=== PATIENT | female | born 1960 | race Two or more races ===

== ENCOUNTER 2020-03-12 08:45 | Outpatient (REF) | payer OTHER, SELFPAY | END 2020-03-12 08:46 | disposition home or self-care (01) | LOC: HO.LAB 08:45 | PROVIDERS: PCP Family Medicine; Visit Provider Internal Medicine | DX: Z20.828 Contact with and (suspected) exposure to other viral communicable diseases (principal) | CPT/HCPCS: C9803; U0003 ==

== ENCOUNTER → 2021-02-02 09:02 | Outpatient (BNVA) | payer OTHER, SELFPAY | PROVIDERS: PCP Family Medicine; Referring Provider Family Medicine; Visit Provider Internal Medicine | DX: I42.1 Obstructive hypertrophic cardiomyopathy (principal); Z86.73 Personal history of transient ischemic attack (TIA), and cerebral infarction without residual deficits; I10 Essential (primary) hypertension; E11.8 Type 2 diabetes mellitus with unspecified complications; F17.200 Nicotine dependence, unspecified, uncomplicated; R94.31 Abnormal electrocardiogram [ECG] [EKG] | CPT/HCPCS: 93005; 99212 ==

== ENCOUNTER 2021-02-21 10:22 | Emergency (ER) | payer OTHER, SELFPAY ==
--- NOTE | ~2021-02-21 | US_ITS ---
EXAMINATION: US DIAGNOSTIC ULTRASOUND BREAST, RIGHT CLINICAL INFORMATION: Right breast pain and tenderness, suspect abscess. Patient in emergency department. COMPARISON: Mammography 06/17/2018. TECHNIQUE: Ultrasound right breast is performed out of the hospital, targeted to the area of clinical concern retroareolar and periareolar region. Grayscale imaging and color Doppler are performed without and with harmonics. Case is discussed with the standards analyst immediately following imaging. FINDINGS: There is abscess involving the areolar dermis and extending deep to the skin with overall dimensions approximately 3.1 x 2.1 x 3.0 cm. On cine images, there is subtle swirling material inside the abscess. The dermis is thickening at site of retroareolar abscess measuring approximately 1 cm in thickness. At the base of the abscess 8:00 periareolar region 1 cm from nipple is an indeterminate strongly hypoechoic spiculated lesion measuring 1.4 x 1.1 x 1.2 cm. This shows no posterior shadowing. It is uncertain if this is part of the abscess or a separate breast lesion. Results called and discussed with Dr. Kim in the emergency department and also discussed with Dr. Dolan at approximately 1217 hours. US/US breast RT limited IMPRESSION: 1. Abscess involving the areolar dermis and extending deep to the skin with overall dimensions 3.1 x 2.1 x 3.0 cm. 2. Irregular hypoechoic mass at base of abscess 8:00 areolar 1 cm from nipple 1.4 x 1.1 x 1.2 cm, possibly part of the abscess although separate breast mass cannot be excluded. ASSESSMENT: BI-RADS 3: Probably Benign RECOMMENDATION: Surgical consult.
[2021-02-21 10:31] VITALS: BP 128/82; PULSE 90; RESP 18; TEMP 36.7; O2SAT 98; BMI 22.8
--- NOTE | 2021-02-21 10:39 | ED_ITS ---
HPI - Skin/Abscess/Foreign Bdy General Chief complaint: General Medical Stated complaint: Lump in breast Time Seen by Provider: 02/21/21 10:38 Source: patient Mode of arrival: ambulatory Limitations: no limitations History of Present Illness MD complaint: abscess/boil and lesion Onset (ago): week(s) (1) Tetanus up to date: yes Location: chest (R breast) Severity: moderate Quality: aching Pain Consistency: constant Relieving factors: none Exacerbating factors: palpation Context: none Associated symptoms: denies other symptoms Treatments prior to arrival: none Related Data Home Medications Medication Instructions Recorded Confirmed albuterol sulfate 90 mcg/actuation 0 mcg INHALATION 02/02/21 02/02/21 aerosol inhaler (Ventolin HFA) allopurinol 100 mg tablet 100 mg PO QAM 02/02/21 02/02/21 amlodipine 10 mg tablet 10 mg PO DAILY 02/02/21 02/02/21 ascorbic acid (vitamin C) 500 mg 500 mg PO BID 02/02/21 02/02/21 tablet (Vitamin C) aspirin 81 mg tablet,delayed 81 mg PO BEDTIME 02/02/21 02/02/21 release atorvastatin 80 mg tablet 80 mg PO BEDTIME 02/02/21 02/02/21 citalopram 10 mg tablet 10 mg PO DAILY 02/02/21 02/02/21 clonazepam 1 mg tablet 1 mg PO TID PRN 02/02/21 02/02/21 dapagliflozin 10 mg tablet 10 mg PO DAILY 02/02/21 02/02/21 (Farxiga) divalproex 500 mg tablet,delayed 1,000 mg PO 02/02/21 02/02/21 release docusate sodium 100 mg capsule 100 mg PO BID 02/02/21 02/02/21 ferrous sulfate 325 mg (65 mg 0 mg PO 02/02/21 02/02/21 iron) tablet (FeroSul) fluticasone 100 mcg-salmeterol 50 1 ea PO 02/02/21 02/02/21 mcg/dose blistr powdr for inhalation glipizide 10 mg tablet 10 mg PO 02/02/21 02/02/21 lancets 33 gauge (TRUEplus Lancets) #100 ea 02/02/21 02/02/21 levothyroxine 200 mcg tablet 200 mcg PO QAM 02/02/21 02/02/21 omeprazole 20 mg capsule,delayed 20 mg PO QAM 02/02/21 02/02/21 release quetiapine 200 mg tablet 200 mg PO BEDTIME 02/02/21 02/02/21 quetiapine 50 mg tablet 50 mg PO BEDTIME 02/02/21 02/02/21 tramadol 50 mg tablet 50 mg PO DAILY PRN 02/02/21 02/02/21 Previous Rx's Medication Instructions Recorded cephalexin 500 mg capsule 500 mg PO QID 7 Days #28 cap 02/21/21 hydrocodone 5 mg-acetaminophen 325 1 tab PO Q6H PRN #12 tab 02/21/21 mg tablet Allergies Allergy/AdvReac Type Severity Reaction Status Date / Time No Known Allergies Allergy Verified 02/21/21 10:31 Review of Systems Review of Systems: Constitutional : No Fever, No Chills ENT/Mouth : No sore throat, No Rhinorrhea Eyes: No Eye Pain, No Swelling, No Redness Cardiovascular : No Chest Pain, No SOB Respiratory : No Cough, No Sputum Gastrointestinal : No Nausea, No Vomiting, No Diarrhea, No abdominal Pain Genitourinary : No Dysuria, No Hematuria Musculoskeletal : No joint pain, No Myalgias, No Joint Swelling Skin : pos Skin Lesions, positive skin rash Neuro : No Weakness, No Numbness, No Headache Psych : No Anxiety, No Depression Heme/Lymph: No Bruising, No Bleeding,No Lymphadenopathy Endocrine : No Polyuria, No Polydipsia All other systems reviewed and are negative PMFSH Past Medical History Attestation statement: The following information was validated with the patient. Medical History Cerebrovascular accident Essential hypertension HOCM (hypertrophic obstructive cardiomyopathy) Smoking Type 2 diabetes mellitus with unspecified complications Surgical History History of thyroidectomy (~2017) Family History Family History (Updated 02/02/21 @ 09:40 by ZEKE Hanson) Father No problems noted. Mother Heart attack Social History Social History Alcohol intake: current Alcohol intake frequency: holidays/special occasions only Patient Tobacco Use Status: Current everyday Tobacco user Tobacco use type: Cigarette Cigarettes Per Day: 7 Use of substances other than those prescribed or required for medical reasons: Yes Substance Use Type: Marijuana Advance Directives: No Advance Directives Information Provided: Yes Patient : No Physical Exam Vital Signs: Vital Signs: Last Vital Signs Temp 98.1 F 02/21/21 10:31 Pulse 90 02/21/21 10:31 Resp 18 02/21/21 10:31 BP 128/82 02/21/21 10:31 Pulse Ox 98 02/21/21 10:31 BMI result Body Mass Index 22.8 Appearance: Alert. Oriented X3. No acute distress. Eyes: Pupils equal, round and reactive to light. ENT: Pharynx normal. Neck: Normal inspection. Neck supple. CVS: Normal heart rate and rhythm. Pulses normal. Chest: R breast cellulitis noted overlying areola and R lateral aspect of breast abscess noted R areola 6 oclock to 10 oclock 5cm fluctuant warm and ttp nipped is retracted Respiratory: No respiratory distress. Breath sounds normal. Abdomen: Soft and nontender. Skin: Skin warm and dry. Normal skin color. Normal skin turgor. Extremities: No lower extremity edema. No calf ttp Neuro: Oriented X 3. No motor deficit. No sensory deficit. Course Course Course Narrative: area I/D by Dr. Dolan at bedside plan to DC on cephalexin MDM - Skin/Abscess/Foreign Bdy MDM Narrative Medical decision making narrative: 60 yo female with CVA, HTN, HOCM, DM here with R breast abscess x 1 week no prior hx of breast cancer - at this time labs, cultures, empiric zosyn - the patient tells me since it involves her nipple she does not want me to I/D the area she prefers a surgeon evaluate her prior to any I/D. Will notify surgery. Lab Data Result diagrams: 02/21/21 11:05 02/21/21 11:05 Labs: Lab Results 02/21/21 02/21/21 02/21/21 Range/Units 11:05 11:05 11:05 WBC 5.9 (4.8-10.8) X10*3/uL RBC 4.41 (4.20-5.50) X10*6/uL Hgb 12.8 (12.0-16.0) g/dl Hct 39.4 (37.0-47.0) % MCV 89.3 (80.0-98.0) fL MCH 29.0 (27.0-33.0) pg MCHC 32.5 (31.0-35.0) g/dl RDW 12.7 (11.0-16.0) % Plt Count 242 (160-400) X10*3/uL MPV 9.5 (9.4-12.3) fL Immature Gran % (Auto) 0.3 (0.0-0.4) % Neut % (Auto) 72.1 (45-73) % Lymph % (Auto) 16.5 L (20-40) % [place] % (Auto) 9.9 (2-11) % Eos % (Auto) 1.0 (0-4) % Baso % (Auto) 0.2 (0-2) % Lymph # (Auto) 1.0 L (1.2-4.9) X10*3/uL [place] # (Auto) 0.6 (0.1-1.2) X10*3/uL Eos # (Auto) 0.1 (0.0-0.4) X10*3/uL Baso # (Auto) 0.0 (0.0-0.2) X10*3/uL Abs Immat Gran (auto) 0.02 (0.00-0.03) X10*3/uL Absolute Neuts (auto) 4.2 (2.0-8.3) x10*3/uL Absolute Nucleated RBC 0.000 (0.0-0.012) X10*3/uL Nucleated RBC % (auto) 0.0 (0.0-0.2) /100WBC Sodium 140 (135-145) mmol/L Potassium 4.1 (3.3-5.1) mmol/L Chloride 103 (96-108) mmol/L Carbon Dioxide 27 (22-29) mmol/L Anion Gap 14 (12-20) BUN 19 H (9-16) mg/dL Creatinine 1.63 H (0.5-1.4) mg/dL Estim Creat Clear Calc 31.6 Estimated GFR 32 Random Glucose 230 H (60-115) mg/dL Lactic Acid 1.2 (0.5-2.0) mmol/L Calcium 9.4 (8.4-10.2) mg/dL Total Bilirubin 0.6 (0.0-1.0) mg/dL Direct Bilirubin 0.2 (0.0-0.5) mg/dL AST 17 (5-31) U/L ALT 17 (0-31) U/L Alkaline Phosphatase 63 (39-117) U/L Total Protein 6.6 (6.5-8.0) g/dL Albumin 4.0 (3.5-5.0) g/dL COVID-19 ([facility]) (Negative) COVID-19 Clin Com 02/21/21 Range/Units 11:05 WBC (4.8-10.8) X10*3/uL RBC (4.20-5.50) X10*6/uL Hgb (12.0-16.0) g/dl Hct (37.0-47.0) % MCV (80.0-98.0) fL MCH (27.0-33.0) pg MCHC (31.0-35.0) g/dl RDW (11.0-16.0) % Plt Count (160-400) X10*3/uL MPV (9.4-12.3) fL Immature Gran % (Auto) (0.0-0.4) % Neut % (Auto) (45-73) % Lymph % (Auto) (20-40) % [place] % (Auto) (2-11) % Eos % (Auto) (0-4) % Baso % (Auto) (0-2) % Lymph # (Auto) (1.2-4.9) X10*3/uL [place] # (Auto) (0.1-1.2) X10*3/uL Eos # (Auto) (0.0-0.4) X10*3/uL Baso # (Auto) (0.0-0.2) X10*3/uL Abs Immat Gran (auto) (0.00-0.03) X10*3/uL Absolute Neuts (auto) (2.0-8.3) x10*3/uL Absolute Nucleated RBC (0.0-0.012) X10*3/uL Nucleated RBC % (auto) (0.0-0.2) /100WBC Sodium (135-145) mmol/L Potassium (3.3-5.1) mmol/L Chloride (96-108) mmol/L Carbon Dioxide (22-29) mmol/L Anion Gap (12-20) BUN (9-16) mg/dL Creatinine (0.5-1.4) mg/dL Estim Creat Clear Calc Estimated GFR Random Glucose (60-115) mg/dL Lactic Acid (0.5-2.0) mmol/L Calcium (8.4-10.2) mg/dL Total Bilirubin (0.0-1.0) mg/dL Direct Bilirubin (0.0-0.5) mg/dL AST (5-31) U/L ALT (0-31) U/L Alkaline Phosphatase (39-117) U/L Total Protein (6.5-8.0) g/dL Albumin (3.5-5.0) g/dL COVID-19 ([facility]) Negative (Negative) COVID-19 Clin Com See Note Discharge Plan Discharge Clinical Impression: Abscess of breast Patient Disposition: Home, Self-Care Instructions: Cellulitis (ED), Abscess Incision and Drainage (DC) Additional Instructions: return to ED for any worsening symptoms or concerns monitor for increased redness, drainage, fevers or any other concerns you will need more testing to rule out any other underlying lesion to cause this abscess 1. Abscess involving the areolar dermis and extending deep to the skin with overall dimensions 3.1 x 2.1 x 3.0 cm. ? 2. Irregular hypoechoic mass at base of abscess 8:00 areolar 1 cm from nipple 1.4 x 1.1 x 1.2 cm, possibly part of the abscess although separate breast mass cannot be excluded Prescriptions: New hydrocodone-acetaminophen 5-325 mg tablet 1 tab PO Q6H PRN (Reason: pain) Qty: 12 RF: 0 cephalexin 500 mg capsule 500 mg PO QID 7 Days Qty: 28 RF: 0 No Action quetiapine 50 mg tablet 50 mg PO BEDTIME RF: 0 divalproex 500 mg tablet,delayed release (DR/EC) 1,000 mg PO RF: 0 clonazepam 1 mg tablet 1 mg PO TID PRNRF: 0 quetiapine 200 mg tablet 200 mg PO BEDTIME RF: 0 citalopram 10 mg tablet 10 mg PO DAILY RF: 0 (DME) lancets [TRUEplus Lancets] 33 gauge misc See Rx Instructions ea Not Applicable TID Qty: 100 RF: 0 fluticasone propion-salmeterol 100-50 mcg/dose blister with device 1 ea PO RF: 0 omeprazole 20 mg capsule,delayed release(DR/EC) 20 mg PO QAM RF: 0 allopurinol 100 mg tablet 100 mg PO QAM RF: 0 Farxiga 10 mg tablet 10 mg PO DAILY RF: 0 tramadol 50 mg tablet 50 mg PO DAILY PRNRF: 0 albuterol sulfate [Ventolin HFA] 90 mcg/actuation HFA aerosol inhaler 0 mcg inhalation RF: 0 levothyroxine 200 mcg tablet 200 mcg PO QAM RF: 0 docusate sodium 100 mg capsule 100 mg PO BID RF: 0 ferrous sulfate [FeroSul] 325 mg (65 mg iron) tablet 0 mg PO RF: 0 amlodipine 10 mg tablet 10 mg PO DAILY RF: 0 ascorbic acid (vitamin C) [Vitamin C] 500 mg tablet 500 mg PO BID RF: 0 aspirin 81 mg tablet,delayed release (DR/EC) 81 mg PO BEDTIME RF: 0 glipizide 10 mg tablet 10 mg PO RF: 0 atorvastatin 80 mg tablet 80 mg PO BEDTIME RF: 0 Referrals: Sascha Dolan MD [Physician] - 2 days (call for appointment this Saturday) Stand Alone Forms: Work/School Release
[2021-02-21 11:15] LABS: MANUAL DIFF FLAG NO
[2021-02-21 11:17] LABS: Basophils Percent Auto 0.2 % (0-2); Eosinophils Absolute Auto 0.1 X10*3/uL (0.0-0.4); Hematocrit 39.4 % (37.0-47.0); Hemoglobin 12.8 g/dl (12.0-16.0); Imm Gran Abs Auto 0.02 X10*3/uL (0.00-0.03); Imm Gran Pct Auto 0.3 % (0.0-0.4); Lymphocytes Percent Auto 16.5 % (20-40); Mean Corpuscular HGB Conc 32.5 g/dl (31.0-35.0); Mean Corpuscular Volume 89.3 fL (80.0-98.0); Mean Platelet Volume 9.5 fL (9.4-12.3); Monocytes Absolute Auto 0.6 X10*3/uL (0.1-1.2); Monocytes Percent Auto 9.9 % (2-11); Neutrophils Absolute Auto 4.2 x10*3/uL (2.0-8.3); Neutrophils Percent Auto 72.1 % (45-73); Platelet Count 242 X10*3/uL (160-400); Red Blood Count 4.41 X10*6/uL (4.20-5.50); Red Cell Distribution Width 12.7 % (11.0-16.0); White Blood Count 5.9 X10*3/uL (4.8-10.8)
[2021-02-21 11:27] LABS: Lactic Acid 1.2 mmol/L (0.5-2.0)
[2021-02-21] MEDS: Piperacillin Sodium/Tazobactam 3.375 GM in 0.9 % Sodium Chloride 50 ML IV (11:31)
[2021-02-21] MEDS: oxyCODONE HCl Immed Release 5 MG TABLET PO (11:31)
[2021-02-21] MEDS: ondansetron HCL 4 MG/2 ML VIAL IVPUSH (11:31)
[2021-02-21 11:33] LABS: Alanine Aminotransferase 17 U/L (0-31); Alkaline Phosphatase 63 U/L (39-117); Anion Gap 14 (12-20); Aspartate Amino Transferase 17 U/L (5-31); Bilirubin Direct 0.2 mg/dL (0.0-0.5); Bilirubin Total 0.6 mg/dL (0.0-1.0); Blood Urea Nitrogen 19 mg/dL (9-16); Calcium 9.4 mg/dL (8.4-10.2); Carbon Dioxide 27 mmol/L (22-29); Chloride 103 mmol/L (96-108); Creatinine Clr Calc Pharmacy 31.6; Estimated Glomerular Filt Rate 32; Glucose Random 230 mg/dL (60-115); Potassium 4.1 mmol/L (3.3-5.1); Sodium 140 mmol/L (135-145); Total Protein 6.6 g/dL (6.5-8.0)
[2021-02-21 12:01] LABS: COVID-19 Test Negative (Negative); IDNOW Serial# 9DD0AD1C
--- NOTE | 2021-02-21 12:39 | P.CONGS_ITS ---
History of Present Illness Consult details Consult date: 02/21/21 Narrative: 60-year-old female patient presenting with complaints of pain in the right nipple. This began several days ago is increasing in severity. She denies a previous history of a similar episode. She denies a previous history of breast problems or breast surgery. Her family history is negative for breast cancer. She denies fever, chills, nausea, vomiting, or nipple discharge. Review of Systems Constitutional: Constitutional: Denies chills, Denies fever(s), Denies headache(s) and Denies poor appetite ENT: Denies dizziness and Denies headache(s) Cardiovascular: Cardiovascular: Denies chest pain, Denies rapid heart rate, Denies palpitations and Denies slow heart rate Respiratory: Respiratory: Denies chest congestion, Denies cough, Denies pain on inspiration and Denies wheezing Gastrointestinal: Gastrointestinal: Denies abdominal pain, Denies bloating, Denies change in stool character, Denies constipation, Denies diarrhea, Denies nausea, Denies vomiting and Denies hematemesis Musculoskeletal: Musculoskeletal: Denies back pain, Denies arthralgias, Denies joint swelling and Denies numbness Integumentary/Breasts: Skin/Breast: Reports breast swelling, Reports breast skin changes, Reports breast pain, Denies change in pigmentation, Denies erythema and Denies rash Neurologic: Denies dizziness, Denies headache(s) and Denies numbness Psychiatric: Psychiatric: Denies anxiety and Denies depression Endocrine: Endocrine: Denies palpitations Hematologic/Lymphatic: Hematologic/Lymphatic: Denies easy bleeding, Denies easy bruising and Denies lymphadenopathy Allergic/Immunologic: Allergic/Immunologic: Denies wheezing PMFSH Past Medical History Medical History Cerebrovascular accident Essential hypertension HOCM (hypertrophic obstructive cardiomyopathy) Smoking Type 2 diabetes mellitus with unspecified complications Family History Family History (Updated 02/02/21 @ 09:40 by ZEKE Hanson) Father No problems noted. Mother Heart attack Surgical History Surgical History History of thyroidectomy (~2017) Social History Social History Alcohol intake: current Alcohol intake frequency: holidays/special occasions only Patient Tobacco Use Status: Current everyday Tobacco user Tobacco use type: Cigarette Cigarettes Per Day: 7 Use of substances other than those prescribed or required for medical reasons: Yes Substance Use Type: Marijuana Advance Directives: No Advance Directives Information Provided: Yes Patient : No Meds Allergies Allergy/AdvReac Type Severity Reaction Status Date / Time No Known Allergies Allergy Verified 02/21/21 10:31 Home Medications Medication Instructions Recorded Confirmed Last Taken Type albuterol sulfate 90 mcg/actuation 0 mcg INHALATION 02/02/21 02/02/21 Unknown History aerosol inhaler (Ventolin HFA) allopurinol 100 mg tablet 100 mg PO QAM 02/02/21 02/02/21 Unknown History amlodipine 10 mg tablet 10 mg PO DAILY 02/02/21 02/02/21 Unknown History ascorbic acid (vitamin C) 500 mg 500 mg PO BID 02/02/21 02/02/21 Unknown History tablet (Vitamin C) aspirin 81 mg tablet,delayed 81 mg PO BEDTIME 02/02/21 02/02/21 Unknown History release atorvastatin 80 mg tablet 80 mg PO BEDTIME 02/02/21 02/02/21 Unknown History citalopram 10 mg tablet 10 mg PO DAILY 02/02/21 02/02/21 Unknown History clonazepam 1 mg tablet 1 mg PO TID PRN 02/02/21 02/02/21 Unknown History dapagliflozin 10 mg tablet 10 mg PO DAILY 02/02/21 02/02/21 Unknown History (Farxiga) divalproex 500 mg tablet,delayed 1,000 mg PO 02/02/21 02/02/21 Unknown History release docusate sodium 100 mg capsule 100 mg PO BID 02/02/21 02/02/21 Unknown History ferrous sulfate 325 mg (65 mg 0 mg PO 02/02/21 02/02/21 Unknown History iron) tablet (FeroSul) fluticasone 100 mcg-salmeterol 50 1 ea PO 02/02/21 02/02/21 Unknown History mcg/dose blistr powdr for inhalation glipizide 10 mg tablet 10 mg PO 02/02/21 02/02/21 Unknown History lancets 33 gauge (TRUEplus Lancets) #100 ea 02/02/21 02/02/21 Unknown History levothyroxine 200 mcg tablet 200 mcg PO QAM 02/02/21 02/02/21 Unknown History omeprazole 20 mg capsule,delayed 20 mg PO QAM 02/02/21 02/02/21 Unknown History release quetiapine 200 mg tablet 200 mg PO BEDTIME 02/02/21 02/02/21 Unknown History quetiapine 50 mg tablet 50 mg PO BEDTIME 02/02/21 02/02/21 Unknown History tramadol 50 mg tablet 50 mg PO DAILY PRN 02/02/21 02/02/21 Unknown History Physical Exam Vital Signs: Vital Signs: Last Vital Signs Temp 98.1 F 02/21/21 10:31 Pulse 90 02/21/21 10:31 Resp 18 02/21/21 10:31 BP 128/82 02/21/21 10:31 Pulse Ox 98 02/21/21 10:31 BMI result Body Mass Index 22.8 Const: General: no acute distress and well developed Nutritional Appearance: well nourished Orientation/consciousness: patient oriented x3 Limitations: no limitations HENMT: Head: Yes normocephalic and Yes atraumatic Ears: hearing grossly normal bilaterally Chest: Other: Right breast with swelling in the nipple-areolar complex at the 8 o'clock position with an obvious area of fluctuance measuring approximately 2- 3 cm in diameter. Site is exquisitely tender to palpation. Findings are suggestive of an abscess within the subcutaneous tissue. Chest/axillae images: 1. Site of abscess right breast Resp: Effort & Inspection: normal respiratory effort, no audible wheezes, no cough and no respiratory distress GI: Inspection: Yes normal to inspection Skin: Other: Right breast cellulitis as noted above Neuro: General: patient oriented x3 Extrem: General: Yes no clubbing, cyanosis or edema Results Labs Result diagrams: 02/21/21 11:05 02/21/21 11:05 Labs: Abnormal lab results 02/21/21 02/21/21 Range/Units 11:05 11:05 Lymph % (Auto) 16.5 L (20-40) % Lymph # (Auto) 1.0 L (1.2-4.9) X10*3/uL BUN 19 H (9-16) mg/dL Creatinine 1.63 H (0.5-1.4) mg/dL Random Glucose 230 H (60-115) mg/dL Short CBC 02/21/21 Range/Units 11:05 WBC 5.9 (4.8-10.8) X10*3/uL Hgb 12.8 (12.0-16.0) g/dl Hct 39.4 (37.0-47.0) % Plt Count 242 (160-400) X10*3/uL BMP 02/21/21 11:05 Sodium 140 Potassium 4.1 Chloride 103 Carbon Dioxide 27 BUN 19 H Creatinine 1.63 H Calcium 9.4 Liver Function 02/21/21 Range/Units 11:05 Total Bilirubin 0.6 (0.0-1.0) mg/dL Direct Bilirubin 0.2 (0.0-0.5) mg/dL AST 17 (5-31) U/L ALT 17 (0-31) U/L Alkaline Phosphatase 63 (39-117) U/L Albumin 4.0 (3.5-5.0) g/dL All other labs normal. Assessment and Plan (1) Acute mastitis of right breast: Status: Acute 60-year-old female patient presenting with mastitis of the right breast involving the right nipple-areolar complex. On examination the patient is found to have an abscess within the skin and subcutaneous tissue. This confirmed on ultrasound as well. I recommended a needle aspiration of the abscess. This was performed at the bedside with production of 3 cc of white purulent material. She tolerated the procedure well and will return to the office later this week for a follow-up examination. She will need follow-up imaging of the breasts once the acute inflammation is resolved. Patient expressed understanding and agrees with the plan. She should be placed on oral antibiotics upon discharge. Procedures Date of Service Date of Service: 02/21/21 Abscess I/D Additional comments: Preoperative diagnosis: Abscess right breast Postoperative diagnosis: Same Procedure: needle aspiration abscess right breast Anesthesia: Local lidocaine 1% plain Indications: Palpable area of fluctuance in the right breast at the nipple- areolar complex. Findings: Abscess right breast Complications: None Procedure details: Patient was placed in a supine position. The site of surgery was confirmed by the patient and informed consent assured. Skin was prepped with Betadine and draped in a sterile fashion. Local anesthesia consisting of 1% lidocaine was infiltrated over the abscess. An 18 gauge needle was then advanced into the abscess and 3 mL of white fluid aspirated. Sterile bandages were applied. The patient tolerated the procedure well was discharged to home in stable condition.
[2021-02-21] MEDS: Lidocaine HCl 1 % MPF 5 ML VIAL SUBCUT (12:56)
== END 2021-02-21 13:07 | disposition home or self-care (01) ==
PROVIDERS: Emergency Provider Emergency Medicine
DX: N61.0 Mastitis without abscess (principal); N61.1 Abscess of the breast and nipple; F17.210 Nicotine dependence, cigarettes, uncomplicated; Z20.822 Contact with and (suspected) exposure to COVID-19; Z71.6 Tobacco abuse counseling; Z79.899 Other long term (current) drug therapy
CPT/HCPCS: 36415; 76642; 80048; 80076; 83605; 85025; 87040; 87635; 96365; 96375; 99284; J2405; J2543

== ENCOUNTER → 2021-02-28 08:30 | Outpatient (BNVA) | payer OTHER, SELFPAY | PROVIDERS: PCP Family Medicine; Referring Provider Family Medicine; Visit Provider Surgery | DX: Z48.817 Encounter for surgical aftercare following surgery on the skin and subcutaneous tissue (principal); N61.0 Mastitis without abscess | CPT/HCPCS: 97597; 99212 ==

== ENCOUNTER → 2021-04-06 09:20 | Outpatient (REF) | payer OTHER, SELFPAY ==
--- NOTE | 2021-04-06 09:24 | CA_ITS ---
Transthoracic Echocardiogram Amended Patient (Last, First, Middle): Sary Valdivia, Gender: Female Date of : 1960 Age: 60 Procedure Date: 04/06/2021 Procedure Type: Transthoracic Echocardiogram Location: OP Height: 162.56 cm Weight: 61.24 kg BSA: 1.66 m2 Heart Rate: bpm BP: 132 / 98 mmHg Blackjack Supervisor: COLETTE Referring MD: Miguel Angel Vann MD Mortgage Processing Clerk: Adalberto Granger MD Symptoms: I42.1 - Obstructive hypertrophic cardiomyopathy Study Quality: Fair ECG Rhythm: Sinus Conclusions: - 1. Normal LV systolic function with grade 1 diastolic dysfunction with moderate asymmetric septal hypertrophy dynamic obstruction 2. Normal cardiac valvular Doppler 3. Normal RV systolic pressure 4. No gross pericardial effusion Findings Left Ventricle Normal left ventricular size, thickness, and systolic function. The visually estimated ejection fraction is between 65-70%. Spectral Doppler is indicative of an impaired relaxation filling pattern. E/E prime ratio is <8, consistent with normal filling pressures. Evidence suggests grade I (mild) diastolic dysfunction. There is moderate septal asymmetric hypertrophy. Resting gradient across LVOT a 12 mm Hg which increased to 26 mmHg with Valsalva maneuver Right Ventricle Normal right ventricular cavity size and systolic function. Atria The left atrium is normal in size. Interatrial shunt cannot be excluded. The right atrium is normal in size. Aortic Valve The aortic valve structure and function is likely normal. There is no aortic valve stenosis. There is no aortic valve regurgitation. Mitral Valve There is mild anterior and posterior mitral leaflet thickening. There is trace mitral valve regurgitation. There is no mitral valve stenosis. Pulmonic Valve The pulmonic valve was not well visualized. Tricuspid Valve Likely normal tricuspid valve structure and function. The right ventricular systolic pressure is normal. Great Vessels All visible segments of the aorta are normal in size. The pulmonary artery was not well visualized. Venous The inferior vena cava is normal in size and collapses greater than 50% with inspiration. Pericardium/Pleural There is no evidence of pericardial effusion. Prior Study Comparison No significant change compared to prior study dated: 02/01/2019. Measurements 2D Linear Measurements IVSd: 1.63 0.6-0.9/0.6-1.0 cm LVIDd: 2.91 3.9-5.3/4.2-5.9 cm LVIDd Index: 1.75 2.4-3.2/2.2-3.1 cm/m2 LVIDs: 2.19 2.0-3.6 cm LVPWd: 1.36 0.7-1.1 cm Ao Root: 3.50 2.1-3.5 cm LA Diam: 3.10 2.7-3.8/3.0-4.0 cm LAIDs Index: 1.87 1.5-2.3 cm/m2 LV Mass: 187.97 67-162/88-224 g LV Mass Index: 113.23 43-95/49-115 g/m2 LVOT Diam: 2.00 3.0+(-)1.3 cm 2D Volumes LA Vol: 21.20 Mitral Valve MV Pk E: 0.39 MV PK A: 0.75 MV Decel Time: 211.00 E/A: 0.50 E'Lateral: 5.33 E'Medial: 3.15 E/E' Med: 12.50 E/E' Lat: 7.40 PHT: 62.00 MVA PHT: 3.55 Decel [place]: 1.87 Aortic Valve AoV Pk Tahir: 1.53 AoV Mn Tahir: 1.17 AoV VTI: 0.28 AoV Pk Grad: 9.00 Aov Mn Grad: 6.00 MIKA Cont.VTI: 3.41 LVOT LVOT Pk Tahir: 1.49 LVOT Mn Tahir: 1.17 LVOT VTI: 0.30 LVOT Pk Grad: 9.00 LVOT Mn Grad: 6.00 LVOT Diam: 2.00 LVOT Area: 3.14 Diastolic Function MV Pk E: 0.39 MV Pk A: 0.75 E/A: 0.50 E'Medial: 3.15 E/E' Med: 12.50 E' Laterial: 5.33 E/E' Lat: 7.40 Right Ventricle TAPSE (mm): 17.50 TVS' Tahir: 9.36 Tricuspid Valve TR Pk Tahir: 1.36 TR Pk Grad: 7.00 RA Press: 3.00 RVSP: 10.00 Great Vessels Aorta Ao Root-2D: 3.50 2.0-3.7 cm Ao Asc: 3.50 2.1-3.4 cm Ao Arch: 2.40 Updated in Other Vendor System with Status of Final Adalberto Granger MD electronically signed on 04/06/2021 2:34:05 PM with status of Final
== END ==
LOC: HO.CARD 09:20
PROVIDERS: Visit Provider Internal Medicine
DX: I42.1 Obstructive hypertrophic cardiomyopathy (principal)
CPT/HCPCS: 93306

== ENCOUNTER → 2021-04-10 09:27 | Outpatient (REF) | payer OTHER, SELFPAY ==
--- NOTE | ~2021-04-10 | NM_ITS ---
Lexiscan Myocardial perfusion study Indication: Chest pain, assess for coronary disease and ischemia Technique: The patient was brought in for a Lexiscan perfusion study on 04/10/2021 and was injected 0.4 mg of Lexiscan intravenously. Within a minute of this injection 20 mCi of sestamibi was given intravenously. Images were obtained using the SPECT gamma camera interlaced with the gating device. Images were obtained in supine position. Resting perfusion study was performed on 04/12/2021. Patient was administered 25 mCi of sestamibi intravenously at rest. Images were then obtained in supine position. Total DLP 81mGy-cm. Images were processed with the software and compared side to side in short axis, horizontal long axis and vertical long axis views. Findings: Raw acquisition was reviewed. The stress perfusion study showed no significant perfusion abnormality. Both uncorrected as well as CT attenuation corrected images were reviewed. The gated study shows normal LV systolic function with calculated LVEF of 36% but visually normal range. LV cavity is normal in size. The gated study shows normal wall thickening and contraction of segments. Resting study shows no significant perfusion abnormality. Gating at rest reveals normal wall motion with ejection fraction at 30%-but visually normal. The findings are consistent with no definite reversible or fixed perfusion defects. NM/NM cardiolite stress test Impression: 1. Myocardial perfusion imaging study shows normal myocardial perfusion. 2. Gated LVEF appears normal visually, but calculated EFs are in 30s. Could be technical. 3. Transient ischemic dilatation not present. EKG component of the test reported separately.
--- NOTE | 2021-04-10 09:30 | CA_ITS ---
Acquisition Time: 2021-04-10 10:46:15 Total Exercise Time: 00:02:52 Test Indications: Abnormal ECG Medications: ALBUTEROL ALLOPURINOL ASA AMLODIPINE CITALOPRAM FAXIGA LEVOTHYROXINE GLIPIZIDE OMEPRAZOLE ATORVASTATIN Protocol: LING Max HR: 146 BPM 91% of Pred: 160 BPM Max BP: 120/080 mmHG Max Work Load: 4.6 METS Exercise stress test with exercise 2 min 52 sec of Ling protocol, with mod sob and fatigue. Treadmill slowed to 1 MPH and testing changed to a pharmacological stress test with Lexiscan injection, without anginal symtoms, without arrythmia, with normotensive response to injection, with nondiagnostic EKG for ischemia. Nuclear images pending. Test reviewed with Dr Granger. Referred By: Miguel Angel Vann Overread By: JUDAH LE
== END ==
LOC: HO.CARD 09:27
PROVIDERS: Visit Provider Internal Medicine
DX: R07.2 Precordial pain (principal); I42.1 Obstructive hypertrophic cardiomyopathy
CPT/HCPCS: 78452; 93017; A9500; J0280; J2785

== ENCOUNTER → 2021-04-25 09:12 | Outpatient (BNVA) | payer OTHER, SELFPAY | PROVIDERS: PCP Internal Medicine Transplant Hepatology; Visit Provider Surgery | DX: T81.30XA Disruption of wound, unspecified, initial encounter (principal) | CPT/HCPCS: 99212 ==

== ENCOUNTER → 2021-05-23 09:31 | Outpatient (BNVA) | payer OTHER, SELFPAY | PROVIDERS: PCP Internal Medicine Transplant Hepatology; Visit Provider Surgery | DX: N61.0 Mastitis without abscess (principal) | CPT/HCPCS: 99212 ==

== ENCOUNTER 2021-06-08 14:15 | Outpatient (REF) | payer OTHER, SELFPAY ==
--- NOTE | ~2021-06-08 | US_ITS ---
EXAMINATION: US DIAGNOSTIC ULTRASOUND BREAST, RIGHT CLINICAL INFORMATION: Ascites without abscess. COMPARISON: Mammography of same day and ultrasound of February 21, 2021. TECHNIQUE: Ultrasound of the breast is performed with real-time gordon scale imaging and color Doppler. FINDINGS: Targeted right breast ultrasound performed and compared to prior study of February 21, 2021. In the retroareolar region approximately 7 to 11:00 position there is still noted to be some skin thickening with an approximately 9 mm lesion with hypoechoic outer portion and hyperechoic inner portion with some increased through sound transmission and question of some moving debris within this structure. This is less prominent than previous ultrasound examination of February 21, 2021. There is some edematous change within the adjacent parenchyma but improved compared to previous study. The spiculated mass seen on prior study is not as well demonstrated but some of this may be related to edge artifact obstructing its evaluation. If it is present it has improved in size compared to previous study. No internal vascularity is appreciated. No significant hyperemia is noted. Results are discussed with the patient at time of visit. US/US breast RT limited IMPRESSION: Improved appearance of retroareolar disease of the right breast as described. There is some residual abnormality present. Continued clinical follow-up suggested. ASSESSMENT: BI-RADS 3: Probably Benign RECOMMENDATION: 1. Patient should be managed based on the clinical impression.
--- NOTE | ~2021-06-08 | MM_ITS ---
EXAMINATION: MM DIAGNOSTIC DIGITAL MAMMOGRAPHY, BILATERAL Targeted right breast ultrasound. CLINICAL INFORMATION: Redness and open wound right breast. Mastitis without abscess. The lifetime risk of breast cancer based on the Tyrer-Cuzick Model is 5%. COMPARISON: Mammography: Ultrasound of February 21, 2021 and studies dating back to January 12, 2013 TECHNIQUE: Digital mammography is performed in craniocaudal and mediolateral oblique views along with computer-aided detection (CAD). Targeted right breast ultrasound FINDINGS: The breasts are heterogeneously dense, which may obscure small masses (ACR BI-RADS breast composition Category c). Stable densities noted about the upper outer aspect of the right breast. A bandage is in place on the right breast. There is a region of distortion seen in the retroareolar region of the right breast. No suspicious calcifications are identified. There is stable appearance of the left breast without new abnormal dominant mass or suspicious grouping of microcalcifications identified. Targeted right breast ultrasound performed and compared to prior study of February 21, 2021. In the retroareolar region approximately 7 to 11 o'clock position there is still noted to be some skin thickening with an approximately 9 mm lesion with hypoechoic outer portion and hyperechoic inner portion with some increased through sound transmission and question of some moving debris within this structure. This is less prominent than previous ultrasound examination of February 21, 2021. There is some edematous change within the adjacent parenchyma but improved compared to previous study. The spiculated mass seen on prior study is not as well demonstrated but some of this may be related to edge artifact obstructing its evaluation. If it is present it has improved in size compared to previous study. No internal vascularity is appreciated. No significant hyperemia is noted. Results are discussed with the patient at time of visit. MM/MM diagnostic mammo BI IMPRESSION: Improved appearance of retroareolar disease of the right breast as described. There is some residual abnormality present. Continued clinical follow-up suggested. ASSESSMENT: BI-RADS 3: Probably Benign RECOMMENDATION: 1. Patient should be managed based on the clinical impression. This patient's information was entered into a reminder system with a target due date for their next mammogram.
== END 2021-06-08 14:16 | disposition home or self-care (01) ==
LOC: HO.MAMMO 14:15
PROVIDERS: PCP Family Medicine; Visit Provider Surgery
DX: N61.0 Mastitis without abscess (principal)
CPT/HCPCS: 76642; 77066

== ENCOUNTER → 2021-06-13 08:33 | Outpatient (BNVA) | payer OTHER, SELFPAY | PROVIDERS: PCP Family Medicine; Referring Provider Family Medicine; Visit Provider Surgery | DX: N61.0 Mastitis without abscess (principal) | CPT/HCPCS: 99212 ==

== ENCOUNTER → 2021-07-11 08:05 | Outpatient (BNVA) | payer OTHER, SELFPAY | PROVIDERS: PCP Family Medicine; Referring Provider Family Medicine; Visit Provider Nurse Practitioner Family | DX: Z01.818 Encounter for other preprocedural examination (principal) | CPT/HCPCS: 99202 ==

== ENCOUNTER → 2021-07-13 14:05 | Outpatient (BNVA) | payer OTHER, SELFPAY | PROVIDERS: PCP Family Medicine; Referring Provider Family Medicine; Visit Provider Surgery | DX: N61.1 Abscess of the breast and nipple (principal) | CPT/HCPCS: 99212 ==

== ENCOUNTER 2021-07-26 06:13 | Day surgery (SDC) | payer OTHER, SELFPAY ==
--- NOTE | 2021-07-25 10:54 | HO.ANESPROP2 ---
Documented by User: Chely Quintero NP 07/25/21 11:00 HPI - Anesthesia Eval Consult details Narrative: 61yo F for Right I&D Breast Abscess 07/16/21 Cardiac Addendum: Echocardiogram with LVEF 65-70%; moderate asymmetric LVH, gradient across the LVOT. Myocardial perfusion imaging with normal perfusion. May proceed with colonoscopy. Low to intermediate cardiac risk. Avoid dehydration which can increase outflow tract gradients. PMFSH Active Problems Active Problems: All Active Problems (Updated 02/22/21 @ 00:02 by Background Arya) Acute mastitis of right breast (Acute) Abnormal EKG (Acute) Smoking (Acute) Type 2 diabetes mellitus with unspecified complications (Acute) HOCM (hypertrophic obstructive cardiomyopathy) (Acute) Essential hypertension (Acute) Cerebrovascular accident (Acute) Past Medical History Medical History Asthma Cerebrovascular accident Essential hypertension HOCM (hypertrophic obstructive cardiomyopathy) Smoking Thyroid disease Type 2 diabetes mellitus with unspecified complications Family History Family History Father No problems noted. Mother Heart attack Surgical History Surgical History History of thyroidectomy (~2017) Hx of tubal ligation Social History Social History Alcohol intake: current Alcohol intake frequency: holidays/special occasions only Patient Tobacco Use Status: Current everyday Tobacco user Tobacco use type: Cigarette Cigarettes Per Day: 5 Use of substances other than those prescribed or required for medical reasons: Yes Substance Use Type: Marijuana Substance Use Frequency: Daily Are you DNR?: No Advance Directives: No Advance Directives Information Provided: Yes Meds Allergies Allergy/AdvReac Type Severity Reaction Status Date / Time No Known Allergies Allergy Verified 07/13/21 14:20 Home Medications Medication Instructions Recorded Confirmed Last Taken Type albuterol sulfate 90 mcg/actuation 0 mcg INHALATION 02/02/21 07/13/21 Unknown History aerosol inhaler (Ventolin HFA) allopurinol 100 mg tablet 100 mg PO QAM 02/02/21 07/13/21 Unknown History amlodipine 10 mg tablet 10 mg PO DAILY 02/02/21 07/13/21 Unknown History ascorbic acid (vitamin C) 500 mg 500 mg PO BID 02/02/21 07/13/21 Unknown History tablet (Vitamin C) aspirin 81 mg tablet,delayed 81 mg PO BEDTIME 02/02/21 07/13/21 Unknown History release atorvastatin 80 mg tablet 80 mg PO BEDTIME 02/02/21 07/13/21 Unknown History citalopram 10 mg tablet 10 mg PO DAILY 02/02/21 07/13/21 Unknown History clonazepam 1 mg tablet 1 mg PO TID PRN 02/02/21 07/13/21 Unknown History dapagliflozin 10 mg tablet 10 mg PO DAILY 02/02/21 07/13/21 Unknown History (Farxiga) divalproex 500 mg tablet,delayed 1,000 mg PO 02/02/21 07/13/21 Unknown History release docusate sodium 100 mg capsule 100 mg PO BID 02/02/21 07/13/21 Unknown History ferrous sulfate 325 mg (65 mg 0 mg PO 02/02/21 07/13/21 Unknown History iron) tablet (FeroSul) fluticasone 100 mcg-salmeterol 50 1 ea PO 02/02/21 07/13/21 Unknown History mcg/dose blistr powdr for inhalation glipizide 10 mg tablet 10 mg PO 02/02/21 07/13/21 Unknown History lancets 33 gauge (TRUEplus Lancets) #100 ea 02/02/21 07/13/21 Unknown History levothyroxine 200 mcg tablet 200 mcg PO QAM 02/02/21 07/13/21 Unknown History omeprazole 20 mg capsule,delayed 20 mg PO QAM 02/02/21 07/13/21 Unknown History release quetiapine 200 mg tablet 200 mg PO BEDTIME 02/02/21 07/13/21 Unknown History quetiapine 50 mg tablet 50 mg PO BEDTIME 02/02/21 07/13/21 Unknown History blood sugar diagnostic (FreeStyle #10 ea 07/13/21 07/13/21 Unknown History Lite Strips) Exam Exam Date and Time: July 25, 2021 1054 Pertinent Lab Results Pertinent Lab Results: Laboratory Tests 02/21/21 02/21/21 11:05 11:05 WBC 5.9 Hgb 12.8 Hct 39.4 Plt Count 242 Sodium 140 Potassium 4.1 Chloride 103 Carbon Dioxide 27 BUN 19 H Creatinine 1.63 H Narrative Narrative: EKG 01/2021 sinus rhythm at 83/Min; left ventricular hypertrophy with repolarization changes; right atrial enlargement. ECHO 03/2021 Conclusions: -? 1.? Normal LV systolic function with grade 1 diastolic? dysfunction with moderate asymmetric septal hypertrophy dynamic? obstruction? 2. Normal cardiac valvular Doppler ? 3.? Normal RV systolic pressure? 4. No gross pericardial effusion ? ? ? /NM cardiolite stress test 03/2021 Impression: ? 1.? Myocardial perfusion imaging study shows normal myocardial perfusion. 2.? Gated LVEF appears normal visually, but calculated EFs are in 30s. Could be technical. 3. Transient ischemic dilatation not present. ? EKG component of the test reported separately. Assessment and Plan Assessment Anesthesia Assessment: Chart Reviewed Documented by User: Tari Byrnes MD 07/26/21 07:56 REPLACED BY [facility] Active Problems Active Problems: All Active Problems (Updated 02/22/21 @ 00:02 by Background Daemon) Acute mastitis of right breast (Acute) Abnormal EKG (Acute) Smoking (Acute) Type 2 diabetes mellitus with unspecified complications (Acute) HOCM (hypertrophic obstructive cardiomyopathy) (Acute) Essential hypertension (Acute) Cerebrovascular accident (Acute) with visual loss Past Medical History Medical History Asthma Cerebrovascular accident Essential hypertension HOCM (hypertrophic obstructive cardiomyopathy) Smoking Thyroid disease Type 2 diabetes mellitus with unspecified complications Family History Family History Father No problems noted. Mother Heart attack Family history of problems with anesthesia: No Surgical History Surgical History History of thyroidectomy (~2017) Hx of tubal ligation History of Problems with Anesthesia: No Social History Social History Alcohol intake: current Alcohol intake frequency: holidays/special occasions only Patient Tobacco Use Status: Current everyday Tobacco user Tobacco use type: Cigarette Cigarettes Per Day: 5 Use of substances other than those prescribed or required for medical reasons: Yes Substance Use Type: Marijuana Substance Use Frequency: Daily Are you DNR?: No Advance Directives: No Advance Directives Information Provided: Yes Meds Allergies Allergy/AdvReac Type Severity Reaction Status Date / Time No Known Allergies Allergy Verified 07/13/21 14:20 Home Medications Medication Instructions Recorded Confirmed Last Taken Type albuterol sulfate 90 mcg/actuation 0 mcg INHALATION 02/02/21 07/13/21 Unknown History aerosol inhaler (Ventolin HFA) allopurinol 100 mg tablet 100 mg PO QAM 02/02/21 07/13/21 Unknown History amlodipine 10 mg tablet 10 mg PO DAILY 02/02/21 07/13/21 Unknown History ascorbic acid (vitamin C) 500 mg 500 mg PO BID 02/02/21 07/13/21 Unknown History tablet (Vitamin C) aspirin 81 mg tablet,delayed 81 mg PO BEDTIME 02/02/21 07/13/21 Unknown History release atorvastatin 80 mg tablet 80 mg PO BEDTIME 02/02/21 07/13/21 Unknown History citalopram 10 mg tablet 10 mg PO DAILY 02/02/21 07/13/21 Unknown History clonazepam 1 mg tablet 1 mg PO TID PRN 02/02/21 07/13/21 Unknown History dapagliflozin 10 mg tablet 10 mg PO DAILY 02/02/21 07/13/21 Unknown History (Farxiga) divalproex 500 mg tablet,delayed 1,000 mg PO 02/02/21 07/13/21 Unknown History release docusate sodium 100 mg capsule 100 mg PO BID 02/02/21 07/13/21 Unknown History ferrous sulfate 325 mg (65 mg 0 mg PO 02/02/21 07/13/21 Unknown History iron) tablet (FeroSul) fluticasone 100 mcg-salmeterol 50 1 ea PO 02/02/21 07/13/21 Unknown History mcg/dose blistr powdr for inhalation glipizide 10 mg tablet 10 mg PO 02/02/21 07/13/21 Unknown History lancets 33 gauge (TRUEplus Lancets) #100 ea 02/02/21 07/13/21 Unknown History levothyroxine 200 mcg tablet 200 mcg PO QAM 02/02/21 07/13/21 Unknown History omeprazole 20 mg capsule,delayed 20 mg PO QAM 02/02/21 07/13/21 Unknown History release quetiapine 200 mg tablet 200 mg PO BEDTIME 02/02/21 07/13/21 Unknown History quetiapine 50 mg tablet 50 mg PO BEDTIME 02/02/21 07/13/21 Unknown History blood sugar diagnostic (FreeStyle #10 ea 07/13/21 07/13/21 Unknown History Lite Strips) Exam Height,Weight and Vital Signs: Height 5 ft 4 in Weight 58.967 kg Vital Signs Temp Pulse Resp BP Pulse Ox 07/26/21 06:33 97.4 F 71 16 128/78 99 Pertinent Lab Results Pertinent Lab Results: Laboratory Tests 02/21/21 02/21/21 11:05 11:05 WBC 5.9 Hgb 12.8 Hct 39.4 Plt Count 242 Sodium 140 Potassium 4.1 Chloride 103 Carbon Dioxide 27 BUN 19 H Creatinine 1.63 H Lab Results 07/26/21 Range/Units 06:32 POC Glucose 141 H (60-115) mg/dL Airway Mallampati Class: II TM Dist: >3cm Neck ROM: Full Denture: Lower Partial: Upper Heart: RRR + ?murmur Lungs: CTAB. No wheezes Assessment and Plan Assessment Anesthesia Assessment: Anesthesia Plan Discussed Final Anesthetic Review Family History of Problems with Anesthesia: No History of Problems with Anesthesia: No NPO: Yes ASA Class: III Final Preanesthetic Review: No Changes in Pt Med Stat, Meds/Allgs Chart Reviewed, Consent Obtained/Reviewed and Anes Risks/Benef Reviewed Patient Risk: Intermediate Procedure Risk: Low Assessment/Block/Sedation in SS: Assess/Block/Sedation-SS Anesthetic Plan Anesthetic Plan: GA Disposition: Standard PACU
[2021-07-26] VITALS (13 sets, daily range): BP systolic 126–187; BP diastolic 75–112; PULSE 66–86; RESP 14–20; TEMP 36.1–36.6; O2SAT 96–100; BMI 22.3
[2021-07-26 06:37] LABS: Glucose, Whole Blood 141 mg/dL (60-115)
[2021-07-26] MEDS: Lactated Ringers 1,000 ML 100 ML IVCONT (07:01)
--- NOTE | 2021-07-26 07:22 | MHC.SHP ---
Pre-Procedural Eval Section A Date of Service: 07/26/21 The patient is an INPATIENT: No Changes since office visit: Yes Patient answered all questions; No Cold of Flu in the past 2 weeks, No New Medical Problems and No Changes in Medication The History & Physical has been completed within 30 days and I have reviewed it.: Yes Section B Chief Complaint: Mastitis without abscess Allergies: Allergies Allergy/AdvReac Type Severity Reaction Status Date / Time No Known Allergies Allergy Verified 07/13/21 14:20 Plan Diagnosis/Plan: Unchanged I have reviewed the history and physical and performed a pertinent physical examination on my patient. No changes have occurred unless specified.
--- NOTE | 2021-07-26 07:30 | P.OP_ITS ---
Operative Note Operative Note Date of Service: 07/26/21 Narrative: Preoperative diagnosis: Chronic abscess right breast Postoperative diagnosis: Same Procedure: I and D, excision of chronic abscess right breast Surgeon: Sascha Dolan MD Supervisor Sound Technician: Blanca Hagen PA-C Anesthesia: General LMA Indications for procedure: Right breast with persistent draining lactiferous duct from the lateral portion of the right nipple-areolar complex. Operative findings: No definite purulence collection but a large area of inflammatory tissue extending below the nipple suggestive of infected lactiferous duct. Specimen: Right breast abscess Estimated blood loss: 5 mL Complications: None Procedure details: Patient was brought to the OR placed in a supine position. After administering general anesthesia the patient's right breast was prepped with Betadine and draped in a sterile fashion. A surgical time-out was called and the consent confirmed. Patient received preoperative antibiotics and Venodyne boots were in place. Local anesthesia consisting of 0.25% Sensorcaine was infiltrated circumferentially around the area inflammation in the right breast at approximately the 9 o'clock position. An elliptical incision at the margin of the nipple-areolar complex to include the draining abscess was then performed using a 15 blade. This carried out through subcutaneous tissue. Dissection was continued around the inflammatory collection extending up below the nipple areola to include the central nipple lactiferous ducts. Dissection was continued posteriorly around the inflammatory mass in the entire lesion excised. Cultures of the purulent fluid were sent to microbiology. Wounds were then irrigated with saline solution mixed with Betadine. Deep breast tissue was reapproximated using interrupted 3-0 Polysorb sutures. Superficial breast tissue and dermis were reapproximated using interrupted 3-0 Polysorb sutures. Skin was closed using a running subcuticular 4-0 Polysorb suture. Steri-Strips 2 x 2 gauze and Tegaderm were then applied. The patient tolerated the procedure well. Sponge, instrument, needle counts reported as correct. The patient was transferred to PACU in stable condition.
[2021-07-26] MEDS: fentaNYL citrate/PF 100 MCG/2 ML VIAL 25 MCG IVPUSH ×4 (09:06→09:34)
[2021-07-26] MEDS: Acetaminophen 325 MG TABLET 650 MG PO (09:19)
[2021-07-26] MEDS: oxyCODONE HCl Immed Release 5 MG TABLET PO (09:20)
== END 2021-07-26 10:35 | disposition home or self-care (01) ==
PROVIDERS: PCP Family Medicine; Visit Provider Surgery
PROC: (CPT 19120; principal; 2021-07-26 07:30)
DX: N61.1 Abscess of the breast and nipple (principal); I10 Essential (primary) hypertension; I42.1 Obstructive hypertrophic cardiomyopathy; E11.9 Type 2 diabetes mellitus without complications; Z79.84 Long term (current) use of oral hypoglycemic drugs; Z79.82 Long term (current) use of aspirin; Z79.899 Other long term (current) drug therapy; Z86.73 Personal history of transient ischemic attack (TIA), and cerebral infarction without residual deficits; F17.210 Nicotine dependence, cigarettes, uncomplicated; F12.90 Cannabis use, unspecified, uncomplicated
CPT/HCPCS: 19120; 82947; 87071; 87077; 87186; 87205; 88305; 88307; J0690; J1100; J2250; J2370; J2405; J3010

== ENCOUNTER → 2021-08-04 10:02 | Outpatient (BNVA) | payer OTHER, SELFPAY | PROVIDERS: PCP Family Medicine; Referring Provider Family Medicine; Visit Provider Surgery | DX: Z48.817 Encounter for surgical aftercare following surgery on the skin and subcutaneous tissue (principal); Z87.2 Personal history of diseases of the skin and subcutaneous tissue | CPT/HCPCS: 99212 ==

== ENCOUNTER → 2021-08-10 08:53 | Outpatient (BNVA) | payer OTHER, SELFPAY | PROVIDERS: PCP Family Medicine; Visit Provider Surgery | DX: N61.1 Abscess of the breast and nipple (principal); N61.0 Mastitis without abscess | CPT/HCPCS: 99212 ==

== ENCOUNTER → 2021-08-17 08:43 | Outpatient (BNVA) | payer OTHER, SELFPAY | PROVIDERS: PCP Family Medicine; Referring Provider Family Medicine; Visit Provider Surgery | DX: Z48.89 Encounter for other specified surgical aftercare (principal); N61.0 Mastitis without abscess | CPT/HCPCS: 99212 ==

== ENCOUNTER → 2021-11-03 09:27 | Day surgery (SDC) | payer OTHER, SELFPAY ==
[2021-10-30 11:16] VITALS: BMI 21.1
--- NOTE | 2021-11-02 10:17 | HO.ANESPROP2 ---
HPI - Anesthesia Eval Consult details Narrative: CX'd DOS d/t no prep 61yo F for Colonoscopy s/p breast I&D 07/2021 with GA-LMA 4 07/16/21 Cardiac Addendum: Echocardiogram with LVEF 65-70%; moderate asymmetric LVH, gradient across the LVOT. Myocardial perfusion imaging with normal perfusion. May proceed with colonoscopy. Low to intermediate cardiac risk. Avoid dehydration which can increase outflow tract gradients. PMFSH Active Problems Active Problems: All Active Problems (Updated 07/26/21 @ 06:28 by Liliana Martin RN) Abnormal EKG (Acute) Acute mastitis of right breast (Acute) Smoking (Acute) Type 2 diabetes mellitus with unspecified complications (Acute) HOCM (hypertrophic obstructive cardiomyopathy) (Acute) Essential hypertension (Acute) Cerebrovascular accident (Acute) Past Medical History Medical History Asthma Cerebrovascular accident Essential hypertension HOCM (hypertrophic obstructive cardiomyopathy) Smoking Thyroid disease Type 2 diabetes mellitus with unspecified complications Family History Family History Father No problems noted. Mother Heart attack Family history of problems with anesthesia: No Surgical History Surgical History (Updated 10/30/21 @ 11:05 by Nithya Kirby RN) History of incision and drainage History of thyroidectomy (~2016) Hx of tubal ligation History of Problems with Anesthesia: No Social History Social History Alcohol intake: current Alcohol intake frequency: holidays/special occasions only Patient Tobacco Use Status: Current everyday Tobacco user Tobacco use type: Cigarette Cigarettes Per Day: 3 Second Hand Smoke Exposure: No Substance Use Type: Marijuana Meds Allergies Allergy/AdvReac Type Severity Reaction Status Date / Time No Known Allergies Allergy Verified 08/31/21 10:21 Home Medications Medication Instructions Recorded Confirmed Last Taken Type albuterol sulfate 90 mcg/actuation 0 mcg inhalation 02/02/21 08/17/21 Unknown History aerosol inhaler (Ventolin HFA) allopurinol 100 mg tablet 100 mg PO QAM 02/02/21 08/17/21 Unknown History amlodipine 10 mg tablet 10 mg PO DAILY 02/02/21 08/17/21 11/03/21 History ascorbic acid (vitamin C) 500 mg 500 mg PO BID 02/02/21 08/17/21 Unknown History tablet (Vitamin C) aspirin 81 mg tablet,delayed 81 mg PO BEDTIME 02/02/21 08/17/21 Unknown History release atorvastatin 80 mg tablet 80 mg PO BEDTIME 02/02/21 08/17/21 Unknown History citalopram 10 mg tablet 10 mg PO DAILY 02/02/21 08/17/21 11/03/21 History clonazepam 1 mg tablet 1 mg PO TID PRN 02/02/21 08/17/21 Unknown History dapagliflozin 10 mg tablet 10 mg PO DAILY 02/02/21 08/17/21 Unknown History (Farxiga) divalproex 500 mg tablet,delayed 1,000 mg PO 02/02/21 08/17/21 11/03/21 History release docusate sodium 100 mg capsule 100 mg PO BID 02/02/21 08/17/21 Unknown History ferrous sulfate 325 mg (65 mg 0 mg PO 02/02/21 08/17/21 Unknown History iron) tablet (FeroSul) fluticasone 100 mcg-salmeterol 50 1 ea PO 02/02/21 08/17/21 Unknown History mcg/dose blistr powdr for inhalation glipizide 10 mg tablet 10 mg PO 02/02/21 08/17/21 Unknown History lancets 33 gauge (TRUEplus Lancets) #100 ea 02/02/21 08/17/21 Unknown History levothyroxine 200 mcg tablet 200 mcg PO QAM 02/02/21 08/17/21 11/03/21 History omeprazole 20 mg capsule,delayed 20 mg PO QAM 02/02/21 08/17/21 Unknown History release quetiapine 200 mg tablet 200 mg PO BEDTIME 02/02/21 08/04/21 Unknown History quetiapine 50 mg tablet 50 mg PO BEDTIME 02/02/21 08/17/21 Unknown History blood sugar diagnostic (FreeStyle #10 ea 07/13/21 08/17/21 Unknown History Lite Strips) quetiapine 100 mg tablet 100 mg PO BEDTIME 08/17/21 08/17/21 Unknown History Exam Exam Date and Time: November 02, 2021 1017 Height,Weight and Vital Signs: Height 5 ft 4 in Weight 55.792 kg Pertinent Lab Results Pertinent Lab Results: Laboratory Tests 02/21/21 02/21/21 11:05 11:05 WBC 5.9 Hgb 12.8 Hct 39.4 Plt Count 242 Sodium 140 Potassium 4.1 Chloride 103 Carbon Dioxide 27 BUN 19 H Creatinine 1.63 H Narrative Narrative: EKG 01/2021 sinus rhythm at 83/Min; left ventricular hypertrophy with repolarization changes; right atrial enlargement. ECHO 03/2021 Conclusions: -? 1.? Normal LV systolic function with grade 1 diastolic? dysfunction with moderate asymmetric septal hypertrophy dynamic? obstruction? 2. Normal cardiac valvular Doppler ? 3.? Normal RV systolic pressure? 4. No gross pericardial effusion ? ? ? /NM cardiolite stress test 03/2021 Impression: ? 1.? Myocardial perfusion imaging study shows normal myocardial perfusion. 2.? Gated LVEF appears normal visually, but calculated EFs are in 30s. Could be technical. 3. Transient ischemic dilatation not present. ? EKG component of the test reported separately. Assessment and Plan Assessment Anesthesia Assessment: Chart Reviewed Final Anesthetic Review Family History of Problems with Anesthesia: No History of Problems with Anesthesia: No
== END ==
PROVIDERS: PCP Family Medicine; Visit Provider Internal Medicine Gastroenterology
DX: Z12.11 Encounter for screening for malignant neoplasm of colon (principal); Z53.8 Procedure and treatment not carried out for other reasons; Z91.19 Patient's noncompliance with other medical treatment and regimen

== ENCOUNTER → 2021-11-28 15:13 | Outpatient (BNVA) | payer OTHER, SELFPAY | PROVIDERS: PCP Family Medicine; Visit Provider Surgery | DX: N61.0 Mastitis without abscess (principal) | CPT/HCPCS: 99212 ==

== ENCOUNTER 2022-05-11 13:30 | Outpatient (REF) | payer OTHER, SELFPAY ==
--- NOTE | ~2022-05-11 | CT_ITS ---
EXAMINATION: CT CHEST SCREENING CLINICAL INFORMATION: Nicotine dependence. Current smoker with one pack per day for 49 years. COMPARISON: CT chest 06/22/2016. TECHNIQUE: Multidetector volumetric CT imaging of the chest is performed without contrast using low dose technique. Additional 2D coronal and sagittal reformatted images and axial 3D maximum intensity projection (MIP) images are generated on the CT workstation. This CT examination was performed using dose optimization techniques as appropriate, variously including the following: *Automated exposure control *Adjustment of mA and/or kV according to patient size (this includes techniques or standardized protocols for targeted exams where dose is matched to indication/reason for exam; i.e. extremities or head) *Use of iterative reconstruction technique DLP: 39 mGy-cm FINDINGS: LUNGS: The lungs are mildly hyperinflated but no acute pneumonic process seen. There is 8 mm nodule with central cavity measuring 8mm right lower lobe adjacent to the major fissure and on top of right hemidiaphragm axial image 42/4. There are additional pulmonary nodules. A 3 mm nodule left upper lobe adjacent to major fissure axial image 12/4, 3 mm nodule left lower lobe axial image 26/4, 2 mm nodule peripherally based right middle lobe axial image 281/6. These nodules are better visualized on 8 mm thick axial images. There are small subcentimeter nodules in both lower lobes as well, stable. Small right upper lobe cyst is stable. MEDIASTINUM: Heart size and the great vessels are normal caliber. No pericardial effusion. Thyroid lobes are not seen likely surgically removed. Central trachea and the bronchi are widely patent. No abnormal size mediastinal or hilar lymph nodes. CORONARY ARTERY CALCIFICATION: None. PLEURA: There is no pleural effusion. No pleural mass or thickening. AXILLA: Small shotty bilateral axillary lymph nodes. The chest wall is unremarkable. UPPER ABDOMEN: Visualized liver, spleen, pancreas and bilateral adrenal glands unremarkable. OSSEOUS STRUCTURES: No aggressive lytic or sclerotic process seen. CT/CT lung screening IMPRESSION: Hyperinflated lungs with stable pulmonary nodules. No major change since 06/25/2016. ASSESSMENT: Lung-RADS category 2. RECOMMENDATION: Low-dose annual CT chest.
== END 2022-05-11 13:31 | disposition home or self-care (01) ==
LOC: HO.CT 13:30
PROVIDERS: PCP Family Medicine; Visit Provider Physician Assistant Medical
DX: Z12.2 Encounter for screening for malignant neoplasm of respiratory organs (principal); F17.210 Nicotine dependence, cigarettes, uncomplicated
CPT/HCPCS: 71271; G0296

== ENCOUNTER 2022-06-21 11:22 | Inpatient (IN) | payer OTHER, SELFPAY ==
--- NOTE | 2022-06-21 | EEG_ITS ---
This is a 16-channel EEG with an EKG lead. The patient is reported awake during the tracing. Background EEG rhythm is low to medium amplitude, mixed theta beta with no obvious asymmetry or paroxysmal tendency. Photic stimulation does not produce any significant driving. Hyperventilation also is unremarkable. No definite sharp wave spikes or paroxysmal tendencies noted. Cardiac lead does not reveal any significant abnormality. IMPRESSION: Mild slowing with no evidence of seizure disorder. MD BERNABE Wood/YOLA / [id number]
--- NOTE | ~2022-06-21 | CT_ITS ---
EXAMINATION: CT HEAD WITHOUT CONTRAST CLINICAL INFORMATION: Seizure. COMPARISON: Brain MRI 10/28/2019. TECHNIQUE: Contiguous axial imaging was performed from the skull base to vertex without intravenous administration of contrast. This CT examination was performed using dose optimization techniques as appropriate, variously including the following: *Automated exposure control *Adjustment of mA and/or kV according to patient size (this includes techniques or standardized protocols for targeted exams where dose is matched to indication/reason for exam; i.e. extremities or head) *Use of iterative reconstruction technique DLP: 730 mGy-cm FINDINGS: There is gliosis and encephalomalacia representing an old infarct within the vascular territory the right posterior cerebral artery. Numerous chronic small vessel ischemic changes are also visualized within the periventricular white matter and basal ganglia. Grossly no evidence of acute territorial infarct. No acute hemorrhage or abnormal extra-axial collection. No hydrocephalus. The calvarium and skull base are intact. Mastoid air cells and middle ear cavities are well aerated. Mild to moderate paranasal sinus disease primarily affecting the ethmoid air cells and maxillary sinuses. CT/CT head/brain wo IV con IMPRESSION: There is an old infarct within the vascular territory the right posterior cerebral artery and numerous chronic small vessel ischemic changes within the periventricular white matter and basal ganglia. No evidence of acute territorial infarct or hemorrhage. No intracranial mass effect or hydrocephalus.
--- NOTE | ~2022-06-21 | US_ITS ---
EXAMINATION: US RETROPERITONEAL LIMITED (RENAL ONLY) CLINICAL INFORMATION: Acute kidney injury on CT kidney. COMPARISON: Renal ultrasound 03/29/2015 TECHNIQUE: Real-time imaging of the kidneys. Exam is technically limited by overlying bowel gas. FINDINGS: RIGHT KIDNEY: 9.3 x 4.2 x 3.8 cm (SAG x AP x TRV). The kidney is normal in size, contour, and echogenicity. Renal cortical thickness is normal. No calculi or focal parenchymal lesions. No hydronephrosis. LEFT KIDNEY: 8.8 x 3.6 x 4.6 cm (SAG x AP x TRV), though may be slightly undermeasured due to overlying bowel gas. The kidney is normal contour, and echogenicity. Renal cortical thickness is normal. No calculi or focal parenchymal lesions. No hydronephrosis. US/US renal BI IMPRESSION: Exam is limited by overlying bowel gas. No hydronephrosis or nephrolithiasis..
[2022-06-21 11:28] VITALS: BP 172/90; PULSE 98; O2SAT 98
[2022-06-21 11:42] VITALS: BP 146/84; PULSE 83; RESP 14; TEMP 36.4; O2SAT 96; BMI 21.6
[2022-06-21 11:50] LABS: Glucose, Whole Blood 252 mg/dL (60-115)
--- NOTE | 2022-06-21 11:58 | PC.NURSE ---
witnessed seizure at 1155 given 1mg iv ativan per md verbal order
--- NOTE | 2022-06-21 12:15 | PC.NURSE ---
RESTLESS ON CT TABLE. 1MG ATIVAN IV GIVEN PER MD ZOYA IBARRA
--- NOTE | 2022-06-21 12:20 | ED.SEIZURE ---
HPI - Seizure General Chief Complaint: Seizure Stated Complaint: collapsed,anxious,diaphoretic,denies drug use Time Seen by Provider: 06/21/22 11:58 Source: EMS Mode of arrival: EMS History of Present Illness HPI Narrative: This is a 62 years old the female with history of CVA, essential hypertension, hypertrophic obstructive cardiomyopathy, type 2 diabetes presented to the emergency department by ambulance after she collapsed at home. She was really restless in the ambulance she arrived here and she had a tonic-clonic seizure which was broke with 2 mg of lorazepam IV MD complaint: seizure Onset (ago): hour(s) (1) Witnessed: in ED Trauma: No Seizure History: No (PER DAUGHTER) Possible Precipitating Event: none Related Data Home Medications Medication Instructions Recorded Confirmed allopurinol 100 mg tablet 100 mg PO QAM 06/21/22 amlodipine 10 mg tablet 10 mg PO DAILY 06/21/22 apraclonidine 0.5 % eye drops drp ophthalmic (eye) 06/21/22 ascorbic acid (vitamin C) 500 mg 500 mg PO BID 06/21/22 tablet (Vitamin C) aspirin 81 mg tablet,delayed 81 mg PO DAILY 06/21/22 release atorvastatin 80 mg tablet 80 mg PO DAILY 06/21/22 citalopram 10 mg tablet 10 mg PO DAILY 06/21/22 clonazepam 1 mg tablet (Klonopin) 1 mg PO TID PRN anxiety 06/21/22 dapagliflozin 10 mg tablet 10 mg PO QAM 06/21/22 (Farxiga) divalproex 500 mg tablet,delayed mg PO 06/21/22 release (Depakote) docusate sodium 100 mg capsule 100 mg PO BID 06/21/22 ferrous sulfate 325 mg (65 mg mg PO 06/21/22 iron) tablet (FeroSul) fluticasone 100 mcg-salmeterol 50 1 ea inhalation BID 06/21/22 mcg/dose blistr powdr for inhalation glipizide 10 mg tablet 10 mg PO BID 06/21/22 levothyroxine 200 mcg tablet 200 mcg PO DAILY 06/21/22 levothyroxine 25 mcg tablet 12.5 mcg PO QAM 06/21/22 lisinopril 10 mg tablet 10 mg PO QAM 06/21/22 omeprazole 20 mg capsule,delayed 20 mg PO QAM 06/21/22 release quetiapine 200 mg tablet (Seroquel) 200 mg PO BEDTIME 06/21/22 quetiapine 50 mg tablet (Seroquel) 50 mg PO DAILY PRN Agitation 06/21/22 sennosides 8.6 mg tablet (senna) mg PO DAILY 06/21/22 tramadol 50 mg tablet 50 mg PO DAILY PRN Pain 06/21/22 Allergies Allergy/AdvReac Type Severity Reaction Status Date / Time No Known Allergies Allergy Verified 11/28/21 15:44 Review of Systems Review of Systems: Yes Unobtainable due to mental condition [facility] Past Medical History Medical History Asthma Essential hypertension History of CVA (cerebrovascular accident) History of thyroid cancer HOCM (hypertrophic obstructive cardiomyopathy) Hypothyroidism (acquired) Nicotine dependence, cigarettes, uncomplicated Type 2 diabetes mellitus with unspecified complications Surgical History History of incision and drainage (~2021) History of thyroidectomy (~2016) History of tubal ligation Family History Family History Father No problems noted. Mother Heart attack Social History Social History Alcohol intake: current Alcohol intake frequency: holidays/special occasions only Patient Tobacco Use Status: Current everyday Tobacco user Tobacco use type: Cigarette Cigarettes Per Day: 3 Second Hand Smoke Exposure: No Substance Use Type: Marijuana Advance Directives: No Advance Directives Information Provided: No Physical Exam Vital Signs: Vital Signs: Last Vital Signs Temp 99.3 F 06/21/22 14:51 Pulse 76 06/21/22 14:51 Resp 18 06/21/22 14:51 BP 146/78 H 06/21/22 14:51 Pulse Ox 96 06/21/22 14:51 O2 Del Method Room Air 06/21/22 14:51 BMI result Body Mass Index 21.6 Const: General: other (Postictal) Nutritional Appearance: average body habitus HEENT: Other: No sign of trauma on examination the head eyes ears nose and throat Face and sinus: Yes normal facial exam Neck: Neck: Yes normal visual inspection Chest: Chest palpation & inspection: normal inspection of the chest Resp: Effort & Inspection: normal respiratory effort Auscultation: clear to auscultation bilaterally Cardio: Jugular venous distension: no JVD Rate: regular rate Rhythm: regular rhythm GI: Inspection: Yes normal to inspection Palpation (GI): Soft to palpation, not firm, nontender and no guarding Auscultation: normal bowel sounds Skin: General skin exam: no rashes or lesions noted and elasticity normal Lesions: no lesions Rashes: no rashes Neuro: Other: She is postictal at this time responding to painful stimuli Course Reevaluation(s) Reevaluation #1: I re-examined the patient at 15:29 a she is now awake and alert she is much better she is not postictal any longer, patient had at least a couple of seizure one at home witnessed by the family one in the emergency department I think is very reasonable to admit her for observation this is a new onset of seizure Time: 15:31 Medications Administered Discontinued Medications Generic Name Dose Route Start Last Admin Trade Name Freq PRN Reason Stop Dose Admin Levetiracetam 1,500 mg in 100 mls @ 400 mls/hr 06/21/22 12:15 06/21/22 12:43 Keppra IV 06/21/22 12:29 Infused ONCE ONE Infusion Ketorolac Tromethamine 15 mg 06/21/22 13:13 06/21/22 13:44 Ketorolac Tromethamine 15 Mg/Ml Vial IVPUSH 06/21/22 13:14 15 mg ONCE ONE Administration Lorazepam 2 mg 06/21/22 12:20 06/21/22 12:28 Lorazepam 2 Mg/Ml Vial IVPUSH 06/21/22 12:21 2 mg ONCE ONE Administration Medical Decision Making Medical Decision Making [facility] Narrative: Were are going to get head CT, labs, reassess Differential Diagnosis Differential Diagnoses: The differential diagnosis associated with the presentation includes New onset seizure/head bleed/subdural hematoma Admission/Observation Consideration of admission/observation: Escalation of care including admission/observation considered Consult Healthcare Provider Management of the patient was discussed with: Hospitalist Lab Data [facility] Lab Attestation statement: I reviewed the patient's lab results. 06/21/22 12:26 06/21/22 12:26 Labs: Lab Results 06/21/22 06/21/22 06/21/22 Range/Units 11:47 12:26 12:26 WBC 11.7 H (4.8-10.8) X10*3/uL RBC 5.11 (4.20-5.50) X10*6/uL Hgb 14.4 (12.0-16.0) g/dl Hct 44.8 (37.0-47.0) % MCV 87.7 (80.0-98.0) fL MCH 28.2 (27.0-33.0) pg MCHC 32.1 (31.0-35.0) g/dl RDW 14.2 (11.0-16.0) % Plt Count 282 (160-400) X10*3/uL MPV 9.8 (9.4-12.3) fL Immature Gran % (Auto) 0.4 (0.0-0.4) % Neut % (Auto) 85.2 H (45-73) % Lymph % (Auto) 8.0 L (20-40) % [place] % (Auto) 5.2 (2-11) % Eos % (Auto) 0.9 (0-4) % Baso % (Auto) 0.3 (0-2) % Lymph # (Auto) 0.9 L (1.2-4.9) X10*3/uL [place] # (Auto) 0.6 (0.1-1.2) X10*3/uL Eos # (Auto) 0.1 (0.0-0.4) X10*3/uL Baso # (Auto) 0.0 (0.0-0.2) X10*3/uL Abs Immat Gran (auto) 0.05 H (0.00-0.03) X10*3/uL Absolute Neuts (auto) 9.9 H (2.0-8.3) x10*3/uL Absolute Nucleated RBC 0.000 (0.0-0.012) X10*3/uL Nucleated RBC % (auto) 0.0 (0.0-0.2) /100WBC PT 10.8 (10.0-13.1) SEC INR 0.9 (0.9-1.1) Sodium (135-145) mmol/L Potassium (3.3-5.1) mmol/L Chloride (96-108) mmol/L Carbon Dioxide (22-29) mmol/L Anion Gap (12-20) BUN (9-16) mg/dL Creatinine (0.5-1.4) mg/dL Estim Creat Clear Calc Estimated GFR POC Glucose 252 H (60-115) mg/dL Random Glucose (60-115) mg/dL Calcium (8.4-10.2) mg/dL Total Bilirubin (0.0-1.0) mg/dL AST (5-31) U/L ALT (0-31) U/L Alkaline Phosphatase (39-117) U/L Troponin I High Sens (<3.5-17.0) ng/L Total Protein (6.5-8.0) g/dL Albumin (3.5-5.0) g/dL COVID-19 (ROSALBA) (Negative) COVID-19 Clin Com 06/21/22 06/21/22 06/21/22 Range/Units 12:26 12:26 12:26 WBC (4.8-10.8) X10*3/uL RBC (4.20-5.50) X10*6/uL Hgb (12.0-16.0) g/dl Hct (37.0-47.0) % MCV (80.0-98.0) fL MCH (27.0-33.0) pg MCHC (31.0-35.0) g/dl RDW (11.0-16.0) % Plt Count (160-400) X10*3/uL MPV (9.4-12.3) fL Immature Gran % (Auto) (0.0-0.4) % Neut % (Auto) (45-73) % Lymph % (Auto) (20-40) % [place] % (Auto) (2-11) % Eos % (Auto) (0-4) % Baso % (Auto) (0-2) % Lymph # (Auto) (1.2-4.9) X10*3/uL [place] # (Auto) (0.1-1.2) X10*3/uL Eos # (Auto) (0.0-0.4) X10*3/uL Baso # (Auto) (0.0-0.2) X10*3/uL Abs Immat Gran (auto) (0.00-0.03) X10*3/uL Absolute Neuts (auto) (2.0-8.3) x10*3/uL Absolute Nucleated RBC (0.0-0.012) X10*3/uL Nucleated RBC % (auto) (0.0-0.2) /100WBC PT (10.0-13.1) SEC INR (0.9-1.1) Sodium 143 (135-145) mmol/L Potassium 3.9 (3.3-5.1) mmol/L Chloride 101 (96-108) mmol/L Carbon Dioxide 27 (22-29) mmol/L Anion Gap 19 (12-20) BUN 7 L (9-16) mg/dL Creatinine 1.29 (0.5-1.4) mg/dL Estim Creat Clear Calc 39.0 Estimated GFR 42 POC Glucose (60-115) mg/dL Random Glucose 234 H (60-115) mg/dL Calcium 9.5 (8.4-10.2) mg/dL Total Bilirubin 0.5 (0.0-1.0) mg/dL AST 13 (5-31) U/L ALT 8 (0-31) U/L Alkaline Phosphatase 78 (39-117) U/L Troponin I High Sens < 2.7 (<3.5-17.0) ng/L Total Protein 7.2 (6.5-8.0) g/dL Albumin 4.5 (3.5-5.0) g/dL COVID-19 (ROSALBA) Negative (Negative) COVID-19 Clin Com See Note Independent Interpretation I performed an independent interpretation of an: EKG Interpretation: EKG was reviewed normal sinus rhythm rate 76 inverted T-wave in V2 V3 V4 V5 new since 02/02/2021 Radiology Impression Discussion of test interpretation with radiology: I have reviewed the radiologist's reading. Radiologist Impression: negative ct Independent Historian Clinical information obtained from an independent historian. History obtained from or confirmed by: Other (daughter) External Record Review External record reviewed: Inpatient record Critical Care Time Critical Care Time Critical Care Time: Yes Total Critical Care Time: 60 Attestation: IV lorazepam on 1 mg a x2, IV Keppra, taking care of the patient speaking with the daughter talking to EMS Discharge Plan Discharge Clinical Impression: Seizure, Abnormal ECG Patient Disposition: Admitted As Inpatient
[2022-06-21] MEDS: levETIRAcetam in NaCl (iso-os) 1,500 MG/100 ML PIGGYBACK 400 MG IV (12:28)
[2022-06-21] MEDS: LORazepam 2 MG/ML VIAL IVPUSH (12:28)
--- NOTE | 2022-06-21 12:32 | PC.NURSE ---
per daughter sabine now at bedside pt has history of seizures.
[2022-06-21 12:41] LABS: MANUAL DIFF FLAG NO
[2022-06-21 12:46] LABS: Basophils Percent Auto 0.3 % (0-2); Eosinophils Absolute Auto 0.1 X10*3/uL (0.0-0.4); Eosinophils Percent Auto 0.9 % (0-4); Hematocrit 44.8 % (37.0-47.0); Hemoglobin 14.4 g/dl (12.0-16.0); Imm Gran Abs Auto 0.05 X10*3/uL (0.00-0.03); Imm Gran Pct Auto 0.4 % (0.0-0.4); Lymphocytes Absolute Auto 0.9 X10*3/uL (1.2-4.9); Mean Corpuscular HGB Conc 32.1 g/dl (31.0-35.0); Mean Corpuscular Hemoglobin 28.2 pg (27.0-33.0); Mean Corpuscular Volume 87.7 fL (80.0-98.0); Mean Platelet Volume 9.8 fL (9.4-12.3); Monocytes Absolute Auto 0.6 X10*3/uL (0.1-1.2); Monocytes Percent Auto 5.2 % (2-11); Neutrophils Absolute Auto 9.9 x10*3/uL (2.0-8.3); Neutrophils Percent Auto 85.2 % (45-73); Platelet Count 282 X10*3/uL (160-400); Red Blood Count 5.11 X10*6/uL (4.20-5.50); Red Cell Distribution Width 14.2 % (11.0-16.0); White Blood Count 11.7 X10*3/uL (4.8-10.8)
[2022-06-21 12:52] LABS: INTERNATIONAL NORM RATIO 0.9 (0.9-1.1); Prothrombin Time 10.8 SEC (10.0-13.1)
[2022-06-21 12:59] LABS: Alanine Aminotransferase 8 U/L (0-31); Albumin Level 4.5 g/dL (3.5-5.0); Alkaline Phosphatase 78 U/L (39-117); Anion Gap 19 (12-20); Aspartate Amino Transferase 13 U/L (5-31); Bilirubin Total 0.5 mg/dL (0.0-1.0); Blood Urea Nitrogen 7 mg/dL (9-16); Calcium 9.5 mg/dL (8.4-10.2); Carbon Dioxide 27 mmol/L (22-29); Chloride 101 mmol/L (96-108); Estimated Glomerular Filt Rate 42; Glucose Random 234 mg/dL (60-115); Potassium 3.9 mmol/L (3.3-5.1); Sodium 143 mmol/L (135-145); Total Protein 7.2 g/dL (6.5-8.0)
[2022-06-21 13:08] LABS: Troponin-I High Sensitivity < 2.7 ng/L (<3.5-17.0)
[2022-06-21 13:11] LABS: COVID-19 Test Negative (Negative); IDNOW Serial# BCCEAD1C
[2022-06-21] MEDS: Ketorolac Tromethamine 15 MG/ML VIAL IVPUSH ×2 (13:44→19:20)
[2022-06-21 14:51] VITALS: BP 146/78; PULSE 76; RESP 18; TEMP 37.4; O2SAT 96
--- NOTE | 2022-06-21 15:29 | ECG_ITS ---
Test Reason : CHEST PAIN Blood Pressure : / mmHG Vent. Rate : 076 BPM Atrial Rate : 076 BPM P-R Int : 172 ms QRS Dur : 080 ms QT Int : 394 ms P-R-T Axes : 067 008 204 degrees QTc Int : 443 ms Normal sinus rhythm ST & T wave abnormality, consider anterolateral ischemia Abnormal ECG When compared with ECG of 15-FEB-2019 12:30, Nonspecific T wave abnormality now evident in Inferior leads T wave inversion more evident in Anterior leads T wave inversion less evident in Lateral leads Referred By: Jerry Leroy Electronically Signed By:Get Martell
--- NOTE | 2022-06-21 15:34 | PM.IMHP ---
History of Present Illness Date of Service: 06/21/22 Attending physician on admission: Griselda Elliott Chief Complaint: New onset seizure Pt is a 62-year-old female with a PMH significant for CVA 3-4 years ago, HTN, hypertrophic obstructive cardiomyopathy, non insulin-dependent diabetes, and hypothyroidism?who presents to the ED with?new onset seizure. Pt states she woke yesterday with a migraine headache and experienced nausea, vomiting, and dizzyness throughout the day. Pt went to sleep and does not remember anything until she woke in the hospital. Attempted to contact pt's sister but she was not available. Rest of HPI obtained from chart review. Apparently pt had at least two seizures at home that were witnessed by pt's sister, who called EMS. Per EMS, pt was postictal and restless in the ambulance. Pt had another seizure in the ED lasting approximately 5 minutes, broken by 2 mg lorazepam IV and witnessed by ED provider. Pt was again postictal right after event. Pt alert and oriented by time of interview. Denies any previous history of seizure. No seizure history of immediate family. Denies biting tongue, loss of bladder or bowel function. Denies chest pain/pressure, palpitations. No SOB. Denies abdominal pain. Of note, patient currently takes Depakote and clonazepam for mood disorder. Pt currently smoking marijuana 2-3 times daily when she has access to it. In the ED pt was afebrile, slightly hypertensive at 146/84. Labs were significant for leukocytosis 11.7, and elevated POC at 252. CT?of head showed evidence of old infarct, but no evidence acute territorial infarct or hemorrhage and no intracranial mass effect or hydrocephalus. EKG demonstrated normal sinus rhythm with nonspecific T-wave abnormalities. Pt was treated with Keppra 1500 mg, Ativan 2 mg, and ketorolac 15 mg. Pt will be admitted to the hospital under observation on telemetry for further workup and evaluation of new onset seizure. Review of Systems Review of Systems: Witnessed seizures x3 Nausea, vomiting Headache Dizziness No chest pain/pressure, palpitations Denies shortness of breath Abdominal pain Yes all other systems are reviewed and are negative [facility] Medical History Asthma Essential hypertension History of CVA (cerebrovascular accident) History of thyroid cancer HOCM (hypertrophic obstructive cardiomyopathy) Hypothyroidism (acquired) Nicotine dependence, cigarettes, uncomplicated Type 2 diabetes mellitus with unspecified complications Family History Father No problems noted. Mother Heart attack Surgical History History of incision and drainage (~2021) History of thyroidectomy (~2016) History of tubal ligation Social History Household Members: Family Alcohol intake: current Alcohol intake frequency: holidays/special occasions only Patient Tobacco Use Status: Current everyday Tobacco user Tobacco use type: Cigarette Cigarettes Per Day: 3 Second Hand Smoke Exposure: No Use of substances other than those prescribed or required for medical reasons: Yes Substance Use Type: Marijuana Currently Displaying Signs/Symptoms of Drug Intoxication Withdrawal: No Have you been hit, kicked, punched, or otherwise hurt by someone within the past year? If so, by whom?: No Do you feel safe in your current relationship?: No Current Relationship Is there a partner from a previous relationship who is making you feel unsafe now?: No Are you made to feel afraid or neglected: No Advance Directives: No Advance Directives Information Provided: No Do you have thoughts of harming others: None Do you have a plan to hurt others: No Plan Recently lost weight without trying: No Patient : No Meds Allergies Allergy/AdvReac Type Severity Reaction Status Date / Time No Known Allergies Allergy Verified 11/28/21 15:44 Home Medications Medication Instructions Recorded Confirmed Last Taken Type allopurinol 100 mg tablet 100 mg PO QAM 06/21/22 06/21/22 06/21/22 History amlodipine 10 mg tablet 10 mg PO DAILY 06/21/22 06/21/22 06/21/22 History apraclonidine 0.5 % eye drops 1 drp ophthalmic-Right BID 06/21/22 06/21/22 06/21/22 History ascorbic acid (vitamin C) 500 mg 500 mg PO BID 06/21/22 06/21/22 06/21/22 History tablet (Vitamin C) aspirin 81 mg tablet,delayed 81 mg PO DAILY 06/21/22 06/21/22 06/21/22 History release atorvastatin 80 mg tablet 80 mg PO BEDTIME 06/21/22 06/21/22 06/21/22 History citalopram 10 mg tablet 10 mg PO DAILY 06/21/22 06/21/22 06/21/22 History clonazepam 1 mg tablet (Klonopin) 1 mg PO TID PRN anxiety 06/21/22 06/21/22 06/21/22 History dapagliflozin 10 mg tablet 10 mg PO DAILY 06/21/22 06/21/22 06/21/22 History (Farxiga) divalproex 500 mg tablet,delayed 1,000 mg PO BEDTIME 06/21/22 06/21/22 06/21/22 History release (Depakote) divalproex 500 mg tablet,delayed 500 mg PO DAILY 06/21/22 06/21/22 06/21/22 History release (Depakote) docusate sodium 100 mg capsule 100 mg PO BID 06/21/22 06/21/22 06/21/22 History ferrous sulfate 325 mg (65 mg 325 mg PO DAILY 06/21/22 06/21/22 06/21/22 History iron) tablet (FeroSul) fluticasone 100 mcg-salmeterol 50 1 ea inhalation BID 06/21/22 06/21/22 06/21/22 History mcg/dose blistr powdr for inhalation glipizide 10 mg tablet 10 mg PO BID 06/21/22 06/21/22 06/21/22 History levothyroxine 200 mcg tablet 200 mcg PO DAILY 06/21/22 06/21/22 06/21/22 History levothyroxine 25 mcg tablet 12.5 mcg PO DAILY 06/21/22 06/21/22 06/21/22 History lisinopril 10 mg tablet 10 mg PO DAILY 06/21/22 06/21/22 06/21/22 History omeprazole 20 mg capsule,delayed 20 mg PO DAILY@0630 06/21/22 06/21/22 06/21/22 History release quetiapine 50 mg tablet (Seroquel) 50 mg PO BEDTIME 06/21/22 06/21/22 06/21/22 History sennosides 8.6 mg tablet (senna) 8.6 mg PO DAILY 06/21/22 06/21/22 06/21/22 History tramadol 50 mg tablet 50 mg PO DAILY PRN Pain 06/21/22 06/21/22 06/21/22 History Physical Exam Vital Signs and Narrative: Vital Signs: Last Vital Signs Temp 99.3 F 06/21/22 14:51 Pulse 76 06/21/22 14:51 Resp 18 06/21/22 14:51 BP 146/78 H 06/21/22 14:51 Pulse Ox 96 06/21/22 14:51 O2 Del Method Room Air 06/21/22 14:51 BMI result Body Mass Index 21.6 Constitutional: Alert, in no acute distress. Mental Status: Oriented to person, place and time. Eyes: Pupils are equal, round, and reactive to light. Ear, Nose, and Throat: Oropharynx clear, mucous membranes moist. Ears and nose without deformities. Trachea midline. Respiratory: Clear to auscultation bilaterally. No wheezing, rales, or rhonchi. Cardiovascular: S1, S2 regular. No murmurs, rubs, or gallops. Gastrointestinal: Abdomen soft, non-tender, non-distended. Normal bowel sounds. Neurologic: Cranial nerves II-XII are grossly intact bilaterally. No focal neurological deficits. Moves all extremities spontaneously. Skin: Warm, dry. Extremities: No edema. Psychiatric: Normal mood and affect. Results Labs 06/21/22 12:26 06/21/22 12:26 Labs: Laboratory Results - last 24 hr 06/21/22 06/21/22 06/21/22 11:47 12:26 12:26 MCV 87.7 MCH 28.2 MCHC 32.1 RDW 14.2 Plt Count 282 MPV 9.8 Immature Gran % (Auto) 0.4 Neut % (Auto) 85.2 H Lymph % (Auto) 8.0 L [place] % (Auto) 5.2 Eos % (Auto) 0.9 Baso % (Auto) 0.3 Lymph # (Auto) 0.9 L [place] # (Auto) 0.6 Eos # (Auto) 0.1 Baso # (Auto) 0.0 Abs Immat Gran (auto) 0.05 H Absolute Neuts (auto) 9.9 H Absolute Nucleated RBC 0.000 Nucleated RBC % (auto) 0.0 PT 10.8 INR 0.9 Anion Gap Estim Creat Clear Calc Estimated GFR POC Glucose 252 H Random Glucose Calcium Total Bilirubin AST ALT Alkaline Phosphatase Troponin I High Sens Total Protein Albumin COVID-19 ([facility]) COVID-19 Clin Com 06/21/22 06/21/22 06/21/22 12:26 12:26 12:26 MCV MCH MCHC RDW Plt Count MPV Immature Gran % (Auto) Neut % (Auto) Lymph % (Auto) [place] % (Auto) Eos % (Auto) Baso % (Auto) Lymph # (Auto) [place] # (Auto) Eos # (Auto) Baso # (Auto) Abs Immat Gran (auto) Absolute Neuts (auto) Absolute Nucleated RBC Nucleated RBC % (auto) PT INR Anion Gap 19 Estim Creat Clear Calc 39.0 Estimated GFR 42 POC Glucose Random Glucose 234 H Calcium 9.5 Total Bilirubin 0.5 AST 13 ALT 8 Alkaline Phosphatase 78 Troponin I High Sens < 2.7 Total Protein 7.2 Albumin 4.5 COVID-19 (ROSALBA) Negative COVID-19 Clin Com See Note Imaging Radiologist's Impressions: Impressions Head CT 06/21/22 12:32 IMPRESSION: There is an old infarct within the vascular territory the right posterior cerebral artery and numerous chronic small vessel ischemic changes within the periventricular white matter and basal ganglia. No evidence of acute territorial infarct or hemorrhage. No intracranial mass effect or hydrocephalus. Assessment and Plan (1) Seizure: Status: Acute Plan Pt is a 62-year-old female with a PMH significant for CVA 3-4 years ago, HTN, hypertrophic obstructive cardiomyopathy, non insulin-dependent diabetes, and hypothyroidism?who presents to the ED with?new onset seizure. Pt will be admitted to the hospital under observation on telemetry for further workup evaluation of new onset seizure. New onset seizure Two episodes at home witnessed by sister, one here witnessed by provider Etiology unclear, no hx of seizure, lytes normal, POC 252, CT clear of acute intracranial pathology. Possibly related to post-CVA changes to brain Will get EEG Check tox screen, alcohol levels Ativan 2mg IV prn for seizure Keppra 1,000mg bid Seizure precautions Admit to telemetry CVA Continue aspirin, statin HTN Continue home meds Hypothyroidism Continue levothyroxine Ral-glkmowy-ncrtdvmes diabetes SSI Mood disorder Continue Depphilip Seroquel Full Code Attending:?Dr. Elliott DVT Prophylaxis: Lovenox Pt will be admitted to the hospital under observation on telemetry for further workup and evaluation of new onset seizure. Time Spent With Patient Time: Total time managing care of this patient today ____ minutes. Quality Stroke Does the patient have a stroke diagnosis?: No VTE Prior VTE?: No VTE Risk Level:: Medical - moderate - high VTE Device Contraindication: Treatment Not Indicated VTE Drug Contraindication: N/A - Med Ordered
--- NOTE | 2022-06-21 15:45 | PC.NURSE ---
up to commode with no assistance needed.
--- NOTE | 2022-06-21 16:08 | PM.EVENT ---
Event Note Date of Service: 06/22/22 Event Note: This patient is seen and examined with APC. Patient admitted for to seizure episodex2 at home was postictal , afterwards also had episode of clonic tonic seizure in the ED received Ativan: In addition patient also received Keppra loading Patient said that she never had seizure episode in the life before, she has nephew had seizure disorder? She says that she occasionally drinks alcohol once a month, smokes marijuana 2-3 times a day, denies any recreational drug use. Currently patient seems to be improved she is alert oriented, able to answer most of the questions, moves all extremities. Lab imaging, EKG reviewed. Mild leukocytosis, CT head shows chronic CVA . EKG changes seems similar to before. Troponin negative. Physical exam :please see h&p and assessment and plan coordinated in APCs note, Agree with the plan except: New onset seizure: Probably related to chronic CVA Neuro checks ETOH level, urine drug screen, med reconcillation pending Patient was already loaded with Keppra, start Keppra p.o., patient is already on ?Dilantin also because of the mood issues. Eeg Neurology evaluation Time Spent With Patient Time: Total time managing care of this patient today ____ minutes.
--- NOTE | 2022-06-21 16:42 | PC.NURSE ---
awaiting rn to call for report.
--- NOTE | 2022-06-21 16:51 | PHA.MEDREC ---
Pharmacy Consult ? Medication Reconciliation Pharmacy has completed the medication reconciliation. Pt unarousable, had list at bedside. Called pt's sister Reta ([phone]) who confirmed medications.
[2022-06-21 16:59] LABS: Estimated Average Glucose 154 mg/dL
[2022-06-21 17:38] VITALS: BP 132/68; PULSE 74; RESP 18; TEMP 37.1; O2SAT 98
[2022-06-21 17:41] LABS: Glucose, Whole Blood 83 mg/dL (60-115)
[2022-06-21 17:44] VITALS: BMI 21.2
[2022-06-21] MEDS: Enoxaparin Sodium 40 MG/0.4 ML SYRINGE SUBCUT (17:45)
[2022-06-21] MEDS: allopurinoL 100 MG TABLET PO (17:56)
[2022-06-21 19:57] VITALS: BP 111/67; PULSE 76; RESP 18; TEMP 36.3; O2SAT 96
[2022-06-21 20:55] LABS: Glucose, Whole Blood 102 mg/dL (60-115)
[2022-06-21] MEDS: Docusate Sodium 100 MG CAPSULE PO (21:02)
[2022-06-21] MEDS: 0.9 % Sodium Chloride Flush 3 ML SYRINGE IVFLUSH (21:02)
[2022-06-21] MEDS: Atorvastatin Calcium 80 MG TABLET PO (21:02)
[2022-06-21] MEDS: QUEtiapine Fumarate 50 MG TABLET PO (21:02)
[2022-06-21] MEDS: glipiZIDE 10 MG TABLET PO (21:02)
[2022-06-21] MEDS: levETIRAcetam 1,000 MG TABLET 1000 MG PO (21:02)
[2022-06-21] MEDS: Divalproex Sodium 500 MG TABLET.DR 1000 MG PO (21:02)
[2022-06-21] MEDS: Ascorbic Acid 500 MG TABLET PO (21:02)
[2022-06-21 23:42] VITALS: BP 97/59; PULSE 76; RESP 18; TEMP 36.1; O2SAT 98
[2022-06-22 03:22] VITALS: BP 94/56; PULSE 74; RESP 18; TEMP 36.1; O2SAT 100
[2022-06-22] MEDS: Levothyroxine Sodium 25 MCG TABLET 12.5 MCG PO (05:34)
[2022-06-22] MEDS: Omeprazole 20 MG CAPSULE.DR PO (05:34)
[2022-06-22] MEDS: Levothyroxine Sodium 200 MCG TABLET PO (05:34)
[2022-06-22 07:17] LABS: Glucose, Whole Blood 114 mg/dL (60-115)
[2022-06-22 07:22] VITALS: BP 101/58; PULSE 73; RESP 18; TEMP 36.3; O2SAT 100
[2022-06-22 07:34] LABS: Hematocrit 43.8 % (37.0-47.0); Hemoglobin 14.3 g/dl (12.0-16.0); Mean Corpuscular HGB Conc 32.6 g/dl (31.0-35.0); Mean Corpuscular Hemoglobin 27.7 pg (27.0-33.0); Mean Corpuscular Volume 84.7 fL (80.0-98.0); Mean Platelet Volume 9.6 fL (9.4-12.3); Platelet Count 272 X10*3/uL (160-400); Red Blood Count 5.17 X10*6/uL (4.20-5.50); Red Cell Distribution Width 14.4 % (11.0-16.0); White Blood Count 6.5 X10*3/uL (4.8-10.8)
[2022-06-22 07:50] LABS: Anion Gap 16 (12-20); Blood Urea Nitrogen 14 mg/dL (9-16); Calcium 9.2 mg/dL (8.4-10.2); Carbon Dioxide 25 mmol/L (22-29); Chloride 107 mmol/L (96-108); Creatinine Clr Calc Pharmacy 26.1; Estimated Glomerular Filt Rate 26; Glucose Random 103 mg/dL (60-115); Potassium 3.8 mmol/L (3.3-5.1); Sodium 144 mmol/L (135-145)
[2022-06-22] MEDS: Sennosides 8.6 MG TABLET PO (09:29)
[2022-06-22] MEDS: allopurinoL 100 MG TABLET PO (09:29)
[2022-06-22] MEDS: Divalproex Sodium 500 MG TABLET.DR PO (09:29)
[2022-06-22] MEDS: Ascorbic Acid 500 MG TABLET PO ×2 (09:29→20:50)
[2022-06-22] MEDS: lisinopriL 10 MG TABLET PO (09:29)
[2022-06-22] MEDS: Docusate Sodium 100 MG CAPSULE PO ×2 (09:29→20:51)
[2022-06-22] MEDS: Aspirin Enteric Coated 81 MG TABLET.DR PO (09:29)
[2022-06-22] MEDS: Ferrous Sulfate 324 MG TABLET.DR PO (09:29)
[2022-06-22] MEDS: 0.9 % Sodium Chloride Flush 3 ML SYRINGE IVFLUSH ×2 (09:29→20:51)
[2022-06-22] MEDS: Escitalopram Oxalate 5 MG TABLET PO (09:29)
[2022-06-22] MEDS: glipiZIDE 10 MG TABLET PO (09:30)
[2022-06-22] MEDS: levETIRAcetam 1,000 MG TABLET 1000 MG PO ×2 (09:30→20:50)
--- NOTE | 2022-06-22 11:09 | PM.NEUROCN ---
History of Present Illness Data of Consult Service Date: 06/22/22 Primary Care Provider: [facility] HPI Reason for consult: Seizure 62 years old woman with history of right occipital infarct causing left hemianopsia came to hospital after she was noted to have multiple seizures. She had another seizure in emergency room and was treated with lorazepam. She denied any significant alcohol or drug use. When I saw her she was back to baseline fully alert and awake. Review of Systems Review of Systems: No recent cold or fever like illness [facility] Past Medical History Medical History Asthma Essential hypertension History of CVA (cerebrovascular accident) History of thyroid cancer HOCM (hypertrophic obstructive cardiomyopathy) Hypothyroidism (acquired) Nicotine dependence, cigarettes, uncomplicated Type 2 diabetes mellitus with unspecified complications Family History Family History Father No problems noted. Mother Heart attack Surgical History Surgical History History of incision and drainage (~2021) History of thyroidectomy (~2016) History of tubal ligation Social History Social History Household Members: Family Alcohol intake: current Alcohol intake frequency: holidays/special occasions only Patient Tobacco Use Status: Current everyday Tobacco user Tobacco use type: Cigarette Cigarettes Per Day: 3 Second Hand Smoke Exposure: No Use of substances other than those prescribed or required for medical reasons: Yes Substance Use Type: Marijuana Currently Displaying Signs/Symptoms of Drug Intoxication Withdrawal: No Have you been hit, kicked, punched, or otherwise hurt by someone within the past year? If so, by whom?: No Do you feel safe in your current relationship?: No Current Relationship Is there a partner from a previous relationship who is making you feel unsafe now?: No Are you made to feel afraid or neglected: No Advance Directives: No Advance Directives Information Provided: No Do you have thoughts of harming others: None Do you have a plan to hurt others: No Plan Recently lost weight without trying: No Patient : No Meds Allergies Allergy/AdvReac Type Severity Reaction Status Date / Time No Known Allergies Allergy Verified 11/28/21 15:44 Active Medications: Current Medications Acetaminophen (Acetaminophen 325 Mg Tablet) 650 mg PO Q6H PRN PRN Reason: Pain, Mild (Pain Scale 1-3) Allopurinol (Allopurinol 100 Mg Tablet) 100 mg PO DAILY [facility] Last Admin: 06/22/22 09:29 Dose: 100 mg Amlodipine Besylate (Amlodipine Besylate 10 Mg Tablet) 10 mg PO DAILY [facility]; Protocol Ascorbic Acid (Ascorbic Acid 500 Mg Tablet) 500 mg PO BID [facility] Last Admin: 06/22/22 09:29 Dose: 500 mg Aspirin (Aspirin Enteric Coated 81 Mg Tablet.) 81 mg PO DAILY [facility] Last Admin: 06/22/22 09:29 Dose: 81 mg Atorvastatin Calcium (Atorvastatin Calcium 80 Mg Tablet) 80 mg PO BEDTIME [facility] Last Admin: 06/21/22 21:02 Dose: 80 mg Clonazepam (Clonazepam 1 Mg Tablet) 1 mg PO TID PRN PRN Reason: anxiety Divalproex Sodium (Divalproex Sodium 500 Mg Tablet.) 500 mg PO DAILY [facility] Last Admin: 06/22/22 09:29 Dose: 500 mg Divalproex Sodium (Divalproex Sodium 500 Mg Tablet.) 1,000 mg PO BEDTIME [facility] Last Admin: 06/21/22 21:02 Dose: 1,000 mg Docusate Sodium (Docusate Sodium 100 Mg Capsule) 100 mg PO BID [facility] Last Admin: 06/22/22 09:29 Dose: 100 mg Enoxaparin Sodium (Enoxaparin Sodium 30 Mg/0.3 Ml Syringe) 30 mg SUBCUT DAILY@1700 [facility] Escitalopram Oxalate (Escitalopram Oxalate 5 Mg Tablet) 5 mg PO DAILY [facility] Last Admin: 06/22/22 09:29 Dose: 5 mg Ferrous Sulfate (Ferrous Sulfate 324 Mg Tablet.) 324 mg PO DAILY [facility] Last Admin: 06/22/22 09:29 Dose: 324 mg Fluticasone/Vilanterol (Fluticasone/Vilanterol 100/25 Blst.W.Dev) 1 puff INHALE RDAILY [facility] Glucose (Glucose Gel 15 Gm Gel..Gram.) 15 gm PO Q15M PRN; Protocol PRN Reason: per Hypoglycemia Standing Ord. Dextrose (D10) 250 mls @ 750 mls/hr IV Q15M PRN; Protocol PRN Reason: per Hypoglycemia Standing Ord. Lactated Ringer's (Lr) 1,000 mls @ 100 mls/hr IVCONT .Q10H [facility] Insulin Human Lispro (Insulin Lispro 100 Unit/Ml 3 Ml Vial) 0 unit SUBCUT QIDACHS [facility]; Protocol Last Admin: 06/22/22 07:41 Dose: Not Given Levetiracetam (Levetiracetam 1,000 Mg Tablet) 1,000 mg PO BID [facility] Last Admin: 06/22/22 09:30 Dose: 1,000 mg Levothyroxine Sodium (Levothyroxine Sodium 25 Mcg Tablet) 12.5 mcg PO DAILY@0600 [facility] Last Admin: 06/22/22 05:34 Dose: 12.5 mcg Levothyroxine Sodium (Levothyroxine Sodium 200 Mcg Tablet) 200 mcg PO DAILY@0600 [facility] Last Admin: 06/22/22 05:34 Dose: 200 mcg Non-Formulary Medication (Apraclonidine) 1 drop EYE-RIGHT BID [facility] Omeprazole (Omeprazole 20 Mg Capsule.Dr) 20 mg PO DAILY@0630 [facility] Last Admin: 06/22/22 05:34 Dose: 20 mg Ondansetron HCl (Ondansetron Hcl 4 Mg/2 Ml Vial) 4 mg IVPUSH Q8H PRN PRN Reason: Nausea and Vomiting Pharmacy Consult (Consult Rx Perform Med Rec) 1 each MISCELLANE ONCE PRN PRN Reason: Consult order Pharmacy Consult (Consult Rx Perform Med Rec) 1 each MISCELLANE ONCE PRN PRN Reason: Consult order Quetiapine Fumarate (Quetiapine Fumarate 50 Mg Tablet) 50 mg PO BEDTIME [facility] Last Admin: 06/21/22 21:02 Dose: 50 mg Senna (Sennosides 8.6 Mg Tablet) 8.6 mg PO DAILY [facility] Last Admin: 06/22/22 09:29 Dose: 8.6 mg Sodium Chloride (0.9 % Sodium Chloride Flush 3 Ml Syringe) 3 ml IVFLUSH QSHIFT [facility] Last Admin: 06/22/22 09:29 Dose: 3 ml Home Medications Medication Instructions Recorded Confirmed Last Taken Type allopurinol 100 mg tablet 100 mg PO QAM 06/21/22 06/21/22 06/21/22 History amlodipine 10 mg tablet 10 mg PO DAILY 06/21/22 06/21/22 06/21/22 History apraclonidine 0.5 % eye drops 1 drp ophthalmic-Right BID 06/21/22 06/21/22 06/21/22 History ascorbic acid (vitamin C) 500 mg 500 mg PO BID 06/21/22 06/21/22 06/21/22 History tablet (Vitamin C) aspirin 81 mg tablet,delayed 81 mg PO DAILY 06/21/22 06/21/22 06/21/22 History release atorvastatin 80 mg tablet 80 mg PO BEDTIME 06/21/22 06/21/22 06/21/22 History citalopram 10 mg tablet 10 mg PO DAILY 06/21/22 06/21/22 06/21/22 History clonazepam 1 mg tablet (Klonopin) 1 mg PO TID PRN anxiety 06/21/22 06/21/22 06/21/22 History dapagliflozin 10 mg tablet 10 mg PO DAILY 06/21/22 06/21/22 06/21/22 History (Farxiga) divalproex 500 mg tablet,delayed 1,000 mg PO BEDTIME 06/21/22 06/21/22 06/21/22 History release (Depakote) divalproex 500 mg tablet,delayed 500 mg PO DAILY 06/21/22 06/21/22 06/21/22 History release (Depakote) docusate sodium 100 mg capsule 100 mg PO BID 06/21/22 06/21/22 06/21/22 History ferrous sulfate 325 mg (65 mg 325 mg PO DAILY 06/21/22 06/21/22 06/21/22 History iron) tablet (FeroSul) fluticasone 100 mcg-salmeterol 50 1 ea inhalation BID 06/21/22 06/21/22 06/21/22 History mcg/dose blistr powdr for inhalation glipizide 10 mg tablet 10 mg PO BID 06/21/22 06/21/22 06/21/22 History levothyroxine 200 mcg tablet 200 mcg PO DAILY 06/21/22 06/21/22 06/21/22 History levothyroxine 25 mcg tablet 12.5 mcg PO DAILY 06/21/22 06/21/22 06/21/22 History lisinopril 10 mg tablet 10 mg PO DAILY 06/21/22 06/21/22 06/21/22 History omeprazole 20 mg capsule,delayed 20 mg PO DAILY@0630 06/21/22 06/21/2206/21/23 History release quetiapine 50 mg tablet (Seroquel) 50 mg PO BEDTIME 06/21/22 06/21/22 06/21/22 History sennosides 8.6 mg tablet (senna) 8.6 mg PO DAILY 06/21/22 06/21/22 06/21/22 History tramadol 50 mg tablet 50 mg PO DAILY PRN Pain 06/21/22 06/21/22 06/21/22 History Physical Exam Vital Signs: Vital Signs: Last Vital Signs Temp 97.4 F 06/22/22 07:22 Pulse 73 06/22/22 07:22 Resp 18 06/22/22 07:22 BP 101/58 L 06/22/22 07:22 Pulse Ox 100 06/22/22 07:22 O2 Del Method Room Air 06/22/22 07:22 BMI result Body Mass Index 21.2 Neuro: Other: she is alert and awake with normal spontaneity of speech fluency comprehension and affect. Face is symmetrical. There is no focal weakness. Deep tendon reflexes were trace to absent with flexor plantars. Results Labs 06/22/22 06:57 06/22/22 06:57 Labs: Short CBC 06/21/22 06/22/22 Range/Units 12:26 06:57 WBC 11.7 H 6.5 (4.8-10.8) X10*3/uL Hgb 14.4 14.3 (12.0-16.0) g/dl Hct 44.8 43.8 (37.0-47.0) % Plt Count 282 272 (160-400) X10*3/uL BMP 06/21/22 06/22/22 12:26 06:57 Sodium 143 144 Potassium 3.9 3.8 Chloride 101 107 Carbon Dioxide 27 25 BUN 7 L 14 Creatinine 1.29 1.93 H Calcium 9.5 9.2 Liver Function 06/21/22 Range/Units 12:26 Total Bilirubin 0.5 (0.0-1.0) mg/dL AST 13 (5-31) U/L ALT 8 (0-31) U/L Alkaline Phosphatase 78 (39-117) U/L Albumin 4.5 (3.5-5.0) g/dL Head CT revealed chronic right occipital infarct Assessment and Plan (1) Seizure: Status: Acute 62 years old woman with chronic right occipital infarct and new onset of generalized seizure disorder. She has been on Depakote but level was low and she probably was not taking it or at least not taking it appropriately. At this time mainstay of management is reassurance and education advised that she should take Depakote on regular basis, which might have been prescribed in the past for behavioral reasons. Otherwise she did not seem to be infected and new denied any toxic exposure. He should be advised to not drive and not be involved in an activity that could put her life in danger. Time Spent With Patient Time: Total time managing care of this patient today ____ minutes. Procedures Date of Service Date of Service: 06/22/22
[2022-06-22 11:10] LABS: Appearance Urine Cloudy; Color Urine Yellow; Glucose Urine UA 500 mg/dL (Negative); Leukocyte Esterase Urine Small (1+) (Negative); Nitrite Urine Negative (Negative); PH 5.5 (5.0-9.0); UMIC TRIGGER UA YES; Urine Blood Negative (Negative); Urine Ketones Trace mg/dL (Negative); Urine Protein Trace mg/dL (Neg-Trace)
[2022-06-22 11:39] LABS: Bacteria Urine 2+ (None Seen); Squamous Epithelial Cell Urine >20 /HPF (0-2)
[2022-06-22 11:41] LABS: Amphetamine Screen Urine Not Detected (Not Detect); Barbiturates, Urine Not Detected (Not Detect); Benzodiazepines Screen Urine Not Detected (Not Detect); Cannabinoid Screen Urine POSITIVE (Not Detect); Cocaine Screen Urine POSITIVE (Not Detect); Fentanyl, urine Not Detected (Not Detect); Opiate Screen Urine Not Detected (Not Detect); Phencyclidine Screen Urine Not Detected (Not Detect)
[2022-06-22] MEDS: Lactated Ringers 1,000 ML 100 ML IVCONT (11:54)
--- NOTE | 2022-06-22 11:55 | PC.NURSE ---
pt bladder scanned at 1150. Vol of 75 mL found. Alerted
--- NOTE | 2022-06-22 14:04 | MHC.CM.PN ---
pt lives with sister [facility] she is covid vax x 3 and transport home dc plan home no servceis
--- NOTE | 2022-06-22 15:07 | CONS_ITS ---
DATE OF SERVICE: REASON FOR CONSULTATION: Consult requested by the medical team to evaluate and help in management of patient with renal insufficiency. HISTORY OF PRESENT ILLNESS: The patient is a 62-year-old female with past medical history of CVA for 3 to 4 years, history of hypertension, hypertrophic obstructive cardiomyopathy, insulin-dependent diabetes mellitus, chronic kidney disease for which she apparently sees Dr. Barreto in the outpatient setting who presents to the hospital with new-onset seizures. She apparently woke up day before yesterday with migraine, headache and had nausea, vomiting, and dizziness. She went to sleep and does not remember until when she woke up in the hospital. There was not adequate history available. Apparently, the sister called EMS. The patient was postictal and restless in the ambulance. Presently awake, alert, and oriented. She did have another seizure in the ED for about 5 minutes. She was treated with lorazepam. She did not have any previous seizure history. Currently smokes marijuana 2-3 times a day. Denies any abdominal pain. Denies any tongue biting or loss of bladder or bowel function. In the ER, the patient was hemodynamically stable. She did have mild leukocytosis and CT of the head did not show any acute events. She was treated with Keppra, Ketorolac, and admitted to the hospital for further evaluation and management. Renal consult has been requested. The patient's creatinine has increased to 1.93. Her admission creatinine was 1.29. Creatinine in the past has been ranging significantly around 1.16 to 1.63 in the past. She denies having any diarrhea or GI fluid losses. REVIEW OF SYSTEMS: As noted above. Other system review negative. PAST MEDICAL HISTORY: History of asthma, hypertension, history of CVA, thyroid cancer, hypertrophic cardiomyopathy, hypothyroidism, nicotine dependence, type 2 diabetes mellitus. She also has history of CKD stage 3, followed by Dr. Barreto in the outpatient setting. FAMILY HISTORY: The patient's father . Mother is and has had a heart attack. PAST SURGICAL HISTORY: Incision and drainage of abscess, thyroidectomy and tubal ligation. PERSONAL AND SOCIAL HISTORY: The patient drinks alcohol occasionally. Smokes cigarette. Uses marijuana. Denies other drug use. ALLERGIES: PATIENT HAS NO KNOWN DRUG ALLERGIES. MEDICATIONS: As an outpatient were reviewed and include allopurinol, amlodipine, ascorbic acid, aspirin, atorvastatin, citalopram, Farxiga, Depakote, Colace, ferrous sulfate, fluticasone, glipizide, levothyroxine, lisinopril, omeprazole, quetiapine, senna, and tramadol. PHYSICAL EXAMINATION: GENERAL: The patient is resting in the bed. Awake, alert, and oriented x3. No significant distress. VITAL SIGNS: Blood pressure was 101/58, pulse 73, and afebrile. HEENT: Shows pupils equal bilaterally to light. No jugular venous distention is noted. NECK: Supple. No thyromegaly is noted. Mucosae were dry. There is no scleral icterus or conjunctival congestion. CARDIOVASCULAR SYSTEM: S1 and S2 without rub or murmur. RESPIRATORY SYSTEM: Decreased in the bases. No crepitation or rhonchi is noted. ABDOMEN: Soft, nontender. No guarding noted. Bowel sounds normal. EXTREMITIES: Showed no edema. There is no peripheral cyanosis or clubbing. NEUROLOGIC: Essentially nonfocal. LABS: Labs done today. WBC 6.5, hemoglobin 14.3, hematocrit 43.8, and platelets were 272. Sodium 144, potassium 3.8, chloride 107, CO2 of 25, BUN 14, and creatinine 1.93. Estimated GFR was 226. Urinalysis; yellow urine, specific gravity 1.020, protein trace, glucose of 500, ketone trace, rbc's 6 to 10, and wbc's 6 to 10. Urine opiates were negative. Urine cocaine was positive and urine marijuana was positive. IMPRESSION: 1. A 62-year-old female with acute kidney injury. Acute kidney injury in this patient likely secondary to prerenal azotemia. She clinically looks prerenal. I do not think patient has acute tubular injury/necrosis at this juncture. I also do not think at this juncture, we need to worry about obstructive uropathy, but if creatinine continues to worsen, we need to do a renal ultrasound. She was on DEBBI inhibitor, lisinopril which could have contributed to her renal insufficiency. The patient was also given Toradol which is again an NSAID which can worsen renal insufficiency. 2. Chronic kidney disease stage 3A at baseline in setting of longstanding hypertension and diabetes, likely hypertensive/diabetic renal disease. 3. Seizures which is being treated by the medical team. 4. Hypertension. Blood pressure is acceptable. 5. Type 2 diabetes mellitus. RECOMMENDATION: At this juncture, I have taken the liberty to order spot urine for electrolytes, protein, creatinine. I agree with continuation of IV fluids with LR. I would avoid using NSAIDs/COHEN-2 inhibitors, even IV NSAIDs in this patient. I agree with holding off on lisinopril on this patient until renal function improves. Long-term patient would benefit from an DEBBI inhibitor/ARB. The patient is on SGLT2 inhibitor based on outpatient list, i.e., [facility] and I will hold it off for now as patient has WILLY and can be used as an outpatient once discharged. The patient's renal function does not improve, I recommend doing a renal ultrasound. In the meantime, the patient did have seizures with acute kidney injury and I recommend checking a CPK level which has been ordered for this patient for a.m. Thank you for allowing me to participate in medical management of the patient. MD TREVON Shah/YOLA / [id number]
[2022-06-22 15:44] LABS: Glucose, Whole Blood 145 mg/dL (60-115)
[2022-06-22 15:48] VITALS: BP 115/64; PULSE 74; RESP 18; TEMP 36.8; O2SAT 100
--- NOTE | 2022-06-22 16:57 | HO.PM.IMPN ---
Subjective Subjective Date of Service: 06/22/22 Interval History: dasha,seizure dis Review of Systems denies any chest pain ,no fevers no new seizures. Physical Exam Vital Signs: Vital Signs: Last Vital Signs Temp 98.3 F 06/22/22 15:48 Pulse 74 06/22/22 15:48 Resp 18 06/22/22 15:48 BP 115/64 06/22/22 15:48 Pulse Ox 100 06/22/22 15:48 O2 Del Method Room Air 06/22/22 15:48 BMI result Body Mass Index 21.2 Appearance: Alert.? Oriented X3.? cvs: rrr, [id number] . res: clear to auscultation ,no rhonchii or wheezing abd: no rebound or guarding ,nt, bs present. ext pulses present , no cyanosis . neuro: axo3 , nonfocal. Objective Data Active Medications Acetaminophen (Acetaminophen 325 Mg Tablet) 650 mg PO Q6H PRN PRN Reason: Pain, Mild (Pain Scale 1-3) Allopurinol (Allopurinol 100 Mg Tablet) 100 mg PO DAILY [facility] Last Admin: 06/22/22 09:29 Dose: 100 mg Documented By: GORGE Amlodipine Besylate (Amlodipine Besylate 10 Mg Tablet) 10 mg PO DAILY [facility]; Protocol Last Admin: 06/22/22 10:00 Dose: Not Given Documented By: GORGE Non-Admin Reason: Not In Room Ascorbic Acid (Ascorbic Acid 500 Mg Tablet) 500 mg PO BID [facility] Last Admin: 06/22/22 09:29 Dose: 500 mg Documented By: GORGE Aspirin (Aspirin Enteric Coated 81 Mg Tablet.) 81 mg PO DAILY [facility] Last Admin: 06/22/22 09:29 Dose: 81 mg Documented By: GORGE Atorvastatin Calcium (Atorvastatin Calcium 80 Mg Tablet) 80 mg PO BEDTIME [facility] Last Admin: 06/21/22 21:02 Dose: 80 mg Documented By: KHANG Clonazepam (Clonazepam 1 Mg Tablet) 1 mg PO TID PRN PRN Reason: anxiety Divalproex Sodium (Divalproex Sodium 500 Mg Tablet.) 500 mg PO DAILY [facility] Last Admin: 06/22/22 09:29 Dose: 500 mg Documented By: GORGE Divalproex Sodium (Divalproex Sodium 500 Mg Tablet.) 1,000 mg PO BEDTIME [facility] Last Admin: 06/21/22 21:02 Dose: 1,000 mg Documented By: KHANG Docusate Sodium (Docusate Sodium 100 Mg Capsule) 100 mg PO BID [facility] Last Admin: 06/22/22 09:29 Dose: 100 mg Documented By: GORGE Enoxaparin Sodium (Enoxaparin Sodium 30 Mg/0.3 Ml Syringe) 30 mg SUBCUT DAILY@1700 [facility] Escitalopram Oxalate (Escitalopram Oxalate 5 Mg Tablet) 5 mg PO DAILY [facility] Last Admin: 06/22/22 09:29 Dose: 5 mg Documented By: GORGE Ferrous Sulfate (Ferrous Sulfate 324 Mg Tablet.) 324 mg PO DAILY [facility] Last Admin: 06/22/22 09:29 Dose: 324 mg Documented By: GORGE Fluticasone/Vilanterol (Fluticasone/Vilanterol 100/25 Blst.W.Dev) 1 puff INHALE RDAILY [facility] Last Admin: 06/22/22 13:41 Dose: Not Given Documented By: GORGE Non-Admin Reason: contacted pharmacy Glucose (Glucose Gel 15 Gm Gel..Gram.) 15 gm PO Q15M PRN; Protocol PRN Reason: per Hypoglycemia Standing Ord. Dextrose (D10) 250 mls @ 750 mls/hr IV Q15M PRN; Protocol PRN Reason: per Hypoglycemia Standing Ord. Lactated Ringer's (Lr) 1,000 mls @ 100 mls/hr IVCONT .Q10H [facility] Last Admin: 06/22/22 11:54 Dose: 100 mls/hr Documented By: GORGE Insulin Human Lispro (Insulin Lispro 100 Unit/Ml 3 Ml Vial) 0 unit SUBCUT QIDACHS [facility]; Protocol Last Admin: 06/22/22 15:52 Dose: Not Given Documented By: GORGE Non-Admin Reason: No Insulin Coverage Levetiracetam (Levetiracetam 1,000 Mg Tablet) 1,000 mg PO BID [facility] Last Admin: 06/22/22 09:30 Dose: 1,000 mg Documented By: GORGE Levothyroxine Sodium (Levothyroxine Sodium 25 Mcg Tablet) 12.5 mcg PO DAILY@0600 [facility] Last Admin: 06/22/22 05:34 Dose: 12.5 mcg Documented By: KHANG Levothyroxine Sodium (Levothyroxine Sodium 200 Mcg Tablet) 200 mcg PO DAILY@0600 [facility] Last Admin: 06/22/22 05:34 Dose: 200 mcg Documented By: KHANG Non-Formulary Medication (Apraclonidine) 1 drop EYE-RIGHT BID [facility] Omeprazole (Omeprazole 20 Mg Capsule.Dr) 20 mg PO DAILY@0630 [facility] Last Admin: 06/22/22 05:34 Dose: 20 mg Documented By: KHANG Ondansetron HCl (Ondansetron Hcl 4 Mg/2 Ml Vial) 4 mg IVPUSH Q8H PRN PRN Reason: Nausea and Vomiting Pharmacy Consult (Consult Rx Perform Med Rec) 1 each MISCELLANE ONCE PRN PRN Reason: Consult order Pharmacy Consult (Consult Rx Perform Med Rec) 1 each MISCELLANE ONCE PRN PRN Reason: Consult order Quetiapine Fumarate (Quetiapine Fumarate 50 Mg Tablet) 50 mg PO BEDTIME [facility] Last Admin: 06/21/22 21:02 Dose: 50 mg Documented By: KHANG Senna (Sennosides 8.6 Mg Tablet) 8.6 mg PO DAILY [facility] Last Admin: 06/22/22 09:29 Dose: 8.6 mg Documented By: GORGE Sodium Chloride (0.9 % Sodium Chloride Flush 3 Ml Syringe) 3 ml IVFLUSH QSHIFT [facility] Last Admin: 06/22/22 15:52 Dose: Not Given Documented By: GORGE Non-Admin Reason: IV Running Labs 06/22/22 06:57 06/22/22 06:57 Labs: Laboratory Results - last 24 hr 06/21/22 06/21/22 06/21/22 12:26 12:26 17:36 MCV MCH MCHC RDW Plt Count MPV Absolute Nucleated RBC Nucleated RBC % (auto) Anion Gap Estim Creat Clear Calc Estimated GFR POC Glucose 83 Random Glucose Estimat Average Glucose 154 Hemoglobin A1c % 7.0 Calcium Magnesium 2.0 Total Creatine Kinase Urine Color Urine Appearance Urine pH Ur Specific [place] Urine Protein Urine Glucose (UA) Urine Ketones Urine Blood Urine Nitrite Ur Leukocyte Esterase Urine RBC Urine WBC Ur Squamous Epith Cells Urine Bacteria Hyaline Casts Urine Opiates Screen Urine Fentanyl Screen Ur Barbiturates Screen Ur Phencyclidine Scrn Ur Amphetamines Screen U Benzodiazepines Scrn Urine Cocaine Screen U Marijuana (THC) Screen 06/21/22 06/22/22 06/22/22 20:51 06:57 06:57 MCV 84.7 MCH 27.7 MCHC 32.6 RDW 14.4 Plt Count 272 MPV 9.6 Absolute Nucleated RBC 0.000 Nucleated RBC % (auto) 0.0 Anion Gap 16 Estim Creat Clear Calc 26.1 Estimated GFR 26 POC Glucose 102 Random Glucose 103 Estimat Average Glucose Hemoglobin A1c % Calcium 9.2 Magnesium Total Creatine Kinase Urine Color Urine Appearance Urine pH Ur Specific [place] Urine Protein Urine Glucose (UA) Urine Ketones Urine Blood Urine Nitrite Ur Leukocyte Esterase Urine RBC Urine WBC Ur Squamous Epith Cells Urine Bacteria Hyaline Casts Urine Opiates Screen Urine Fentanyl Screen Ur Barbiturates Screen Ur Phencyclidine Scrn Ur Amphetamines Screen U Benzodiazepines Scrn Urine Cocaine Screen U Marijuana (THC) Screen 06/22/22 06/22/22 06/22/22 07:13 10:30 11:10 MCV MCH MCHC RDW Plt Count MPV Absolute Nucleated RBC Nucleated RBC % (auto) Anion Gap Estim Creat Clear Calc Estimated GFR POC Glucose 114 Random Glucose Estimat Average Glucose Hemoglobin A1c % Calcium Magnesium Total Creatine Kinase Urine Color Yellow Urine Appearance Cloudy Urine pH 5.5 Ur Specific [place] 1.020 Urine Protein Trace Urine Glucose (UA) 500 H Urine Ketones Trace Urine Blood Negative Urine Nitrite Negative Ur Leukocyte Esterase Small (1+) H Urine RBC 6-10 H Urine WBC 6-10 H Ur Squamous Epith Cells >20 Urine Bacteria 2+ Hyaline Casts 11-20 Urine Opiates Screen Not Detected Urine Fentanyl Screen Not Detected Ur Barbiturates Screen Not Detected Ur Phencyclidine Scrn Not Detected Ur Amphetamines Screen Not Detected U Benzodiazepines Scrn Not Detected Urine Cocaine Screen POSITIVE H U Marijuana (THC) Screen POSITIVE H 06/22/22 06/22/22 14:32 15:39 MCV MCH MCHC RDW Plt Count MPV Absolute Nucleated RBC Nucleated RBC % (auto) Anion Gap Estim Creat Clear Calc Estimated GFR POC Glucose 145 H Random Glucose Estimat Average Glucose Hemoglobin A1c % Calcium Magnesium Total Creatine Kinase 176 H Urine Color Urine Appearance Urine pH Ur Specific [place] Urine Protein Urine Glucose (UA) Urine Ketones Urine Blood Urine Nitrite Ur Leukocyte Esterase Urine RBC Urine WBC Ur Squamous Epith Cells Urine Bacteria Hyaline Casts Urine Opiates Screen Urine Fentanyl Screen Ur Barbiturates Screen Ur Phencyclidine Scrn Ur Amphetamines Screen U Benzodiazepines Scrn Urine Cocaine Screen U Marijuana (THC) Screen Assessment and Plan (1) Seizure: Status: Acute (2) Abnormal ECG: Status: Acute (3) DASHA (acute kidney injury): Status: Acute (4) Cocaine abuse: Status: Acute Plan 62-year-old female with a PMH significant for CVA 3-4 years ago, HTN, hypertrophic obstructive cardiomyopathy, non insulin-dependent diabetes, and hypothyroidism?who presents to the ED with?new onset seizure. Pt will be admitted to the hospital under observation on telemetry for further workup evaluation of new onset seizure. New onset seizure Two episodes at home witnessed by sister, one here witnessed by provider Etiology unclear, no hx of seizure, lytes normal, POC 252, CT clear of acute intracranial pathology. Possibly related to post-CVA changes to brain EEG-pending Check tox screen-positive for cocaine/marijuana, alcohol levels pending Ativan 2mg IV prn for seizure Keppra 1,000mg bid Seizure precautions Admit to telemetry dasha on ckd 3:possible sec to dehydration pvr ivf renal sono moniter renal function/electrolytes. CVA Continue aspirin, statin HTN Continue home meds Hypothyroidism Continue levothyroxine Mhw-wienctc-czzgzayvi diabetes SSI Mood disorder Continue Depakote, Seroquel Full Code DVT Prophylaxis: Lovenox inpatient need : workup and evaluation of new onset seizure-eeg/neuro eval, dasha-needs workup, hydration and renal function and electrolytes monitoring. Time Spent With Patient Time: Total time managing care of this patient today ____ minutes. Quality Stroke Does the patient have a stroke diagnosis?: No VTE Prior VTE?: No VTE Risk Level:: Medical - moderate - high VTE Device Contraindication: Treatment Not Indicated VTE Drug Contraindication: N/A - Med Ordered
[2022-06-22] MEDS: Enoxaparin Sodium 30 MG/0.3 ML SYRINGE SUBCUT (18:20)
[2022-06-22 19:42] VITALS: BP 116/80; PULSE 73; RESP 16; TEMP 36.8; O2SAT 98
[2022-06-22 20:36] LABS: Glucose, Whole Blood 217 mg/dL (60-115)
[2022-06-22] MEDS: Atorvastatin Calcium 80 MG TABLET PO (20:50)
[2022-06-22] MEDS: Divalproex Sodium 500 MG TABLET.DR 1000 MG PO (20:51)
[2022-06-22] MEDS: Insulin Lispro 100 UNIT/ML 3 ML VIAL SUBCUT (20:51)
[2022-06-22] MEDS: clonazePAM 1 MG TABLET PO (22:08)
[2022-06-22 23:32] VITALS: BP 121/88; PULSE 87; RESP 18; TEMP 36.5; O2SAT 98
[2022-06-23 03:05] VITALS: BP 105/69; PULSE 73; RESP 18; TEMP 36.4; O2SAT 97
--- NOTE | 2022-06-23 03:54 | PC.NURSE ---
Patient bladdered scanned at 02:30. Volume of 230mls. Patient has been using bedside commode.
[2022-06-23] MEDS: Levothyroxine Sodium 200 MCG TABLET PO (05:21)
[2022-06-23] MEDS: Levothyroxine Sodium 25 MCG TABLET 12.5 MCG PO (05:21)
[2022-06-23] MEDS: Lactated Ringers 1,000 ML 100 ML IVCONT (05:23)
[2022-06-23] MEDS: Omeprazole 20 MG CAPSULE.DR PO (06:20)
[2022-06-23 07:25] VITALS: BP 126/72; PULSE 56; RESP 16; TEMP 36.5; O2SAT 98
[2022-06-23 07:30] LABS: Glucose, Whole Blood 178 mg/dL (60-115)
[2022-06-23 07:59] LABS: Anion Gap 14 (12-20); Blood Urea Nitrogen 22 mg/dL (9-16); Calcium 8.9 mg/dL (8.4-10.2); Carbon Dioxide 27 mmol/L (22-29); Chloride 106 mmol/L (96-108); Creatinine Clr Calc Pharmacy 32.2; Estimated Glomerular Filt Rate 34; Glucose Random 149 mg/dL (60-115); Potassium 4.2 mmol/L (3.3-5.1); Sodium 143 mmol/L (135-145)
[2022-06-23] MEDS: Ferrous Sulfate 324 MG TABLET.DR PO (08:48)
[2022-06-23] MEDS: Insulin Lispro 100 UNIT/ML 3 ML VIAL SUBCUT ×2 (08:48→12:32)
[2022-06-23] MEDS: Docusate Sodium 100 MG CAPSULE PO (08:48)
[2022-06-23] MEDS: Divalproex Sodium 500 MG TABLET.DR PO (08:48)
[2022-06-23] MEDS: Escitalopram Oxalate 5 MG TABLET PO (08:48)
[2022-06-23] MEDS: Ascorbic Acid 500 MG TABLET PO (08:48)
[2022-06-23] MEDS: Aspirin Enteric Coated 81 MG TABLET.DR PO (08:48)
[2022-06-23] MEDS: Sennosides 8.6 MG TABLET PO (08:48)
[2022-06-23] MEDS: 0.9 % Sodium Chloride Flush 3 ML SYRINGE IVFLUSH (08:49)
[2022-06-23] MEDS: allopurinoL 100 MG TABLET PO (08:58)
[2022-06-23] MEDS: Fluticasone/Vilanterol 100/25 BLST.W.DEV 1 PUFF INHALE (09:34)
[2022-06-23 11:24] VITALS: BP 122/84; PULSE 87; RESP 16; TEMP 36.6; O2SAT 100
--- NOTE | 2022-06-23 11:27 | PM.DS ---
DS: Providers Provider Date of Service: 06/23/22 Date of admission: 06/22/22 08:57 Date of discharge: 06/23/22 Primary care physician: [facility] Consults: 06/21/22 16:23 Consult to Neurology Routine Consulting Provider: [facility] Reason for consultation: New onset seizure 06/22/22 10:13 Consult to Nephrology Routine Consulting Provider: Mick Anne Reason for consultation: willy 06/22/22 16:50 Addiction Medicine Routine Consulting Provider: Addiction [facility]ing Reason for consultation: drug abuse Has provider been notified: No Consult to Care Team Routine Comment: Reason for consultation: drug use DS: Diagnosis Discharge Diagnosis (1) Seizure: Status: Acute (2) Abnormal ECG: Status: Acute (3) WILLY (acute kidney injury): Status: Acute (4) Cocaine abuse: Status: Acute DS: Summary Hospital Course Hospital Course: 62-year-old female with a PMH significant for CVA 3-4 years ago, HTN, hypertrophic obstructive cardiomyopathy, non insulin-dependent diabetes, and hypothyroidism?who presents to the ED with?new onset seizure. Pt states she woke yesterday with a migraine headache and experienced nausea, vomiting, and dizzyness throughout the day. Pt went to sleep and does not remember anything until she woke in the hospital. Attempted to contact pt's sister but she was not available. Rest of HPI obtained from chart review. Apparently pt had at least two seizures at home that were witnessed by pt's sister, who called EMS. Per EMS, pt was postictal and restless in the ambulance. Pt had another seizure in the ED lasting approximately 5 minutes, broken by 2 mg lorazepam IV and witnessed by ED provider. Pt was again postictal right after event. Pt alert and oriented by time of interview. Denies any previous history of seizure. No seizure history of immediate family. Denies biting tongue, loss of bladder or bowel function. Denies chest pain/pressure, palpitations. No SOB. Denies abdominal pain. Of note, patient currently takes Depakote and clonazepam for mood disorder. Pt currently smoking marijuana 2-3 times daily when she has access to it. In the ED pt was afebrile, slightly hypertensive at 146/84. Labs were significant for leukocytosis 11.7, and elevated POC at 252. CT?of head showed evidence of old infarct, but no evidence acute territorial infarct or hemorrhage and no intracranial mass effect or hydrocephalus. EKG demonstrated normal sinus rhythm with nonspecific T-wave abnormalities. Pt was treated with Keppra 1500 mg, Ativan 2 mg, and ketorolac 15 mg. Pt will be admitted to the hospital under observation on telemetry for further workup and evaluation of new onset seizure. hospital course: Patient admitted to the hospital due to seizure episodes which seems to be new onset: Started on IV Keppra, workup CT head seems unchanged, EEG also fine. Seen by Neurology: Depakote level are low-patient was strongly advised to compliant with her Depakote . Further adjustment of seizure medications outpatient, consider outpatient follow-up with Neurology. follow depakote levels outpatient . Patient was strongly advised to be compliant with Depakote as well as also strongly advised to quit cocaine . Patient has chronic EKG changes: Troponin negative, no chest pain, echo seems to be grossly fine (in 2021): Patient is currently also using cocaine, strongly advised to quit cocaine and further workup outpatient, consider cardiology evaluation outpatient. WILLY on CKD3: Patient was on lisinopril and also was having seizure and dehydrated: Currently will hold lisinopril, with hydration her renal function is near baseline, renal ultrasound seems limited but grossly fine, Repeat renal function and electrolytes outpatient with PCP, further use of lisinopril as per PCP. Consider outpatient nephrology evaluation. Repeat renal function and electrolytes outpatient with PCP, further use of lisinopril as per PCP. Consider outpatient nephrology evaluation. CVa hx -Continue aspirin, statin. htn -continue amlodipine, hold lisinopril due to willy on ckd.continue seroquel/depakote for mood disorder. plan: Continue Depakote and Keppra as prescribed-strongly advised compliance. Repeat Depakote level outpatient. follow up with neurology outpatient for further medication adjustment. Strongly advised to quit cocaine. For chronic EKG abnormalities-consider outpatient cardiac workup and cardiology evaluation. WILLY : Creatinine seems to be near her baseline, hold lisinopril,Repeat renal function and electrolytes outpatient with PCP, further use of lisinopril as per PCP. Consider outpatient nephrology evaluation before starting lisinopril. follow up bmp,depakote levels outpatient. Above management discussed with the patient and her sister in detail length-they both understand and in agreement with the above plan, time spent 50 minutes and 50% time spent on counseling. Time Spent with Patient Time attestation: Total time managing care of this patient today ____ minutes. Discharge coordination time: Greater than 30 minutes Quality: Safe Use of Opioids Does Pt have an Active Cancer Diagnosis on the Problem List?: No Quality: Stroke Does the patient have a stroke diagnosis?: No Physical Exam Vital Signs: Vital Signs: Last Vital Signs Temp 97.8 F 06/23/22 11:24 Pulse 87 06/23/22 11:24 Resp 16 06/23/22 11:24 BP 122/84 06/23/22 11:24 Pulse Ox 100 06/23/22 11:24 O2 Del Method Room Air 06/23/22 11:24 BMI result Body Mass Index 21.2 Appearance: Alert.? Oriented X3.? cvs: rrr, [id number] . res: clear to auscultation ,no rhonchii or wheezing abd: no rebound or guarding ,nt, bs present. ext pulses present , no cyanosis . neuro: axo3 , nonfocal. DS: Data Data Completed and Pending Labs on day of discharge: Laboratory Results - last 24 hr 06/22/22 06/22/22 06/22/22 10:30 11:10 14:32 Sodium Potassium Chloride Carbon Dioxide Anion Gap BUN Creatinine Estim Creat Clear Calc Estimated GFR POC Glucose Random Glucose Calcium Total Creatine Kinase 176 H Urine Color Yellow Urine Appearance Cloudy Urine pH 5.5 Ur Specific [place] 1.020 Urine Protein Trace Urine Glucose (UA) 500 H Urine Ketones Trace Urine Blood Negative Urine Nitrite Negative Ur Leukocyte Esterase Small (1+) H Urine RBC 6-10 H Urine WBC 6-10 H Ur Squamous Epith Cells >20 Urine Bacteria 2+ Hyaline Casts 11-20 Urine Opiates Screen Not Detected Urine Fentanyl Screen Not Detected Ur Barbiturates Screen Not Detected Ur Phencyclidine Scrn Not Detected Ur Amphetamines Screen Not Detected U Benzodiazepines Scrn Not Detected Urine Cocaine Screen POSITIVE H U Marijuana (THC) Screen POSITIVE H 06/22/22 06/22/22 06/23/22 15:39 20:30 07:23 Sodium Potassium Chloride Carbon Dioxide Anion Gap BUN Creatinine Estim Creat Clear Calc Estimated GFR POC Glucose 145 H 217 H 178 H Random Glucose Calcium Total Creatine Kinase Urine Color Urine Appearance Urine pH Ur Specific [place] Urine Protein Urine Glucose (UA) Urine Ketones Urine Blood Urine Nitrite Ur Leukocyte Esterase Urine RBC Urine WBC Ur Squamous Epith Cells Urine Bacteria Hyaline Casts Urine Opiates Screen Urine Fentanyl Screen Ur Barbiturates Screen Ur Phencyclidine Scrn Ur Amphetamines Screen U Benzodiazepines Scrn Urine Cocaine Screen U Marijuana (THC) Screen 06/23/22 07:32 Sodium 143 Potassium 4.2 Chloride 106 Carbon Dioxide 27 Anion Gap 14 BUN 22 H Creatinine 1.56 H Estim Creat Clear Calc 32.2 Estimated GFR 34 POC Glucose Random Glucose 149 H Calcium 8.9 Total Creatine Kinase Urine Color Urine Appearance Urine pH Ur Specific [place] Urine Protein Urine Glucose (UA) Urine Ketones Urine Blood Urine Nitrite Ur Leukocyte Esterase Urine RBC Urine WBC Ur Squamous Epith Cells Urine Bacteria Hyaline Casts Urine Opiates Screen Urine Fentanyl Screen Ur Barbiturates Screen Ur Phencyclidine Scrn Ur Amphetamines Screen U Benzodiazepines Scrn Urine Cocaine Screen U Marijuana (THC) Screen Imaging Chest x-ray: Radiologist's impression: ITS Impressions Head CT 06/21/22 12:32 IMPRESSION: There is an old infarct within the vascular territory the right posterior cerebral artery and numerous chronic small vessel ischemic changes within the periventricular white matter and basal ganglia. No evidence of acute territorial infarct or hemorrhage. No intracranial mass effect or hydrocephalus. Renal Ultrasound 06/22/22 18:37 IMPRESSION: Exam is limited by overlying bowel gas. No hydronephrosis or nephrolithiasis.. Discharge Plan Discharge Anticipated Discharge Date/Time: 06/23/22 09:53 Patient Disposition: Home, Self-Care Discharge Diagnosis: seizure episode ,cocaine use Referrals: [facility] [Primary Care Provider] - 1 Week Enrike Horta MD [Physician] - 1 Week (follow up outpatient) Mick Anne MD [Physician] - 1 Week (follow up outpatient) Discharge Medications: Continued atorvastatin 80 mg tablet 80 mg PO BEDTIME sennosides [senna] 8.6 mg tablet 8.6 mg PO DAILY apraclonidine 0.5 % drops 1 drp ophthalmic-Right BID citalopram 10 mg tablet 10 mg PO DAILY glipizide 10 mg tablet 10 mg PO BID clonazepam [Klonopin] 1 mg tablet 1 mg PO TID PRN (Reason: anxiety) allopurinol 100 mg tablet 100 mg PO QAM divalproex [Depakote] 500 mg tablet,delayed release (DR/EC) 500 mg PO DAILY aspirin 81 mg tablet,delayed release (DR/EC) 81 mg PO DAILY tramadol 50 mg tablet 50 mg PO DAILY PRN (Reason: Pain) levothyroxine 25 mcg tablet 12.5 mcg PO DAILY ascorbic acid (vitamin C) [Vitamin C] 500 mg tablet 500 mg PO BID amlodipine 10 mg tablet 10 mg PO DAILY ferrous sulfate [FeroSul] 325 mg (65 mg iron) tablet 325 mg PO DAILY docusate sodium 100 mg capsule 100 mg PO BID omeprazole 20 mg capsule,delayed release(DR/EC) 20 mg PO DAILY@0630 levothyroxine 200 mcg tablet 200 mcg PO DAILY fluticasone propion-salmeterol 100-50 mcg/dose blister with device 1 ea inhalation BID quetiapine [Seroquel] 50 mg tablet 50 mg PO BEDTIME Farxiga 10 mg tablet 10 mg PO DAILY divalproex [Depakote] 500 mg tablet,delayed release (DR/EC) 1,000 mg PO BEDTIME Held lisinopril 10 mg tablet 10 mg PO DAILY Hold Instructions: Resume on 07/02/22. Discharge Orders: Discharge Order (Routine); Ordered 06/23/22 Ordered By: Griselda Elliott Diet: Advance to usual diet Activity on Discharge: As tolerated Stand Alone Forms: Patient Portal Discharge page Care Plan Goals: Patient admitted to the hospital due to seizure episodes which seems to be new onset: Started on IV Keppra, workup CT head seems unchanged, EEG also fine. Seen by Neurology: Depakote level are low-patient was strongly advised to compliant with her Depakote . Further adjustment of seizure medications outpatient, consider outpatient follow-up with Neurology. follow depakote levels outpatient . Patient was strongly advised to be compliant with Depakote as well as also strongly advised to quit cocaine . Patient has chronic EKG changes: Troponin negative, no chest pain, echo seems to be grossly fine (in 2021): Patient is currently also using cocaine, strongly advised to quit cocaine and further workup outpatient, consider cardiology evaluation outpatient. WILLY on CKD3: Patient was on lisinopril and also was having seizure and dehydrated: Currently will hold lisinopril, with hydration her renal function is near baseline, renal ultrasound seems limited but grossly fine, Repeat renal function and electrolytes outpatient with PCP, further use of lisinopril as per PCP. Consider outpatient nephrology evaluation. follow up [facility],depakote levels outpatient. Health Concerns: As above. Plan of Treatment: As above. Assessment: As above.
[2022-06-23 11:35] LABS: Glucose, Whole Blood 151 mg/dL (60-115)
--- NOTE | 2022-06-23 11:46 | MHC.CM.PN ---
PT MEDICALLY CLEARED FOR D/C HOME NO SERVICES W/FAMILY FOR TRANSPORT.
[2022-06-23] MEDS: clonazePAM 1 MG TABLET PO (12:31)
[2022-06-23] MEDS: levETIRAcetam 500 MG TABLET PO (12:31)
--- NOTE | 2022-06-23 14:27 | MHC.RECOVRN ---
This health technical writer met w/ patient after addiction consult was placed. Patient was sitting up in bed, reporting wanting to discharge. Patient states uses SISI occasionally a few times per year, I do not use SISI alot . Patient states plans to stop use. Harm reduction reviewed. Patient verbalized understanding, patient agreeable to review recovery resources at home. Reviewed medications and recovery supports for SISI use. Patient states all set, agreeable to review resources and call Addiction/Recovery team with questions/concerns.
[2022-06-27 07:57] LABS: Alcohol, Ethyl Urine Screen NEGATIVE
== END 2022-06-23 14:03 | disposition home or self-care (01) | DRG 101 ==
LOC: HO.ED 15:12 → HO.EDOVER 16:34 → HO.IMC 16:47
PROVIDERS: Internal Medicine Nephrology; Admitting Provider Student in an Organized Health Care Education/Training Program; Emergency Provider Emergency Medicine; PCP Family Medicine; Visit Provider Internal Medicine
DX: R56.9 Unspecified convulsions (principal); I42.1 Obstructive hypertrophic cardiomyopathy; N17.9 Acute kidney failure, unspecified; E89.0 Postprocedural hypothyroidism; F17.210 Nicotine dependence, cigarettes, uncomplicated; I69.398 Other sequelae of cerebral infarction; Z71.6 Tobacco abuse counseling; E11.22 Type 2 diabetes mellitus with diabetic chronic kidney disease; I12.9 Hypertensive chronic kidney disease with stage 1 through stage 4 chronic kidney disease, or unspecified chronic kidney disease; N18.31 Chronic kidney disease, stage 3a; F14.10 Cocaine abuse, uncomplicated; E86.0 Dehydration; R94.31 Abnormal electrocardiogram [ECG] [EKG]; Z20.822 Contact with and (suspected) exposure to COVID-19; Z85.850 Personal history of malignant neoplasm of thyroid; Z79.51 Long term (current) use of inhaled steroids; Z79.82 Long term (current) use of aspirin; Z79.890 Hormone replacement therapy; Z79.899 Other long term (current) drug therapy
CPT/HCPCS: 36415; 70450; 76775; 80048; 80053; 80307; 81001; 82550; 82947; 83036; 83735; 84484; 85025; 85027; 85610; 87635; 93005; 95816; 99285; J1650; J1885; J1953; J2060

== ENCOUNTER → 2022-07-09 13:38 | Outpatient (BNVA) | payer OTHER, SELFPAY | PROVIDERS: PCP Family Medicine; Referring Provider Family Medicine; Visit Provider Internal Medicine | DX: R94.31 Abnormal electrocardiogram [ECG] [EKG] (principal); I42.1 Obstructive hypertrophic cardiomyopathy; I63.9 Cerebral infarction, unspecified; I10 Essential (primary) hypertension; E11.8 Type 2 diabetes mellitus with unspecified complications; F14.10 Cocaine abuse, uncomplicated; F17.210 Nicotine dependence, cigarettes, uncomplicated | CPT/HCPCS: 99212 ==

== ENCOUNTER 2022-09-27 09:23 | Outpatient (REF) | payer OTHER, SELFPAY ==
[2022-09-27 11:45] LABS: MANUAL DIFF FLAG NO
[2022-09-27 11:52] LABS: Basophils Percent Auto 0.4 % (0-2); Eosinophils Absolute Auto 0.3 X10*3/uL (0.0-0.4); Eosinophils Percent Auto 3.4 % (0-4); Hematocrit 46.2 % (37.0-47.0); Hemoglobin 14.8 g/dl (12.0-16.0); Imm Gran Abs Auto 0.04 X10*3/uL (0.00-0.03); Imm Gran Pct Auto 0.4 % (0.0-0.4); Lymphocytes Absolute Auto 1.7 X10*3/uL (1.2-4.9); Lymphocytes Percent Auto 17.8 % (20-40); Mean Corpuscular Hemoglobin 27.6 pg (27.0-33.0); Mean Corpuscular Volume 86.2 fL (80.0-98.0); Mean Platelet Volume 10.6 fL (9.4-12.3); Monocytes Absolute Auto 0.5 X10*3/uL (0.1-1.2); Monocytes Percent Auto 5.4 % (2-11); Neutrophils Percent Auto 72.6 % (45-73); Platelet Count 285 X10*3/uL (160-400); Red Blood Count 5.36 X10*6/uL (4.20-5.50); Red Cell Distribution Width 12.9 % (11.0-16.0); White Blood Count 9.7 X10*3/uL (4.8-10.8)
[2022-09-27 12:11] LABS: Alanine Aminotransferase 36 U/L (0-31); Albumin Level 4.4 g/dL (3.5-5.0); Alkaline Phosphatase 69 U/L (39-117); Anion Gap 13 (12-20); Aspartate Amino Transferase 23 U/L (5-31); Bilirubin Total 0.3 mg/dL (0.0-1.0); Blood Urea Nitrogen 18 mg/dL (9-16); Calcium 9.8 mg/dL (8.4-10.2); Carbon Dioxide 28 mmol/L (22-29); Chloride 104 mmol/L (96-108); Estimated Glomerular Filt Rate 45; Glucose Random 286 mg/dL (60-115); Potassium 4.3 mmol/L (3.3-5.1); Sodium 141 mmol/L (135-145); Total Protein 7.4 g/dL (6.5-8.0)
[2022-09-27 13:15] LABS: Amphetamine Screen Urine Not Detected (Not Detect); Barbiturates, Urine Not Detected (Not Detect); Benzodiazepines Screen Urine Not Detected (Not Detect); Cannabinoid Screen Urine POSITIVE (Not Detect); Cocaine Screen Urine POSITIVE (Not Detect); Fentanyl, urine Not Detected (Not Detect); Opiate Screen Urine Not Detected (Not Detect); Phencyclidine Screen Urine Not Detected (Not Detect)
== END 2022-09-27 09:24 | disposition home or self-care (01) ==
LOC: HO.HHCL 09:23
PROVIDERS: Visit Provider Psychiatry & Neurology Psychiatry
DX: Z79.899 Other long term (current) drug therapy (principal)
CPT/HCPCS: 36415; 80053; 80164; 80307; 85025

== ENCOUNTER 2023-03-18 18:46 | Emergency (ER) | payer OTHER, SELFPAY ==
--- NOTE | ~2023-03-18 | CT_ITS ---
EXAMINATION: CT head/brain wo IV con CLINICAL INFORMATION: Reason for Exam left eye vision change COMPARISON: CT head without contrast 06/21/2022 TECHNIQUE: Contiguous axial imaging was performed from the skull base to vertex without intravenous contrast. Sagittal and coronal reformatted images were obtained. This CT examination was performed using dose optimization techniques as appropriate, variously including the following: * Automated exposure control * Adjustment of mA and/or kV according to patient size (this includes techniques or standardized protocols for targeted exams where dose is matched to indication/reason for exam; i.e. extremities or head) Use of iterative reconstruction technique DLP: 592.54 mGy-cm FINDINGS: No acute osseous or soft tissue abnormality. The mastoid air cells and visualized portions of the paranasal sinuses are well aerated. There is no evidence of acute intracranial hemorrhage or territorial infarction. No abnormal mass effect or midline shift is seen. Vance to white matter differentiation is well preserved. No extra-axial fluid collections are identified. No hydrocephalus. Proportional prominence of the ventricles and sulcal spaces is consistent with mild volume loss. Patchy periventricular and deep white matter hypoattenuation is consistent with mild small vessel ischemic changes. Chronic right HEAD TELLER territory infarct with ex vacuo dilatation of the right occipital horn. CT/CT head/brain wo IV con IMPRESSION: No acute intracranial abnormality including hemorrhage, mass effect, hydrocephalus, or acute territorial edematous infarction.
--- NOTE | 2023-03-18 18:54 | ED.EYEPROB ---
HPI - Eye Problem General Chief complaint: Eye Problems Stated complaint: Vision problems Time Seen by Provider: 03/19/23 01:13 Source: patient and family ( Sister and daughter) Mode of arrival: ambulatory Limitations: no limitations History of Present Illness HPI Narrative: 62-year-old female with history of diabetes mellitus, hypertension, seizures, hypertrophic obstructive cardiomyopathy, hypothyroidism ,cocaine use disorder, stroke 01/2018 ( 4 years prior causing bilateral vision change and left arm weakness) who presents emergency department for evaluation of vision change both her left eye and right eye over the past week. thepatient states she had a stroke 4 years ago and had bilateral peripheral vision loss and left arm weakness secondary to her stroke. According to her family her peripheral vision loss never recovered and glasses did not help improve her vision. She states that over the past week she has had increases vision loss and both eyes. she describes the vision loss in her left eye as occurred that started from the outside and moved medially so that she has only a small area of clear vision. She states that she can see through the curtain. She also states that her right eye vision loss is a blurriness that is got progressively worse to the point where she is having difficulty seeing objects through the blurriness. Visual acuities done in the emergency department were as follows: Right eye: 20/200 Left eye: 20/50 She states she did have a slight headache today which resolved but otherwise had no other symptoms. She denied fever, chills, chest pain, shortness breath, nausea, vomiting , myalgias arthralgias. Related Data Home Medications Medication Instructions Recorded Confirmed allopurinol 100 mg tablet 100 mg PO QAM 06/21/22 07/09/22 amlodipine 10 mg tablet 10 mg PO DAILY 06/21/22 07/09/22 apraclonidine 0.5 % eye drops 1 drp ophthalmic-Right BID 06/21/22 07/09/22 ascorbic acid (vitamin C) 500 mg 500 mg PO BID 06/21/22 07/09/22 tablet (Vitamin C) aspirin 81 mg tablet,delayed 81 mg PO DAILY 06/21/22 07/09/22 release atorvastatin 80 mg tablet 80 mg PO BEDTIME 06/21/22 07/09/22 citalopram 10 mg tablet 10 mg PO DAILY 06/21/22 07/09/22 clonazepam 1 mg tablet (Klonopin) 1 mg PO TID PRN anxiety 06/21/22 07/09/22 dapagliflozin propanediol 10 mg 10 mg PO DAILY 06/21/22 07/09/22 tablet (Farxiga) divalproex 500 mg tablet,delayed 1,000 mg PO BEDTIME 06/21/22 07/09/22 release (Depakote) divalproex 500 mg tablet,delayed 500 mg PO DAILY 06/21/22 07/09/22 release (Depakote) docusate sodium 100 mg capsule 100 mg PO BID 06/21/22 07/09/22 ferrous sulfate 325 mg (65 mg 325 mg PO DAILY 06/21/22 07/09/22 iron) tablet (FeroSul) fluticasone 100 mcg-salmeterol 50 1 ea inhalation BID 06/21/22 07/09/22 mcg/dose blistr powdr for inhalation glipizide 10 mg tablet 10 mg PO BID 06/21/22 07/09/22 levothyroxine 200 mcg tablet 200 mcg PO DAILY 06/21/22 07/09/22 levothyroxine 25 mcg tablet 12.5 mcg PO DAILY 06/21/22 07/09/22 lisinopril 10 mg tablet 10 mg PO DAILY 06/21/22 07/09/22 omeprazole 20 mg capsule,delayed 20 mg PO DAILY@0630 06/21/22 07/09/22 release quetiapine 50 mg tablet (Seroquel) 50 mg PO BEDTIME 06/21/22 07/09/22 sennosides 8.6 mg tablet (senna) 8.6 mg PO DAILY 06/21/22 07/09/22 Allergies Allergy/AdvReac Type Severity Reaction Status Date / Time No Known Allergies Allergy Verified 03/18/23 19:01 Review of Systems Review of Systems: Yes all other systems are reviewed and are negative [facility], [facility] Past Medical History [facility], [facility] Narrative: social history: She lives at home with her daughter and her sister. She does smoke 3 cigarettes per day. She states she occasionally drinks alcohol. She admits to using marijuana she does have a history of cocaine use and had a positive urine drug screen on 09/27/2022: Cocaine and THC. Onset Date is defined in the Problem List Problems that require an onset date and time if occurred within 24 hrs of arrival to the ED Aortic Dissection and Rupture; Neurologic impairment; Cardiopulmonary Arrest; Endotracheal Intubation; Insertion or Replacement of Mechanical Circulatory Assist Device Medical History Abnormal ECG History of CVA (cerebrovascular accident) History of thyroid cancer Hypothyroidism (acquired) Nicotine dependence, cigarettes, uncomplicated Asthma Type 2 diabetes mellitus with unspecified complications Essential hypertension HOCM (hypertrophic obstructive cardiomyopathy) Surgical History History of tubal ligation History of incision and drainage (~2021) History of thyroidectomy (~2016) Family History Family History Father No problems noted. Mother Heart attack Social History Social History Household Members: Family Alcohol intake: current Alcohol intake frequency: holidays/special occasions only Patient Tobacco Use Status: Current everyday Tobacco user Tobacco use type: Cigarette Cigarettes Per Day: 3 Smoked in Last 30 Days: No Second Hand Smoke Exposure: No Use of substances other than those prescribed or required for medical reasons: No Substance Use Type: Marijuana Advance Directives: No Advance Directives Information Provided: No Patient : No service: No Physical Exam Vital Signs: Vital Signs: Last Vital Signs Temp 99.4 F 03/19/23 02:17 Pulse 84 03/19/23 02:20 Resp 18 03/19/23 02:20 BP 184/100 H 03/19/23 02:20 Pulse Ox 99 03/19/23 02:17 O2 Del Method Room Air 03/19/23 02:17 BMI result Body Mass Index 20.1 Vital signs revealed an elevated blood pressure of 177/96 an elevated heart rate of 101 exam: General: Awake, alert in no distress Head: Normocephalic, atraumatic , no tenderness palpation over the temporal regions of her head EENT: Pupils were equal round, minimally reactive to light, Lids normal, sclera normal, conjunctiva normal Neck: Supple, no adenopathy, no tenderness palpation of her neck Lung: breath sounds symmetric, no wheezing, rales or rhonchi Chest: symmetric movement, nontender Heart: regular rate and rhythm, normal S1, S2 no murmurs or rubs Abdomen: soft, non-tender, nondistended, normal bowel sounds Back: no vertebral tenderness, no CVAT Extremities: no deformities Neuro: general: Awake and alert, oriented to person place, answers questions appropriately cranial nerves: 2 through 12 are intact. Patient in minimally at then a 5 large objects with both eyes open. strength: Weakness the left upper extremity compared to the right, lowers extremities are symmetric Psych: Pleasant, cooperative Course Course Course Narrative: This is a rapid medical exam. Deferred additional HPI, ROS, PE to primary provider. 62 yo female with history of CVA, HCOM, HTN, DM, seizure disorder hypothyroidism here with complaints of left eye vision change with waking, however has had some intermittent blurry vision over the last week. No eye pain. Also feels disoriented. Supposed to use corrective lenses but does not. On ASA only. Will obtain labs, EKG, visual acuity Medical Decision Making Medical Decision Making [facility] Narrative: 62-year-old female with history of diabetes mellitus, hypertension, seizures, hypertrophic obstructive cardiomyopathy, hypothyroidism ,cocaine use disorder, stroke 01/2018 ( 4 years prior causing bilateral vision change and left arm weakness) who presents emergency department for evaluation bilateral vision change which she described as left eye curtain moving from lateral to midline and right eye as progressively worsening blurred vision. Visual acuity revealed right eye 2020 vision and left eye 20 50 vision. Following evaluation was ordered: CBC, BMP, liver panel, PT /INR, ESR, CRPCT scan of the head without IV contrast 01:49 my independent interpretation patient's laboratory evaluation is as follows: CBC was normal. BMP revealed low bicarb 21, elevated BUN 17 with a normal creatinine of 1.1, elevated glucose of 202. LFTs were normal. ESR was normal at 12. CRP was elevated 2.5 ( normal is less than 0.5 ) CT scan revealed no acute intracranial abnormality to explain the patient's findings. She did have a chronic right [employer] territory infarct with ex vacuo dilatation of the right occipital horn. She also had patchy periventricular and deep white matter hypoattenuation consistent with mild small-vessel ischemic changes. I did order a CRP and ESR to evaluate for possible giant cell arteritis. Given the patient's change in vision of both eyes, I am concerned that she has had a stroke versus ophthalmological cause for herf change in vision. since we do not have Ophthalmology coverage here at this institution I will contact [facility] , both facilities declined transfer secondary to capacity issues. I did discuss the patient's presentation the cigarette roller covering for the [facility], Dr. Greenwood. After this discussion, he felt that the patient's visual changes were more likely related to her diabetes and less likely related to stroke. He kindly arrange for the patient to be seen today at 08:30 a.m. in his office, most likely by 1 of his partners. I did discuss the importance of keeping this appointment with the ophthalmology group with the family states that they will get the patient there at 08:00. Differential Diagnosis Differential Diagnoses: The differential diagnosis associated with the presentation includes Differential diagnosis includes was not limited to stroke, retinal artery stroke, retinal disease, giant cell arteritis Consult Healthcare Provider Management of the patient was discussed with: Bead Cutter Lab Data MDM Lab Attestation statement: I reviewed the patient's lab results. 03/18/23 20:15 03/18/23 20:15 Labs: Lab Results 03/18/23 03/19/23 Range/Units 20:15 02:45 WBC 12.7 H (4.8-10.8) X10*3/uL RBC 5.47 (4.20-5.50) X10*6/uL Hgb 14.8 (12.0-16.0) g/dl Hct 44.1 (37.0-47.0) % MCV 80.6 (80.0-98.0) fL MCH 27.1 (27.0-33.0) pg MCHC 33.6 (31.0-35.0) g/dl RDW 13.0 (11.0-16.0) % Plt Count 324 (160-400) X10*3/uL MPV 9.3 L (9.4-12.3) fL Immature Gran % (Auto) 0.2 (0.0-0.4) % Neut % (Auto) 83.7 H (45-73) % Lymph % (Auto) 9.0 L (20-40) % Barton % (Auto) 6.9 (2-11) % Eos % (Auto) 0.0 (0-4) % Baso % (Auto) 0.2 (0-2) % Lymph # (Auto) 1.1 L (1.2-4.9) X10*3/uL Barton # (Auto) 0.9 (0.1-1.2) X10*3/uL Eos # (Auto) 0.0 (0.0-0.4) X10*3/uL Baso # (Auto) 0.0 (0.0-0.2) X10*3/uL Abs Immat Gran (auto) 0.03 (0.00-0.03) X10*3/uL Absolute Neuts (auto) 10.6 H (2.0-8.3) x10*3/uL Absolute Nucleated RBC 0.000 (0.0-0.012) X10*3/uL Nucleated RBC % (auto) 0.0 (0.0-0.2) /100WBC ESR 12 (0-20) MM/HR PT 10.7 L (11.1-13.3) SEC INR 0.9 (0.9-1.1) Sodium 134 L (135-145) mmol/L Potassium 4.4 (3.3-5.1) mmol/L Chloride 96 (96-108) mmol/L Carbon Dioxide 21 L (22-29) mmol/L Anion Gap 21 H (12-20) BUN 17 H (9-16) mg/dL Creatinine 1.10 (0.5-1.4) mg/dL Estim Creat Clear Calc 44.4 Estimated GFR 50 Random Glucose 202 H (60-115) mg/dL Calcium 9.8 (8.4-10.2) mg/dL Total Bilirubin 0.7 (0.0-1.0) mg/dL Direct Bilirubin 0.2 (0.0-0.5) mg/dL AST 20 (5-31) U/L ALT 16 (0-31) U/L Alkaline Phosphatase 78 (39-117) U/L C-Reactive Protein 2.51 H (< or = 0.50) mg/dL Total Protein 8.6 H (6.5-8.0) g/dL Albumin 4.8 (3.5-5.0) g/dL Radiology Impression Discussion of test interpretation with radiology: I have reviewed the radiologist's reading. Radiologist Impression: EXAMINATION: CT head/brain wo IV con CLINICAL INFORMATION: Reason for Exam left eye vision change COMPARISON: CT head without contrast 06/21/2022 FINDINGS: No acute osseous or soft tissue abnormality. The mastoid air cells and visualized portions of the paranasal sinuses are well aerated. There is no evidence of acute intracranial hemorrhage or territorial infarction. No abnormal mass effect or midline shift is seen. Vance to white matter differentiation is well preserved. No extra-axial fluid collections are identified. No hydrocephalus. Proportional prominence of the ventricles and sulcal spaces is consistent with mild volume loss. Patchy periventricular and deep white matter hypoattenuation is consistent with mild small vessel ischemic changes. Chronic right [employer] territory infarct with ex vacuo dilatation of the right occipital horn. IMPRESSION: No acute intracranial abnormality including hemorrhage, mass effect, hydrocephalus, or acute territorial edematous infarction. Dictated By: Brooks Boyd Signed By: <Electronically signed by Brooks Boyd in OV> Critical Care Time Critical Care Time Critical Care Time: Yes Total Critical Care Time: 35 Attestation: Critical Care: The patient was critically ill with a high probability of imminent or life threatening deterioration. I spent greater than 30 minutes of discontinuous time evaluating the patient,delivering critical care at the bedside, discussing and evaluating pertinent data with consultants. Critical care time does not include time spent performing separately billable procedures or teaching. Total time spent performing critical care was 35 minutes. Discharge Plan Discharge Clinical Impression: Change in vision Patient Disposition: Home, Self-Care Additional Instructions: Your CT scan did not reveal any acute findings to explain your change in vision. The reading is below, please show this to the cigarette roller that you CT today. Your CRP was elevated at 2.51 ( normal was less than 0.5). Your ESR was normal at 12. I spoke to Dr. Greenwood who Is an cigarette roller in [place] and covering for the [place] system. He states that one of his partners will see you in their office today at 08:30am. You should get to the office 30 minutes early. [facility] Parking on [address] EXAMINATION: CT head/brain wo IV con CLINICAL INFORMATION: Reason for Exam left eye vision change COMPARISON: CT head without contrast 06/21/2022 FINDINGS: No acute osseous or soft tissue abnormality. The mastoid air cells and visualized portions of the paranasal sinuses are well aerated. There is no evidence of acute intracranial hemorrhage or territorial infarction. No abnormal mass effect or midline shift is seen. Vance to white matter differentiation is well preserved. No extra-axial fluid collections are identified. No hydrocephalus. Proportional prominence of the ventricles and sulcal spaces is consistent with mild volume loss. Patchy periventricular and deep white matter hypoattenuation is consistent with mild small vessel ischemic changes. Chronic right [employer] territory infarct with ex vacuo dilatation of the right occipital horn. CT head/brain wo IV con IMPRESSION: No acute intracranial abnormality including hemorrhage, mass effect, hydrocephalus, or acute territorial edematous infarction. Dictated By: Brooks Boyd Prescriptions: No Action atorvastatin 80 mg tablet 80 mg PO BEDTIME sennosides [senna] 8.6 mg tablet 8.6 mg PO DAILY apraclonidine 0.5 % drops 1 drp ophthalmic-Right BID citalopram 10 mg tablet 10 mg PO DAILY glipizide 10 mg tablet 10 mg PO BID clonazepam [Klonopin] 1 mg tablet 1 mg PO TID PRN (Reason: anxiety) allopurinol 100 mg tablet 100 mg PO QAM divalproex [Depakote] 500 mg tablet,delayed release (DR/EC) 500 mg PO DAILY aspirin 81 mg tablet,delayed release (DR/EC) 81 mg PO DAILY levothyroxine 25 mcg tablet 12.5 mcg PO DAILY ascorbic acid (vitamin C) [Vitamin C] 500 mg tablet 500 mg PO BID amlodipine 10 mg tablet 10 mg PO DAILY ferrous sulfate [FeroSul] 325 mg (65 mg iron) tablet 325 mg PO DAILY lisinopril 10 mg tablet 10 mg PO DAILY Hold Instructions: Resume on 07/02/22. docusate sodium 100 mg capsule 100 mg PO BID omeprazole 20 mg capsule,delayed release(DR/EC) 20 mg PO DAILY@0630 levothyroxine 200 mcg tablet 200 mcg PO DAILY fluticasone propion-salmeterol 100-50 mcg/dose blister with device 1 ea inhalation BID quetiapine [Seroquel] 50 mg tablet 50 mg PO BEDTIME Farxiga 10 mg tablet 10 mg PO DAILY divalproex [Depakote] 500 mg tablet,delayed release (DR/EC) 1,000 mg PO BEDTIME
[2023-03-18 18:56] VITALS: BP 177/96; PULSE 101; RESP 20; TEMP 36.4; O2SAT 97; BMI 20.1
--- OUTSIDE RECORDS SUMMARY | 2023-03-18 20:11 | XMS_ITS | Continuity of Care Document ---
Author Name Unknown Organization [facility] Address [address] [place] [id number]- Care Team Providers Care Senior Support Analyst Name Role Phone Lisette RG, Nelda Primary Care Physician [place] [facility] [place](s): 03/31/21 - 04/30/21 [facility] [address] [place] [id number] Attending Physician: Jesi Bone Admitting Physician: Admtr, Jesi Referring Physician: Admtr, Ar8 Allergies, Adverse Reactions, Alerts No Known Allergies Medications albuterol 90 mcg/inh inhalation powder 2 puffs, Inhalation, Every 4 hours, 0 Refills, Maintenance, 10/21/15 10:38:14 Start Date: 10/21/15 Status: Ordered Amlodipine 10 mg, By Mouth, Daily, Maintenance, 10/02/13 8:44:45 Start Date: 10/02/13 Status: Ordered Atenolol = 25 mg, By Mouth, 2 times a day, 0 Refills, Maintenance, 09/03/13 13:02:31 Start Date: 09/03/13 Status: Ordered atorvastatin 20 mg oral tablet 1 tablet = 20 mg, By Mouth, Daily at bedtime, 0 Refills, Maintenance Start Date: 10/21/15 Status: Ordered cetirizine 5 mg oral tablet 1 tablet = 5 mg, By Mouth, Daily, 0 Refills, Maintenance, 10/21/15 10:40:35 Start Date: 10/21/15 Status: Ordered citalopram 20 mg oral tablet 1 tablet = 20 mg, By Mouth, Daily, # 30 tablet, 0 Refills, Maintenance, 07/08/14 14:22:29, Tablet Start Date: 07/08/14 Status: Ordered clonazePAM 1 mg oral tablet 1 tablet = 1 mg, By Mouth, 3 times a day, 0 Refills, Maintenance, 10/21/15 10:34:49 Start Date: 10/21/15 Status: Ordered Cyclobenzaprine By Mouth, 0 Refills, Maintenance, 10/21/15 10:39:08 Start Date: 10/21/15 Status: Ordered Depakote 500 mg oral enteric coated tablet 1 tablet = 500 mg, By Mouth, 2 times a day, 0 Refills, Maintenance, 08/31/13 15:26:23 Start Date: 08/31/13 Status: Ordered ferrous sulfate 325 mg oral tablet 1 tablet = 325 mg, By Mouth, 3 times a day, # 270 tablet, 0 Refills, Maintenance, Tablet Start Date: 08/30/11 Status: Ordered Flonase 50 mcg/inh nasal spray 1 sprays, Daily, 0 Refills, Maintenance, 10/21/15 10:38:27 Start Date: 10/21/15 Status: Ordered glipiZIDE 5 mg oral tablet 5 mg, 1, tablet, By Mouth, Daily, Refills 0, Maintenance, 10/21/15 10:39:29 Start Date: 10/21/15 Status: Ordered ibuprofen 600 mg oral tablet 1 tablet = 600 mg, By Mouth, 3 times a day, PRN as needed for pain, # 90 tablet, 0 Refills, Maintenance, 11/05/13 13:48:08, Tablet, 1 tablet By Mouth 3 times a day,PRN:as needed for pain Start Date: 11/05/13 Status: Ordered Indomethacin 0 Refills, Maintenance, 10/21/15 10:38:39 Start Date: 10/21/15 Status: Ordered ketoconazole 2% topical cream 1 applicator, Topically, Daily, 0 Refills, Maintenance, 10/21/15 10:37:45 Start Date: 10/21/15 Status: Ordered levothyroxine 0.175 mg oral tablet See Instructions, take one tablet daily., # 90 Doses, 3 Refills, Maintenance, 07/16/16 11:37:31 Start Date: 07/16/16 Status: Ordered loratadine 10 mg oral capsule 1 capsule = 10 mg, By Mouth, Daily, # 10 capsule, 0 Refills, Maintenance, 07/08/14 14:23:11, Capsule Start Date: 07/08/14 Status: Ordered metformin 500 mg oral tablet 500 mg, By Mouth, 2 times a day, 0 Refills, Maintenance, 08/30/11 14:09:06 Start Date: 08/30/11 Status: Ordered Omeprazole By Mouth, Daily, 0 Refills, Maintenance, 10/21/15 10:38:52 Start Date: 10/21/15 Status: Ordered povidone iodine topical 0.3% solution 0 Refills, Maintenance, 10/21/15 10:36:57 Start Date: 10/21/15 Status: Ordered Seroquel 100 mg oral tablet 100 mg, By Mouth, Daily at bedtime, 0 Refills, Maintenance, 08/30/11 14:09:50 Start Date: 08/30/11 Status: Ordered Spiriva = 18 mcg, Inhalation, Daily, 0 Refills, Maintenance, 10/21/15 10:39:16 Start Date: 10/21/15 Status: Ordered Symbicort 160mcg/4.5mcg Inhaler 2, puffs, Inhalation, 2 times a day, Refills 0, Maintenance, 10/21/15 10:37:22 Start Date: 10/21/15 Status: Ordered Trazodone By Mouth, 0 Refills, Maintenance, 10/08/14 9:19:08 Start Date: 10/08/14 Status: Ordered Vitamin C 500 mg oral tablet 1 tablet = 500 mg, By Mouth, 2 times a day, # 30 tablet, 0 Refills, Maintenance, 08/31/13 15:33:13,Tablet Start Date: 08/31/13 Status: Ordered Problem List Condition Effective Dates Status Health Status Inform ant Anemia(Confirmed) Active Asthma(Confirmed) Active Bipolar disorder(Confirmed) Active Diabetes(Confirmed) Active GERD (gastroesophageal reflu x disease)(Confirmed) Active Hypertension(Confirmed) Active Hypothyroidism(Confirmed) Active Insomnia(Confirmed) Active Thyroid cancer, medullary carcinoma(Confirmed) Active Migraines(Confirmed) Active Pulmonary nodule/lesion, solitary(Confirmed) Active Mild renal insufficiency(Confirmed) Active Smoker(Confirmed) Active Hx of total thyroidectomy wi th radical neck dissection(Confirmed) Active Social History Social History Type Response Smoking Status Never smoker; Tobacc o user in household: No entered on: 10/08/14 Sex
--- OUTSIDE RECORDS SUMMARY | 2023-03-18 20:11 | XMS_ITS | Continuity of Care Document ---
Author Name Unknown Organization [facility] Address [address] [place] [address]- Care Team Providers Care Sales Team Recruiter Name Role Phone Lisette RG, Nelda Primary Care Physician [place] [facility] [place]/19 [facility] [address] [place] [id number] [facility] Attending Physician: Amparo San DO Admitting Physician: Amparo San DO Referring Physician: Nelda Knox MD Allergies, Adverse Reactions, Alerts Substance Reaction Severity Status NKA Active Medications albuterol 90 mcg/inh inhalation powder 2 [...]
--- OUTSIDE RECORDS SUMMARY | 2023-03-18 20:11 | XMS_ITS | Continuity of Care Document ---
Author Name Unknown Organization [facility] Address [address] [place] [address]- Care Team Providers Care Supervisor Area Name Role Phone Lisette RG, Nelda Primary Care Physician [place] [facility] [place] 02/08/21 - 03/24/21 [facility] [address] [facility] [facility] [place] [address]- Attending Physician: Chelo Jordan MD Admitting Physician: Chelo Jordan MD Referring Physician: Kalee Stevens NP Allergies, Adverse Reactions, Alerts Substance Reaction Severity [...]
--- OUTSIDE RECORDS SUMMARY | 2023-03-18 20:11 | XMS_ITS | Continuity of Care Document ---
Author Name Unknown Organization [facility] Address [address] [place] [address]- Care Team Providers Care Transmission Worker Name Role Phone Liestte RG, Nelda Primary Care Physician [phone] Encounter [facility] [place] Date(s): 08/12/19 - 09/11/19 [facility] [address] [place] [id number] [facility] Attending Physician: Amparo San DO Referring Physician: Nelda [...]
--- OUTSIDE RECORDS SUMMARY | 2023-03-18 20:11 | XMS_ITS | Continuity of Care Document ---
Author Name Unknown Organization [facility] Address [address] [place] [id number]- Care Team Providers Care Securities Vault Supervisor Name Role Phone Lisette RG, Nelda Primary Care Physician Encounter [facility] [place] Date(s): 10/19/21 - 11/18/21 [facility] [address] [place] [id number] Attending Physician: Jesi Bone Admitting Physician: AdmtrJesi Referring Physician: Admtr, Ar8 Allergies, Adverse Reactions, [...] in household: No entered on: 10/08/14 Sex Care Team Personnel Name: Nelda Knox MD Address: [address] [place] [address]
--- OUTSIDE RECORDS SUMMARY | 2023-03-18 20:11 | XMS_ITS | Continuity of Care Document ---
Author Name Unknown Organization [facility] Address [address] [place] [address]- Care Team Providers Care Window Machine Operator Name Role Phone Lisette RG, Nelda Primary Care Physician Encounter [facility] Date(s): 10/03/21 - 11/02/21 [facility] [address] [place] [id number] Allergies, Adverse Reactions, Alerts No Known Allergies [...]
--- OUTSIDE RECORDS SUMMARY | 2023-03-18 20:11 | XMS_ITS | Continuity of Care Document ---
Author Name Unknown Organization [facility] Address [address] [place] [address]- Care Team Providers Care Spring Former Hand Name Role Phone Lisette RG, Nelda Primary Care Physician Encounter [facility] Date(s): 04/22/19 - 05/02/19 [facility] [address] [place] [address] [facility] Attending Physician: Admtr, Fletcher8 Admitting Physician: Admtr, Jesi Referring Physician: Admtr, Ar8 Allergies, Adverse Reactions, Alerts Substance Reaction Severity [...]
--- OUTSIDE RECORDS SUMMARY | 2023-03-18 20:11 | XMS_ITS | Continuity of Care Document ---
Author Name Unknown Organization [facility] Address [address] [place] [address]- Care Team Providers Care Brass Burnisher Name Role Phone Lisette RG, Nelda Primary Care Physician Encounter [facility] Date(s): 12/09/19 - 01/08/20 [facility] [address] [place] [address]- [facility] Attending Physician: Jesi Bone Admitting Physician: AdmtrJesi Referring Physician: Admtr ArKuldeep Allergies, Adverse Reactions, Alerts Substance Reaction Severity [...]
--- OUTSIDE RECORDS SUMMARY | 2023-03-18 20:11 | XMS_ITS | Continuity of Care Document ---
Author Name Unknown Organization [facility] Address [address] [place] [address]- Care Team Providers Care Die Finisher Forging Name Role Phone Lisette RG, Nelda Primary Care Physician Encounter [facility] Date(s): 01/22/19 - 05/22/19 [facility] [address] [place] [address]- [facility] Attending Physician: Amparo San [...] Refills, Maintenance, 07/08/14 14:22:29, Tablet Start Date: 4/23/15 Status: Ordered clonazePAM 1 mg oral tablet [...]
--- OUTSIDE RECORDS SUMMARY | 2023-03-18 20:11 | XMS_ITS | Continuity of Care Document ---
Author Name Unknown Organization [facility] Address [address] [place] [address]- Care Team Providers Care General Manager In Training Name Role Phone Lisette RG, Nelda Primary Care Physician [phone] Encounter [facility] Date(s): 07/21/21 - 11/18/21 [facility] [address] [place] [address] Attending Physician: Tisha Medley MD Admitting Physician: Tisha Medley MD Referring Physician: Nelda Knox MD Allergies, Adverse Reactions, Alerts No Known Allergies [...] on: 10/08/14 Sex Care Team Personnel Name: Lisette RG , Nelda Address: [address] [place] [address]
--- OUTSIDE RECORDS SUMMARY | 2023-03-18 20:11 | XMS_ITS | Continuity of Care Document ---
Author Name Unknown Organization [facility] Address [address] [place] [address]- Care Team Providers Care Marketing Research Analyst Name Role Phone Lisette RG, Nelda Primary Care Physician Encounter [facility] Date(s): 02/07/21 - 03/26/[address] [address] Attending Physician: Pita Davidson DO Admitting Physician: Pita Davidson DO Referring Physician: Rodney NUT GRADERKalee Allergies, Adverse Reactions, Alerts Substance Reaction Severity [...]
--- OUTSIDE RECORDS SUMMARY | 2023-03-18 20:11 | XMS_ITS | Continuity of Care Document ---
Author Name Unknown Organization [facility] Address [address] [place] [address]- Care Team Providers Care Estimator Lumber Name Role Phone Lisette RG, Nelda Primary Care Physician Encounter [facility] Date(s): 07/29/20 - 11/20/20 [facility] [address] [place] [address]- Attending Physician: Amparo San DO Admitting Physician: [...]
--- OUTSIDE RECORDS SUMMARY | 2023-03-18 20:11 | XMS_ITS | Continuity of Care Document ---
Author Name Unknown Organization [facility] Address [address] [place] [address]- Care Team Providers Care Company Miner Blasting Name Role Phone Lisette RG, Nelda Primary Care Physician En[facility] Date(s): 02/22/21 - 03/24/21 [facility] [address] [place] [address]- Attending Physician: Admtr, Fletcher8 Admitting Physician: Admtr, Ar8 Referring Physician: Admtr, Ar8 Allergies, Adverse Reactions, [...]
--- OUTSIDE RECORDS SUMMARY | 2023-03-18 20:11 | XMS_ITS | Continuity of Care Document ---
Author Name Unknown Organization [facility] Address [address] [place] [address]- Care Team Providers Care Car Dropper Name Role Phone Lisette RG, Nelda Primary Care Physician [place] [facility] Date(s): 09/10/19 - 01/08/20 [facility] [address] [place] [address]- [facility] Attending Physician: Amparo San DO Admitting [...]
--- OUTSIDE RECORDS SUMMARY | 2023-03-18 20:11 | XMS_ITS | Continuity of Care Document ---
Author Name Unknown Organization [facility] Address [address] [place] [address]- Care Team Providers Care Filler Shredding Machine Loader Name Role Phone Lisette RG, Nelda Primary Care Physician [phone] Encounter [facility] Date(s): 09/07/21 - 10/07/21 [facility] [address] [place] [id number] Allergies, Adverse Reactions, Alerts No Known Allergies [...] 0 Refills, Maintenance, 10/21/15 10:34:49 Start Date: 8/5/16 Status: Ordered Cyclobenzaprine By Mouth, 0 Refills, [...]
--- NOTE | 2023-03-18 20:17 | MHC.EDTECH ---
Patient visual acuity check done ,and blood drawn and sent to lab .
[2023-03-18 20:19] LABS: MANUAL DIFF FLAG NO
[2023-03-18 20:26] LABS: Basophils Percent Auto 0.2 % (0-2); Hematocrit 44.1 % (37.0-47.0); Hemoglobin 14.8 g/dl (12.0-16.0); Imm Gran Abs Auto 0.03 X10*3/uL (0.00-0.03); Imm Gran Pct Auto 0.2 % (0.0-0.4); Lymphocytes Absolute Auto 1.1 X10*3/uL (1.2-4.9); Mean Corpuscular HGB Conc 33.6 g/dl (31.0-35.0); Mean Corpuscular Hemoglobin 27.1 pg (27.0-33.0); Mean Corpuscular Volume 80.6 fL (80.0-98.0); Mean Platelet Volume 9.3 fL (9.4-12.3); Monocytes Absolute Auto 0.9 X10*3/uL (0.1-1.2); Monocytes Percent Auto 6.9 % (2-11); Neutrophils Absolute Auto 10.6 x10*3/uL (2.0-8.3); Neutrophils Percent Auto 83.7 % (45-73); Platelet Count 324 X10*3/uL (160-400); Red Blood Count 5.47 X10*6/uL (4.20-5.50); White Blood Count 12.7 X10*3/uL (4.8-10.8)
[2023-03-18 20:30] LABS: INTERNATIONAL NORM RATIO 0.9 (0.9-1.1); Prothrombin Time 10.7 SEC (11.1-13.3)
[2023-03-18 20:40] LABS: Alanine Aminotransferase 16 U/L (0-31); Albumin Level 4.8 g/dL (3.5-5.0); Alkaline Phosphatase 78 U/L (39-117); Anion Gap 21 (12-20); Aspartate Amino Transferase 20 U/L (5-31); Bilirubin Direct 0.2 mg/dL (0.0-0.5); Bilirubin Total 0.7 mg/dL (0.0-1.0); Blood Urea Nitrogen 17 mg/dL (9-16); Calcium 9.8 mg/dL (8.4-10.2); Carbon Dioxide 21 mmol/L (22-29); Chloride 96 mmol/L (96-108); Creatinine Clr Calc Pharmacy 44.4; Estimated Glomerular Filt Rate 50; Glucose Random 202 mg/dL (60-115); Potassium 4.4 mmol/L (3.3-5.1); Sodium 134 mmol/L (135-145); Total Protein 8.6 g/dL (6.5-8.0)
[2023-03-19 02:17] VITALS: BP 189/113; PULSE 85; RESP 18; TEMP 37.4; O2SAT 99
[2023-03-19 02:20] VITALS: BP 184/100; PULSE 84; RESP 18
--- NOTE | 2023-03-19 02:21 | MHC.EDTECH ---
Patient's BP is elevated 189/113 RT arm, 184/100 LT arm , Cielo TODD is aware and at bedside.
[2023-03-19 02:25] LABS: C Reactive Protein 2.51 mg/dL (< or = 0.50)
--- NOTE | 2023-03-19 02:37 | MHC.EDTECH ---
CALL OUT TO [facility] AT [address]SF[address] PER DR. CAMPUZANO. [facility] DENIED TRANSFER, THEY WERE NOT ACCEPTING
--- NOTE | 2023-03-19 02:40 | MHC.EDTECH ---
CALL OUT TO [facility] [place] LINE AT [address] CAMPUZANO, MORE INFORMATION WAS PROVIDED [facility] CALLED BACK AT 0240 TO DECLINE TRANSFER DUE TO CAPACITY
--- NOTE | 2023-03-19 02:48 | PC.NURSE ---
BEDSIDE VISITORS RETURNED FROM RETRIEVING OVERNIGHT BAGS FROM HOME. PT AND FAMILY ARE AWARE THAT THE CURRENT PLAN FOR THE PT IS TRANSFER TO OUTSIDE FACILITY PENDING ACCEPTANCE. PT IS ALERT, INTERMITTENTLY TEARFUL, OFTEN APOLOGIZING FOR HER TEARFULLNESS. SHE ENDORSES BEING SCARED D/T VISUAL CHANGES/DISTURBANCES SHE REPORTS LAST EXPERIENCING THIS IN THE PAST AND IT BEING A RESULT OF A STROKE. SHE IS CONVERSING IN FULL/COMPLETE SENTENCESS, NO OBVIOUS NEURO DEFICITS NOTED AT THIS TIME. SHE IS FORGETFUL AT TIMES BUT FAMILY AND RN PROVIDING REDIRECTION NEEDED
[2023-03-19 03:28] LABS: Erythrocyte Sedimentation Rate 12 MM/HR (0-20)
== END 2023-03-19 04:18 | disposition home or self-care (01) ==
PROVIDERS: Nurse Practitioner Family; Emergency Provider Emergency Medicine Emergency Medical Services; PCP Family Medicine
DX: H53.8 Other visual disturbances (principal); E11.9 Type 2 diabetes mellitus without complications; I10 Essential (primary) hypertension; F17.210 Nicotine dependence, cigarettes, uncomplicated; F12.90 Cannabis use, unspecified, uncomplicated; F14.10 Cocaine abuse, uncomplicated; Z86.73 Personal history of transient ischemic attack (TIA), and cerebral infarction without residual deficits; Z79.02 Long term (current) use of antithrombotics/antiplatelets; Z79.899 Other long term (current) drug therapy; Z79.82 Long term (current) use of aspirin
CPT/HCPCS: 36415; 70450; 80048; 80076; 85025; 85610; 85652; 86140; 99284

== ENCOUNTER 2023-03-22 18:56 | Outpatient (REF) | payer OTHER, SELFPAY | END 2023-03-22 18:57 | disposition home or self-care (01) | LOC: HO.HHCLNP 18:56 | PROVIDERS: Visit Provider Registered Nurse | DX: R41.0 Disorientation, unspecified (principal) | CPT/HCPCS: 81001; 87086; 87088; 87186 ==

== ENCOUNTER 2023-07-09 12:39 | Outpatient (AMB) | payer OTHER, SELFPAY ==
[2023-07-09 12:53] VITALS: BP 158/80; PULSE 74; BMI 22.1
--- NOTE | 2023-07-09 12:53 | A.OFFVIS_ITS ---
Vital Signs 07/09/23 12:53 Height 5 ft 4 in Weight 128 lb 11.999 oz BMI 22.1 BP 158/80 H Blood Pressure Location Lt brachial Position Sitting Pulse 74 Pulse Source Monitor Intake Visit Reasons: 1 yr follow up Merchandise Deliverer Required: No Allergies No Known Allergies Allergy (Verified 07/09/23 12:56) Medication List - Last Reconciled 07/09/23 by SHANICE Alcala allopurinol 100 mg PO QAM amlodipine 10 mg PO DAILY apraclonidine 0.5% 1 drp ophthalmic-Right BID ascorbic acid (vitamin C) (Vitamin C) 500 mg PO BID aspirin 81 mg PO DAILY atorvastatin 80 mg PO BEDTIME citalopram 10 mg PO DAILY clonazepam (Klonopin) 1 mg PO TID PRN dapagliflozin propanediol (Farxiga) 10 mg PO DAILY divalproex (Depakote) 500 mg PO DAILY divalproex (Depakote) 1,000 mg PO BEDTIME docusate sodium 100 mg PO BID ferrous sulfate (FeroSul) 325 mg PO DAILY fluticasone propion-salmeterol 100-50 mcg/dose 1 ea inhalation BID glipizide 10 mg PO BID levothyroxine 200 mcg PO DAILY levothyroxine 12.5 mcg PO DAILY lisinopril 10 mg PO DAILY omeprazole 20 mg PO DAILY@0630 quetiapine (Seroquel) 50 mg PO BEDTIME sennosides (senna) 8.6 mg PO DAILY HPI HPI 1 yr follow up: Details: Sary is a 63-year-old female past medical history of diabetes, hypertension, smoking, cocaine use, CVA, HOCM presents for follow-up. Her last prior visit to our office was 07/09/2022. Today she reports that she has been under high stress, adding that her son just got out of alf. She is tearful at this visit. She tells me she forgot to take her medications this morning. She is smoking about 6 cigarettes a day. She says she is not using any cocaine but admits to smoking marijuana daily to help calm her nerves. She does have a psychiatrist and a counselor. Her daughter is her HIGH PRESSURE OPERATOR. She uses a pill pack from the pharmacy and is unaware of exactly what med she takes. No chest discomfort at rest or with activity. She has some shortness of breath with exertion which is not new. No shortness that rest, PN D, orthopnea or edema. No lightheadedness, presyncope, syncope, falls. [facility] Medical History Abnormal ECG History of CVA (cerebrovascular accident) History of thyroid cancer Hypothyroidism (acquired) Nicotine dependence, cigarettes, uncomplicated Asthma Type 2 diabetes mellitus with unspecified complications Essential hypertension HOCM (hypertrophic obstructive cardiomyopathy) Surgical History History of tubal ligation History of incision and drainage (~2021) History of thyroidectomy (~2016) Family History Father No problems noted. Mother Heart attack Social History Household Members: Family Alcohol intake: current Alcohol intake frequency: holidays/special occasions only Patient Tobacco Use Status: Current everyday Tobacco user Tobacco use type: Cigarette Cigarettes Per Day: 3 Second Hand Smoke Exposure: No Substance Use Type: Marijuana service: No Review of Systems Const All systems reviewed & are unremarkable except as noted in HPI and below ENT Denies dizziness Card Denies chest pain, Denies chest pain at rest, Denies chest pain with activity, Denies rapid heart rate, Denies pedal edema, Denies edema, Denies leg edema, Denies lightheadedness, Denies palpitations, Reports dyspnea, Denies dyspnea on exertion and Denies orthopnea Resp Denies cough, Reports dyspnea and Denies dyspnea on exertion GI Denies hematochezia and Denies change in stool character Musc Denies abnormal gait, Denies limited range of motion, Denies muscle cramps, Denies muscle weakness, Denies numbness, Denies radiating pain into limb, Denies stiffness and Denies tingling Neuro Denies abnormal gait, Denies dizziness, Denies numbness and Denies tingling Endo Denies palpitations Physical Exam Vital Signs: BMI result Body Mass Index 22.1 Const General: cooperative, healthy appearing, comfortable and no acute distress Orientation/consciousness: patient oriented x3 Neck Neck: Yes normal visual inspection Resp Effort & Inspection: normal respiratory effort Auscultation: clear to auscultation bilaterally, no rales, no rhonchi and no wheezes Cardio Jugular venous distension: no JVD Rate: regular rate Rhythm: regular rhythm Heart sounds: S1 normal heart sound present, S2 normal heart sound present, no murmurs and no rubs Neuro General: patient oriented x3 Extrem General: Yes normal to inspection and No no pedal edema Psych Appearance: grossly normal Mental Status: mental status grossly normal Speech and movement: Normal speech and movement present Assessment & Plan Assessment & Plan (1) HOCM (hypertrophic obstructive cardiomyopathy): Code(s): I42.1 - Obstructive hypertrophic cardiomyopathy Category: Medical Plan: History of HOCM. Last echocardiogram done 04/06/2021 showing normal EF, grade 1 diastolic dysfunction, moderate asymmetrical septal hypertrophy with dynamic obstruction, 12 mmHg gradient at rest and 26 mmHg with Valsalva. History of hypertension which likely contributes to this problem. EKG done today shows normal sinus rhythm with LVH, repolarization abnormality which is similar to prior EKG, rate 74. Her blood pressure is elevated at this visit. She tells me she forgot to take her medications this morning. She insists that she is compliant on other days. It seems that her lisinopril has been on hold due to prior creatinine elevation. Labs done on 03/18/2023 showed creatinine 1.1, potassium 4.4. The importance of good blood pressure control reviewed with her. Will restart lisinopril 10 mg daily. She is upcoming labs as ordered by her PCP. Continue amlodipine 10 mg daily. Instructed on light physical activity, avoiding heavy lifting and straining. Will update echocardiogram. Cardiology follow-up in 3 months, sooner if needed. (2) Abnormal EKG: Code(s): R94.31 - Abnormal electrocardiogram [ECG] [EKG] Category: Medical Plan: LVH with repolarization abnormality (3) Essential hypertension: Code(s): I10 - Essential (primary) hypertension Category: Medical Plan: As above (4) Nicotine dependence, cigarettes, uncomplicated: Comment: (current smoker, onset 13yo, 1ppd x 49yrs, now 1/4ppd, 40pyh) Code(s): F17.210 - Nicotine dependence, cigarettes, uncomplicated Category: Medical Plan: Tells me she is smoking 6 cigarettes per day (5) Cocaine abuse: Code(s): F14.10 - Cocaine abuse, uncomplicated Category: Medical Plan: Tells me she has stopped using cocaine but admits to daily marijuana smoking. The avoidance of substance abuse reviewed with her. Plan Time spent on chart review, documentation, interview and assessment Orders: Orders CA echo transthoracic complete Today I42.1 - Obstructive hypertrophic cardiomyopathy Medications: New lisinopril add to her med box ( she states it is due for delivery tomorrow) 10 mg PO DAILY 90 tabs 1RF Coding Level of Care Code Est Pt Level 4 (26029) Diagnoses HOCM (hypertrophic obstructive cardiomyopathy) I42.1 Abnormal EKG R94.31 Essential hypertension I10 Nicotine dependence, cigarettes, uncomplicated F17.210 Cocaine abuse F14.10 Time Spent (min) 28
== END 2023-07-09 13:36 | disposition home or self-care (01) ==
PROVIDERS: Visit Provider Nurse Practitioner Family
DX: I42.1 Obstructive hypertrophic cardiomyopathy (principal); R94.31 Abnormal electrocardiogram [ECG] [EKG]; I10 Essential (primary) hypertension; F17.210 Nicotine dependence, cigarettes, uncomplicated; F14.10 Cocaine abuse, uncomplicated
CPT/HCPCS: 99214

== ENCOUNTER → 2023-07-09 12:39 | Outpatient (BNVA) | payer OTHER, SELFPAY | PROVIDERS: Visit Provider Nurse Practitioner Family | DX: I42.1 Obstructive hypertrophic cardiomyopathy (principal); I10 Essential (primary) hypertension; R94.31 Abnormal electrocardiogram [ECG] [EKG]; F17.210 Nicotine dependence, cigarettes, uncomplicated; F14.10 Cocaine abuse, uncomplicated | CPT/HCPCS: 99212 ==

== ENCOUNTER 2023-07-28 09:41 | Emergency (ER) | payer OTHER, SELFPAY ==
--- NOTE | ~2023-07-28 | XR_ITS ---
X-RAY BILATERAL ELBOWS CLINICAL HISTORY: Atraumatic pain. COMPARISON: No relevant prior studies are available for comparison. TECHNIQUE: 3 views of each elbow were obtained. FINDINGS: No fracture or subluxation. Joint spaces are maintained. No osseous erosions. No abnormal soft tissue calcifications. No joint effusion. XR/XR elbow LT min 3V IMPRESSION: No significant radiographic abnormality in the bilateral elbows..
--- NOTE | ~2023-07-28 | XR_ITS ---
X-RAY BILATERAL ELBOWS CLINICAL HISTORY: Atraumatic pain. COMPARISON: No relevant prior studies are available for comparison. TECHNIQUE: 3 views of each elbow were obtained. FINDINGS: No fracture or subluxation. Joint spaces are maintained. No osseous erosions. No abnormal soft tissue calcifications. No joint effusion. XR/XR elbow RT min 3V IMPRESSION: No significant radiographic abnormality in the bilateral elbows..
[2023-07-28 09:45] VITALS: BP 130/92; PULSE 89; RESP 16; TEMP 36.3; O2SAT 98; BMI 22.3
--- OUTSIDE RECORDS SUMMARY | 2023-07-28 10:31 | XMS_ITS | Continuity of Care Document ---
Author Organization [facility] Address [address] [place] [address]- Care Team Providers Care Hogshead Filler Name Role Phone Lisette RG, Nelda Primary Care Physician [phone] [place] [facility] Date(s): 02/21/23 - 03/23/23 [facility] [address] [place] [address] Attending Physician: Jesi Bone Admitting Physician: AdmJesi fonseca Referring Physician: AdmtrJesi Allergies, Adverse Reactions, Alerts No Known Allergies [...] Date: 08/31/13 Status: Ordered Problem List Condition Confirmation Course Effective Dates Status H ealth Status Informant Anemia Confirmed Active Asthma Confirmed Active Bipolar disorder Confirmed Active Diabetes Confirmed Active GERD (gastroesophageal reflux disease) Confirmed Active Hypertension Confirmed Active Hypothyroidism Confirmed Active Insomnia Confirmed Active Thyroid cancer, medullary carcinoma Confirmed Active Migraines Confirmed Active Pulmonary nodule/lesion, solitary Confirmed Active Mild renal insufficiency Confirmed Active Smoker Confirmed Active Hx of total thyroidectomy with radical neck dissection Confirmed Active Social History Social History Type Response Smoking Status Never smoker; Tobacc o user in household: No entered on: 10/08/14 Sex Laboratory * Event Display: Non BH Lab Results Authored Date: * Event Display: Non BH Lab Results Authored Date: * Event Display: Non BH Lab Results Authored Date: * Event Display: Non BH Lab Results Authored Date: * Event Display: Non BH Lab Results Authored Date: Patient Care team information Care Team Personnel Name: Vibha Arrieta RN Position: [facility] RN Member Role: Primary Care Nurse Name: Mallory Ayoub Position: [facility] Outreach Member Role: Lifetime Consulting Physician Name: Nelda Knox MD Position: [facility] Outreach Member Role: PCP Address: Address: [address] [place] [address]- Care Team Related Persons Name: PRABHAKAR BILL Address: home [address] [place] [address]
--- NOTE | 2023-07-28 10:52 | ED.EXTPRO ---
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 Admits to pain along the medial aspect of bilateral elbows, worse with flexion. No radiation of pain. She has been taking She is currently on disability and denies any repetitive UE motions/ activities. Denies injury/trauma. Denies OTC medications at home for pain/ discomfort. She has not had symptoms like this in the past. Denies recent tick or insect bites. Denies numbness/tingling/weakness of the extremity, fever, chills. Related Data Home Medications ?Medication ?Instructions ?Recorded ?Confirmed allopurinol 100 mg tablet 100 mg PO QAM 06/21/22 07/09/23 amlodipine 10 mg tablet 10 mg PO DAILY 06/21/22 07/09/23 apraclonidine 0.5 % eye drops 1 drp ophthalmic-Right BID 06/21/22 07/09/23 ascorbic acid (vitamin C) 500 mg 500 mg PO BID 06/21/22 07/09/23 tablet (Vitamin C) aspirin 81 mg tablet,delayed 81 mg PO DAILY 06/21/22 07/09/23 release atorvastatin 80 mg tablet 80 mg PO BEDTIME 06/21/22 07/09/23 citalopram 10 mg tablet 10 mg PO DAILY 06/21/22 07/09/23 clonazepam 1 mg tablet (Klonopin) 1 mg PO TID PRN anxiety 06/21/22 07/09/23 dapagliflozin propanediol 10 mg 10 mg PO DAILY 06/21/22 07/09/23 tablet (Farxiga) divalproex 500 mg tablet,delayed 1,000 mg PO BEDTIME 06/21/22 07/09/23 release (Depakote) divalproex 500 mg tablet,delayed 500 mg PO DAILY 06/21/22 07/09/23 release (Depakote) docusate sodium 100 mg capsule 100 mg PO BID 06/21/22 07/09/23 ferrous sulfate 325 mg (65 mg 325 mg PO DAILY 06/21/22 07/09/23 iron) tablet (FeroSul) fluticasone 100 mcg-salmeterol 50 1 ea inhalation BID 06/21/22 07/09/23 mcg/dose blistr powdr for inhalation glipizide 10 mg tablet 10 mg PO BID 06/21/22 07/09/23 levothyroxine 200 mcg tablet 200 mcg PO DAILY 06/21/22 07/09/23 levothyroxine 25 mcg tablet 12.5 mcg PO DAILY 06/21/22 07/09/23 omeprazole 20 mg capsule,delayed 20 mg PO DAILY@0630 06/21/22 07/09/23 release quetiapine 50 mg tablet (Seroquel) 50 mg PO BEDTIME 06/21/22 07/09/23 sennosides 8.6 mg tablet (senna) 8.6 mg PO DAILY 06/21/22 07/09/23 Previous Rx's ?Medication ?Instructions ?Recorded lisinopril 10 mg tablet 10 mg PO DAILY #90 tabs 07/09/23 naproxen 500 mg tablet 500 mg PO Q8-12H PRN pain (scale 07/28/23 score 4-6) #20 tabs prednisone 20 mg tablet 20 mg PO DAILY #5 tabs 07/28/23 Allergies Allergy/AdvReac Type Severity Reaction Status Date / Time No Known Allergies Allergy Verified 07/28/23 09:47 Review of Systems Review of Systems: Constitutional: No fever, chills, fatigue, night sweats, weight changes ENT/Mouth: No ear pain, hearing loss, nasal congestion, sinus pain, rhinorrhea, sore throat Eyes: No eye pain, swelling, redness, vision changes, discharge Cardio: No chest pain, palpitations, ISBELL, orthopnea, peripheral edema Pulm: No SOB, cough, sputum, wheezing, dyspnea, hemoptysis GI: No nausea, vomiting, hematemesis, abdominal pain, diarrhea, constipation, hematochezia, melena : No irregular bleeding, dysuria, frequency, urgency, hesitancy, hematuria, flank pain, urinary flow changes, urinary incontinence or retention MSK: No back pain, neck pain, joint pain, myalgias, +bilateral elbow pain Skin: No lesions, rashes Neuro: No weakness, numbness, paresthesias, LOC, dizziness, headache Psych: No anxiety/panic, depression, SI/HI, AH/VH All other systems reviewed and are negative. [facility] Past Medical History Attestation statement: The following information was validated with the patient. Source: old records reviewed and nursing notes reviewed Medical History Abnormal ECG History of CVA (cerebrovascular accident) History of thyroid cancer Hypothyroidism (acquired) Nicotine dependence, cigarettes, uncomplicated Asthma Type 2 diabetes mellitus with unspecified complications Essential hypertension HOCM (hypertrophic obstructive cardiomyopathy) Surgical History History of tubal ligation History of incision and drainage (~2021) History of thyroidectomy (~2016) Family History Family History Father No problems noted. Mother Heart attack Social History Social History Household Members: Family Alcohol intake: current Alcohol intake frequency: holidays/special occasions only Patient Tobacco Use Status: Current everyday Tobacco user Tobacco use type: Cigarette Cigarettes Per Day: 3 Second Hand Smoke Exposure: No Substance Use Type: Marijuana Advance Directives: Yes Advance Directives on File: Yes Advance Directives Date on File: 06/25/22 Do you have a plan to hurt others: No Plan service: No Physical Exam Vital Signs: Vital Signs: Last Vital Signs Temp 98 F 07/28/23 12:32 Pulse 66 07/28/23 12:32 Resp 18 07/28/23 12:32 BP 155/88 H 07/28/23 12:32 Pulse Ox 99 07/28/23 12:32 O2 Del Method Room Air 07/28/23 12:32 BMI result Body Mass Index 22.3 Vital signs stable Const: General: cooperative, healthy appearing, comfortable, no acute distress, alert, awake and Physically active Orientation/consciousness: patient oriented x3 Limitations: no limitations HEENT: Head: Yes normal to inspection, Yes No palpable skull fracture present, Yes normocephalic and Yes atraumatic Eyes: General: appearance normal, both eyes and all related structures Conjunctivae: conjunctivae normal Sclerae: sclerae normal Pupils: Equal, round and reactive pupils present Neck: Neck: Yes normal visual inspection Resp: Effort & Inspection: normal respiratory effort Auscultation: clear to auscultation bilaterally Cardio: Rate: regular rate Rhythm: regular rhythm Back/Spine/Pelvis: Other: No midline spinous tenderness or step off deformity. No paraspinal muscle tenderness. Skin: General skin exam: no rashes or lesions noted Neuro: Other: Strength 5/5 intact throughout. Sensation intact to light touch.? Neurovascular intact distally.? General: patient oriented x3 Cranial nerves: Yes Equal, round and reactive pupils present Extrem: Other: + no overlying skin changes or deformity. slight effusion noted to medial aspect of right elbow. FROM intact to b/l with medial elbow pain elicited on flexion. ttp over medial aspect of left elbow. no palpable deformity, fluctuance, warmth or crepitus. strength intact. sensation intact to light touch. 2+ radial and ulnar pulses bilaterally. Course Course Course Narrative: 1217-- xrays of bilateral elbows without fracture. no effusion. discussed results with patient. melvin wrap provided for compression. prednisone sent to pharmacy. she was advised to monitor sugars at home while taking this. Patient has remained stable throughout ED visit today. Discussed worrisome signs and symptoms and when to return to the ED. All questions answered at this time. Patient is agreeable with disposition and stable for discharge. 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 Patient is hypertensive to 130/92. Vitals otherwise wnl. No fever. She is nontoxic appearing and in NAD. On exam,no overlying skin changes or deformity. slight effusion noted to medial aspect of right elbow. FROM intact to b/l with medial elbow pain elicited on flexion. ttp over medial aspect of left elbow. no palpable deformity, fluctuance, warmth or crepitus. strength intact. sensation intact to light touch. 2+ radial and ulnar pulses bilaterally. Differential diagnosis includes contusion, MSK sprain, MSK strain, bursitis, tendonitis, arthritis. Low suspicion for fracture or dislocation, autoimmune pathology, septic joint, septic arthritis, Lyme disease, tick-borne pathology, neurovascular compromise, threat to limb, compartment syndrome, venous or arterial occlusion, gout, pseudogout. Plan for imaging, pain control, and re-evaluation. Differential Diagnosis Differential Diagnoses: The differential diagnosis associated with the presentation includes As above Admission/Observation Not indicated Independent Interpretation I performed an independent interpretation of an: Plain X-Ray Interpretation: X-rays of bilateral elbows do not exhibit fracture, agree with radiologist's interpretation. Radiology Impression Discussion of test interpretation with radiology: I have reviewed the radiologist's reading. Radiologist Impression: X-RAY BILATERAL ELBOWS CLINICAL HISTORY: Atraumatic pain. COMPARISON: No relevant prior studies are available for comparison. TECHNIQUE: 3 views of each elbow were obtained. FINDINGS: No fracture or subluxation. Joint spaces are maintained. No osseous erosions. No abnormal soft tissue calcifications. No joint effusion. XR/XR elbow RT min 3V IMPRESSION: No significant radiographic abnormality in the bilateral elbows.. External Record Review External record reviewed: Inpatient record, Office record, Outpatient record, Prior outpatient labs, Prior outpatient radiology, Primary care record and Outside ED record Prescription Management I considered prescription management with: Pain Medication (Naproxen) and Other (Prednisone) Chronic Conditions Patient?s care impacted by: Diabetes Social Determinants Patient?s care significantly limited by Social Determinants of Health including: Other Social Determinant of Health Procedures Orthopedic Splinting/Casting Injury #1: Side: left Upper Extremity Injury Location: elbow Upper Extremity Immobilizer: Melvin wrap Injury #2: Side: right Upper Extremity Injury Location: elbow Upper Extremity Immobilizer: Melvin wrap Critical Care Time Critical Care Time Critical Care Time: No Discharge Plan Discharge Clinical Impression: Bilateral elbow joint pain Patient Disposition: Home, Self-Care Instructions: Arm Pain (ED) Additional Instructions: You were seen in the ED today for evaluation of elbow pain. Your xrays do not show fracture or other acute pathology. You were provided with melvin wrap for compression/ comfort. Naproxen sent to pharmacy for pain. Prednisone is a steroid that has been sent to pharmacy. As discussed, please monitor sugars at home as this has a tendency to increase her blood sugar. If you began to have symptoms of nausea vomiting, vision changes, headache, dizziness please return to the ED and discontinue prednisone use. Follow up with your PCP. Return with new or worsening symptoms. In the case of an emergency call 911. Prescriptions: New naproxen 500 mg tablet 500 mg PO Q8-12H PRN (Reason: pain (scale score 4-6)) Qty: 20 0RF prednisone 20 mg tablet 20 mg PO DAILY Qty: 5 0RF No Action atorvastatin 80 mg tablet 80 mg PO BEDTIME sennosides [senna] 8.6 mg tablet 8.6 mg PO DAILY apraclonidine 0.5 % drops 1 drp ophthalmic-Right BID citalopram 10 mg tablet 10 mg PO DAILY glipizide 10 mg tablet 10 mg PO BID clonazepam [Klonopin] 1 mg tablet 1 mg PO TID PRN (Reason: anxiety) allopurinol 100 mg tablet 100 mg PO QAM divalproex [Depakote] 500 mg tablet,delayed release (DR/EC) 500 mg PO DAILY aspirin 81 mg tablet,delayed release (DR/EC) 81 mg PO DAILY levothyroxine 25 mcg tablet 12.5 mcg PO DAILY ascorbic acid (vitamin C) [Vitamin C] 500 mg tablet 500 mg PO BID amlodipine 10 mg tablet 10 mg PO DAILY ferrous sulfate [FeroSul] 325 mg (65 mg iron) tablet 325 mg PO DAILY docusate sodium 100 mg capsule 100 mg PO BID omeprazole 20 mg capsule,delayed release(DR/EC) 20 mg PO DAILY@0630 levothyroxine 200 mcg tablet 200 mcg PO DAILY fluticasone propion-salmeterol 100-50 mcg/dose blister with device 1 ea inhalation BID quetiapine [Seroquel] 50 mg tablet 50 mg PO BEDTIME Farxiga 10 mg tablet 10 mg PO DAILY divalproex [Depakote] 500 mg tablet,delayed release (DR/EC) 1,000 mg PO BEDTIME lisinopril 10 mg tablet 10 mg PO DAILY Qty: 90 1RF Rx Instructions: add to her med box ( she states it is due for delivery tomorrow) Referrals: Nelda Knox MD [Primary Care Provider] - Interventions: ED Discharge Assessment Last Done: 07/28/23 12:32 Discharge Date/Time: 07/28/23 12:34 Print Language: Tongan
[2023-07-28] MEDS: NaPROXEN 500 MG TABLET PO (11:33)
[2023-07-28 12:32] VITALS: BP 155/88; PULSE 66; RESP 18; TEMP 36.6; O2SAT 99
== END 2023-07-28 12:34 | disposition home or self-care (01) ==
PROVIDERS: Emergency Provider Student in an Organized Health Care Education/Training Program; PCP Family Medicine
DX: S59.901A Unspecified injury of right elbow, initial encounter (principal); S59.902A Unspecified injury of left elbow, initial encounter; S49.91XA Unspecified injury of right shoulder and upper arm, initial encounter; X58.XXXA Exposure to other specified factors, initial encounter; Y93.9 Activity, unspecified; Y92.9 Unspecified place or not applicable; Y99.8 Other external cause status; Z79.899 Other long term (current) drug therapy
CPT/HCPCS: 29105; 73080; 99283; 99284

== ENCOUNTER → 2023-10-08 09:15 | Outpatient (BNV) | payer OTHER, SELFPAY | PROVIDERS: PCP Family Medicine; Visit Provider Radiology Diagnostic Radiology | DX: Z12.31 Encounter for screening mammogram for malignant neoplasm of breast (principal) | CPT/HCPCS: 77063; 77067 ==

== ENCOUNTER 2023-10-08 09:32 | Outpatient (REF) | payer OTHER, SELFPAY | END 2023-10-08 09:33 | disposition home or self-care (01) | LOC: HO.MAMMO 09:32 | PROVIDERS: PCP Family Medicine; Visit Provider Family Medicine | DX: Z12.31 Encounter for screening mammogram for malignant neoplasm of breast (principal) | CPT/HCPCS: 77063; 77067 ==

== ENCOUNTER 2023-10-12 14:59 | Emergency (ER) | payer OTHER, SELFPAY ==
--- NOTE | ~2023-10-12 | CT_ITS ---
EXAMINATION: CT HEAD WITHOUT CONTRAST CLINICAL INFORMATION: Reason for Exam headache, seizures hx of cocaine abuse COMPARISON: CT brain 03/18/2023 TECHNIQUE: Contiguous axial imaging was performed from the skull base to vertex without intravenous contrast. Sagittal and coronal reformatted images were obtained. This CT examination was performed using dose optimization techniques as appropriate, variously including the following: * Automated exposure control * Adjustment of mA and/or kV according to patient size (this includes techniques or standardized protocols for targeted exams where dose is matched to indication/reason for exam; i.e. extremities or head) Use of iterative reconstruction technique DLP: 642.08 mGy-cm mGy-cm FINDINGS: No acute osseous or soft tissue abnormality. The mastoid air cells and visualized portions of the paranasal sinuses are well aerated. There is no evidence of acute intracranial hemorrhage or territorial infarction. No abnormal mass effect or midline shift is seen. No extra-axial fluid collections are identified. Proportional prominence of the ventricles and sulcal spaces is consistent with mild volume loss. Patchy periventricular and deep white matter hypoattenuation is consistent with moderate small vessel ischemic changes. Chronic right [employer] A[employer] territory infarct with ex vacuo dilatation of the right occipital horn. CT/CT head/brain wo IV con IMPRESSION: 1. No acute intracranial pathology. 2. Chronic right [facility]MENT[employer] HEALTH AIDE territory infarct and background of chronic microvascular ischemic change.
[2023-10-12 15:04] VITALS: BP 155/84; BP 173/84; PULSE 89; RESP 22; TEMP 37.1; O2SAT 95; O2SAT 98; BMI 21.5
[2023-10-12 15:24] LABS: MANUAL DIFF FLAG NO
[2023-10-12 15:26] LABS: Basophils Percent Auto 0.4 % (0-2); Eosinophils Absolute Auto 0.1 X10*3/uL (0.0-0.4); Eosinophils Percent Auto 0.6 % (0-4); Hematocrit 44.4 % (37.0-47.0); Hemoglobin 14.6 g/dl (12.0-16.0); Imm Gran Abs Auto 0.04 X10*3/uL (0.00-0.03); Imm Gran Pct Auto 0.5 % (0.0-0.4); Lymphocytes Absolute Auto 0.9 X10*3/uL (1.2-4.9); Lymphocytes Percent Auto 11.1 % (20-40); Mean Corpuscular HGB Conc 32.9 g/dl (31.0-35.0); Mean Corpuscular Hemoglobin 27.5 pg (27.0-33.0); Mean Corpuscular Volume 83.6 fL (80.0-98.0); Mean Platelet Volume 9.9 fL (9.4-12.3); Monocytes Absolute Auto 0.6 X10*3/uL (0.1-1.2); Monocytes Percent Auto 7.9 % (2-11); Neutrophils Absolute Auto 6.2 x10*3/uL (2.0-8.3); Neutrophils Percent Auto 79.5 % (45-73); Platelet Count 273 X10*3/uL (160-400); Red Blood Count 5.31 X10*6/uL (4.20-5.50); Red Cell Distribution Width 14.3 % (11.0-16.0); White Blood Count 7.8 X10*3/uL (4.8-10.8)
[2023-10-12] MEDS: levETIRAcetam in NaCl (iso-os) 1,000 MG/100 ML PIGGYBACK 400 MG IV (15:31)
[2023-10-12] MEDS: 0.9 % Sodium Chloride 1,000 ML 999 ML IV ×2 (15:38→15:53)
[2023-10-12 15:44] LABS: Alanine Aminotransferase 18 U/L (0-31); Albumin Level 4.4 g/dL (3.5-5.0); Alkaline Phosphatase 92 U/L (39-117); Anion Gap 25 (12-20); Aspartate Amino Transferase 26 U/L (5-31); Bilirubin Total 0.5 mg/dL (0.0-1.0); Blood Urea Nitrogen 13 mg/dL (9-16); Calcium 9.8 mg/dL (8.4-10.2); Carbon Dioxide 16 mmol/L (22-29); Chloride 105 mmol/L (96-108); Creatinine Clr Calc Pharmacy 43.9; Estimated Glomerular Filt Rate 49; Glucose Random 218 mg/dL (60-115); Potassium 4.3 mmol/L (3.3-5.1); Sodium 142 mmol/L (135-145); Total Protein 8.1 g/dL (6.5-8.0)
[2023-10-12 15:50] LABS: Lactic Acid 7.6 mmol/L (0.5-2.0)
[2023-10-12 15:56] LABS: Ethanol < 10 mg/dL
--- NOTE | 2023-10-12 16:05 | ECG_ITS ---
Test Reason : SEIZURE Blood Pressure : / mmHG Vent. Rate : 086 BPM Atrial Rate : 086 BPM P-R Int : 186 ms QRS Dur : 074 ms QT Int : 384 ms P-R-T Axes : 068 011 223 degrees QTc Int : 459 ms Normal sinus rhythm Possible Left atrial enlargement ST & T wave abnormality, consider inferior ischemia ST & T wave abnormality, consider anterolateral ischemia Abnormal ECG When compared with ECG of 21-JUN-2022 15:32, No significant changes seen Referred By: Marilyn Kim Electronically Signed By:KAIDEN HARRINGTON
--- NOTE | 2023-10-12 16:10 | ED_ITS ---
HPI - Seizure General Chief Complaint: Seizure Stated Complaint: 3 SZ'S TODAY PER EMS Time Seen by Provider: 10/12/23 15:13 Source: patient and old records reviewed Mode of arrival: EMS Limitations: altered mental status (postical and given IN 2mg versed) History of Present Illness ED Provider: JENNY HPI Narrative: 63 yo female with PMH of HTN, hypothyroidism, DM2, seizures on keppra 500mg BID, depakote 500mg in AM and 1,000mg PM, HOCM, cocaine abuse, CVA with L sided facial droop here with c/o 3 seizures today. Two witnessed at home - one grand mal in car with sister then next she seemed to be staring off. EMS then witnessed shaking in upper arm and staring off so 2mg IN versed given - on arrival here she is sleepy c/o nausea and headache she is confused. States yes when asked if she takes her medications. No new deficits noted. She denies cocaine abuse today which is a trigger for her seizures. MD complaint: seizure Onset (ago): hour(s) (1) Description of Episode: loss of consciousness, tonic-clonic movement and post- event confusion -: minutes(s) Witnessed: Yes - by EMS Trauma: No Seizure History: No (PER DAUGHTER) Place: Home Possible Precipitating Event: none Associated symptoms: other (c/o headache and nausea post event) Treatments prior to arrival: benzodiazepines (2mg IN narcan) Related Data Home Medications ?Medication ?Instructions ?Recorded ?Confirmed allopurinol 100 mg tablet 100 mg PO QAM 06/21/22 07/09/23 amlodipine 10 mg tablet 10 mg PO DAILY 06/21/22 07/09/23 apraclonidine 0.5 % eye drops 1 drp ophthalmic-Right BID 06/21/22 07/09/23 ascorbic acid (vitamin C) 500 mg 500 mg PO BID 06/21/22 07/09/23 tablet (Vitamin C) aspirin 81 mg tablet,delayed 81 mg PO DAILY 06/21/22 07/09/23 release atorvastatin 80 mg tablet 80 mg PO BEDTIME 06/21/22 07/09/23 citalopram 10 mg tablet 10 mg PO DAILY 06/21/22 07/09/23 clonazepam 1 mg tablet (Klonopin) 1 mg PO TID PRN anxiety 06/21/22 07/09/23 dapagliflozin propanediol 10 mg 10 mg PO DAILY 06/21/22 07/09/23 tablet (Farxiga) divalproex 500 mg tablet,delayed 1,000 mg PO BEDTIME 06/21/22 07/09/23 release (Depakote) divalproex 500 mg tablet,delayed 500 mg PO DAILY 06/21/22 07/09/23 release (Depakote) docusate sodium 100 mg capsule 100 mg PO BID 06/21/22 07/09/23 ferrous sulfate 325 mg (65 mg 325 mg PO DAILY 06/21/22 07/09/23 iron) tablet (FeroSul) fluticasone 100 mcg-salmeterol 50 1 ea inhalation BID 06/21/22 07/09/23 mcg/dose blistr powdr for inhalation glipizide 10 mg tablet 10 mg PO BID 06/21/22 07/09/23 levothyroxine 200 mcg tablet 200 mcg PO DAILY 06/21/22 07/09/23 levothyroxine 25 mcg tablet 12.5 mcg PO DAILY 06/21/22 07/09/23 omeprazole 20 mg capsule,delayed 20 mg PO DAILY@0630 06/21/22 07/09/23 release quetiapine 50 mg tablet (Seroquel) 50 mg PO BEDTIME 06/21/22 07/09/23 sennosides 8.6 mg tablet (senna) 8.6 mg PO DAILY 06/21/22 07/09/23 Previous Rx's ?Medication ?Instructions ?Recorded lisinopril 10 mg tablet 10 mg PO DAILY #90 tabs 07/09/23 naproxen 500 mg tablet 500 mg PO Q8-12H PRN pain (scale 07/28/23 score 4-6) #20 tabs prednisone 20 mg tablet 20 mg PO DAILY #5 tabs 07/28/23 Allergies Allergy/AdvReac Type Severity Reaction Status Date / Time No Known Allergies Allergy Verified 10/12/23 15:08 Review of Systems 2 Review of Systems: Constitutional : No Fever, No Chills, No Fatigue ENT/Mouth : No sore throat, No Rhinorrhea Eyes: No Eye Pain, No Swelling, No Redness Cardiovascular : No Chest Pain, No SOB, No Dyspnea on Exertion Respiratory : No Cough, No Sputum Gastrointestinal : pos Nausea, No Vomiting, No Diarrhea, No abdominal Pain Genitourinary : No Dysuria, No Urinary Frequency, No Hematuria, Musculoskeletal : No joint pain, No Myalgias, No Joint Swelling Skin : No Skin Lesions, No rash Neuro : No Weakness, No Numbness, No Dizziness, positive Headache, pos seizures Psych : No Anxiety/Panic, No Depression All other systems reviewed and are negative [facility] Past Medical History Attestation statement: The following information was validated with the patient. Source: old records reviewed Medical History Abnormal ECG History of CVA (cerebrovascular accident) History of thyroid cancer Hypothyroidism (acquired) Nicotine dependence, cigarettes, uncomplicated Asthma Type 2 diabetes mellitus with unspecified complications Essential hypertension HOCM (hypertrophic obstructive cardiomyopathy) Surgical History History of tubal ligation History of incision and drainage (~2021) History of thyroidectomy (~2016) Family History Family History Father No problems noted. Mother Heart attack Social History Social History Household Members: Family Alcohol intake: current Alcohol intake frequency: holidays/special occasions only Patient Tobacco Use Status: Current everyday Tobacco user Tobacco use type: Cigarette Cigarettes Per Day: 3 Second Hand Smoke Exposure: No Substance Use Type: Marijuana Advance Directives: Yes Advance Directives on File: Yes Advance Directives Date on File: 06/25/22 Do you have a plan to hurt others: No Plan service: No Physical Exam 2 Vital Signs: Vital Signs: Last Vital Signs Temp 98.8 F 10/12/23 15:04 Pulse 89 10/12/23 15:04 Resp 22 H 10/12/23 15:04 BP 155/84 H 10/12/23 15:04 Pulse Ox 98 10/12/23 15:04 O2 Del Method Room Air 10/12/23 15:04 BMI result Body Mass Index 21.5 Appearance: Alert. Oriented X3. No acute distress. Eyes: Pupils equal, round and reactive to light. ENT: Pharynx normal. atraumatic Neck: Normal inspection. Neck supple. tongue is normal. CVS: Normal heart rate and rhythm. Pulses normal. Respiratory: No respiratory distress. Breath sounds normal. Abdomen: Soft and nontender. Skin: Skin warm and dry. Normal skin color. Extremities: No lower extremity edema. No calf ttp Neuro: Oriented X 3. No motor deficit. No sensory deficit. Mild L sided facial droop Course Course Course Narrative: lactic acidosis due to seizure and not infection or severe sepsis Medications Administered Generic Name Dose Route Start Last Admin Trade Name Freq PRN Reason Stop Dose Admin Sodium Chloride 1,000 mls @ 999 mls/hr 10/12/23 15:50 10/12/23 15:53 Ns IV 10/12/23 16:50 999 mls/hr .Q1H1M ONE Administration Discontinued Medications Generic Name Dose Route Start Last Admin Trade Name Freq PRN Reason Stop Dose Admin Sodium Chloride 1,000 mls @ 999 mls/hr 10/12/23 15:23 10/12/23 15:38 Ns IV 10/12/23 16:23 999 mls/hr .Q1H1M ONE Administration Levetiracetam 1,000 mg in 100 mls @ 400 mls/hr 10/12/23 15:23 10/12/23 15:53 Keppra IV 10/12/23 15:37 Infused ONCE ONE Infusion Medical Decision Making Medical Decision Making [facility] Narrative: 63 yo female with PMH of HTN, hypothyroidism, DM2, seizures on keppra 500mg BID, depakote 500mg in AM and 1,000mg PM, HOCM, cocaine abuse, CVA with L sided facial droop here with c/o 3 seizures [employer] she denies cocaine abuse which is a trigger reports compliance with medications. At this time IV ativan, tylenol for headache, given headache CT head ordered with history of cocaine abuse, IV keppra - could increase her keppra. Denies recent infections. No new neuro deficits. Signed out to Dr. Hayward pending further workup. Differential Diagnosis Differential Diagnoses: The differential diagnosis associated with the presentation includes seizure, non compliance, drug abuse Admission/Observation Consideration of admission/observation: Escalation of care including admission/observation considered Lab Data [facility] Lab Attestation statement: I reviewed the patient's lab results. 10/12/23 15:19 10/12/23 15:19 Labs: Lab Results 10/12/23 10/12/23 Range/Units 15:19 15:29 WBC 7.8 (4.8-10.8) X10*3/uL RBC 5.31 (4.20-5.50) X10*6/uL Hgb 14.6 (12.0-16.0) g/dl Hct 44.4 (37.0-47.0) % MCV 83.6 (80.0-98.0) fL MCH 27.5 (27.0-33.0) pg MCHC 32.9 (31.0-35.0) g/dl RDW 14.3 (11.0-16.0) % Plt Count 273 (160-400) X10*3/uL MPV 9.9 (9.4-12.3) fL Immature Gran % (Auto) 0.5 H (0.0-0.4) % Neut % (Auto) 79.5 H (45-73) % Lymph % (Auto) 11.1 L (20-40) % [place] % (Auto) 7.9 (2-11) % Eos % (Auto) 0.6 (0-4) % Baso % (Auto) 0.4 (0-2) % Lymph # (Auto) 0.9 L (1.2-4.9) X10*3/uL [place] # (Auto) 0.6 (0.1-1.2) X10*3/uL Eos # (Auto) 0.1 (0.0-0.4) X10*3/uL Baso # (Auto) 0.0 (0.0-0.2) X10*3/uL Abs Immat Gran (auto) 0.04 H (0.00-0.03) X10*3/uL Absolute Neuts (auto) 6.2 (2.0-8.3) x10*3/uL Absolute Nucleated RBC 0.000 (0.0-0.012) X10*3/uL Nucleated RBC % (auto) 0.0 (0.0-0.2) /100WBC Sodium 142 (135-145) mmol/L Potassium 4.3 (3.3-5.1) mmol/L Chloride 105 (96-108) mmol/L Carbon Dioxide 16 L (22-29) mmol/L Anion Gap 25 H (12-20) BUN 13 (9-16) mg/dL Creatinine 1.13 (0.5-1.4) mg/dL Estim Creat Clear Calc 43.9 Estimated GFR 49 Random Glucose 218 H (60-115) mg/dL Lactic Acid 7.6 H* (0.5-2.0) mmol/L Calcium 9.8 (8.4-10.2) mg/dL Magnesium 2.0 (1.6-2.6) mg/dL Total Bilirubin 0.5 (0.0-1.0) mg/dL AST 26 (5-31) U/L ALT 18 (0-31) U/L Alkaline Phosphatase 92 (39-117) U/L Total Protein 8.1 H (6.5-8.0) g/dL Albumin 4.4 (3.5-5.0) g/dL Valproic Acid 39.0 L (50.0-100.0) mcg/mL Ethyl Alcohol < 10 mg/dL Independent Interpretation I performed an independent interpretation of an: EKG Interpretation: Rate: 86 Rhythm: NSR [place]: normal Normal P waves. Normal DULCE. Normal QRS complex. ST T wave : inverted t waves V2-V6 qTC: 459 prior studies: no change from priors t wave inversions are old The study has been interpreted contemporaneously by me. . Discharge Plan Discharge Clinical Impression: Epileptic seizure, Acidosis, lactic Patient Disposition: Still a Patient Prescriptions: No Action atorvastatin 80 mg tablet 80 mg PO BEDTIME sennosides [senna] 8.6 mg tablet 8.6 mg PO DAILY apraclonidine 0.5 % drops 1 drp ophthalmic-Right BID citalopram 10 mg tablet 10 mg PO DAILY glipizide 10 mg tablet 10 mg PO BID clonazepam [Klonopin] 1 mg tablet 1 mg PO TID PRN (Reason: anxiety) allopurinol 100 mg tablet 100 mg PO QAM divalproex [Depakote] 500 mg tablet,delayed release (DR/EC) 500 mg PO DAILY aspirin 81 mg tablet,delayed release (DR/EC) 81 mg PO DAILY levothyroxine 25 mcg tablet 12.5 mcg PO DAILY ascorbic acid (vitamin C) [Vitamin C] 500 mg tablet 500 mg PO BID amlodipine 10 mg tablet 10 mg PO DAILY ferrous sulfate [FeroSul] 325 mg (65 mg iron) tablet 325 mg PO DAILY docusate sodium 100 mg capsule 100 mg PO BID omeprazole 20 mg capsule,delayed release(DR/EC) 20 mg PO DAILY@0630 levothyroxine 200 mcg tablet 200 mcg PO DAILY fluticasone propion-salmeterol 100-50 mcg/dose blister with device 1 ea inhalation BID quetiapine [Seroquel] 50 mg tablet 50 mg PO BEDTIME Farxiga 10 mg tablet 10 mg PO DAILY divalproex [Depakote] 500 mg tablet,delayed release (DR/EC) 1,000 mg PO BEDTIME naproxen 500 mg tablet 500 mg PO Q8-12H PRN (Reason: pain (scale score 4-6)) Qty: 20 0RF prednisone 20 mg tablet 20 mg PO DAILY Qty: 5 0RF lisinopril 10 mg tablet 10 mg PO DAILY Qty: 90 1RF Rx Instructions: add to her med box ( she states it is due for delivery tomorrow) Print Language: Thai
[2023-10-12] MEDS: Acetaminophen 325 MG TABLET 975 MG PO (16:38)
[2023-10-12] MEDS: LORazepam 2 MG/ML VIAL 1 MG IVPUSH (16:39)
[2023-10-12 17:21] VITALS: BP 142/69; PULSE 69; RESP 16; TEMP 36.6; O2SAT 96
[2023-10-12 17:22] LABS: Reflex Lactate? Lactic Acid Added
[2023-10-12 18:08] LABS: Appearance Urine Clear; Color Urine Yellow; Glucose Urine UA >=1000 mg/dL (Negative); Leukocyte Esterase Urine Negative (Negative); Nitrite Urine Negative (Negative); Specific Gravity - Urine 1.015 (1.005-1.025); UMIC TRIGGER UACC YES; Urine Blood Negative (Negative); Urine Ketones Negative (Negative); Urine Protein Negative (Neg-Trace)
[2023-10-12 18:13] LABS: Bacteria Urine None Seen (None Seen); Hyaline Casts Urine 0-2 /LPF (0-2); RBC Urine 0-2 /HPF (0-2); Squamous Epithelial Cell Urine 0-2 /HPF (0-2); WBC Urine 0-5 /HPF (0-5)
[2023-10-12 18:17] LABS: ~Lactic Acid-LAB USE ONLY 1.9 mmol/L (0.5-2.0)
[2023-10-12 18:21] LABS: Amphetamine Screen Urine Not Detected (Not Detect); Barbiturates, Urine Not Detected (Not Detect); Benzodiazepines Screen Urine POSITIVE (Not Detect); Buprenorphine Scr Not Detected (Not Detect); Cannabinoid Screen Urine POSITIVE (Not Detect); Cocaine Screen Urine POSITIVE (Not Detect); Fentanyl, urine Not Detected (Not Detect); Methadone Screen, Urine Not Detected (Not Detect); Opiate Screen Urine Not Detected (Not Detect); Oxycodone Screen Urine Not Detected (Not Detect); Phencyclidine Screen Urine Not Detected (Not Detect)
--- NOTE | 2023-10-12 19:13 | PC.NURSE ---
Assumed care of pt. Pt lying on stretcher, no acute distress at this time. Preparing for discharge, brought daughter back to room.
[2023-10-12 19:21] VITALS: BP 138/68; PULSE 72; RESP 16; TEMP 36.8; O2SAT 98
== END 2023-10-12 19:22 | disposition home or self-care (01) ==
PROVIDERS: Emergency Medicine; Emergency Provider Emergency Medicine
DX: G40.909 Epilepsy, unspecified, not intractable, without status epilepticus (principal); F14.10 Cocaine abuse, uncomplicated; E87.20 Acidosis, unspecified; E11.9 Type 2 diabetes mellitus without complications; I10 Essential (primary) hypertension; Z79.02 Long term (current) use of antithrombotics/antiplatelets; Z79.899 Other long term (current) drug therapy; Z79.82 Long term (current) use of aspirin; F17.210 Nicotine dependence, cigarettes, uncomplicated; Z86.73 Personal history of transient ischemic attack (TIA), and cerebral infarction without residual deficits; Z85.850 Personal history of malignant neoplasm of thyroid
CPT/HCPCS: 36415; 70450; 80053; 80164; 80307; 81001; 83605; 83735; 85025; 93005; 96361; 96365; 96375; 99284; 99285; J1953; J2060

== ENCOUNTER → 2023-10-12 16:05 | Outpatient (BNV) | payer OTHER, SELFPAY | PROVIDERS: Emergency Provider Emergency Medicine; Visit Provider Internal Medicine | DX: R94.31 Abnormal electrocardiogram [ECG] [EKG] (principal) | CPT/HCPCS: 93010 ==

== ENCOUNTER 2023-10-22 14:04 | Outpatient (REF) | payer OTHER, SELFPAY ==
[2023-10-22 16:50] LABS: Alanine Aminotransferase 12 U/L (0-31); Albumin Level 4.1 g/dL (3.5-5.0); Alkaline Phosphatase 70 U/L (39-117); Anion Gap 13 (12-20); Aspartate Amino Transferase 14 U/L (5-31); Bilirubin Total 0.4 mg/dL (0.0-1.0); Blood Urea Nitrogen 13 mg/dL (9-16); Calcium 9.4 mg/dL (8.4-10.2); Carbon Dioxide 27 mmol/L (22-29); Chloride 104 mmol/L (96-108); Cholesterol 171 mg/dL (<200); Estimated Glomerular Filt Rate 48; Glucose Random 189 mg/dL (60-115); HDL Cholesterol 58 mg/dL (>40); LDL Cholesterol Calculated 91 mg/dL (<100); Potassium 4.2 mmol/L (3.3-5.1); Sodium 140 mmol/L (135-145); Triglycerides 110 mg/dL (<150)
[2023-10-22 17:08] LABS: Free T4 (Free Thyroxine) 1.14 ng/dL (0.71-1.85); TSH reflex Free T4 4.09 uIU/mL (0.32-4.0)
[2023-10-22 17:39] LABS: Reflex LDLD? No
== END 2023-10-22 14:05 | disposition home or self-care (01) ==
LOC: HO.HHCL 14:04
PROVIDERS: Visit Provider Family Medicine
DX: E11.22 Type 2 diabetes mellitus with diabetic chronic kidney disease (principal); N18.32 Chronic kidney disease, stage 3b; E89.0 Postprocedural hypothyroidism
CPT/HCPCS: 36415; 80053; 80061; 84439; 84443

== ENCOUNTER 2023-11-14 11:36 | Outpatient (REF) | payer OTHER, SELFPAY ==
[2023-11-14 13:12] LABS: MANUAL DIFF FLAG NO
[2023-11-14 13:23] LABS: Basophils Percent Auto 0.3 % (0-2); Eosinophils Absolute Auto 0.2 X10*3/uL (0.0-0.4); Eosinophils Percent Auto 2.8 % (0-4); Hematocrit 45.5 % (37.0-47.0); Hemoglobin 14.8 g/dl (12.0-16.0); Imm Gran Abs Auto 0.03 X10*3/uL (0.00-0.03); Imm Gran Pct Auto 0.4 % (0.0-0.4); Lymphocytes Absolute Auto 1.9 X10*3/uL (1.2-4.9); Lymphocytes Percent Auto 25.4 % (20-40); Mean Corpuscular HGB Conc 32.5 g/dl (31.0-35.0); Mean Corpuscular Hemoglobin 27.8 pg (27.0-33.0); Mean Corpuscular Volume 85.4 fL (80.0-98.0); Monocytes Absolute Auto 0.7 X10*3/uL (0.1-1.2); Monocytes Percent Auto 8.7 % (2-11); Neutrophils Absolute Auto 4.6 x10*3/uL (2.0-8.3); Neutrophils Percent Auto 62.4 % (45-73); Platelet Count 276 X10*3/uL (160-400); Red Blood Count 5.33 X10*6/uL (4.20-5.50); Red Cell Distribution Width 14.1 % (11.0-16.0); White Blood Count 7.4 X10*3/uL (4.8-10.8)
[2023-11-14 13:53] LABS: Alanine Aminotransferase 12 U/L (0-31); Albumin Level 4.5 g/dL (3.5-5.0); Alkaline Phosphatase 73 U/L (39-117); Anion Gap 13 (12-20); Aspartate Amino Transferase 14 U/L (5-31); Bilirubin Direct 0.2 mg/dL (0.0-0.5); Bilirubin Total 0.5 mg/dL (0.0-1.0); Blood Urea Nitrogen 8 mg/dL (9-16); Calcium 9.5 mg/dL (8.4-10.2); Carbon Dioxide 29 mmol/L (22-29); Chloride 104 mmol/L (96-108); Cholesterol 168 mg/dL (<200); Estimated Glomerular Filt Rate > 60; Glucose Random 174 mg/dL (60-115); HDL Cholesterol 62 mg/dL (>40); LDL Cholesterol Calculated 81 mg/dL (<100); Potassium 3.5 mmol/L (3.3-5.1); Sodium 142 mmol/L (135-145); Thyroid Stimulating Hormone 0.27 uIU/mL (0.32-4.0); Total Protein 7.6 g/dL (6.5-8.0); Triglycerides 129 mg/dL (<150)
[2023-11-14 14:12] LABS: Valproate 84.9 mcg/mL (50.0-100.0)
== END 2023-11-14 11:37 | disposition home or self-care (01) ==
LOC: HO.HHCL 11:36
PROVIDERS: Visit Provider Psychiatry & Neurology Psychiatry
DX: Z79.899 Other long term (current) drug therapy (principal)
CPT/HCPCS: 36415; 80053; 80061; 80164; 82248; 84443; 85025

== ENCOUNTER 2024-04-14 22:46 | Emergency (ER) | payer OTHER, SELFPAY ==
[2024-04-14 23:02] VITALS: BP 139/93; BP 146/88; PULSE 77; PULSE 85; RESP 13; TEMP 36.6; O2SAT 100; O2SAT 96; BMI 22.6
[2024-04-14 23:06] LABS: MANUAL DIFF FLAG NO
[2024-04-14 23:07] LABS: Basophils Percent Auto 0.2 % (0-2); Eosinophils Absolute Auto 0.1 X10*3/uL (0.0-0.4); Eosinophils Percent Auto 1.1 % (0-4); Hematocrit 44.1 % (37.0-47.0); Hemoglobin 14.9 g/dl (12.0-16.0); Imm Gran Abs Auto 0.03 X10*3/uL (0.00-0.03); Imm Gran Pct Auto 0.4 % (0.0-0.4); Lymphocytes Absolute Auto 2.2 X10*3/uL (1.2-4.9); Lymphocytes Percent Auto 26.7 % (20-40); Mean Corpuscular HGB Conc 33.8 g/dl (31.0-35.0); Mean Corpuscular Hemoglobin 27.9 pg (27.0-33.0); Mean Corpuscular Volume 82.6 fL (80.0-98.0); Mean Platelet Volume 9.3 fL (9.4-12.3); Monocytes Absolute Auto 0.6 X10*3/uL (0.1-1.2); Monocytes Percent Auto 7.3 % (2-11); Neutrophils Absolute Auto 5.4 x10*3/uL (2.0-8.3); Neutrophils Percent Auto 64.3 % (45-73); Platelet Count 308 X10*3/uL (160-400); Red Blood Count 5.34 X10*6/uL (4.20-5.50); Red Cell Distribution Width 12.9 % (11.0-16.0); White Blood Count 8.3 X10*3/uL (4.8-10.8)
[2024-04-14 23:20] LABS: Alanine Aminotransferase 14 U/L (0-31); Albumin Level 4.6 g/dL (3.5-5.0); Alkaline Phosphatase 81 U/L (39-117); Anion Gap 13 (12-20); Aspartate Amino Transferase 18 U/L (5-31); Bilirubin Total 0.3 mg/dL (0.0-1.0); Blood Urea Nitrogen 11 mg/dL (9-16); Calcium 9.6 mg/dL (8.4-10.2); Carbon Dioxide 27 mmol/L (22-29); Chloride 102 mmol/L (96-108); Creatinine Clr Calc Pharmacy 41.9; Estimated Glomerular Filt Rate 49; Glucose Random 220 mg/dL (60-115); Potassium 3.3 mmol/L (3.3-5.1); Sodium 139 mmol/L (135-145)
[2024-04-14 23:24] LABS: Valproate 19.1 mcg/mL (50.0-100.0)
[2024-04-14] MEDS: LORazepam 2 MG/ML VIAL 1 MG IVPUSH (23:39)
[2024-04-14] MEDS: Divalproex Sodium 500 MG TABLET.DR 1000 MG PO (23:39)
--- NOTE | 2024-04-15 00:32 | ED_ITS ---
HPI - General Adult General Chief complaint: Seizure Stated complaint: FEELS LIKE SHE IS GONNA HAVE A SEIZURE Time Seen by Provider: 04/14/24 23:33 Source: patient Limitations: no limitations History of Present Illness ED Provider: Nithya Sin PA-C HPI narrative: 64-year-old female with a history of seizure disorder, hypothyroidism, diabetes, hypertension, cocaine abuse, presents with anxiety. Patient states she was upset overnight given a family member forgot her birthday. She states she was concerned that she ?might have a seizure?. While in the kitchen, her sister reports that she became ?shaky and cold?. Patient states she is adherent with taking her antiepileptic medication, but she will sometimes forget a dose. There have been no recent medication changes. Patient's last breakthrough seizure was in September of this year. Patient denies being sick with insensible losses consisting of nausea vomiting or diarrhea. Related Data Home Medications ?Medication ?Instructions ?Recorded ?Confirmed allopurinol 100 mg tablet 100 mg PO QAM 06/21/22 07/09/23 amlodipine 10 mg tablet 10 mg PO DAILY 06/21/22 07/09/23 apraclonidine 0.5 % eye drops 1 drp ophthalmic-Right BID 06/21/22 07/09/23 ascorbic acid (vitamin C) 500 mg 500 mg PO BID 06/21/22 07/09/23 tablet (Vitamin C) aspirin 81 mg tablet,delayed 81 mg PO DAILY 06/21/22 07/09/23 release atorvastatin 80 mg tablet 80 mg PO BEDTIME 06/21/22 07/09/23 citalopram 10 mg tablet 10 mg PO DAILY 06/21/22 07/09/23 clonazepam 1 mg tablet (Klonopin) 1 mg PO TID PRN anxiety 06/21/22 07/09/23 dapagliflozin propanediol 10 mg 10 mg PO DAILY 06/21/22 07/09/23 tablet (Farxiga) divalproex 500 mg tablet,delayed 1,000 mg PO BEDTIME 06/21/22 07/09/23 release (Depakote) divalproex 500 mg tablet,delayed 500 mg PO DAILY 06/21/22 07/09/23 release (Depakote) docusate sodium 100 mg capsule 100 mg PO BID 06/21/22 07/09/23 ferrous sulfate 325 mg (65 mg 325 mg PO DAILY 06/21/22 07/09/23 iron) tablet (FeroSul) fluticasone 100 mcg-salmeterol 50 1 ea inhalation BID 06/21/22 07/09/23 mcg/dose blistr powdr for inhalation glipizide 10 mg tablet 10 mg PO BID 06/21/22 07/09/23 levothyroxine 200 mcg tablet 200 mcg PO DAILY 06/21/22 07/09/23 levothyroxine 25 mcg tablet 12.5 mcg PO DAILY 06/21/22 07/09/23 omeprazole 20 mg capsule,delayed 20 mg PO DAILY@0630 06/21/22 07/09/23 release quetiapine 50 mg tablet (Seroquel) 50 mg PO BEDTIME 06/21/22 07/09/23 sennosides 8.6 mg tablet (senna) 8.6 mg PO DAILY 06/21/22 07/09/23 Previous Rx's ?Medication ?Instructions ?Recorded lisinopril 10 mg tablet 10 mg PO DAILY #90 tabs 07/09/23 naproxen 500 mg tablet 500 mg PO Q8-12H PRN pain (scale 07/28/23 score 4-6) #20 tabs prednisone 20 mg tablet 20 mg PO DAILY #5 tabs 07/28/23 Allergies Allergy/AdvReac Type Severity Reaction Status Date / Time No Known Allergies Allergy Verified 04/14/24 23:06 Review of Systems 2 Review of Systems: Yes all other systems are reviewed and are negative Constitutional: Constitutional: Denies fatigue and Denies fever(s) Cardiovascular: Cardiovascular: Denies chest pain and Denies dyspnea Respiratory: Respiratory: Denies dyspnea Gastrointestinal: Gastrointestinal: Denies abdominal pain, Denies diarrhea, Denies nausea and Denies vomiting Psychiatric: Psychiatric: Reports anxiety Endocrine: Endocrine: Denies fatigue PMF Past Medical History Attestation statement: The following information was validated with the patient. Medical History Abnormal ECG History of CVA (cerebrovascular accident) History of thyroid cancer Hypothyroidism (acquired) Nicotine dependence, cigarettes, uncomplicated Asthma Type 2 diabetes mellitus with unspecified complications Essential hypertension HOCM (hypertrophic obstructive cardiomyopathy) Surgical History History of tubal ligation History of incision and drainage (~2021) History of thyroidectomy (~2016) Family History Family History Father No problems noted. Mother Heart attack Social History Social History Household Members: Family Alcohol intake: current Alcohol intake frequency: holidays/special occasions only Patient Tobacco Use Status: Current everyday Tobacco user Tobacco use type: Cigarette Cigarettes Per Day: 3 Smoked in Last 30 Days: No Second Hand Smoke Exposure: No Use of substances other than those prescribed or required for medical reasons: Yes Substance Use Type: Marijuana Substance Use Frequency: Daily Last Used Substance: Hours (ago) Any prior treatment program specific to substance use: No Advance Directives: Yes Advance Directives on File: Yes Advance Directives Date on File: 06/25/22 Do you have a plan to hurt others: No Plan Patient : No service: No Physical Exam ED Vital Signs: Vital Signs - 24 hr 04/14/24 23:02 Temperature 98 F Pulse Rate 77 Respiratory Rate 13 Blood Pressure 139/93 H Pulse Oximetry 96 Oxygen Delivery Method Room Air BMI result Body Mass Index 22.6 Const Other: Alert Orientation/consciousness: patient oriented x3 Resp Effort & Inspection: normal respiratory effort Cardio Other: Normal peripheral perfusion Skin Other: Warm dry no rash Neuro General: patient oriented x3, gait normal, no focal motor deficits and CN's II- XI intact bilaterally Psych Other: Cooperative Medications Administered Discontinued Medications Generic Name Dose Route Start Last Admin Trade Name Freq PRN Reason Stop Dose Admin Divalproex Sodium 1,000 mg 04/14/24 23:33 04/14/24 23:39 Divalproex Sodium [address] HAYDEN 04/14/24 23:34 1,000 mg ONCE ONE Administration Lorazepam 1 mg 04/14/24 23:33 04/14/24 23:39 Lorazepam 2 Mg/Ml Vial IVPUSH 04/14/24 23:34 1 mg ONCE ONE Administration Medical Decision Making Medical Decision Making MDM Narrative: 64-year-old female with a history of seizure disorder, hypothyroidism, diabetes, hypertension, cocaine abuse, presents with anxiety. Patient states she was upset overnight given a family member forgot her birthday. She states she was concerned that she ?might have a seizure?. While in the kitchen, her sister reports that she became ?shaky and cold?. Patient states she is adherent with taking her antiepileptic medication, but she will sometimes forget a dose. There have been no recent medication changes. Patient's last breakthrough seizure was in September of this year. Patient denies being sick with insensible losses consisting of nausea vomiting or diarrhea. Problem: Seizure disorder, cocaine abuse, diabetes History: Per patient I have considered the following differential diagnoses: Medication nonadherence, breakthrough seizure, illness, dehydration, intoxication Plan: Screening labs including a Depakote level were obtained, the patient takes Klonopin for her anxiety, we will give a dose of Ativan we will give her prescribed dose of Depakote which is a 1000 mg. I considered intoxication as a cause for her symptoms. Given there was no actual breakthrough seizure activity, it is a irrelevant whether she was using illicit substances overnight. I have independently reviewed the following tests: Labs: No leukocytosis, not anemic, no electrolyte abnormality, valproic acid level 19, Lab Data 04/14/24 23:00 04/14/24 23:00 Labs: Lab Results 04/14/24 Range/Units 23:00 WBC 8.3 (4.8-10.8) X10*3/uL RBC 5.34 (4.20-5.50) X10*6/uL Hgb 14.9 (12.0-16.0) g/dl Hct 44.1 (37.0-47.0) % MCV 82.6 (80.0-98.0) fL MCH 27.9 (27.0-33.0) pg MCHC 33.8 (31.0-35.0) g/dl RDW 12.9 (11.0-16.0) % Plt Count 308 (160-400) X10*3/uL MPV 9.3 L (9.4-12.3) fL Immature Gran % (Auto) 0.4 (0.0-0.4) % Neut % (Auto) 64.3 (45-73) % Lymph % (Auto) 26.7 (20-40) % [place] % (Auto) 7.3 (2-11) % Eos % (Auto) 1.1 (0-4) % Baso % (Auto) 0.2 (0-2) % Lymph # (Auto) 2.2 (1.2-4.9) X10*3/uL [place] # (Auto) 0.6 (0.1-1.2) X10*3/uL Eos # (Auto) 0.1 (0.0-0.4) X10*3/uL Baso # (Auto) 0.0 (0.0-0.2) X10*3/uL Abs Immat Gran (auto) 0.03 (0.00-0.03) X10*3/uL Absolute Neuts (auto) 5.4 (2.0-8.3) x10*3/uL Absolute Nucleated RBC 0.000 (0.0-0.012) X10*3/uL Nucleated RBC % (auto) 0.0 (0.0-0.2) /100WBC Sodium 139 (135-145) mmol/L Potassium 3.3 (3.3-5.1) mmol/L Chloride 102 (96-108) mmol/L Carbon Dioxide 27 (22-29) mmol/L Anion Gap 13 (12-20) BUN 11 (9-16) mg/dL Creatinine 1.12 (0.5-1.4) mg/dL Estim Creat Clear Calc 41.9 Estimated GFR 49 Random Glucose 220 H (60-115) mg/dL Calcium 9.6 (8.4-10.2) mg/dL Total Bilirubin 0.3 (0.0-1.0) mg/dL AST 18 (5-31) U/L ALT 14 (0-31) U/L Alkaline Phosphatase 81 (39-117) U/L Total Protein 8.0 (6.5-8.0) g/dL Albumin 4.6 (3.5-5.0) g/dL Valproic Acid 19.1 L (50.0-100.0) mcg/mL Discharge Plan Discharge Clinical Impression: Anxiety Patient Disposition: Home, Self-Care Instructions: Anxiety (ED) Additional Instructions: Your Depakote level was low, the remainder of your screening labs were normal. Be sure to take the Depakote as directed. You need to follow up with your primary care provider within the next week for repeat labs to be sure your Depakote level becomes therapeutic. Prescriptions: No Action atorvastatin 80 mg tablet 80 mg PO BEDTIME sennosides [senna] 8.6 mg tablet 8.6 mg PO DAILY apraclonidine 0.5 % drops 1 drp ophthalmic-Right BID citalopram 10 mg tablet 10 mg PO DAILY glipizide 10 mg tablet 10 mg PO BID clonazepam [Klonopin] 1 mg tablet 1 mg PO TID PRN (Reason: anxiety) allopurinol 100 mg tablet 100 mg PO QAM divalproex [Depakote] 500 mg tablet,delayed release (DR/EC) 500 mg PO DAILY aspirin 81 mg tablet,delayed release (DR/EC) 81 mg PO DAILY levothyroxine 25 mcg tablet 12.5 mcg PO DAILY ascorbic acid (vitamin C) [Vitamin C] 500 mg tablet 500 mg PO BID amlodipine 10 mg tablet 10 mg PO DAILY ferrous sulfate [FeroSul] 325 mg (65 mg iron) tablet 325 mg PO DAILY docusate sodium 100 mg capsule 100 mg PO BID omeprazole 20 mg capsule,delayed release(DR/EC) 20 mg PO DAILY@0630 levothyroxine 200 mcg tablet 200 mcg PO DAILY fluticasone propion-salmeterol 100-50 mcg/dose blister with device 1 ea inhalation BID quetiapine [Seroquel] 50 mg tablet 50 mg PO BEDTIME Farxiga 10 mg tablet 10 mg PO DAILY divalproex [Depakote] 500 mg tablet,delayed release (DR/EC) 1,000 mg PO BEDTIME naproxen 500 mg tablet 500 mg PO Q8-12H PRN (Reason: pain (scale score 4-6)) Qty: 20 0RF prednisone 20 mg tablet 20 mg PO DAILY Qty: 5 0RF lisinopril 10 mg tablet 10 mg PO DAILY Qty: 90 1RF Rx Instructions: add to her med box ( she states it is due for delivery tomorrow) Print Language: Kiswahili
--- NOTE | 2024-04-15 00:56 | PC.NURSE ---
at this time patient states all of her symptoms have resolved s/p ativan and depakote administration. pt states she feels normal now. family remains at bedside. call dillon in reach
[2024-04-15 01:06] VITALS: BP 132/79; PULSE 83; RESP 16; TEMP 36.6; O2SAT 98
== END 2024-04-15 01:14 | disposition home or self-care (01) ==
PROVIDERS: Emergency Provider Emergency Medicine; PCP Family Medicine
DX: F41.9 Anxiety disorder, unspecified (principal); E11.9 Type 2 diabetes mellitus without complications; I10 Essential (primary) hypertension; E03.9 Hypothyroidism, unspecified; J45.909 Unspecified asthma, uncomplicated; Z87.891 Personal history of nicotine dependence; Z79.82 Long term (current) use of aspirin; Z79.899 Other long term (current) drug therapy; Z79.02 Long term (current) use of antithrombotics/antiplatelets
CPT/HCPCS: 36415; 80053; 80164; 85025; 96374; 99284; J2060

== ENCOUNTER 2024-08-13 09:14 | Outpatient (REF) | payer OTHER, SELFPAY ==
--- OUTSIDE RECORDS SUMMARY | 2024-08-13 09:37 | XMS_ITS | Encounter Summary ---
Author Organization [facility], Address [address] [place] [address] Phone Care Team Providers Care Livestock Sales Representative Name Role Phone Nelda Knox MD Primary Care Provider [phone] Encounter Details Date Type Department Care Team (Late st Contact Info) Description 01/11/2022 Documentation Only [facility], [address] [place] [address] Estefany Jackson PA Social History Tobacco Use Types Packs/Day Years Used Date Smoking Tobacco: Every Day Comments Unknown Sex and Gender Information Value Date Recorded Sex Assigned at Not on file Legal Sex Female 4:30 PM EST Gender Identity Not on file Sexual Orientation Not on file documented as of this encounter Plan of Treatment Upcoming Encounters Date Type Department Care Team (Late st Contact Info) Description 09/29/2024 2:30 PM EDT Office [facility] [address] [place] [phone] Marques Barreto MD [address] [place] [address] [place] [phone] documented as of this encounter Visit Diagnoses Not on filedocumented in this encounter Care Teams Livestock Sales Representative Relationship Specialty Start Date End Date Nelda Knox MD [address] [place] [address] [phone] PCP - General 01/20/19 documented as of this encounter
[2024-08-13 11:51] LABS: MANUAL DIFF FLAG NO
[2024-08-13 11:54] LABS: Basophils Percent Auto 0.3 % (0-2); Eosinophils Absolute Auto 0.1 X10*3/uL (0.0-0.4); Eosinophils Percent Auto 1.9 % (0-4); Hematocrit 44.3 % (37.0-47.0); Hemoglobin 14.5 g/dl (12.0-16.0); Imm Gran Abs Auto 0.03 X10*3/uL (0.00-0.03); Imm Gran Pct Auto 0.4 % (0.0-0.4); Lymphocytes Absolute Auto 2.1 X10*3/uL (1.2-4.9); Lymphocytes Percent Auto 28.6 % (20-40); Mean Corpuscular HGB Conc 32.7 g/dl (31.0-35.0); Mean Corpuscular Hemoglobin 27.9 pg (27.0-33.0); Mean Corpuscular Volume 85.2 fL (80.0-98.0); Mean Platelet Volume 10.2 fL (9.4-12.3); Monocytes Absolute Auto 0.6 X10*3/uL (0.1-1.2); Monocytes Percent Auto 8.7 % (2-11); Neutrophils Absolute Auto 4.4 x10*3/uL (2.0-8.3); Neutrophils Percent Auto 60.1 % (45-73); Platelet Count 309 X10*3/uL (160-400); Red Cell Distribution Width 14.5 % (11.0-16.0); White Blood Count 7.3 X10*3/uL (4.8-10.8)
[2024-08-13 12:06] LABS: Valproate 40.4 mcg/mL (50.0-100.0)
[2024-08-13 12:11] LABS: Alanine Aminotransferase 14 U/L (0-31); Albumin Level 4.5 g/dL (3.5-5.0); Alkaline Phosphatase 73 U/L (39-117); Anion Gap 16 (12-20); Aspartate Amino Transferase 20 U/L (5-31); Bilirubin Direct 0.1 mg/dL (0.0-0.5); Bilirubin Total 0.4 mg/dL (0.0-1.0); Blood Urea Nitrogen 26 mg/dL (9-16); Calcium 9.2 mg/dL (8.4-10.2); Carbon Dioxide 26 mmol/L (22-29); Chloride 103 mmol/L (96-108); Estimated Glomerular Filt Rate 42; Glucose Fasting 177 mg/dL (60-99); Potassium 4.2 mmol/L (3.3-5.1); Sodium 141 mmol/L (135-145); Total Protein 7.3 g/dL (6.5-8.0)
[2024-08-13 12:28] LABS: Thyroid Stimulating Hormone 0.67 uIU/mL (0.32-4.0)
== END 2024-08-13 09:15 | disposition home or self-care (01) ==
LOC: HO.HHCL 09:14
PROVIDERS: Visit Provider Psychiatry & Neurology Psychiatry
DX: Z79.899 Other long term (current) drug therapy (principal)
CPT/HCPCS: 36415; 80053; 80076; 80164; 82248; 84443; 85025

== ENCOUNTER 2024-10-09 13:21 | Outpatient (REF) | payer OTHER, SELFPAY ==
--- NOTE | ~2024-10-09 | MM_ITS ---
EXAMINATION: MM SCREENING DIGITAL BREAST TOMOSYNTHESIS, BILATERAL CLINICAL INFORMATION: Screening. Asymptomatic. COMPARISON: Mammography: Comparison is made with available priors TECHNIQUE: Digital breast mammography with tomosynthesis is performed in both the craniocaudal and mediolateral oblique views along with computer-aided detection (CAD). FINDINGS: The breasts are heterogeneously dense, which may obscure small masses (ACR BI-RADS breast composition Category c). There are no significant masses, abnormal calcifications, or other abnormalities. MM/MM tomosynthesis screening BI IMPRESSION: No mammographic evidence of malignancy. ASSESSMENT: BI-RADS BI-RADS 1 - Negative RECOMMENDATION: Routine annual mammography screening. 1 year F/U This examination should not preclude the clinical evaluation of a suspicious palpable abnormality. This patient's information was entered into a reminder system with a target due date for their next mammogram. Electronically signed by: Velma Cote DO 10/20/2024 10:44 AM EDT
--- OUTSIDE RECORDS SUMMARY | 2024-10-09 13:23 | XMS_ITS | Clinical Summary ---
Author Organization [facility] Address [address] [place] [address] Phone Care Team Providers Care Service Captain Name Role Phone Pcp, Unknown Primary Care Provider Unavailabl e Social History Tobacco Use Types Packs/Day Years Used Date Smoking Tobacco: Never Assessed Education Answer Date Recorded Are you interested in more education? Not on kaushik e 09/13/2022 Are you concerned about learning? Not on file 09/13/2022 No 09/13/2022 No 09/13/2022 Digital Access Answer Date Recorded No 09/13/2022 No 09/13/2022 Reliable internet access at home? Not on file 09/13/2022 Device with a working camera? Not on file Comments Unknown Sex and Gender Information Value Date Recorded Sex Assigned at Not on file Legal Sex Female 11:19 AM EDT Gender Identity Not on file Sexual Orientation Not on file Plan of Treatment Health Maintenance Due Date Last Done Comments LIPID PANEL 1960 DEPRESSION SCREENING 1972 SMOKING Hx and SMOKELESS TOB ACCO SCREENING 1973 HEPATITIS C SCREENING 1978 HIV ONE-TIME SCREENING (18-6 5 YEARS) 1978 PAP SMEAR 1981 COLOGUARD 2005 COLONOSCOPY 2005 COLORECTAL CANCER SCREENING 2005 FIT TEST 2005 FOBT 2005 SIGMOIDOSCOPY 2005 VIRTUAL COLONOSCOPY 2005 PNEUMOCOCCAL VACCINES (50+ y ears) (1 of 1 - PCV) 2010 ZOSTER VACCINES (1 of 2) 2010 MAMMOGRAM 06/18/2020 06/18/2018 COVID-19 VACCINE ( - 2023-2 5 season) 2023 Adult Td,Tdap Booster 10/25/2030 10/25/2020 RSV VACCINE (1 - 1-dose 75+ series) 2035 HEPATITIS A VACCINES Aged Out No long er eligible based on patient's age to complete this topic HIB VACCINES Aged Out No longer eligi ble based on patient's age to complete this topic MENINGOCOCCAL VACCINES (ACWY) Aged Out No longer eligible based on patient's age to complete this topic MENINGOCOCCAL VACCINES (B) Aged Out N o longer eligible based on patient's age to complete this topic Medical Devices Not on file Insurance [facility] MEDICARE REPLACEMENT [place] [id number] [facility] MEDICARE REPLACEMENT [place] [id number] [facility] MEDICARE REPLACEMENT [facility] ONE CARE MEDICARE REPLACEMENT [facility] CARE MEDICARE REPLACEMENT [facility] ONE CARE MEDICARE REPLACEMENT Care Teams Service Captain Relationship Specialty Start Date End Date Pcp, Unknown PCP - General 08/22/22 Additional Source Comments The information contained in this document represents components of the legal health record. It is not the complete legal health record.[facility]
--- OUTSIDE RECORDS SUMMARY | 2024-10-09 13:23 | XMS_ITS | Encounter Summary ---
Author Organization [facility], Address [address] [place] [address] Phone Care Team Providers Care Cigar Roller Name Role Phone Nelda Knox MD Primary Care Provider [phone] Encounter Details Date Type Department Care Team (Late st Contact Info) Description 01/11/2022 Documentation Only [facility] [address] [place] [phone] Estefany Jackson PA [address] [place] [address] Social History Tobacco Use Types Packs/Day Years [...] Care Team (Late st Contact Info) Description 04/06/2025 2:45 PM EST Office Visit [facility] [address] [place] [phone] Maqrues Barreto MD [address] [place] [phone] documented as of this encounter Visit Diagnoses Not on filedocumented in this encounter Care Teams Cigar Roller Relationship Specialty Start Date End Date Nelda Knox MD [address] [place] [address] PCP - General 01/20/19 documented as of this encounter
== END 2024-10-09 13:22 | disposition home or self-care (01) ==
LOC: HO.MAMMO 13:21
PROVIDERS: PCP Family Medicine; Visit Provider Family Medicine
DX: Z12.31 Encounter for screening mammogram for malignant neoplasm of breast (principal)
CPT/HCPCS: 77063; 77067

== ENCOUNTER → 2024-10-09 13:30 | Outpatient (BNV) | payer OTHER, SELFPAY | PROVIDERS: PCP Family Medicine; Visit Provider Internal Medicine | DX: Z12.31 Encounter for screening mammogram for malignant neoplasm of breast (principal) | CPT/HCPCS: 77063; 77067 ==

== ENCOUNTER 2024-10-16 11:51 | Outpatient (REF) | payer OTHER, SELFPAY ==
--- OUTSIDE RECORDS SUMMARY | 2024-10-16 11:54 | XMS_ITS | Encounter Summary ---
Author Organization [employer] Address [address] [place] [address] Care Team Providers Care Pony Trimmer Name Role Phone Nelda Knox MD Primary Care Provider [phone] Encounter Details Date Type Department Care Team ([facility] st Contact Info) Description 08/15/2022 Orders Only [facility] [address] [place], [place] [phone] Nelda Knox MD [address] [place], [place] [phone] Postoperative hypothyroidism (Primary Dx) Social History Tobacco Use Types Packs/Day Years Used Date Smoking Tobacco: Every Day Cigarettes Smokeless Tobacco: Never Depression Answer Date Recorded Patient Health Questionnaire-9 Score 8 02/28/2022 Depression Answer Date Recorded Patient Health Questionnaire-2 Score 3 02/28/2022 Comments Unknown Sex and Gender Information Value Date Recorded Sex Assigned at Female 01/15/2022 10:18 AM EDT Legal Sex Female 10:18 AM EDT Gender Identity Female 01/15/2022 10:18 AM EDT Sexual Orientation Straight 01/15/2022 10 :18 AM EDT COVID-19 Exposure Response Date Recorded In the last 10 days, have yo u been in contact with someone who was confirmed or suspected to have Coronavirus/COVID-19? No / Unsure 08/14/2022 8:30 AM EDT documented as of this encounter Plan of Treatment Scheduled Orders Name Type Priority Associated Diagnoses Orde r Schedule TSH Lab Routine Postoperative hypothyroidism Expected: 08/15/2022 (Approximate), Expires: 08/16/2023 T4, Free Lab Routine Postoperative hypothyroidism Expected: 08/15/2022 (Approximate), Expires: 08/16/2023 documented as of this encounter Visit Diagnoses Diagnosis Postoperative hypothyroidism- Primary Postsurgical hypothyroidism documented in this encounter Additional Health Concerns Assessment Noted Time PHQ-9 Depression Total Score: 8 02/29/20 22 10:43 AM EST documented as of this encounter Care Teams Pony Trimmer Relationship Specialty Start Date End Date Nelda Knox MD [address] [place] [id number] PCP - General Family Medicine 03/21/12 documented as of this encounter
--- OUTSIDE RECORDS SUMMARY | 2024-10-16 11:54 | XMS_ITS | Clinical Summary ---
Author Organization [facility] Address [address] [place] [address] Phone Care Team Providers Care Mica Washer Gluer Name Role Phone Pcp, Unknown Primary Care [...] topic Medical Devices Not on file Insurance [facility] MEDICARE REPLACEMENT [place] [id number] [facility] MEDICARE REPLACEMENT [place] [id number] [facility] MEDICARE REPLACEMENT [facility] ONE CARE MEDICARE REPLACEMENT [facility] CARE MEDICARE REPLACEMENT [facility] ONE CARE MEDICARE REPLACEMENT Care Teams Mica Washer Gluer Relationship Specialty Start Date End Date Pcp, Unknown PCP - General 08/22/22 Additional Source Comments The information contained in this document represents components of the legal health record. It is not the complete legal health record.[facility]
--- OUTSIDE RECORDS SUMMARY | 2024-10-16 11:54 | XMS_ITS | Encounter Summary ---
Author Organization [facility], Address [address] [place] [address] Phone Care Team Providers Care Kraft Digester Operator Name Role Phone Nelda Knox MD Primary Care Provider [phone] Encounter Details Date Type Department Care Team (Late st Contact Info) Description 01/11/2022 Documentation Only [facility] [address] [place] [phone] Estefany Jackson PA [address] [place] [address] Social History Tobacco Use Types [...] Visit [facility] [address] [place] [phone] Marques Barreto MD [address] [place] [phone] documented as of this encounter Visit Diagnoses Not on filedocumented in this encounter Care Teams Kraft Digester Operator Relationship Specialty Start Date End Date Nelda Knox MD [address] [place] [phone] PCP - General 01/20/19 documented as of this encounter
== END 2024-10-16 11:52 | disposition home or self-care (01) ==
LOC: HO.HHCX 11:51
PROVIDERS: Visit Provider Student in an Organized Health Care Education/Training Program
DX: Z13.89 Encounter for screening for other disorder (principal)

== ENCOUNTER 2024-11-26 19:33 | Emergency (ER) | payer OTHER, SELFPAY ==
--- NOTE | 2024-11-26 | ECG_ITS ---
Test Reason : SEIZURE Blood Pressure : */* mmHG Vent. Rate : 116 BPM Atrial Rate : 116 BPM P-R Int : 168 ms QRS Dur : 78 ms QT Int : 320 ms P-R-T Axes : 59 -19 119 degrees QTcB Int : 444 ms Sinus tachycardia Left ventricular hypertrophy with repolarization abnormality ( R in aVL , Brandon product ) Abnormal ECG When compared with ECG of 12-Oct-2023 16:12, Non-specific change in ST segment in Inferior leads T wave inversion no longer evident in Inferior leads T wave inversion less evident in Anterolateral leads Referred By: Generic ED Physician Electronically Signed By: NAVID NAVA MD
--- NOTE | ~2024-11-26 | XR_ITS ---
CLINICAL HISTORY: cough 1 view chest x-ray Comparison: None provided Findings: Hazy right lower lobe opacities secondary to inflammation/infection, volume loss or aspiration. Multiple clips and chain sutures in the left upper hemithorax. No pneumothorax or large pleural effusion. Normal size heart. Several old right rib fractures. IMPRESSION: Hazy right lower lobe opacities secondary to inflammation/infection, volume loss or aspiration. This document has been electronically signed by: Marianna Alonzo DO on 11/26/2024 20:21:08
--- NOTE | ~2024-11-26 | CT_ITS ---
CLINICAL HISTORY: headache CT head without contrast Comparison: CT/REG/[place]/SR - CT HEAD WITHOUT IV CONTRAST - 10/12/23 16:26 EDT Findings: No intracranial mass, midline shift, hydrocephalus, or acute hemorrhage. There is generalized cerebral volume loss with a small to moderate focus of right occipital encephalomalacia. There is associated ex vacuo dilation of the right lateral ventricle. Moderate nonspecific periventricular and subcortical white matter changes are identified, which may be seen in the setting of chronic small vessel ischemic disease. Minimal lobulated mucosal thickening versus a small mucous retention cyst present at the right maxillary sinus. The bilateral mastoid air cells appear clear No acute skull fracture. Impression: 1. No acute intracranial abnormality. No acute intracranial hemorrhage. This document has been electronically signed by: Michele Collier MD on 11/26/2024 22:45:17
--- NOTE | ~2024-11-26 | CT_ITS ---
CLINICAL HISTORY: vomiting, cough concern for aspiration CT chest without contrast Comparison: CR - XR CHEST 1V - 11/26/24 19:59 EDT Findings: Normal heart size. No significant pericardial effusion. No thoracic aorta aneurysm. The thyroid gland appears to be surgically absent. No focal pulmonary consolidation, pneumothorax, or pleural effusion. Minimal dependent bilateral lower lobe subsegmental atelectasis, slightly more prominent on the right. There is a focal 9 mm right lower lobe density with a central lucency, possibly consistent with cavitation. Limited view of the upper abdomen is normal. No acute fractures. Multilevel degenerative endplate changes are present at the thoracic spine. Impression: Minimal dependent bilateral lower lobe subsegmental atelectasis, slightly more prominent on the right. No focal pulmonary consolidation. 9 mm nodular density identified at the right lower lobe with central lucency, possibly with consistent with cavitation. This is nonspecific, however a septic embolus or malignancy are not entirely excluded. No other pulmonary nodules are appreciated. Recommend short interval follow-up chest CT examination in 3 months to evaluate for any interval change. This document has been electronically signed by: Michele Collier MD on 11/26/2024 23:02:42
[2024-11-26 19:36] VITALS: BP 151/97; PULSE 120; O2SAT 95
[2024-11-26 19:42] VITALS: BP 151/93; PULSE 112; RESP 22; TEMP 37.4; O2SAT 88; BMI 23.9
[2024-11-26 19:45] VITALS: O2SAT 93
[2024-11-26 19:51] LABS: Glucose, Whole Blood 233 mg/dL (60-115)
[2024-11-26 19:56] LABS: MANUAL DIFF FLAG NO
[2024-11-26 19:57] LABS: Hematocrit 42.4 % (37.0-47.0); Hemoglobin 14.2 g/dl (12.0-16.0); Imm Gran Abs Auto 0.05 X10*3/uL (0.00-0.03); Imm Gran Pct Auto 0.4 % (0.0-0.4); Lymphocytes Absolute Auto 0.9 X10*3/uL (1.2-4.9); Mean Corpuscular HGB Conc 33.5 g/dl (31.0-35.0); Mean Corpuscular Hemoglobin 28.0 pg (27.0-33.0); Mean Corpuscular Volume 83.6 fL (80.0-98.0); NRBC Abs Auto 0.000 X10*3/uL (0.0-0.012); NRBC Pct Auto 0.0 /100WBC (0.0-0.2); Platelet Count 226 X10*3/uL (160-400); Red Blood Count 5.07 X10*6/uL (4.20-5.50); White Blood Count 12.1 X10*3/uL (4.8-10.8)
[2024-11-26 20:12] LABS: Alanine Aminotransferase 17 U/L (0-31); Albumin Level 4.7 g/dL (3.5-5.0); Alkaline Phosphatase 67 U/L (39-117); Anion Gap 21 (12-20); Aspartate Amino Transferase 20 U/L (5-31); Blood Urea Nitrogen 15 mg/dL (9-16); Calcium 9.1 mg/dL (8.4-10.2); Carbon Dioxide 22 mmol/L (22-29); Chloride 105 mmol/L (96-108); Creatinine Clr Calc Pharmacy 38.3; Estimated Glomerular Filt Rate 42; Potassium 3.5 mmol/L (3.3-5.1); Sodium 144 mmol/L (135-145); Total Protein 7.4 g/dL (6.5-8.0)
--- OUTSIDE RECORDS SUMMARY | 2024-11-26 20:20 | XMS_ITS | Encounter Summary ---
Author Organization [facility], Address [address] [place] [address] Phone Care Team Providers Care Valet Service Attendant Name Role Phone Nelda Knox MD Primary Care Provider [phone] Encounter Details Date Type Department Care Team (Late Contact Info) Description 04/02/2024 Documentation Only [facility] [address] [place] [address] Juju Schmitt [address] [place] [address] Social History Tobacco Use Types Packs/Day Years [...] Visit [facility] [address] [place] [address] Marques Barreto MD [address] [place] [address] [place] [address] documented as of this encounter Visit Diagnoses Not on filedocumented in this encounter Care Teams Valet Service Attendant Relationship Specialty Start Date End Date Nelda Knox MD [address] [place] [address] PCP - General 01/20/19 documented as of this encounter
--- OUTSIDE RECORDS SUMMARY | 2024-11-26 20:20 | XMS_ITS | Encounter Summary ---
Author Organization [facility], Address [address] [place] [address] Phone Care Team Providers Care Uniform Room Attendant Name Role Phone Nelda Knox MD Primary Care Provider [phone] Encounter Details Date Type Department Care Team (Late st Contact Info) Description 12/27/2021 Documentation Only [facility] [address] [place] [phone] Estefany Jackson PA [address] [address] Social History Tobacco Use Types [...] Visit [facility] [address] [place] [phone] Marques Barreto MD [address] [place] [phone] documented as of this encounter Visit Diagnoses Not on filedocumented in this encounter Care Teams Uniform Room Attendant Relationship Specialty Start Date End Date Nelda Knox MD [address] [place] [id number] PCP - General 01/20/19 documented as of this encounter
--- OUTSIDE RECORDS SUMMARY | 2024-11-26 20:20 | XMS_ITS | Encounter Summary ---
Author Organization [facility], Address [address] [place] [address] Phone Care Team Providers Care Manager Shift Name Role Phone Nelda Knox MD Primary Care Provider [phone] Encounter Details Date Type Department Care Team (Late Contact Info) Description 05/29/2023 Documentation Only [facility] [address] [place] [address] Juju Schmitt [address] [place] [address] Social History Tobacco Use Types [...] Visit [facility] [address] [place] [address] Marques Barreto MD [address] [place] [address] [place] [address] documented as of this encounter Visit Diagnoses Not on filedocumented in this encounter Care Teams Manager Shift Relationship Specialty Start Date End Date Nelda Knox MD [address] [place] [address] PCP - General 01/20/19 documented as of this encounter
--- OUTSIDE RECORDS SUMMARY | 2024-11-26 20:20 | XMS_ITS | Clinical Summary ---
Author Organization [facility] Address [address] [place] [address] Phone Care Team Providers Care Restaurant Server Name Role Phone Pcp, Unknown Primary Care [...] (1 of 2) 2010 MAMMOGRAM 06/18/2020 06/18/2018 INFLUENZA VACCINE (#1) 2024 COVID-19 VACCINE (1 - 2023-2 5 season) 2024 Adult Td,Tdap Booster 10/25/2030 10/25/2020 RSV VACCINE [...] topic Medical Devices Not on file Insurance [facility] MEDICARE REPLACEMENT [facility] MEDICARE REPLACEMENT [facility] ONE CARE MEDICARE REPLACEMENT [facility] MEDICARE [facility]PLACEMENT [facility] MEDICARE REPLACEMENT [facility] CARE MEDICARE REPLACEMENT Care Teams Restaurant Server Relationship Specialty Start Date End Date Pcp, Unknown PCP - General 08/22/22 Additional Source Comments The information contained in this document represents components of the legal health record. It is not the complete legal health record.[facility]
--- OUTSIDE RECORDS SUMMARY | 2024-11-26 20:20 | XMS_ITS | Clinical Summary ---
Author Organization [facility], Address [address] [place] [address] Phone Care Team Providers Care Gas Worker Name Role Phone Nelda Knox MD Primary Care Provider [phone] Allergies No known active allergies Medications citalopram (CeleXA) 20 MG tablet Take 1 tablet by mouth 1 (one) time each day Active docusate sodium (Colace) 100 MG capsule Take 1 capsule by mouth 2 (two) times a day Active divalproex (Depakote) 500 MG EC tablet Take by mouth 500 mg qAM and 1000 mg qPM Active traZODone (DESYREL) 100 MG tablet Take 1 tablet by mouth Active allopurinol (ZYLOPRIM) 100 MG tablet Take 100 mg by mouth 0 Active amLODIPine (NORVASC) 10 MG tablet Take 10 mg by mouth 1 (one) time each day 0 Active Ascorbic Acid (vitamin C) 250 MG tablet TAKE 2 TABLETS BY MOUTH TWICE DAILY IN THE MORNING AND EVENING 0 Active Aspirin Adult Low Strength 81 MG EC tablet Take 81 mg by mouth at bed time 0 Active atorvastatin (LIPITOR) 80 MG tablet Take 80 mg by mouth at bed time 0 Active ergocalciferol (VITAMIN D2) 1.25 MG (41454 UT) capsule TAKE 1 CAPSULE BY MOUTH ONCE WEEKLY ON Saturday 0 Active FeroSul 325 (65 Fe) MG tablet Take 1 tablet by mouth every morning and evening 0 Active glipiZIDE (GLUCOTROL) 10 MG tablet Take 10 mg by mouth 2 (two) times a day before meals 0 Active levothyroxine (SYNTHROID, LEVOTHROID) 200 MCG tablet Take 200 mcg by mouth 0 Active omeprazole (PriLOSEC) [address] capsule Take 20 mg by mouth 1 (one) time each day before breakfast 0 Active traMADol (ULTRAM) 50 MG tablet Take 50 mg by mouth 0 Active OLANZapine (ZyPREXA) 15 MG tablet Take 15 mg by mouth every night Active clonazePAM (KlonoPIN) 1 MG tablet Take 1 mg by mouth 1 (one) time each day if needed for anxiety Active Dapagliflozin Propanediol (Farxiga) 10 MG tablet Take 10 mg by mouth 1 (one) time each day in the morning Active levothyroxine sodium (TIROSINT) 25 MCG capsule Take 25 mcg by mouth 1 (one) time each day Active nicotine polacrilex (Nicotine Mini) 2 MG lozenge Dissolve 2 mg in the mouth if needed for smoking cessation Active cyclobenzaprine (FLEXERIL) 5 MG tablet Take 1 tablet (5 mg total) by mouth 3 (three) times a day if needed for muscle spasms for up to 10 days 30 tablet 2 Active lisinopril 10 MG tablet Take 1 tablet (10 mg total) by mouth 1 (one) time each day 90 tablet 3 2 Active levETIRAcetam (KEPPRA) 500 MG tablet Take 500 mg by mouth every morning and evening 4 Active naproxen (NAPROSYN) 500 MG tablet TAKE 1 TABLET BY MOUTH EVERY EIGHT TO TWELVE HOURS NEEDED FOR PAIN 4 Active predniSONE (DELTASONE) 20 MG tablet Take 20 mg by mouth 1 (one) time each day 4 Active QUEtiapine (SEROquel) 300 MG tablet Take 300 mg by mouth at bed time 4 Active QUEtiapine (SEROquel) 50 MG tablet Take 50 mg by mouth 1 (one) time each day if needed 4 Active mirtazapine (REMERON) 15 MG tablet 4 Active Active Problems Problem Noted Date Diagnosed Date Anemia 05/01/2022 Diabetes mellitus 06/22/2020 Overview (06/22/2020): Type 2 Essential hypertension 09/08/2019 Renal disorder due to type 2 diabetes mellitus 0 09/08/2019 Stage 3a chronic kidney disease Resolved Problems Problem Noted Date Diagnosed Date Resolved Date Cigarette smoker 12/17/2019 06/22/2020 Hypertensive chronic kidney disease with stage 1 through stage 4 chronic kidney disease, or unspecified chronic kidney disease 09/08/2019 06/22/2020 Dyslipidemia 09/08/2019 06/22/2020 Hyperuricemia 09/08/2019 06/22/2020 Hypothyroidism 09/08/2019 06/22/2020 Encounters Date Type Department Care Team Description 09/29/2024 2:30 PM EDT Office Visit [facility], [address] [place] [address] Marques Barreto MD Stage 3a chronic kidney disease (HCC) (Primary Dx); Renal disorder due to type 2 diabetes mellitus <Diabetic nephropathy> (HCC); Essential hypertension; Renal disorder due to type 2 diabetes mellitus <Other diabetic kidney complication> (HCC) from Last 3 Months Immunizations Immunization Administration Dates Next Due Moderna SARS-COV-2 05/30/2021,06/16/2020, 021 Shingrix 10/25/2020,08/24/2020 Tdap 10/25/2020 Family History Medical History Relation Comments Heart disease Mother CAD Relation Status Comments Mother Social History Tobacco Use Types Packs/Day Years Used Date Smoking Tobacco: Every Day Tobacco Cessation:Ready to Q uit: Not Asked; Counseling Given: Not Answered Comments Unknown Sex and Gender Information Value Date Recorded Sex Assigned at Not on file Legal Sex Female 4:30 PM EST Gender Identity Not on file Sexual Orientation Not on file Last Filed Vital Signs Vital Sign Reading Time Taken Comments Blood Pressure 128/78 01/09/2022 4:49 PM EDT Pulse 74 07/16/2017 12:00 PM EDT Temperature - - Respiratory Rate 16 07/16/2017 12:00 PM EDT Oxygen Saturation - - Inhaled Oxygen Concentration - - Weight 57.8 kg (127 lb 6.4 oz) 01/09/2022 4:49 P M EDT Height 162.6 cm (5' 4 ) 01/09/2022 4:49 PM EDT Body Mass Index 21.87 01/09/2022 4:49 PM EDT Plan of Treatment Upcoming Encounters Date Type Department Care Team (Late st Contact Info) Description 04/06/2025 2:45 PM EST Office Visit [facility], [address] [place] [address] Marques Barreto MD [address] [place] [phone] Health Maintenance Due Date Last Done Comments Breast Cancer Screening 1960 Pneumococcal Vaccine: 50+ Years (1 of 2 - PCV) 1979 Colorectal Cancer Screening: Annual FOBT 2009 Colorectal Cancer Screening: Colonoscopy 2009 Colorectal Cancer Screening: Sigmoidoscopy 2009 Diabetes: Ophthalmology Exam 06/05/2019 Diabetes: Pedal Pulse Checked 06/05/2019 Diabetes: Sensory Foot Exam 06/05/2019 Diabetes: Visual Foot Exam 06/05/2019 Diabetes: Hemoglobin A1C 08/11/2024 025, 05/22/2021 Influenza Vaccine (#1) 2024 Hepatitis B Vaccine Aged Out No longe r eligible based on patient's age to complete this topic Procedures Procedure Name Priority Date/Time Associated Diagnosis Comments HEMOGLOBIN A1C Routine 05/22/2021 10:57 AM EST Renal disorder due to type 2 diabetes mellitus <Other diabetic kidney complication> (HCC) Hypertensive chronic kidney disease with stage 1 through stage 4 chronic kidney disease, or unspecified chronic kidney disease Stage 3b chronic kidney disease (HCC) from Last 3 Months or Most Recently Relevant to Health Maintenance Results * (ABNORMAL) Hemoglobin A1c (05/22/2021 10:57 AM EST) Hemoglobin A1C 7.7(H) (4.0-5.6) % [facility] Comment: MONITORING: In known diabetic patients, hemoglobin A1c targets should be discussed with health care provider. DIAGNOSTIC USE: The [place] Diabetes [employer] (ADA) and the World Health Organization (WHO) recommend the use of HbA1c to diagnose diabetes using a threshold of 6.5%. Patients who have an HbA1c between 5.7% and 6.4% are considered at increased risk for developing diabetes in the future. CAUTION: Falsely low HbA1c results may be observed in patients with hemolytic anemia, homozygous forms of abnormal hemoglobin (e.g. SS, CC, SC), , recent blood loss or hemoglobin F greater than 7%. Fructosamine may be used as an alternate test in these cases. REFERENCE: ADA: Standards of Medical Care in Diabetes 2020, The Journal of Clinical and Applied Research and Education Volume 43, Supplement 1 Testing performed or reported by [facility], a Service of [facility], [address] [place] [id number] Anamika Navarro MD, Test Engine Evaluator [facility]# [id number] Blood specimen (specimen) Venous blood / Unknown 05/22/2021 10:57 AM EST 05/22/2021 11:00 AM EST us Marques Barreto MD LAB BLOOD ORDERABLES Final Resul t [facility] from Last 3 Months or Most Recently Relevant to Health Maintenance Insurance [facility] ([id number]) [place] [phone] [facility] ([id number]) OCHOA MCQUEEN [phone] Care Teams Gas Worker Relationship Specialty Start Date End Date Nelda Knox MD [address] [place] [address] PCP - General 01/20/19
--- OUTSIDE RECORDS SUMMARY | 2024-11-26 20:20 | XMS_ITS | Encounter Summary ---
Author Organization [facility], Address [address] [place] [address] Phone Care Team Providers Care Snow Plow Operator Name Role Phone Nelda Knox MD Primary Care Provider [phone] Encounter Details Date Type Department Care Team (Late st Contact Info) Description 01/11/2022 Documentation Only [facility] [address] [place] [phone] Estefany Jackson PA [address] [place] [address] Social History Tobacco Use Types [...] Visit [facility] [address] [place] [phone] Marques Barreto MD [address] [place] [phone] documented as of this encounter Visit Diagnoses Not on filedocumented in this encounter Care Teams Snow Plow Operator Relationship Specialty Start Date End Date Nelda Knox MD [address] [place] [id number] PCP - General 01/20/19 documented as of this encounter
[2024-11-26 20:39] LABS: Appearance Urine Clear; Glucose Urine UA >=1000 mg/dL (Negative); PH 6.5 (5.0-9.0); Specific Gravity - Urine 1.015 (1.005-1.025); UMIC TRIGGER UACC YES
[2024-11-26 20:48] LABS: Cannabinoid Screen Urine POSITIVE (Not Detect)
--- NOTE | 2024-11-26 20:53 | ED_ITS ---
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 She continued to panic and then told her family the seizures were coming. She shook her head but was awake and talking during the episode. She had this last 6 min with 3 episodes per family. EMS then noted 10 min GTC seizure given 6mg IN juan. On arrival patient was awake and answering questions per RN team. She c/o nausea and headaches but no trauma noted. This happens when she has these events. She denies recent preceding trauma, lack of med compliance, infections or any other issues. She was 88% on RA after arrival likely due to versed denies preceding cough/fever MD complaint: seizure Onset (ago): minute(s) (TABBER) Description of Episode: loss of consciousness (with EMS) and tonic-clonic movement Duration of episode: 10 -: minutes(s) Witnessed: Yes - by EMS Trauma: No Seizure History: Yes Place: Home Possible Precipitating Event: stress Associated symptoms: other (headache, nausea) Treatments prior to arrival: none Related Data Home Medications ?Medication ?Instructions ?Recorded ?Confirmed allopurinol 100 mg tablet 100 mg PO QAM 06/21/2207/08 amlodipine 10 mg tablet 10 mg PO DAILY 06/21/2206/17 apraclonidine 0.5 % eye drops 1 drp ophthalmic-Right B ID 06/21/22 07/09/23 ascorbic acid (vitamin C) 500 mg 500 mg PO BID 07/09/23 tablet (Vitamin C) aspirin 81 mg tablet,delayed 81 mg PO DAILY 06/21/22 0 07/09/23 release atorvastatin 80 mg tablet 80 mg PO BEDTIME 06/21/22 citalopram 10 mg tablet 10 mg PO DAILY 06/21/2206/17 clonazepam 1 mg tablet (Klonopin) 1 mg PO TID PRN anxi ety 06/21/22 07/09/23 dapagliflozin propanediol 10 mg 10 mg PO DAILY 3 07/09/23 tablet (Farxiga) divalproex 500 mg tablet,delayed 1,000 mg PO BEDTIME 0 06/21/22 07/09/23 release (Depakote) divalproex 500 mg tablet,delayed 500 mg PO DAILY 06/2107/09/23 release (Depakote) docusate sodium 100 mg capsule 100 mg PO BID 06/21/22 07/09/23 ferrous sulfate 325 mg (65 mg 325 mg PO DAILY 06/21/22 07/09/23 iron) tablet (FeroSul) fluticasone 100 mcg-salmeterol 50 1 ea inhalation BID 06/21/22 07/09/23 mcg/dose blistr powdr for inhalation glipizide 10 mg tablet 10 mg PO BID 06/21/22 levothyroxine 200 mcg tablet 200 mcg PO DAILY 06/21/22 07/09/23 levothyroxine 25 mcg tablet 12.5 mcg PO DAILY 06/21/22 07/09/23 omeprazole 20 mg capsule,delayed 20 mg PO DAILY@0630 0 06/21/22 07/09/23 release quetiapine 50 mg tablet (Seroquel) 50 mg PO BEDTIME 07/09/23 sennosides 8.6 mg tablet (senna) 8.6 mg PO DAILY 06/2107/09/23 Previous Rx's ?Medication ?Instructions ?Recorded lisinopril 10 mg tablet 10 mg PO DAILY #90 tabs 06/17 06/08 naproxen 500 mg tablet 500 mg PO Q8-12H PRN pain (s rain 07/28/23 score 4-6) #20 tabs prednisone 20 mg tablet 20 mg PO DAILY #5 tabs 07/27 Allergies Allergy/AdvReac Type Severity Reaction Status Date / Time No Known Allergies Allergy Verified 11/26/24 19:43 Review of Systems 2 Review of Systems: Constitutional : No Fever, No Chills, No Fatigue ENT/Mouth : No sore throat, No Rhinorrhea Eyes: No Eye Pain, No Swelling, No Redness Cardiovascular : No Chest Pain, No SOB, No Dyspnea on Exertion Respiratory : No Cough, No Sputum Gastrointestinal : pos Nausea, No Vomiting, No Diarrhea, No abdominal Pain Genitourinary : No Dysuria, No Urinary Frequency, No Hematuria, Musculoskeletal : No joint pain, No Myalgias, No Joint Swelling Skin : No Skin Lesions, No rash Neuro : No Weakness, No Numbness, No Dizziness, positive Headache, pos seizure All other systems reviewed and are negative [facility] Past Medical History Attestation statement: The following information was validated with the patient. Source: old records reviewed Medical History Abnormal ECG History of CVA (cerebrovascular accident) History of thyroid cancer Hypothyroidism (acquired) Nicotine dependence, cigarettes, uncomplicated Asthma Type 2 diabetes mellitus with unspecified complications Essential hypertension HOCM (hypertrophic obstructive cardiomyopathy) Surgical History History of tubal ligation History of incision and drainage (~2021) History of thyroidectomy (~2016) Family History Family History Father No problems noted. Mother Heart attack Social History Social History Household Members: Family Alcohol intake: current Alcohol intake frequency: does not drink Patient Tobacco Use Status: Current everyday Tobacco user Tobacco use type: Cigarette Cigarettes Per Day: 3 Smoked in Last 30 Days: Yes Second Hand Smoke Exposure: No Use of substances other than those prescribed or required for medical reasons: No Substance Use Type: Marijuana Advance Directives: Yes Advance Directives on File: Yes Advance Directives Date on File: 06/25/22 Patient : No service: No Physical Exam 2 Vital Signs: Vital Signs: Last Vital Signs Temp 98.0 F 11/27/24 01:55 Pulse 89 11/27/24 01:55 Resp 20 11/27/24 01:55 BP 155/94 H 11/27/24 01:55 Pulse Ox 98 11/27/24 01:55 O2 Del Method Room Air 11/27/24 01:55 BMI result Body Mass Index 23.9 Appearance: Alert. Oriented X3. No acute distress. Eyes: Pupils equal, round and reactive to light. ENT: Pharynx normal. no tongue biting Neck: Normal inspection. Neck supple. atraumatic, no meningeal signs CVS: Normal heart rate and rhythm. Pulses normal. Respiratory: No respiratory distress. Breath sounds right lower diminished Abdomen: Soft and nontender. Skin: Skin warm and dry. Normal skin color. Normal skin turgor. Extremities: No lower extremity edema. No calf ttp Neuro: Oriented X 3. No motor deficit. No sensory deficit. Course Course Course Narrative: 1108pm patient still c/o headache will order IV valium and IV tylenol good response but needs to be monitored until she is more awake will sign out to Dr. Tapia pending she wakes up more and DC home Reevaluation(s) Reevaluation #1: I, Dr. Tapia have take over the care of this patient, I reviewed pertinent blood work and imaging, re-evaluated the patient when appropriate. We will monitor patient to make sure she is clinically more awake and ambulatory and appropriate for discharge. Time: 00:43 Reevaluation #2: Past ambulatory trial and we will be discharged in the care of her family Time: 01:57 Medications Administered Discontinued Medications Generic Name Dose Route Start Last Admin Trade Name Freq PRN Reason Stop Dose Admin Diazepam 2.5 mg 11/26/24 23:08 11/26/24 23:20 Diazepam 10 Mg/2 Ml Cartridge IVPUSH 11/26/24 23:09 2.5 mg STAT STA Administration Acetaminophen 1,000 mg in 100 mls @ 400 mls/hr 11/26/24 20:45 11/26/24 21:43 Ofirmev IV 11/26/24 20:59 Infused ONCE ONE Infusion Acetaminophen 1,000 mg in 100 mls @ 400 mls/hr 11/26/24 23:08 11/26/24 23:36 Ofirmev IV 11/26/24 23:22 Infused ONCE ONE Infusion Morphine Sulfate 2 mg 11/26/24 20:45 11/26/24 21:03 Morphine Sulfate 2 Mg/Ml Cartridge IVPUSH 11/26/24 20:46 2 mg ONCE ONE Administration Protocol Ondansetron HCl 4 mg 11/26/24 20:45 11/26/24 21:03 Ondansetron Hcl 4 Mg/2 Ml Vial IVPUSH 11/26/24 20:46 4 mg ONCE ONE Administration Medical Decision Making Medical Decision Making [facility] Narrative: 64 yo female with PMH of cocaine abuse, seizures - epileptic as well as stress induced on keppra and depakote, HTN, DM2, hypothyroidism, 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 She now has nausea and headache which happens after seizures. At this time seems typical of both her non epileptic and epileptic. Given her symptoms and cocaine use I am going to obtain CT head for ICH as well as CT chest for possible aspiration though she denies resp symptoms. I am going to wean her off the O2 suspect that was due to versed pre hospital Differential Diagnosis Differential Diagnoses: The differential diagnosis associated with the presentation includes drug toxicity, seizure, ICH, aspiration, anxiety attack Admission/Observation Consideration of admission/observation: Escalation of care including admission/observation considered at baseline x 4 hours no IVDA does snort cocaine but no injections suspect mass not septic embolus has no other concerning features, weaned off O2 and denies CP/SOB. She will need repeat imaging in 3 months, no cough, no sputum, no wbc count Lab Data [facility] Lab Attestation statement: I reviewed the patient's lab results. 11/26/24 19:52 11/26/24 19:52 Labs: Lab Results 11/26/24 11/26/24 11/26/24 Range/Units 19:47 19:52 20:32 WBC 12.1 H (4.8-10.8) X10*3/uL RBC 5.07 (4.20-5.50) X10*6/uL Hgb 14.2 (12.0-16.0) g/dl Hct 42.4 (37.0-47.0) % MCV 83.6 (80.0-98.0) fL MCH 28.0 (27.0-33.0) pg MCHC 33.5 (31.0-35.0) g/dl RDW 13.8 (11.0-16.0) % Plt Count 226 D (160-400) X10*3/uL MPV 9.5 (9.4-12.3) fL Immature Gran % (Auto) 0.4 (0.0-0.4) % Neut % (Auto) 85.8 H (45-73) % Lymph % (Auto) 7.5 L (20-40) % [place] % (Auto) 5.9 (2-11) % Eos % (Auto) 0.1 (0-4) % Baso % (Auto) 0.3 (0-2) % Lymph # (Auto) 0.9 L (1.2-4.9) X10*3/uL [place] # (Auto) 0.7 (0.1-1.2) X10*3/uL Eos # (Auto) 0.0 (0.0-0.4) X10*3/uL Baso # (Auto) 0.0 (0.0-0.2) X10*3/uL Abs Immat Gran (auto) 0.05 H (0.00-0.03) X10*3/uL Absolute Neuts (auto) 10.4 H (2.0-8.3) x10*3/uL Absolute Nucleated RBC 0.000 (0.0-0.012) X10*3/uL Nucleated RBC % (auto) 0.0 (0.0-0.2) /100WBC Sodium 144 (135-145) mmol/L Potassium 3.5 (3.3-5.1) mmol/L Chloride 105 (96-108) mmol/L Carbon Dioxide 22 (22-29) mmol/L Anion Gap 21 H (12-20) BUN 15 (9-16) mg/dL Creatinine 1.28 (0.5-1.4) mg/dL Estim Creat Clear Calc 38.3 Estimated GFR 42 POC Glucose 233 H (60-115) mg/dL Random Glucose 206 H (60-115) mg/dL Calcium 9.1 (8.4-10.2) mg/dL Total Bilirubin 0.2 (0.0-1.0) mg/dL AST 20 (5-31) U/L ALT 17 (0-31) U/L Alkaline Phosphatase 67 (39-117) U/L Total Protein 7.4 (6.5-8.0) g/dL Albumin 4.7 (3.5-5.0) g/dL Urine Color Yellow Urine Appearance Clear Urine pH 6.5 (5.0-9.0) Ur Specific [place] 1.015 (1.005-1.025) Urine Protein 100 (2+) H (Neg-Trace) mg/dL Urine Glucose (UA) >=1000 H (Negative) mg/dL Urine Ketones Negative (Negative) mg/dL Urine Blood Trace H (Negative) Urine Nitrite Negative (Negative) Ur Leukocyte Esterase Negative (Negative) Urine RBC 0-2 (0-2) /HPF Urine WBC 11-20 H (0-5) /HPF Ur Squamous Epith Cells 3-5 (0-2) /HPF Urine Bacteria None Seen (None Seen) Hyaline Casts 11-20 (0-2) /LPF Urine Opiates Screen Not Detected (Not Detect) Ur Buprenorphine Scrn Not Detected (Not Detect) ng/mL Ur Oxycodone Screen Not Detected (Not Detect) ng/mL Urine Methadone Screen Not Detected (Not Detect) ng/mL Urine Fentanyl Screen Not Detected (Not Detect) Ur Barbiturates Screen Not Detected (Not Detect) Ur Phencyclidine Scrn Not Detected (Not Detect) Ur Amphetamines Screen Not Detected (Not Detect) U Benzodiazepines Scrn POSITIVE H (Not Detect) Urine Cocaine Screen POSITIVE H (Not Detect) U Marijuana (THC) Screen POSITIVE H (Not Detect) Independent Interpretation I performed an independent interpretation of an: EKG, Plain X-Ray (? RLLL opacity) and CT Scan (CT head normal ) Interpretation: Rate: 116 Rhythm: sinus tach [place]: left Normal P waves. Normal DULCE. Normal QRS complex. ST T wave : inverted t waves I and aVL, V2, no GLORIA qTC: 444 prior studies: no change September 2023 The study has been interpreted contemporaneously by me. . Radiology Impression Discussion of test interpretation with radiology: I have reviewed the radiologist's reading. Independent Historian Clinical information obtained from an independent historian. History obtained from or confirmed by: EMS and Other (family at bedside) External Record Review External record reviewed: Inpatient record and Outpatient record Discharge Plan Discharge Clinical Impression: Epileptic seizure Patient Disposition: Home, Self-Care Instructions: Epilepsy (ED) Additional Instructions: labs reassuring other than you did test positive for cocaine - you can follow up with our comprehensive care clinic you need to repeat a CT scan of your chest in 3 months to assess that area though small to make sure it doesn't get bigger, return for fevers, cough with sputum, increased trouble breathing or any other concerns. stay with responsible adult, take your medications as prescribed If you decide you want to stop or cut down on how much you?re using, you can call or walk into our outpatient Addiction Treatment office: [facility] (M-F 9am-5p) [address] [place] [address], [address] [phone] If you experience any worsening symptoms you cannot control please return to the ED or call 911. Please follow up at your next appointment. Things to look out for are fevers, chest pain, shortness of breath, severe pain, dizziness, fainting or any other concerns. Prescriptions: No Action atorvastatin 80 mg tablet 80 mg PO BEDTIME sennosides [senna] 8.6 mg tablet 8.6 mg PO DAILY apraclonidine 0.5 % drops 1 drp ophthalmic-Right BID citalopram 10 mg tablet 10 mg PO DAILY glipizide 10 mg tablet 10 mg PO BID clonazepam [Klonopin] 1 mg tablet 1 mg PO TID PRN (Reason: anxiety) allopurinol 100 mg tablet 100 mg PO QAM divalproex [Depakote] 500 mg tablet,delayed release (DR/EC) 500 mg PO DAILY aspirin 81 mg tablet,delayed release (DR/EC) 81 mg PO DAILY levothyroxine 25 mcg tablet 12.5 mcg PO DAILY ascorbic acid (vitamin C) [Vitamin C] 500 mg tablet 500 mg PO BID amlodipine 10 mg tablet 10 mg PO DAILY ferrous sulfate [FeroSul] 325 mg (65 mg iron) tablet 325 mg PO DAILY docusate sodium 100 mg capsule 100 mg PO BID omeprazole 20 mg capsule,delayed release(DR/EC) 20 mg PO DAILY@0630 levothyroxine 200 mcg tablet 200 mcg PO DAILY fluticasone propion-salmeterol 100-50 mcg/dose blister with device 1 ea inhalation BID quetiapine [Seroquel] 50 mg tablet 50 mg PO BEDTIME Farxiga 10 mg tablet 10 mg PO DAILY divalproex [Depakote] 500 mg tablet,delayed release (DR/EC) 1,000 mg PO BEDTIME naproxen 500 mg tablet 500 mg PO Q8-12H PRN (Reason: pain (scale score 4-6)) Qty: 20 0RF prednisone 20 mg tablet 20 mg PO DAILY Qty: 5 0RF lisinopril 10 mg tablet 10 mg PO DAILY Qty: 90 1RF Rx Instructions: add to her med box ( she states it is due for delivery tomorrow) Print Language: Faroese
[2024-11-26 20:56] LABS: UACC Culture Trigger YES
[2024-11-26 21:43] VITALS: BP 179/94; PULSE 70; RESP 12; O2SAT 95
[2024-11-26] MEDS: diazePAM 10 MG/2 ML CARTRIDGE 2.5 MG IVPUSH (23:20)
[2024-11-26 23:30] VITALS: BP 136/82; PULSE 72; RESP 18; O2SAT 100
[2024-11-27 01:55] VITALS: BP 155/94; PULSE 89; RESP 20; TEMP 36.7; O2SAT 98
[2024-11-27 02:09] VITALS: BP 155/94; PULSE 89; RESP 20; TEMP 36.7; O2SAT 98
[2024-12-01 18:58] LABS: Levetiracetam Keppra 18.2 mcg/mL (6.0-46.0)
== END 2024-11-27 03:24 | disposition home or self-care (01) ==
PROVIDERS: Emergency Medicine; Emergency Provider Emergency Medicine; PCP Family Medicine
DX: R56.9 Unspecified convulsions (principal); R51.9 Headache, unspecified; R11.0 Nausea; F17.210 Nicotine dependence, cigarettes, uncomplicated; R00.0 Tachycardia, unspecified; E11.9 Type 2 diabetes mellitus without complications; I10 Essential (primary) hypertension; Z79.899 Other long term (current) drug therapy; Z15.1 Genetic susceptibility to epilepsy and neurodevelopmental disorders
CPT/HCPCS: 36415; 70450; 71045; 71250; 80053; 80177; 80307; 81001; 82947; 85025; 87086; 93005; 96365; 96366; 96375; 99285; J0131; J2270; J2405; J3360

== ENCOUNTER → 2024-11-26 19:41 | Outpatient (BNV) | payer OTHER, SELFPAY | PROVIDERS: Emergency Provider Emergency Medicine; PCP Family Medicine; Visit Provider Internal Medicine Cardiovascular Disease | DX: R00.0 Tachycardia, unspecified (principal) | CPT/HCPCS: 93010 ==

== ENCOUNTER → 2024-11-26 19:59 | Outpatient (BNV) | payer OTHER, SELFPAY | PROVIDERS: Emergency Provider Emergency Medicine; PCP Family Medicine; Visit Provider Radiology Diagnostic Radiology | DX: R51.9 Headache, unspecified (principal); R05.9 Cough, unspecified | CPT/HCPCS: 70450; 71045 ==

== ENCOUNTER 2025-03-15 14:45 | Emergency (ER) | payer OTHER, SELFPAY ==
--- OUTSIDE RECORDS SUMMARY | 2025-03-12 23:59 | XMS_ITS | Continuity of Care Document ---
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 Phone Lisette RG, Nelda Primary Care Physician [id number] Date(s): 02/05/25 - 03/12/25 [facility] [address] [place] [phone]- Encounter Diagnosis Thyroid cancer, medullary carcinoma(Discharge Diagnosis) - 02/09/25 Attending Physician: Maria Elena Mathews MD Admitting Physician: Maria Elena Mathews MD Encounter Type: Pre-OutPatient One Time Allergies, Adverse Reactions, Alerts No Known Allergies Medications albuterol 90 mcg/inh inhalation powder 2 puffs, Inhalation, Every 4 hours, 0 Refills, Maintenance, 10/21/15 10:38:14 AM EDT Start Date: 10/21/15 Status: Ordered Medication Dispense Status: Completed Total Allowed Fills: 1 Fills Dispensed: 0 Amlodipine 10 mg, By Mouth, Daily, Maintenance, 10/02/13 8:44:45 AM EDT Start Date: 10/02/13 Status: Ordered Medication Dispense Status: Completed Total Allowed Fills: 1 Fills Dispensed: 0 Atenolol = 25 mg, By Mouth, 2 times a day, 0 Refills, Maintenance, 09/03/13 1:02:31 PM EDT Start Date: 09/03/13 Status: Ordered Medication Dispense Status: Completed Total Allowed Fills: 1 Fills Dispensed: 0 atorvastatin 20 mg oral tablet 1 tablet = 20 mg, By Mouth, Daily at bedtime, 0 Refills, Maintenance Start Date: 10/21/15 Status: Ordered Medication Dispense Status: Completed Total Allowed Fills: 1 Fills Dispensed: 0 cetirizine 5 mg oral tablet 1 tablet = 5 mg, By Mouth, Daily, 0 Refills, Maintenance, 10/21/15 10:40:35 AM EDT Start Date: 10/21/15 Status: Ordered Medication Dispense Status: Completed Total Allowed Fills: 1 Fills Dispensed: 0 citalopram 20 mg oral tablet 1 tablet = 20 mg, By Mouth, Daily, # 30 tablet, 0 Refills, Maintenance, 07/08/14 2:22:29 PM EDT, Tablet Start Date: 07/08/14 Status: Ordered Medication Dispense Status: Completed Quantity: 30.0 Unit: tablet Total Allowed Fills: 1 Fills Dispensed: 0 clonazePAM 1 mg oral tablet 1 tablet = 1 mg, By Mouth, 3 times a day, 0 Refills, Maintenance, 10/21/15 10:34:49 AM EDT Start Date: 10/21/15 Status: Ordered Medication Dispense Status: Completed Total Allowed Fills: 1 Fills Dispensed: 0 Cyclobenzaprine By Mouth, 0 Refills, Maintenance, 10/21/15 10:39:08 AM EDT Start Date: 10/21/15 Status: Ordered Medication Dispense Status: Completed Total Allowed Fills: 1 Fills Dispensed: 0 Depakote 500 mg oral enteric coated tablet 1 tablet = 500 mg, By Mouth, 2 times a day, 0 Refills, Maintenance, 08/31/13 3:26:23 PM EDT Start Date: 08/31/13 Status: Ordered Medication Dispense Status: Completed Total Allowed Fills: 1 Fills Dispensed: 0 ferrous sulfate 325 mg oral tablet 1 tablet = 325 mg, By Mouth, 3 times a day, # 270 tablet, 0 Refills, Maintenance, 08/30/11 2:11:39 PM EDT, Tablet Start Date: 08/30/11 Status: Ordered Medication Dispense Status: Completed Quantity: 270.0 Unit: tablet Total Allowed Fills: 1 Fills Dispensed: 0 Flonase 50 mcg/inh nasal spray 1 sprays, Daily, 0 Refills, Maintenance, 10/21/15 10:38:27 AM EDT Start Date: 10/21/15 Status: Ordered Medication Dispense Status: Completed Total Allowed Fills: 1 Fills Dispensed: 0 glipiZIDE 5 mg oral tablet 5 mg, 1, tablet, By Mouth, Daily, Refills 0, Maintenance, 10/21/15 10:39:29 AM EDT Start Date: 10/21/15 Status: Ordered Medication Dispense Status: Completed Total Allowed Fills: 1 Fills Dispensed: 0 ibuprofen 600 mg oral tablet 1 tablet = 600 mg, By Mouth, 3 times a day, PRN as needed for pain, # 90 tablet, 0 Refills, Maintenance, 11/05/13 1:48:08 PM EDT, Tablet, [facility] Start Date: 11/05/13 Status: Ordered Medication Dispense Status: Completed Quantity: 90.0 Unit: tablet Total Allowed Fills: 1 Fills Dispensed: 0 Indomethacin 0 Refills, Maintenance, 10/21/15 10:38:39 AM EDT Start Date: 10/21/15 Status: Ordered Medication Dispense Status: Completed Total Allowed Fills: 1 Fills Dispensed: 0 ketoconazole 2% topical cream 1 applicator, Topically, Daily, 0 Refills, Maintenance, 10/21/15 10:37:45 AM EDT Start Date: 10/21/15 Status: Ordered Medication Dispense Status: Completed Total Allowed Fills: 1 Fills Dispensed: 0 levothyroxine 0.175 mg oral tablet See Instructions, take one tablet daily., # 90 Doses, 3 Refills, Maintenance, 07/16/16 11:37:31 AM EDT Start Date: 07/16/16 Status: Ordered Medication Dispense Status: Completed Quantity: 90.0 Unit: Doses Total Allowed Fills: 4 Fills Dispensed: 0 loratadine 10 mg oral capsule 1 capsule = 10 mg, By Mouth, Daily, # 10 capsule, 0 Refills, Maintenance, 07/08/14 2:23:11 PM EDT, Capsule Start Date: 07/08/14 Status: Ordered Medication Dispense Status: Completed Quantity: 10.0 Unit: capsule Total Allowed Fills: 1 Fills Dispensed: 0 metformin 500 mg oral tablet 500 mg, By Mouth, 2 times a day, 0 Refills, Maintenance, 08/30/11 2:09:06 PM EDT Start Date: 08/30/11 Status: Ordered Medication Dispense Status: Completed Total Allowed Fills: 1 Fills Dispensed: 0 Omeprazole By Mouth, Daily, 0 Refills, Maintenance, 10/21/15 10:38:52 AM EDT Start Date: 10/21/15 Status: Ordered Medication Dispense Status: Completed Total Allowed Fills: 1 Fills Dispensed: 0 povidone iodine topical 0.3% solution 0 Refills, Maintenance, 10/21/15 10:36:57 AM EDT Start Date: 10/21/15 Status: Ordered Medication Dispense Status: Completed Total Allowed Fills: 1 Fills Dispensed: 0 Seroquel 100 mg oral tablet 100 mg, By Mouth, Daily at bedtime, 0 Refills, Maintenance, 08/30/11 2:09:50 PM EDT Start Date: 08/30/11 Status: Ordered Medication Dispense Status: Completed Total Allowed Fills: 1 Fills Dispensed: 0 Spiriva = 18 mcg, Inhalation, Daily, 0 Refills, Maintenance, 10/21/15 10:39:16 AM EDT Start Date: 10/21/15 Status: Ordered Medication Dispense Status: Completed Total Allowed Fills: 1 Fills Dispensed: 0 Symbicort 160mcg/4.5mcg Inhaler 2, puffs, Inhalation, 2 times a day, Refills 0, Maintenance, 10/21/15 10:37:22 AM EDT Start Date: 10/21/15 Status: Ordered Medication Dispense Status: Completed Total Allowed Fills: 1 Fills Dispensed: 0 Trazodone By Mouth, 0 Refills, Maintenance, 10/08/14 9:19:08 AM EDT Start Date: 10/08/14 Status: Ordered Medication Dispense Status: Completed Total Allowed Fills: 1 Fills Dispensed: 0 Vitamin C 500 mg oral tablet 1 tablet = 500 mg, By Mouth, 2 times a day, # 30 tablet, 0 Refills, Maintenance, 08/31/13 3:33:13 PMEDT, Tablet Start Date: 08/31/13 Status: Ordered Medication Dispense Status: Completed Quantity: 30.0 Unit: tablet Total Allowed Fills: 1 Fills Dispensed: 0 Problem List Condition Confirmation Course Effective Dates [...] thyroidectomy with radical neck dissection Confirmed Active Diagnosis Diagnosis Type Effective Dates Health Status Cl inical Service Informant Thyroid cancer, medullary carcinoma Discharge Diagnosis 02/09/25 Social History Social History Type Response Smoking Status Never smoker; Tobacc o user in household: No entered on: 10/08/14 Sex Sex Representation Female (finding) Patient Care team information Care Team Personnel Name: Vibha Arrieta RN Position: [facility] RN Member Role: Primary Care Nurse Name: Mallory Ayoub Position: [facility] Outreach Member Role: Lifetime Consulting Physician Name: Nelda Knxo MD Position: [facility] Outreach Member Role: PCP Address: [address] [place] [address] Telecom: Care Team Related Persons Name: PRABHAKAR BILL Name: SAMANTHA DENISE Insurance Providers Guarantor name: FAREED DENISE Health Plan Information #: 1 Payer: [facility] Payer Identifier: MILLER Member Number: [id number] Group Number: [id number] Subscriber Identifier: [id number] Relationship to Subscriber: self Coverage Type: Medicare Managed Care (Includes Medicare Advantage Plans) Coverage Verification Date: MILLER Telecom: NA Address:
--- OUTSIDE RECORDS SUMMARY | 2025-03-12 23:59 | XMS_ITS | Continuity of Care Document ---
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 Role Phone Lisette RG, Nelda Primary Care Physician Encounter [facility] Date(s): 02/10/25 - 03/12/25 [facility] [address] [place] [phone]- Attending Physician: Jesi Bone Admitting Physician: Jesi Bone Referring Physician: Jesi Bone Encounter Type: Triage Allergies, Adverse Reactions, Alerts No Known Allergies [...] Refills, Maintenance, 11/05/13 1:48:08 PM EDT, Tablet, [facility] Start Date: 11/05/13 Status: Ordered Medication Dispense [...] on: 10/08/14 Sex Sex Representation Female (finding) Laboratory * Event Display: Non [facility] Lab Results Authored Date: * Event Display: Non [facility] Lab Results Authored Date: * Event Display: Non [facility] Lab Results Authored Date: * Event Display: Non [facility] Lab Results Authored Date: * Event Display: Non [facility] Lab Results Authored Date: Patient Care team information Care Team Personnel Name: Vibha Arrieta RN Position: [facility] RN Member Role: Primary Care Nurse Name: Mallory Ayoub Position: [facility] Outreach Member Role: Lifetime Consulting Physician Name: Nelda Knox MD Position: [facility] Outreach Member Role: PCP Address: [address] [place] [address] Telecom: Care Team Related Persons Name: PRABHAKAR BILL Name: SAMANTHA DENISE Insurance Providers Guarantor name: FAREED DENISE Health Plan Information #: 1 Payer: [facility] Payer Identifier: NA Member Number: [id number] Group Number: [id number] Subscriber Identifier: MILLER Relationship to Subscriber: self Coverage Type: Medicare Managed Care (Includes Medicare Advantage Plans) Coverage Verification Date: Telecom: MILLER Address:
--- NOTE | ~2025-03-15 | CT_ITS ---
EXAMINATION: CT HEAD WITHOUT CONTRAST CLINICAL INFORMATION: Fall, head strike, pain. COMPARISON: Numerous priors, most recently 11/26/2024 and 10/12/2023. TECHNIQUE: Contiguous axial imaging was performed from the skull base to vertex without intravenous administration of contrast. This CT examination was performed using dose optimization techniques as appropriate, variously including the following: *Automated exposure control *Adjustment of mA and/or kV according to patient size (this includes techniques or standardized protocols for targeted exams where dose is matched to indication/reason for exam; i.e. extremities or head) *Use of iterative reconstruction technique FINDINGS: Exam is significantly motion degraded, bordering on nondiagnostic. Given the amount of motion, subtle hemorrhages, and even larger hemorrhages/fractures could easily be obscured. There is no evidence of intracranial hemorrhage or extra-axial fluid collection. There is no mass effect, or edema. No CT evidence of acute territorial infarct. There are cystic encephalomalacia of the occipital lobe present from prior infarct, with ex vacuo dilatation of the right lateral ventricular atrium and temporal horn. Ventricles, sulci, and cisterns are otherwise normal in size and configuration for patient age. No hydrocephalus. No midline shift. Negative hyperdense MCA sign. Negative insular ribbon sign. Patchy periventricular and deep white matter hypoattenuation is consistent with moderate small vessel ischemic changes. Normal pituitary. Mild atheromatous calcification of the bilateral carotid siphons and V4 segments vertebral arteries bilaterally. Globes and orbital contents demonstrate bilateral lens replacements. No extracranial soft tissue abnormalities. The paranasal sinuses demonstrate new near complete opacification of the right maxillary antrum. Remainder of the paranasal sinuses, mastoid air cells, and tympanic cavities are normally aerated within the confines of motion. No suspicious bony abnormalities. There are no definitive acute fractures present. A right orbital fracture cannot be excluded on the basis of this exam. CT/CT head/brain wo IV con IMPRESSION: 1. Significantly motion degraded exam, bordering on nondiagnostic. Within these confines, no acute intracranial abnormalities and no definitive fractures. 2. Stable chronic changes, including right occipital infarct and moderate changes of white matter small vessel ischemia. 3. New complete opacification of the right maxillary sinus. If there is high suspicion for right facial or orbital fractures, repeat examination with possible sedation suggested. Electronically signed by: Aba Johnson MD 03/15/2025 04:54 PM EST RP
--- NOTE | ~2025-03-15 | XR_ITS ---
CLINICAL HISTORY: chest pain 1 view chest x-ray Comparison: CR - XR CHEST 1V - 11/26/24 19:59 EDT Findings: The lungs are clear. Heart size is normal. Proximal left humerus enchondroma. No fractures. IMPRESSION: 1. No acute findings. This document has been electronically signed by: Dar Dillon MD on 03/15/2025 23:14:14
[2025-03-15 14:59] VITALS: BP 130/90; BP 137/74; PULSE 67; PULSE 98; RESP 14; TEMP 36.5; O2SAT 98; O2SAT 99
[2025-03-15 15:02] VITALS: BP 113/93; PULSE 71; RESP 20; TEMP 36.5; O2SAT 96; BMI 21.2
--- NOTE | 2025-03-15 15:02 | ECG_ITS ---
Test Reason : SEIZURE Blood Pressure : */* mmHG Vent. Rate : 67 BPM Atrial Rate : 67 BPM P-R Int : 166 ms QRS Dur : 72 ms QT Int : 436 ms P-R-T Axes : 67 27 215 degrees QTcB Int : 460 ms Normal sinus rhythm Possible Left atrial enlargement ST & T wave abnormality, consider inferior ischemia ST & T wave abnormality, consider anterolateral ischemia Abnormal ECG When compared with ECG of 26-Nov-2024 19:41, Vent. rate has decreased by 49 bpm T wave inversion now evident in Inferior leads T wave inversion more evident in Anterolateral leads Referred By: Lay Sosa Electronically Signed By: KAIDEN HARRINGTON
[2025-03-15 15:25] LABS: MANUAL DIFF FLAG NO
[2025-03-15 15:33] LABS: Hematocrit 42.3 % (37.0-47.0); Hemoglobin 14.3 g/dl (12.0-16.0); Imm Gran Abs Auto 0.03 X10*3/uL (0.00-0.03); Imm Gran Pct Auto 0.2 % (0.0-0.4); Lymphocytes Absolute Auto 1.7 X10*3/uL (1.2-4.9); Mean Corpuscular HGB Conc 33.8 g/dl (31.0-35.0); Mean Corpuscular Hemoglobin 27.8 pg (27.0-33.0); Mean Corpuscular Volume 82.1 fL (80.0-98.0); NRBC Abs Auto 0.020 X10*3/uL (0.0-0.012); NRBC Pct Auto 0.2 /100WBC (0.0-0.2); Platelet Count 253 X10*3/uL (160-400); Red Blood Count 5.15 X10*6/uL (4.20-5.50); White Blood Count 12.1 X10*3/uL (4.8-10.8)
[2025-03-15 15:41] LABS: Alanine Aminotransferase 21 U/L (0-31); Albumin Level 4.6 g/dL (3.5-5.0); Alkaline Phosphatase 67 U/L (39-117); Anion Gap 16 (12-20); Aspartate Amino Transferase 30 U/L (5-31); Blood Urea Nitrogen 12 mg/dL (9-16); Calcium 10.1 mg/dL (8.4-10.2); Carbon Dioxide 24 mmol/L (22-29); Chloride 105 mmol/L (96-108); Creatinine Clr Calc Pharmacy 49.0; Estimated Glomerular Filt Rate 56; Magnesium 1.6 mg/dL (1.6-2.6); Potassium 3.8 mmol/L (3.3-5.1); Sodium 141 mmol/L (135-145); Total Protein 7.5 g/dL (6.5-8.0)
[2025-03-15 15:48] LABS: Troponin-I High Sensitivity 11.4 ng/L (<3.5-17.0)
--- NOTE | 2025-03-15 15:57 | ED.GENADULT ---
HPI - General Adult General Chief complaint: Seizure Stated complaint: SZ, LAST NIGHT FALL, NOW TREMBULOUS Time Seen by Provider: 03/15/25 15:56 History of Present Illness ED Provider: Kasey KAISER narrative: The patient is a 64-year-old woman with a history of a seizure disorder. I believe that she has both partial and generalized seizures. She is on valproic acid and levetiracetam. Apparently last night at around when I a.m. at her sister's house she had a seizure after which she fell onto her face. I believe she had 2 more seizures this morning and ultimately her sister called an ambulance and she was brought to the hospital. The patient says that she has some pain in her anterior left chest and in her left shoulder. She also feels that her left hand keeps spasming. Related Data Home Medications ?Medication ?Instructions ?Recorded ?Confirmed allopurinol 100 mg tablet 100 mg PO QAM 06/21/22 07/09/23 amlodipine 10 mg tablet 10 mg PO DAILY 06/21/22 07/09/23 apraclonidine 0.5 % eye drops 1 drp ophthalmic-Right BID 06/21/22 07/09/23 ascorbic acid (vitamin C) 500 mg 500 mg PO BID 06/21/22 07/09/23 tablet (Vitamin C) aspirin 81 mg tablet,delayed 81 mg PO DAILY 06/21/22 07/09/23 release atorvastatin 80 mg tablet 80 mg PO BEDTIME 06/21/22 07/09/23 citalopram 10 mg tablet 10 mg PO DAILY 06/21/22 07/09/23 clonazepam 1 mg tablet (Klonopin) 1 mg PO TID PRN anxiety 06/21/22 07/09/23 dapagliflozin propanediol 10 mg 10 mg PO DAILY 06/21/22 07/09/23 tablet (Farxiga) divalproex 500 mg tablet,delayed 1,000 mg PO BEDTIME 06/21/22 07/09/23 release (Depakote) divalproex 500 mg tablet,delayed 500 mg PO DAILY 06/21/22 07/09/23 release (Depakote) docusate sodium 100 mg capsule 100 mg PO BID 06/21/22 07/09/23 ferrous sulfate 325 mg (65 mg 325 mg PO DAILY 06/21/22 07/09/23 iron) tablet (FeroSul) fluticasone 100 mcg-salmeterol 50 1 ea inhalation BID 06/21/22 07/09/23 mcg/dose blistr powdr for inhalation glipizide 10 mg tablet 10 mg PO BID 06/21/22 07/09/23 levothyroxine 200 mcg tablet 200 mcg PO DAILY 06/21/22 07/09/23 levothyroxine 25 mcg tablet 12.5 mcg PO DAILY 06/21/22 07/09/23 omeprazole 20 mg capsule,delayed 20 mg PO DAILY@0630 06/21/22 07/09/23 release quetiapine 50 mg tablet (Seroquel) 50 mg PO BEDTIME 06/21/22 07/09/23 sennosides 8.6 mg tablet (senna) 8.6 mg PO DAILY 06/21/22 07/09/23 Previous Rx's ?Medication ?Instructions ?Recorded lisinopril 10 mg tablet 10 mg PO DAILY #90 tabs 07/09/23 naproxen 500 mg tablet 500 mg PO Q8-12H PRN pain (scale 07/28/23 score 4-6) #20 tabs prednisone 20 mg tablet 20 mg PO DAILY #5 tabs 07/28/23 Allergies Allergy/AdvReac Type Severity Reaction Status Date / Time No Known Allergies Allergy Verified 03/15/25 15:14 Review of Systems Review of Systems: Yes all other systems are reviewed and are negative [facility] Past Medical History Medical History Abnormal ECG History of CVA (cerebrovascular accident) History of thyroid cancer Hypothyroidism (acquired) Nicotine dependence, cigarettes, uncomplicated Asthma Type 2 diabetes mellitus with unspecified complications Essential hypertension HOCM (hypertrophic obstructive cardiomyopathy) Surgical History History of tubal ligation History of incision and drainage (~2021) History of thyroidectomy (~2016) Family History Family History Father No problems noted. Mother Heart attack Social History Social History Household Members: Family Alcohol intake: current Alcohol intake frequency: does not drink Patient Tobacco Use Status: Current everyday Tobacco user Tobacco use type: Cigarette Cigarettes Per Day: 3 Smoked in Last 30 Days: No Second Hand Smoke Exposure: No Use of substances other than those prescribed or required for medical reasons: No Substance Use Type: Marijuana Advance Directives: Yes Advance Directives on File: Yes Advance Directives Date on File: 06/25/22 Do you have a plan to hurt others: No Plan service: No Physical Exam ED Vital Signs: Vital Signs - 24 hr 03/15/25 21:31 03/16/25 00:04 03/16/25 00:14 Temperature 99.7 F 99.7 F Pulse Rate 78 78 Respiratory Rate 16 14 14 Blood Pressure 126/80 126/80 Pulse Oximetry 95 95 Oxygen Delivery Method Room Air Room Air BMI result Body Mass Index 21.2 Const Other: The patient is cachectic 64-year-old woman who was awake and alert. She is pleasant and cooperative. She seems very anxious. HENMT Other: The face is symmetrical. ?Mucous membranes moist. Eyes Other: Pupils are round equal, conjunctivae are clear, extraocular movements intact Neck Neck: Yes normal visual inspection, Yes full ROM, Yes no lymphadenopathy and Yes no JVD Chest Other: No marked chest wall tenderness. No subcutaneous emphysema or crepitus. No instability. Resp Effort & Inspection: normal respiratory effort Auscultation: clear to auscultation bilaterally Cardio Rate: regular rate Rhythm: regular rhythm Heart sounds: S1 normal heart sound present and S2 normal heart sound present GI Other: Abdomen is soft and nontender Skin Other: Skin is pale and dry Neuro Other: The patient is awake and alert. She has a an anxious demeanor but seems reasonably well oriented. Cranial nerves 2-12 are intact. She seems to be able to move her extremities normally but intermittently she seemed to be having a closing of the fingers of the left hand that she felt was not voluntary. Extrem Other: No peripheral edema Medications Administered Discontinued Medications Generic Name Dose Route Start Last Admin Trade Name Jos PRN Reason Stop Dose Admin Diazepam 5 mg 03/15/25 16:44 03/15/25 16:52 Diazepam 10 Mg/2 Ml Cartridge IVPUSH 03/15/25 16:45 5 mg STAT STA Administration Diazepam 10 mg 03/15/25 17:16 03/15/25 17:26 Diazepam 10 Mg/2 Ml Cartridge IVPUSH 03/15/25 17:17 10 mg STAT STA Administration Levetiracetam 1,000 mg in 100 mls @ 400 mls/hr 03/15/25 16:44 03/15/25 17:33 Keppra IV 03/15/25 16:58 Infused ONCE ONE Infusion Valproic Acid 1,000 mg/ 60 mls @ 60 mls/hr 03/15/25 17:36 03/15/25 19:20 Dextrose IV 03/15/25 18:35 Infused ONCE ONE Infusion Acetaminophen 1,000 mg in 100 mls @ 400 mls/hr 03/15/25 20:15 03/15/25 21:32 Ofirmev IV 03/15/25 20:29 Infused ONCE ONE Infusion Metoclopramide HCl 10 mg 03/15/25 21:10 03/15/25 21:31 Metoclopramide Hcl 10 Mg/2 Ml Vial IVPUSH 03/15/25 21:11 10 mg ONCE ONE Administration Morphine Sulfate 4 mg 03/15/25 21:10 03/15/25 21:31 Morphine Sulfate 4 Mg/Ml Cartridge IVPUSH 03/15/25 21:11 4 mg ONCE ONE Administration Protocol Medical Decision Making Medical Decision Making [facility] Narrative: The patient is a 64-year-old woman who has a history of a seizure disorder, possibly secondary to a previous stroke. She is prescribed levetiracetam and Depakote. She also seems to be a cocaine user. She comes to the emergency room today after reportedly having had 3 seizures in the previous 12 hours. When I saw her she was awake and alert with a normal mental status but she seemed to suggest that she has intermittent episodes of involuntary left hand clutching and closing. The patient was afebrile and hemodynamically stable. A head CT was read as showing significant motion degrading the accuracy of the exam but showing no definite acute intracranial abnormalities and no definite fractures. There are new opacification of the right maxillary sinus although this looks more like mucosal thickening to me than an air-fluid level. The patient was not complaining of any facial pain or exhibiting any external signs of injury. The patient had a valproic acid level that was less than 12.5. This would suggest that she has not been compliant with her medications. She was given IV levetiracetam and IV Depakote as well as IV diazepam. She was observed for several hours. She slept for a long time and ultimately seemed significantly improved. Her daughter was comfortable taking her home. She was comfortable going home. She is testing positive for cocaine which I suspect probably contributes to her problems with seizures. She is advised to follow up with her primary care doctor and her neurologist. She is also advised to make sure that she always takes all of her prescribed medications and to avoid intoxicating substances. Lab Data 03/15/25 15:22 03/15/25 15:22 Labs: Lab Results 03/15/25 03/15/25 03/15/25 Range/Units 15:22 15:38 16:05 WBC 12.1 H (4.8-10.8) X10*3/uL RBC 5.15 (4.20-5.50) X10*6/uL Hgb 14.3 (12.0-16.0) g/dl Hct 42.3 (37.0-47.0) % MCV 82.1 (80.0-98.0) fL MCH 27.8 (27.0-33.0) pg MCHC 33.8 (31.0-35.0) g/dl RDW 13.7 (11.0-16.0) % Plt Count 253 (160-400) X10*3/uL MPV 10.2 (9.4-12.3) fL Immature Gran % (Auto) 0.2 (0.0-0.4) % Neut % (Auto) 78.2 H (45-73) % Lymph % (Auto) 13.6 L (20-40) % [place] % (Auto) 7.7 (2-11) % Eos % (Auto) 0.0 (0-4) % Baso % (Auto) 0.3 (0-2) % Lymph # (Auto) 1.7 (1.2-4.9) X10*3/uL [place] # (Auto) 0.9 (0.1-1.2) X10*3/uL Eos # (Auto) 0.0 (0.0-0.4) X10*3/uL Baso # (Auto) 0.0 (0.0-0.2) X10*3/uL Abs Immat Gran (auto) 0.03 (0.00-0.03) X10*3/uL Absolute Neuts (auto) 9.5 H (2.0-8.3) x10*3/uL Absolute Nucleated RBC 0.020 H (0.0-0.012) X10*3/uL Nucleated RBC % (auto) 0.2 (0.0-0.2) /100WBC Sodium 141 (135-145) mmol/L Potassium 3.8 (3.3-5.1) mmol/L Chloride 105 (96-108) mmol/L Carbon Dioxide 24 (22-29) mmol/L Anion Gap 16 (12-20) BUN 12 (9-16) mg/dL Creatinine 1.00 (0.5-1.4) mg/dL Estim Creat Clear Calc 49.0 Estimated GFR 56 Random Glucose 154 H (60-115) mg/dL Calcium 10.1 D (8.4-10.2) mg/dL Magnesium 1.6 (1.6-2.6) mg/dL Total Bilirubin 0.4 (0.0-1.0) mg/dL AST 30 (5-31) U/L ALT 21 (0-31) U/L Alkaline Phosphatase 67 (39-117) U/L Troponin I High Sens 11.4 D (<3.5-17.0) ng/L Total Protein 7.5 (6.5-8.0) g/dL Albumin 4.6 (3.5-5.0) g/dL Urine Color Yellow Urine Appearance Clear Urine pH 8.5 (5.0-9.0) Ur Specific [place] 1.020 (1.005-1.025) Urine Protein Trace (Neg-Trace) mg/dL Urine Glucose (UA) >=1000 H (Negative) mg/dL Urine Ketones Trace (Negative) mg/dL Urine Blood Trace H (Negative) Urine Nitrite Negative (Negative) Ur Leukocyte Esterase Trace H (Negative) Urine RBC 0-2 (0-2) /HPF Urine WBC 0-5 (0-5) /HPF Ur Squamous Epith Cells 3-5 (0-2) /HPF Urine Bacteria Trace (None Seen) Hyaline Casts 0-2 (0-2) /LPF Urine Opiates Screen Not Detected (Not Detect) Ur Buprenorphine Scrn Not Detected (Not Detect) ng/mL Ur Oxycodone Screen Not Detected (Not Detect) ng/mL Urine Methadone Screen Not Detected (Not Detect) ng/mL Urine Fentanyl Screen Not Detected (Not Detect) Ur Barbiturates Screen Not Detected (Not Detect) Valproic Acid (50.0-100.0) mcg/mL Ur Phencyclidine Scrn Not Detected (Not Detect) Ur Amphetamines Screen Not Detected (Not Detect) U Benzodiazepines Scrn Not Detected (Not Detect) Urine Cocaine Screen POSITIVE H (Not Detect) U Marijuana (THC) Screen POSITIVE H (Not Detect) Ethyl Alcohol < 10 mg/dL Influenza Type A (PCR) NEGATIVE (Negative) Influenza Type B (PCR) NEGATIVE (Negative) RSV RNA Qual (PCR) NEGATIVE (Negative) SARS-CoV-2 RNA (RT-PCR) NEGATIVE (Negative) 03/15/25 Range/Units 16:59 WBC (4.8-10.8) X10*3/uL RBC (4.20-5.50) X10*6/uL Hgb (12.0-16.0) g/dl Hct (37.0-47.0) % MCV (80.0-98.0) fL MCH (27.0-33.0) pg MCHC (31.0-35.0) g/dl RDW (11.0-16.0) % Plt Count (160-400) X10*3/uL MPV (9.4-12.3) fL Immature Gran % (Auto) (0.0-0.4) % Neut % (Auto) (45-73) % Lymph % (Auto) (20-40) % [place] % (Auto) (2-11) % Eos % (Auto) (0-4) % Baso % (Auto) (0-2) % Lymph # (Auto) (1.2-4.9) X10*3/uL [place] # (Auto) (0.1-1.2) X10*3/uL Eos # (Auto) (0.0-0.4) X10*3/uL Baso # (Auto) (0.0-0.2) X10*3/uL Abs Immat Gran (auto) (0.00-0.03) X10*3/uL Absolute Neuts (auto) (2.0-8.3) x10*3/uL Absolute Nucleated RBC (0.0-0.012) X10*3/uL Nucleated RBC % (auto) (0.0-0.2) /100WBC Sodium (135-145) mmol/L Potassium (3.3-5.1) mmol/L Chloride (96-108) mmol/L Carbon Dioxide (22-29) mmol/L Anion Gap (12-20) BUN (9-16) mg/dL Creatinine (0.5-1.4) mg/dL Estim Creat Clear Calc Estimated GFR Random Glucose (60-115) mg/dL Calcium (8.4-10.2) mg/dL Magnesium (1.6-2.6) mg/dL Total Bilirubin (0.0-1.0) mg/dL AST (5-31) U/L ALT (0-31) U/L Alkaline Phosphatase (39-117) U/L Troponin I High Sens 11.7 (<3.5-17.0) ng/L Total Protein (6.5-8.0) g/dL Albumin (3.5-5.0) g/dL Urine Color Urine Appearance Urine pH (5.0-9.0) Ur Specific [place] (1.005-1.025) Urine Protein (Neg-Trace) mg/dL Urine Glucose (UA) (Negative) mg/dL Urine Ketones (Negative) mg/dL Urine Blood (Negative) Urine Nitrite (Negative) Ur Leukocyte Esterase (Negative) Urine RBC (0-2) /HPF Urine WBC (0-5) /HPF Ur Squamous Epith Cells (0-2) /HPF Urine Bacteria (None Seen) Hyaline Casts (0-2) /LPF Urine Opiates Screen (Not Detect) Ur Buprenorphine Scrn (Not Detect) ng/mL Ur Oxycodone Screen (Not Detect) ng/mL Urine Methadone Screen (Not Detect) ng/mL Urine Fentanyl Screen (Not Detect) Ur Barbiturates Screen (Not Detect) Valproic Acid < 12.5 L (50.0-100.0) mcg/mL Ur Phencyclidine Scrn (Not Detect) Ur Amphetamines Screen (Not Detect) U Benzodiazepines Scrn (Not Detect) Urine Cocaine Screen (Not Detect) U Marijuana (THC) Screen (Not Detect) Ethyl Alcohol mg/dL Influenza Type A (PCR) (Negative) Influenza Type B (PCR) (Negative) RSV RNA Qual (PCR) (Negative) SARS-CoV-2 RNA (RT-PCR) (Negative) Independent Interpretation I performed an independent interpretation of an: EKG Interpretation: EKG at 1524 shows normal sinus rhythm at 67 beats per minute. There are inverted T-waves in multiple leads suggestive of an injury pattern. The pattern was not present on her most recent previous EKG in November of 2024 but it is very similar to a pattern on several of her earlier EKGs such as 10/12/2023. Discharge Plan Discharge Clinical Impression: Breakthrough seizure Patient Disposition: Home, Self-Care Additional Instructions: Please make sure that you take all of your regular medications as scheduled. I think you may have had seizures because you may have missed some of your medications. Please contact your neurologist in the morning to set up a prompt follow up appointment. Please do not use any intoxicating substances. Return to the emergency room if significantly worse. Prescriptions: No Action atorvastatin 80 mg tablet 80 mg PO BEDTIME sennosides [senna] 8.6 mg tablet 8.6 mg PO DAILY apraclonidine 0.5 % drops 1 drp ophthalmic-Right BID citalopram 10 mg tablet 10 mg PO DAILY glipizide 10 mg tablet 10 mg PO BID clonazepam [Klonopin] 1 mg tablet 1 mg PO TID PRN (Reason: anxiety) allopurinol 100 mg tablet 100 mg PO QAM divalproex [Depakote] 500 mg tablet,delayed release (DR/EC) 500 mg PO DAILY aspirin 81 mg tablet,delayed release (DR/EC) 81 mg PO DAILY levothyroxine 25 mcg tablet 12.5 mcg PO DAILY ascorbic acid (vitamin C) [Vitamin C] 500 mg tablet 500 mg PO BID amlodipine 10 mg tablet 10 mg PO DAILY ferrous sulfate [FeroSul] 325 mg (65 mg iron) tablet 325 mg PO DAILY docusate sodium 100 mg capsule 100 mg PO BID omeprazole 20 mg capsule,delayed release(DR/EC) 20 mg PO DAILY@0630 levothyroxine 200 mcg tablet 200 mcg PO DAILY fluticasone propion-salmeterol 100-50 mcg/dose blister with device 1 ea inhalation BID quetiapine [Seroquel] 50 mg tablet 50 mg PO BEDTIME Farxiga 10 mg tablet 10 mg PO DAILY divalproex [Depakote] 500 mg tablet,delayed release (DR/EC) 1,000 mg PO BEDTIME naproxen 500 mg tablet 500 mg PO Q8-12H PRN (Reason: pain (scale score 4-6)) Qty: 20 0RF prednisone 20 mg tablet 20 mg PO DAILY Qty: 5 0RF lisinopril 10 mg tablet 10 mg PO DAILY Qty: 90 1RF Rx Instructions: add to her med box ( she states it is due for delivery tomorrow) Interventions: ED Discharge Assessment Last Done: 03/16/25 00:14 Discharge Date/Time: 03/16/25 00:25 Print Language: Icelandic
[2025-03-15 16:15] LABS: Appearance Urine Clear; Glucose Urine UA >=1000 mg/dL (Negative); PH 8.5 (5.0-9.0); Specific Gravity - Urine 1.020 (1.005-1.025); UMIC TRIGGER UACC YES
--- NOTE | 2025-03-15 16:22 | PC.NURSE ---
pt is acting extremely bazaar since the arrival to the ed, can;t seem to stay still in bed, keeps squirming around, states she is going to have a seizure, what is appears that the pt's is clenching her fist shut and rapidly moving the left arm in the air, states she cant control this action, pt does have a small ecchymotic area to the left shoulder,
[2025-03-15 16:25] LABS: Cannabinoid Screen Urine POSITIVE (Not Detect)
[2025-03-15] MEDS: levETIRAcetam in NaCl (iso-os) 1,000 MG/100 ML PIGGYBACK 400 MG IV (16:52)
[2025-03-15] MEDS: diazePAM 10 MG/2 ML CARTRIDGE 5 MG IVPUSH (16:52)
[2025-03-15 17:00] LABS: Resp Syncy Virus RNA Qual PCR NEGATIVE (Negative); SARS COV2 PCR INHOUSE NEGATIVE (Negative)
[2025-03-15 17:26] VITALS: BP 123/75; PULSE 63; RESP 22
[2025-03-15] MEDS: diazePAM 10 MG/2 ML CARTRIDGE IVPUSH (17:26)
[2025-03-15 17:34] LABS: Troponin-I High Sensitivity 11.7 ng/L (<3.5-17.0)
--- OUTSIDE RECORDS SUMMARY | 2025-03-15 17:54 | XMS_ITS | Encounter Summary ---
Author Organization [employer] Address [address] [place] [address] [address] [place] [address] Care Team Providers Care Parts Technician Name Role Phone Nelda Knox MD Primary Care Provider [phone] Encounter Details Date Type Department Care Team (Late st Contact Info) Description 08/15/2022 Orders Only [facility] [address] [place] [address] [phone] Nelda Knox MD [address] [place] [address] [phone] Postoperative hypothyroidism (Primary Dx) Social History Tobacco [...] Care Team (Late st Contact Info) Description 04/08/2025 9:00 AM EST Office Visit [facility] [address] [place] [address] [phone] Nelda Knox MD [address] [place] [address] Scheduled Orders Name Type Priority Associated Diagnoses [...] documented as of this encounter Care Teams Parts Technician Relationship Specialty Start Date End Date Nelda Knox MD [address] [place] [phone] PCP - General Family Medicine 03/21/12 documented as of this encounter
--- OUTSIDE RECORDS SUMMARY | 2025-03-15 17:54 | XMS_ITS | Encounter Summary ---
Author Organization [employer] Address [address] [place] [address] 7 [place] [address] Care Team Providers Care Questioned Documents Examiner Name Role Phone Nelda Knox MD Primary Care Provider [phone] Reason for Visit * Reason Onset Date Comments Appointment Request 09/30/2024 Encounter Details Date Type Department Care Team ([facility] Contact Info) Description 09/30/2024 Telephone [facility] [address] [place], [place] [phone] Nelda Knox MD [address] [place], [place] [phone] Appointment Request Social History Tobacco Use Types Packs/Day Years Used Date Smoking Tobacco: Every Day Cigarettes Passive Smoke Exposure: Current Smokeless Tobacco: Never Alcohol Use Standard Drinks/Week Comments Never 0 (1 standard drink = 0.6 oz pur e alcohol) Alcohol Answer Date Recorded Frequency of Alcohol Consumption Not on file 10/22/2023 Average Number of Drinks Not on file 024 Frequency of Binge Drinking Not on file 08/2023 Score 0 10/22/2023 Depression Answer Date Recorded Patient Health Questionnaire-9 Score 17 05/17/2023 Patient Health Questionnaire-9 Score 17 05/17/2023 Last PHQ-9: Questionnaire Data Not on file 0 05/17/2023 Housing Stability Answer Date Recorded What is your housing situation today? I have mason marlow 10/22/[address] you li ve. Do you have problems with any of the following? None of the above 10/22/2023 Food Insecurity Answer Date Recorded Within the past 12 months, y ou worried that your food would run out before you got money to buy more: Never True 10/22/2023 Within the past 12 months,th e food you bought just didn't last and you didn't have enough money to get more: Never True 08/2023 Transportation Answer Date Recorded In the past 12 months, has l ack of transportation kept you from medical appts, meetings, work or from getting things needed for daily living? No 10/22/2023 Utilities Answer Date Recorded In the past 12 months, has t he electric, gas, oil or water company threatened to shut off services in your home? No 10/22/2023 Depression Answer Date Recorded Patient Health Questionnaire-2 Score 6 05/17/2023 Internet Access Answer Date Recorded Internet Access Q1 Yes 11/15/2023 Internet Access Q2 Not on file 11/15/2023 Comments Unknown Sex and Gender Information Value Date Recorded Sex Assigned at Female 01/15/2022 10:18 AM EDT Legal Sex Female 10:18 AM EDT Gender Identity Female 01/15/2022 10:18 AM EDT Sexual Orientation Straight 01/15/2022 10 :18 AM EDT documented as of this encounter Miscellaneous Notes * Telephone Encounter - Mack Gar - 09/30/2024 2:23 PM EDT Tc from pt requesting to schedule appt with pcp, has not seen pcp in over a year. Pt stated no immediate concerns at the moment would just like a regular check up. Please contact pt at [phone]. documented in this encounter Plan of Treatment Upcoming Encounters Date Type Department Care Team (Late st Contact Info) Description 04/08/2025 9:00 AM EST Office Visit [facility] [address] [place] [address] Nelda Knox MD [address] [place] [address] documented as of this encounter Visit Diagnoses Not on filedocumented in this encounter Additional Health Concerns Assessment Noted Time PHQ-9 Depression Total Score: 17 024 2:16 PM EST documented as of this encounter Care Teams Questioned Documents Examiner Relationship Specialty Start Date End Date Nelda Knox MD [address] [place] [address] PCP - General Family Medicine 03/21/12 documented as of this encounter
--- OUTSIDE RECORDS SUMMARY | 2025-03-15 17:54 | XMS_ITS | Encounter Summary ---
Author Organization [employer] Address [address] [place] [address] Care Team Providers Care Dry Cans Operator Name Role Phone Nelda Knox MD Primary Care Provider [phone] Reason for Visit * Reason Comments Med Refill Encounter Details Date Type Department Care Team ([facility] st Contact Info) Description 02/18/2023 Refill [facility] [address] [place], [place] [phone] Melissa Whatley, ANP [address] [place], [place] [phone] Social History Tobacco Use Types Packs/Day Years Used Date Smoking Tobacco: Every Day Cigarettes Smokeless Tobacco: Never Depression Answer Date Recorded Patient Health Questionnaire-9 Score 8 02/28/2022 Housing Stability Answer Date Recorded What is your housing situation today? I have mason marlow 01/02/[address] you li ve. Do you have problems with any of the following? None of the above 01/02/2023 Food Insecurity Answer Date Recorded Within the past 12 months, y ou worried that your food would run out before you got money to buy more: Never True 01/02/2023 Within the past 12 months,th e food you bought just didn't last and you didn't have enough money to get more: Never True Transportation Answer Date Recorded In the past 12 months, has l ack of transportation kept you from medical appts, meetings, work or from getting things needed for daily living? No 01/02/2023 Utilities Answer Date Recorded In the past 12 months, has t he electric, gas, oil or water company threatened to shut off services in your home? No 01/02/2023 Depression Answer Date Recorded Patient Health Questionnaire-2 [...] Description 04/08/2025 9:00 AM EST Office Visit [facility] [address] [place] [address] Nelda Knox MD [address] [place] [address] documented as of this encounter Visit Diagnoses Not on filedocumented in this encounter Additional Health Concerns Assessment Noted Time PHQ-9 Depression Total Score: 8 02/29/20 22 10:43 AM EST documented as of this encounter Care Teams Dry Cans Operator Relationship Specialty Start Date End Date Nelda Knox MD [address] [place] [phone] PCP - General Family Medicine 03/21/12 documented as of this encounter
--- OUTSIDE RECORDS SUMMARY | 2025-03-15 17:54 | XMS_ITS | Encounter Summary ---
Author Organization [employer] Address [address] [place] [address] 7 [place] [address] Care Team Providers Care Loss Control Manager Name Role Phone Nelda Knox MD Primary Care Provider [phone] Reason for Referral * Consultation (Routine) - Authorized Specialty Diagnoses / Procedures Referred By Contac t Referred To Contact Neurology Diagnoses Seizure (CMS/HCC) (HCC) History of CVA (cerebrovascular accident) Nelda Knox MD [address] [place] [address] Phone: tel: fax: [facility] [address] [place], [place] Phone: tel: fax: Referral ID Status Reason Start Date Expiration Date Visits Requested Visits Authorized [id number] Authorized Specialty Services Required 03/09/2026 1 1 Encounter Details Date Type Department Care Team (Late st Contact Info) Description 03/09/2025 Orders Only [facility] [address] [place], [place] [phone] Nelda Knox MD [address] [place], [place] [phone] Seizure (CMS/HCC) (HCC) (Primary Dx); History of CVA (cerebrovascular accident) Social History Tobacco Use Types Packs/Day Years [...] Description 04/08/2025 9:00 AM EST Office Visit [facility] [address] [place] [address] Nelda Knox MD [address] [place] [address] Scheduled Referrals Name Type Priority Associated Diagnoses Orde r Schedule Referral to Neurology Outpatient Referral Routine Seizure (CMS/HCC) (HCC) History of CVA (cerebrovascular accident) Expected: 03/09/2025 (Approximate), Expires: 03/09/2026 documented as of this encounter Goals Goal Patient Goal Type Associated Problems Recent Progress Patient-Stated? Author Help patients manage their type 2 diabetes Care Plan Help patients manage their type 2 diabetes No Evy Macias Weekly blood pressure task Care Plan Weekly blood pressure task No Evy Macias Help patients manage their type 2 diabetes Care Plan Help patients manage their type 2 diabetes No Evy Macias Patient has chronic kidney disease Care Plan Patient has chronic kidney disease No Evy Macias Weekly blood pressure task Care Plan Weekly blood pressure task No Evy Macias Patient has chronic kidney disease Care Plan Patient has chronic kidney disease No Evy Macias Weekly blood pressure task Care Plan Weekly blood pressure task No Jessie Fisher MA Weekly blood pressure task Care Plan Weekly blood pressure task No Jessie Fisher [place] Patient has chronic kidney disease Care Plan Patient has chronic kidney disease No Jessie Fisher [place] Patient has chronic kidney disease Care Plan Patient has chronic kidney disease No Jessie Fisher MA Weekly blood pressure task Care Plan Weekly blood pressure task No Jessie Fisher MA Weekly blood pressure task Care Plan Weekly blood pressure task No Jessie Fisher [place] Patient has chronic kidney disease Care Plan Patient has chronic kidney disease No Jessie Fisher [place] Patient has chronic kidney disease Care Plan Patient has chronic kidney disease No Jessie Fisher MA Weekly blood pressure task Care Plan Weekly blood pressure task No Kalie Jovel Weekly blood pressure task Care Plan Weekly blood pressure task No Kalie Jovel Patient has chronic kidney disease Care Plan Patient has chronic kidney disease No Kalie Jovel Patient has chronic kidney disease Care Plan Patient has chronic kidney disease No Kalie Jovel Weekly blood pressure task Care Plan Weekly blood pressure task No Nelda Knox MD Weekly blood pressure task Care Plan Weekly blood pressure task No Nelda Knox MD Patient has chronic kidney disease Care Plan Patient has chronic kidney disease No Nelda Knox MD Patient has chronic kidney disease Care Plan Patient has chronic kidney disease No Nelda Knox MD Weekly blood pressure task Care Plan Weekly blood pressure task No Itzel Deluca Weekly blood pressure task Care Plan Weekly blood pressure task No Itzel Deluca Patient has chronic kidney disease Care Plan Patient has chronic kidney disease No Itzel Deluca Patient has chronic kidney disease Care Plan Patient has chronic kidney disease No Itzel Deluca documented as of this encounter Visit Diagnoses Diagnosis Seizure (CMS/HCC) (HCC)- Primary Other convulsions History of CVA (cerebrovascular accident) Transient ischemic attack (TIA), and cerebral infarction without residual deficits documented in this encounter Additional Health Concerns Active Problems Noted Date Diagnosed Date Help patients manage their type 2 diabetes 02/19 Weekly blood pressure task 02/19/2025 Help patients manage their type 2 diabetes 02/19 Patient has chronic kidney disease 02/19/2025 Weekly blood pressure task 02/19/2025 Patient has chronic kidney disease 02/19/2025 Weekly blood pressure task 03/08/2025 Weekly blood pressure task 03/08/2025 Patient has chronic kidney disease 03/08/2025 Patient has chronic kidney disease 03/08/2025 Weekly blood pressure task 03/08/2025 Weekly blood pressure task 03/08/2025 Patient has chronic kidney disease 03/08/2025 Patient has chronic kidney disease 03/08/2025 Weekly blood pressure task 03/09/2025 Weekly blood pressure task 03/09/2025 Patient has chronic kidney disease 03/09/2025 Patient has chronic kidney disease 03/09/2025 Weekly blood pressure task 03/09/2025 Weekly blood pressure task 03/09/2025 Patient has chronic kidney disease 03/09/2025 Patient has chronic kidney disease 03/09/2025 Weekly blood pressure task 03/09/2025 Weekly blood pressure task 03/09/2025 Patient has chronic kidney disease 03/09/2025 Patient has chronic kidney disease 03/09/2025 Assessment Noted Time PHQ-9 Depression Total Score: 17 024 2:16 PM EST documented as of this encounter Care Teams Loss Control Manager Relationship Specialty Start Date End Date Nelda Knox MD [address] [place] [phone] PCP - General Family Medicine 03/21/12 documented as of this encounter
--- OUTSIDE RECORDS SUMMARY | 2025-03-15 17:54 | XMS_ITS | Encounter Summary ---
Author Organization [employer] Address [address] [facility] 7t [place] [address] Care Team Providers Care Principal Gifts Officer Name Role Phone Nelda Knox MD Primary Care Provider [phone] Encounter Details Date Type Department Care Team (Late st Contact Info) Description 02/03/2024 Orders Only [facility] [address] [facility] [place] [phone] ProviderDixie MD Social History Tobacco Use Types Packs/Day Years Used Date Smoking Tobacco: Every Day Cigarettes Passive Smoke Exposure: Current Smokeless Tobacco: Never Alcohol Answer Date Recorded Frequency of Alcohol [...] Description 04/08/2025 9:00 AM EST Office Visit [facility] [address] [place] [phone] Nelda Knox MD [address] [place] [phone] documented as of this encounter Procedures Procedure Name Priority Date/Time Associated Diagnosis Comments HM HEMOGLOBIN A1C Routine 01/30/2024 9:50 AM EST documented in this encounter Results * HM Hemoglobin A1c (01/30/2024 9:50 AM EST) Historical Provider HEALTH MAINTENANCE Final Result documented in this encounter Visit Diagnoses Not on filedocumented in this encounter Additional Health Concerns Assessment Noted Time PHQ-9 Depression Total Score: 17 024 2:16 PM EST documented as of this encounter Care Teams Principal Gifts Officer Relationship Specialty Start Date End Date Nelda Knox MD [address] [place] [phone] PCP - General Family Medicine 03/21/12 documented as of this encounter
--- OUTSIDE RECORDS SUMMARY | 2025-03-15 17:54 | XMS_ITS | Clinical Summary ---
Author Organization [facility], Address [address] [place] [address] Phone Care Team Providers Care Residential Program Worker Name Role Phone Nelda Knox MD Primary Care Provider [phone] Allergies No known active allergies Medications citalopram [...] 0 Active ergocalciferol (VITAMIN D2) 1.25 MG (42124 UT) capsule TAKE 1 CAPSULE BY MOUTH [...] 06/22/2020 Hyperuricemia 09/08/2019 06/22/2020 Hypothyroidism 09/08/2019 06/22/2020 Immunizations Immunization Administration Dates Next Due Moderna [...] Visit [facility], [address] [place] [address] Marques Barreto MD [address] [place] [address] Health Maintenance Due Date Last Done Comments [...] AM EST) Hemoglobin A1C 7.7(H) (4.0-5.6) % [facility] Comment: MONITORING: In known diabetic patients, hemoglobin A1c targets should be discussed with health care provider. DIAGNOSTIC USE: The [place] Diabetes [employer] (ADA) and the World Health [...] Supplement 1 Testing performed or reported by [facility], a Service of [facility], [address] [place] [address] Anamika Navarro MD, Grinder Machine Knife Setter [facility]# [id number] Blood specimen (specimen) Venous blood / Unknown 05/22/2021 10:57 AM EST 05/22/2021 11:00 AM EST us Marques Barreto MD LAB BLOOD ORDERABLES Final Resul t [facility] from Last 3 Months or Most Recently Relevant to Health Maintenance Insurance [facility] ([id number]) [facility] ([id number]) Care Teams Residential Program Worker Relationship Specialty Start Date End Date Nelda Knox MD [address] [place] [address] PCP - General 01/20/19
--- OUTSIDE RECORDS SUMMARY | 2025-03-15 17:54 | XMS_ITS | Encounter Summary ---
Author Organization [facility], Address [address] [place] [address] Phone Care Team Providers Care Chief Business Officer Name Role Phone Nelda Knox MD Primary Care Provider [phone] Encounter Details Date Type Department Care Team (Late st Contact Info) Description 01/11/2022 Documentation Only [facility] [address] [place] [phone] Estefany Jackson PA [address] [place] [address] Social History Tobacco Use Types [...] Visit [facility] [address] [place] [phone] Marques Barreto MD [address] [place] [phone] documented as of this encounter Visit Diagnoses Not on filedocumented in this encounter Care Teams Chief Business Officer Relationship Specialty Start Date End Date Nelda Knox MD [address] [place] [address] PCP - General 01/20/19 documented as of this encounter
--- OUTSIDE RECORDS SUMMARY | 2025-03-15 17:54 | XMS_ITS | Clinical Summary ---
Author Organization [facility] Address [address] [place] [address] Phone Care Team Providers Care University President Name Role Phone Pcp, Unknown Primary Care [...] VACCINE (#1) 2024 COVID-19 VACCINE (1 - 2024-2 6 season) 2024 Adult Td,Tdap Booster 10/25/2030 10/25/2020 [...] topic Medical Devices Not on file Insurance [facility] MEDIC[facility] REPLACEMENT [facility] MEDIC[facility]PLACEMENT [facility] MEDICARE REPLACEMENT [facility] MEDIC[facility] REPLAC[facility] MEDIC[facility] REPLACEMENT [facility] CARE MEDICARE REPLACEMENT Care Teams University President Relationship Specialty Start Date End Date Pcp, Unknown PCP - General 08/22/22 Additional Source Comments The information contained in this document represents components of the legal health record. It is not the complete legal health record.[facility]
--- OUTSIDE RECORDS SUMMARY | 2025-03-15 17:54 | XMS_ITS | Encounter Summary ---
Author Organization [employer] Address [address] [place] [address] 7 [place] [address] Care Team Providers Care Gas Plant Repairer Name Role Phone Nelda Knox MD Primary Care Provider Reason for Visit * Reason Onset Date Comments Care Coordination 03/10/2025 Encounter Details Date Type Department Care Team ([facility] st Contact Info) Description 03/10/2025 Telephone [facility] [address] [place], [place] [phone] Nelda Knox MD [address] [place], [place] [phone] Care Coordination Social History Tobacco Use Types Packs/Day Years [...] encounter Miscellaneous Notes * Telephone Encounter - Padmaja Ruano RN - 03/10/2025 1:37 PM EST Received call back from Ophelia at [facility]. Explained that pt was no show 03/09/25 for PCP appointment, will need help to reschedule. Advised her of need to help pt schedule [facility], gave numbers to call. Ophelia states she will reach out to the pt and assist. * Telephone Encounter - Padmaja Ruano RN - 03/10/2025 10:00 AM EST Called [facility], left message with Hanny asking for call back from pt's pharmacy care coordinator regarding assistance with scheduling and keeping appts with PCP and speciality offices. * Telephone Encounter - Padmaja Ruano RN - 03/10/2025 9:51 AM EST ----- Message from Nelda Knox MD sent at 03/09/2025 12:10 PM EST ----- Regarding: Missed appt Please call patient's [facility] personal care home administrator and request assistance in keeping her appointments with PCP and other specialists. She has been improving and kept appointment with event representative. Please ask CP to help her schedule chest CT (lung cancer screening program). I will make another neurology referral, because she has not had one yet and I have been prescribing anti-seizure medication. documented in this encounter Plan of Treatment Upcoming Encounters Date Type Department Care Team (Late st Contact Info) Description 04/08/2025 9:00 AM EST Office Visit [facility] [address] [place], [place] [phone] Nelda Knox MD [address] [place], [place] [phone] documented as of this encounter Goals Goal [...] Care Plan Weekly blood pressure task No Nelad Knox MD Patient has chronic kidney disease [...] Plan Patient has chronic kidney disease No David Delucaa Patient has chronic kidney disease Care Plan Patient has chronic kidney disease No David Delucaa Weekly blood pressure task Care Plan Weekly blood pressure task No Padmaja Ruano RN Weekly blood pressure task Care Plan Weekly blood pressure task No Padmaja Ruano RN Patient has chronic kidney disease Care Plan Patient has chronic kidney disease No Padmaja Ruano RN Patient has chronic kidney disease Care Plan Patient has chronic kidney disease No Padmaja Ruano RN Weekly blood pressure task Care Plan Weekly blood pressure task No Mickey Avendano PharmD Weekly blood pressure task Care Plan Weekly blood pressure task No Mickey Avednano PharmD Patient has chronic kidney disease Care Plan Patient has chronic kidney disease No Mickey Avendano PharmD Patient has chronic kidney disease Care Plan Patient has chronic kidney disease No Mickey Avendano PharmD documented as of this encounter Visit Diagnoses Not on filedocumented in this encounter Additional Health Concerns Active [...] kidney disease 03/09/2025 Weekly blood pressure task 03/10/2025 Weekly blood pressure task 03/10/2025 Patient has chronic kidney disease 03/10/2025 Patient has chronic kidney disease 03/10/2025 Weekly blood pressure task 03/10/2025 Weekly blood pressure task 03/10/2025 Patient has chronic kidney disease 03/10/2025 Patient has chronic kidney disease 03/10/2025 Assessment Noted Time PHQ-9 Depression Total Score: 17 024 2:16 PM EST documented as of this encounter Care Teams Gas Plant Repairer Relationship Specialty Start Date End Date Nelda Knox MD [address] [place] [phone] PCP - General Family Medicine 03/21/12 documented as of this encounter
--- OUTSIDE RECORDS SUMMARY | 2025-03-15 17:54 | XMS_ITS | Encounter Summary ---
Author Organization [employer] Address [address] [facility] 7t [place] [address] Care Team Providers Care Sanitary Engineer Name Role Phone Nelda Knox MD Primary Care Provider [phone] Encounter Details Date Type Department Care Team ([facility] st Contact Info) Description 05/06/2024 Telephone [facility] [address] [place], [place] [phone] Nelda Knox MD [address] [place], [place] [phone] Social History Tobacco Use Types Packs/Day Years [...] Description 04/08/2025 9:00 AM EST Office Visit [facility] [address] [place] [address] Nelda Knox MD [address] [place] [address] documented as of this encounter Visit Diagnoses Not on filedocumented in this encounter Additional Health Concerns Assessment Noted Time PHQ-9 Depression Total Score: 17 024 2:16 PM EST documented as of this encounter Care Teams Sanitary Engineer Relationship Specialty Start Date End Date Nelda Knox MD [address] [place] [address] PCP - General Family Medicine 03/21/12 documented as of this encounter
--- OUTSIDE RECORDS SUMMARY | 2025-03-15 17:54 | XMS_ITS | Encounter Summary ---
Author Organization [facility], Address [address] [place] [address] Phone Care Team Providers Care Honey Extractor Name Role Phone Nelda Knox MD Primary Care Provider [phone] Encounter Details Date Type Department Care Team (Late st Contact Info) Description 12/27/2021 Documentation Only [facility] [address] [address] Estefany Jackson PA [address] [address] Social History Tobacco Use Types [...] Visit [facility] [address] [phone] Marques Barreto MD [address] [place] [phone] documented as of this encounter Visit Diagnoses Not on filedocumented in this encounter Care Teams Honey Extractor Relationship Specialty Start Date End Date Nelda Knox MD [address] [place] [address] PCP - General 01/20/19 documented as of this encounter
--- OUTSIDE RECORDS SUMMARY | 2025-03-15 17:55 | XMS_ITS | Clinical Summary ---
Author Organization [employer] Address [address] [place] [address] [address] [place] [address] Care Team Providers Care Furnace Combination Analyst Name Role Phone Nelda Knox MD Primary Care Provider [phone] Allergies No known active allergies Medications * This document contains information received from the source organization and may not represent a complete record from that organization. acetaminophen (Tylenol) 500 MG tablet Take 2 tablets by mouth in the morning, at noon, and at bedtime. Active albuterol (Ventolin HFA) 108 (90 Base) MCG/ACT inhaler Inhale 2 puffs every 4 (four) hours. Active brimonidine (Alphagan P) 0.1 % ophthalmic solution Administer 1 drop into affected eye(s) every 12 (twelve) hours. Active clonazePAM (KlonoPIN) 1 MG tablet Take 1 tablet by mouth every 12 (twelve) hours. Active ergocalciferol (Vitamin D-2) 1.25 MG (36285 UT) capsule Take 1 capsule by mouth once a week. Active fluticasone (Flonase) 50 MCG/ACT nasal spray Administer 1-2 sprays into affected nostril(s) in the morning. Active ketoconazole (NIZOral) 2 % cream Apply topically every 12 (twelve) hours. Active terbinafine (LamISIL) 1 % cream apply by topical route once or twice EVERYDAY to the affected and surrounding areas of skin Active QUEtiapine (SEROquel) 50 MG tablet Take 50 mg by mouth if needed each day. 023 Active senna (Senokot) 8.6 MG tablet 023 Active omeprazole (PriLOSEC) [address] capsuleIndicatio ns:Gastroesophag eal reflux disease, unspecified whether esophagitis present Take 1 capsule (20 mg) by mouth in the morning. 90 capsule 3 024 Active QUEtiapine XR (SEROquel XR) 300 MG 24 hr tablet Take 300 mg by mouth at bedtime. Do not crush, chew, or split. Active apraclonidine (Iopidine) 0.5 % ophthalmic solution Administer 1 drop into both eyes 2 times daily. Active docusate sodium (Colace) 100 MG capsuleIndicatio ns:Constipation, unspecified constipation type TAKE 1 CAPSULE BY MOUTH TWICE DAILY IN THE MORNING AND AT BEDTIME 180 capsule 3 025 Active atorvastatin (Lipitor) 80 MG tablet TAKE 1 TABLET BY MOUTH AT BEDTIME 90 tablet 3 5 2:44 PM EST 025 Active aspirin (Aspirin Low Dose) 81 MG EC tablet TAKE 1 TABLET BY MOUTH AT BEDTIME 90 tablet 3 5 2:45 PM EST 025 Active glucose blood (FREESTYLE LITE) test stripIndications :Type 2 diabetes mellitus with unspecified complications (HCC) TEST BLOOD SUGAR THREE TIMES DAILY 100 strip 11 5 2:44 PM EST 025 Active Ascorbic Acid (vitamin C) 500 MG tabletIndication s:Iron deficiency anemia, unspecified iron deficiency anemia type TAKE 1 TABLET BY MOUTH TWICE DAILY IN THE MORNING AND IN THE EVENING 180 tablet 3 025 Active amLODIPine (Norvasc) 10 MG tabletIndication s:Primary hypertension TAKE 1 TABLET BY MOUTH EVERY MORNING 90 tablet 3 025 Active levothyroxine (Synthroid, Levoxyl) 200 MCG tabletIndication s:Primary hypertension TAKE 1 TABLET BY MOUTH EVERY MORNING 90 tablet 3 025 Active glipiZIDE (Glucotrol) 10 MG tabletIndication s:Controlled type 2 diabetes mellitus with stage 3 chronic kidney disease, without long-term current use of insulin (HCC) TAKE 1 TABLET BY MOUTH TWICE DAILY IN THE MORNING AND IN THE EVENING WITH FOOD 180 tablet 3 025 Active Ferrous Sulfate (iron) 325 (65 Fe) MG tabletIndication s:Iron deficiency anemia, unspecified iron deficiency anemia type TAKE 1 TABLET BY MOUTH TWICE DAILY IN THE MORNING AND IN THE EVENING 180 tablet 3 025 Active TRUEplus Lancets 33G miscIndications: Type 2 diabetes mellitus with unspecified complications ([facility]) TEST BLOOD SUGAR THREE TIMES DAILY 100 each 11 5 2:44 PM EST 025 Active levothyroxine (Synthroid, Levoxyl) 25 MCG tablet TAKE 1/2 TABLET BY MOUTH EVERY MORNING 45 tablet 3 025 Active allopurinol (Zyloprim) 100 MG tablet Take 1 tablet (100 mg) by mouth in the morning. 90 tablet 025 Active Fluticasone-Salm eterol 100-50 MCG/ACT aerosol powderIndication s:COPD with asthma (CMS/HCC) ([facility]) INHALE 1 PUFF BY MOUTH TWICE DAILY 12 HOURS APART. RINSE MOUTH AFTER USING. 60 each 1 025 Active Farxiga 10 MG TAKE 1 TABLET BY MOUTH EVERY MORNING 90 tablet 3 025 Active levETIRAcetam (Keppra) 500 MG tablet TAKE 1 TABLET BY MOUTH TWICE DAILY IN THE MORNING AND IN THE EVENING 60 tablet 1 025 Active divalproex (Depakote) 500 MG EC tablet Take 1 tablet (500 mg) by mouth 2 times daily. Take 1 tablet in the morning and 2 tablets in the evening 60 tablet 025 Active citalopram (CeleXA) 40 MG tablet Take 1 tablet (40 mg) by mouth Once per day. 30 tablet 025 Active divalproex (Depakote) 500 MG EC tablet Take 500 mg by mouth 2 times daily. Take 1 tablet in the morning and 2 tablets in the evening 2024 Discontinued(R eorder (will not trigger notification to Pharmacy)) citalopram (CeleXA) 40 MG tablet Take 40 mg by mouth Once per day. 2024 Discontinued(R eorder (will not trigger notification to Pharmacy)) Farxiga 10 MG TAKE 1 TABLET BY MOUTH EVERY MORNING 90 tablet 3 024 2024 Discontinued levETIRAcetam (Keppra) 500 MG tablet TAKE 1 TABLET BY MOUTH TWICE DAILY IN THE MORNING AND IN THE EVENING 60 tablet 1 025 2024 Discontinued Active Problems Problem Noted Date Diagnosed Date Bipolar affective disorder, remission status unspecified ([facility]) 10/25/2023 Solitary pulmonary nodule 08/14/2023 Chronic back pain 05/26/2023 Gait instability 05/26/2023 Family problems 05/13/2023 Hypertrophic obstructive cardiomyopathy ([facility] ) 08/13/2022 Assessment & Plan (11/16/2024 4:26 PM EDT): - [place] [facility]23 - Last echocardiogram 02/13/2019: Normal left ventricular systolic function with mild concentric left ventricular hypertrophy with moderate asymmetric septal hypertrophy with evidence of dynamic LVOT obstruction consistent with hypertrophic obstructive cardiomyopathy. Left ventricular ejection fraction 65 to 70%. - continue working on risk factor mangement Assessment & Plan (10/25/2023 11:01 AM EDT): - seen by her waiter/waitress room service, Dr. Cope on 07/09/22. - continue working on risk factor mangement Assessment & Plan (05/16/2023 9:39 AM EST): - seen by her waiter/waitress room service, Dr. Cope on 07/09/22. - continue working on risk factor mangement Assessment & Plan (08/14/2022 12:58 PM EDT): - seen by her waiter/waitress room service, Dr. Cope on 07/09/22. - continue working on risk factor mangement Seizure ([facility]) 06/26/2022 Assessment & Plan (11/16/2024 4:41 PM EDT): - Witnessed, generalized seizure, on 06/21/22 - [place] [facility] Given IV Keppra and lorazepam. Kept on PO Keppra 1000 mg bid. - EEG 06/22/22 slowing, otherwise normal - taking Depakote and clonazepam for bipolar disorder - advised to abstain from substances / behaviors that will decrease seizure threshold. - her neurologist prescribed Levetiracetam, but patient has not been seen by neurologist for a while, and it has been prescribed by primary care office. - continue current medications for bipolar disorder and outpatient counseling / stress management - advised to keep appt with her neurologist Assessment & Plan (10/25/2023 11:00 AM EDT): - Witnessed, generalized seizure, on 06/21/22 - [place] [facility] Given IV Keppra and lorazepam. Kept on PO Keppra 1000 mg bid. - EEG 06/22/22 slowing, otherwise normal - taking Depakote and clonazepam for bipolar disorder - advised to abstain from substances / behaviors that will decrease seizure threshold. - her neurologist prescribed Keppra - continue current medications for bipolar disorder and outpatient counseling / stress management - advised to keep appt with her neurologist Assessment & Plan (08/15/2023 9:27 AM EDT): - Witnessed, generalized seizure, on 06/21/22 - Eval[place] [facility] Given IV Keppra and lorazepam. Kept on PO Keppra 1000 mg bid. - EEG 06/22/22 slowing, otherwise normal - taking Depakote and clonazepam for bipolar disorder - advised to abstain from substances / behaviors that will decrease seizure threshold. - her neurologist prescribed Keppra - continue current medications for bipolar disorder and outpatient counseling / stress management - advised to keep appt with her neurologist Assessment & Plan (05/26/2023 12:05 PM EDT): - Witnessed, generalized seizure, on 06/21/22 - Eval[place] [facility] Given IV Keppra and lorazepam. Kept on PO Keppra 1000 mg bid. - EEG 06/22/22 slowing, otherwise normal - taking Depakote and clonazepam for bipolar disorder - advised to abstain from substances / behaviors that will decrease seizure threshold. - her neurologist prescribed Keppra - continue current medications for bipolar disorder and outpatient counseling / stress management - advised to keep appt with her neurologist Assessment & Plan (08/14/2022 12:56 PM EDT): - Witnessed, generalized seizure, on 06/21/22 - Eval[place] [facility] Given IV Keppra and lorazepam. Kept on PO Keppra 1000 mg bid. - EEG 06/22/22 slowing, otherwise normal - taking Depakote and clonazepam for bipolar disorder - advised to abstain from substances / behaviors that will decrease seizure threshold. - her neurologist prescribed Keppra - continue current medications for bipolar disorder and outpatient counseling / stress management - advised to reschedule appt with her neurologist Assessment & Plan (06/27/2022 6:05 AM EDT): - Witnessed, generalized seizure, on 06/21/22 - Eval[place] [facility] Given IV Keppra and lorazepam. Kept on PO Keppra 1000 mg bid. - EEG 06/22/22 slowing, otherwise normal - supposed to be on Keppra, but not prescribed upon discharge. Will check with neurologist, Dr. Horta, if pt should be restarted - taking Depakote and clonazepam for bipolar disorder - advised to abstain from substances / behaviors that will decrease seizure threshold. - continue current medications for bipolar disorder and outpatient counseling / stress management History of CVA (cerebrovascular accident) 2022 Assessment & Plan (11/16/2024 4:42 PM EDT): -Dx subacute CVA in right LEAD MAINTENANCE TECHNICIAN territory on 02/11/19 -Risk factors: HTN; DM2; Hx tobacco use; Hx alcohol use. - MRI on 10/28/19 showed chronic infarction within the right LEAD MAINTENANCE TECHNICIAN territory, chronic microangiopathy, and small chronic lacunar infarct in the left cerebellum. -echocardiogram in Jan 2019 showed LVH but otherwise unremarkable, CTA of neck was unremarkable, telemetry had no evidence of atrial fibrillation. - Still has residual visual defects, numbness and weakness on the left side of the body - Recent Dx left homonymous hemianopsia - Continue working on risk factor management / secondary prevention - Continue ASA and atorvastatin 80mg -Followed by Dr. Hutchins for visual field defect -pt will benefit from having LEAD MAINTENANCE TECHNICIAN because she is having a difficulty with ADL/IADLs due to sequale of CVA Assessment & Plan (10/22/2023 1:42 PM EDT): -Dx subacute CVA in right LEAD MAINTENANCE TECHNICIAN territory on 02/11/19 -Risk factors: HTN; DM2; Hx tobacco use; Hx alcohol use. - MRI on 10/28/19 showed chronic infarction within the right LEAD MAINTENANCE TECHNICIAN territory, chronic microangiopathy, and small chronic lacunar infarct in the left cerebellum. -echocardiogram in Jan 2019 showed LVH but otherwise unremarkable, CTA of neck was unremarkable, telemetry had no evidence of atrial fibrillation. - Still has residual visual defects, numbness and weakness on the left side of the body - Recent Dx left homonymous hemianopsia - Continue working on risk factor management / secondary prevention - Continue ASA and atorvastatin 80mg -Followed by Dr. Hutchins for visual field defect -pt will benefit from having LEAD MAINTENANCE TECHNICIAN because she is having a difficulty with ADL/IADLs due to sequale of CVA Assessment & Plan (05/16/2023 9:39 AM EST): -Dx subacute CVA in right LEAD MAINTENANCE TECHNICIAN territory on 02/11/19 -Risk factors: HTN; DM2; Hx tobacco use; Hx alcohol use. - MRI on 10/28/19 showed chronic infarction within the right LEAD MAINTENANCE TECHNICIAN territory, chronic microangiopathy, and small chronic lacunar infarct in the left cerebellum. -echocardiogram in Jan 2019 showed LVH but otherwise unremarkable, CTA of neck was unremarkable, telemetry had no evidence of atrial fibrillation. - Still has residual visual defects, numbness and weakness on the left side of the body - Recent Dx left homonymous hemianopsia - Continue working on risk factor management / secondary prevention - Continue ASA and atorvastatin 80mg -Followed by Dr. Hutchins for visual field defect -pt will benefit from having LEAD MAINTENANCE TECHNICIAN because she is having a difficulty with ADL/IADLs due to sequale of CVA Assessment & Plan (08/14/2022 1:01 PM EDT): -Dx subacute CVA in right LEAD MAINTENANCE TECHNICIAN territory on 02/11/19 -Risk factors: HTN; DM2; Hx tobacco use; Hx alcohol use. - MRI on 10/28/19 showed chronic infarction within the right LEAD MAINTENANCE TECHNICIAN territory, chronic microangiopathy, and small chronic lacunar infarct in the left cerebellum. -echocardiogram in Jan 2019 showed LVH but otherwise unremarkable, CTA of neck was unremarkable, telemetry had no evidence of atrial fibrillation. - Still has residual visual defects, numbness and weakness on the left side of the body - Recent Dx left homonymous hemianopsia - Continue working on risk factor management / secondary prevention - Continue ASA and atorvastatin 80mg -Followed by Dr. Hutchins for visual field defect -pt will benefit from having LEAD MAINTENANCE TECHNICIAN because she is having a difficulty with ADL/IADLs due to sequale of CVA Assessment & Plan (06/26/2022 3:20 PM EDT): -Dx subacute CVA in right LEAD MAINTENANCE TECHNICIAN territory on 02/11/19 -Risk factors: HTN; DM2; Hx tobacco use; Hx alcohol use. - MRI on 10/28/19 showed chronic infarction within the right LEAD MAINTENANCE TECHNICIAN territory, chronic microangiopathy, and small chronic lacunar infarct in the left cerebellum. -echocardiogram in Jan 2019 showed LVH but otherwise unremarkable, CTA of neck was unremarkable, telemetry had no evidence of atrial fibrillation. - Still has residual visual defects, numbness and weakness on the left side of the body - Recent Dx left homonymous hemianopsia - Continue working on risk factor management / secondary prevention - Continue ASA and atorvastatin 80mg -Followed by Dr. Hutchins for visual field defect -pt will benefit from having LEAD MAINTENANCE TECHNICIAN because she is having a difficulty with ADL/IADLs due to sequale of CVA Assessment & Plan (05/08/2022 5:21 AM EST): -Dx subacute CVA in right LEAD MAINTENANCE TECHNICIAN territory on 02/11/19 -Risk factors: HTN; DM2; Hx tobacco use; Hx alcohol use. - MRI on 10/28/19 showed chronic infarction within the right LEAD MAINTENANCE TECHNICIAN territory, chronic microangiopathy, and small chronic lacunar infarct in the left cerebellum. -echocardiogram in Jan 2019 showed LVH but otherwise unremarkable, CTA of neck was unremarkable, telemetry had no evidence of atrial fibrillation. - Still has residual visual defects, numbness and weakness on the left side of the body - Recent Dx left homonymous hemianopsia - Continue working on risk factor management / secondary prevention - Continue ASA and atorvastatin 80mg -Followed by Dr. Hutchins for visual field defect -pt will benefit from having LEAD MAINTENANCE TECHNICIAN because she is having a difficulty with ADL/IADLs due to sequale of CVA Anemia 05/01/2022 Gastroesophageal reflux disease 05/01/2022 Tobacco dependence 03/04/2022 Assessment & Plan (11/16/2024 4:45 PM EDT): - Smoking Hx > 20 pack years - Previously [place] [facility] [place] - Last CT scan in Apr 2022, Lung RADS 2. Check the date of next CT scan - Continue working on smoking cessation Assessment & Plan (10/22/2023 1:42 PM EDT): > 20 pack years Referred to lung cancer screening program Last CT scan in Apr 2022, Lung RADS 2. Check the date of next CT scan Continue working on smoking cessation Assessment & Plan (05/26/2023 12:22 PM EDT): > 20 pack years Referred to lung cancer screening program Last CT scan in Apr 2022, Lung RADS 2. Check the date of next CT scan Continue working on smoking cessation Assessment & Plan (08/14/2022 1:01 PM EDT): > 20 pack years Referred to lung cancer screening program Last CT scan in Mar 2022, follow up in 6 mo Continue working on smoking cessation Assessment & Plan (06/27/2022 5:53 AM EDT): > 20 pack years Referred to lung cancer screening program Last CT scan in Mar 2022, follow up in 6 mo Continue working on smoking cessation Assessment & Plan (05/01/2022 12:39 PM EST): > 20 pack years Referred to lung cancer screening program Pt states she did not receive an appt Will refer again Assessment & Plan (03/04/2022 5:50 PM EST): > 20 pack years Referred to lung cancer screening program Pt states she did not receive an appt Will refer again Smoking greater than 20 pack years 03/04/2022 Assessment & Plan (11/16/2024 4:44 PM EDT): - Previously [place] [facility] [place] - 05/11/2022 lung RADS category 2 Low vision, both eyes 09/11/2019 Assessment & Plan (11/16/2024 4:35 PM EDT): - refer back to [facility] for prescription glasses Bilateral visual field constriction 09/11/2019 Diabetic nephropathy associa analy with type 2 diabetes mellitus 09/08/2019 Left homonymous hemianopsia 08/16/2019 History of thyroidectomy 12/12/2017 Allergic rhinitis 03/09/2015 Dyslipidemia 03/09/2015 Assessment & Plan (11/16/2024 4:28 PM EDT): -Last lipid profile 10/22/23 : Triglyceride 110; Total cholesterol 171; LDL 91; HDL 58 -Current medication: atorvastatin 80 mg at bedtime - continue working on lifestyle modification Assessment & Plan (10/22/2023 1:41 PM EDT): -Last lipid profile 08/15/22 : Triglyceride 69; Total cholesterol 165; LDL 74; HDL 65 -Current medication: atorvastatin 80 mg at bedtime - continue working on lifestyle modification - repeat lab in July 2023 Assessment & Plan (05/26/2023 12:21 PM EDT): -Last lipid profile 08/15/22 : Triglyceride 69; Total cholesterol 165; LDL 74; HDL 65 -Current medication: atorvastatin 80 mg at bedtime - continue working on lifestyle modification - repeat lab in July 2023 Chronic kidney disease, stage III (moderate) ([facility] S/HCC) 12/13/2014 Assessment & Plan (11/16/2024 4:37 PM EDT): - Tax Evaluator: Dr. Barreto at [facility] [place], last seen in September 2024 - on SGLT2i - Avoid nephrotoxic drugs - Optimize treatment for diabetes and hypertension. Assessment & Plan (10/25/2023 11:02 AM EDT): Tax Evaluator: Cecilio, previously Dr. Barreto Upcoming appointment with residential gas heat technician Avoid nephrotoxic drugs Optimize treatment for diabetes and hypertension. Assessment & Plan (08/15/2023 9:27 AM EDT): Tax Evaluator: Dr. Barreto Lab: 06/23/22 BUN 22; Scr 1.56; eGFR 34; CrCl 32. Pt states she recently had an appt with Dr. Barreto, but we have not received the note. Will request again. Advised to keep appt with Dr. Barreto Assessment & Plan (05/16/2023 9:35 AM EST): Tax Evaluator: Dr. Barreto Lab: 06/23/22 BUN 22; Scr 1.56; eGFR 34; CrCl 32. Pt states she recently had an appt with Dr. Barreto, but we have not received the note. Will request again. Advised to keep appt with Dr. Barreto Assessment & Plan (08/14/2022 12:58 PM EDT): Tax Evaluator: Dr. Barreto Lab: 06/23/22 BUN 22; Scr 1.56; eGFR 34; CrCl 32. Pt states she recently had an appt with Dr. Barreto, but we have not received the note. Will request again. Advised to keep appt with Dr. Barreto Assessment & Plan (06/27/2022 5:46 AM EDT): Tax Evaluator: Dr. Barreto Lab: 06/23/22 BUN 22; Scr 1.56; eGFR 34; CrCl 32. Pt states she recently had an appt with Dr. Barreto, but we have not received the note. Will request again. Advised to keep appt with Dr. Barreto Assessment & Plan (05/01/2022 12:41 PM EST): Tax Evaluator: Dr. Barreto, seen in July 2017. Lab: 10/02/21 BUN25; Scr 1.3; eGFR 46; K4.2, stable Pt states she recently had an appt with Dr. Barreto, but we have not received the note. Will request again. Assessment & Plan (03/04/2022 6:03 PM EST): Tax Evaluator: Dr. Barreto, seen in July 2017. Lab: 7/18/22 [id number]; Scr 1.3; eGFR 46; K4.2, stable Pt states she recently had an appt with Dr. Barreto, but we have not received the note. Will request again. 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 Ortiz on 05/08/23, given reassurance Medullary thyroid carcinoma (CMS/HCC) 12/15/2013 Assessment & Plan (11/16/2024 4:39 PM EDT): -Dx 2013 s/p thyroidectomy and modified right neck dissection by Dr. Patel -Positive RET-oncogene. -Thyroide[place] [address] Patel -Development Rep: [facility], seen in May 2024, new set of blood was ordered -Most recent lab: 10/22/2023 TSH 4.09; free T4=1.14 -Work on modifiable risk factors to prevent recurrence. Assessment & Plan (05/26/2023 12:18 PM EDT): -Dx 2013 s/p thyroidectomy and modified right neck dissection by Dr. Patel -Positive RET-oncogene. -Thyroidectomy [place] [address] Patel -Development Rep: [facility], seen on 02/21/23 -Most recent lab: 08/15/22 TSH 1.9, (10/02/21 TSH 0.04 ; Free T4 1.9 ) -Work on modifiable risk factors to prevent recurrence. Assessment & Plan (08/14/2022 1:01 PM EDT): -Dx 2013 s/p thyroidectomy and modified right neck dissection by Dr. Patel -Positive RET-oncogene. -Work on modifiable risk factors to prevent recurrence. -No sign of recurrence when she was seen by Dr. Patel few years ago, but she has not followed up with Dr. White -She has not been keeping appt with head piece assembler; strongly advised to reschedule appt Assessment & Plan (06/27/2022 5:48 AM EDT): -Dx 2013 s/p thyroidectomy and modified right neck dissection by Dr. Patel -Positive RET-oncogene. -Work on modifiable risk factors to prevent recurrence. -No sign of recurrence when she was seen by Dr. Patel few years ago, but she has not followed up with Dr. White -She has not been keeping appt with head piece assembler; strongly advised to reschedule appt Assessment & Plan (05/01/2022 12:37 PM EST): -Dx 2013 s/p thyroidectomy and modified right neck dissection by Dr. Patel -Positive RET-oncogene. -Work on modifiable risk factors to prevent recurrence. -No sign of recurrence when she was seen by Dr. Patel few years ago, but she has not followed up with Dr. Wihte -She has recently kept an appt with [facility]. Assessment & Plan (03/04/2022 5:52 PM EST): -Dx 2013 s/p thyroidectomy and modified right neck dissection by Dr. Patel -Positive RET-oncogene. -Work on modifiable risk factors to prevent recurrence. -No sign of recurrence when she was seen by Dr. Patel few years ago, but she has not followed up with Dr. White -She has recently kept an appt with [facility]. 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 Assessment & Plan (10/25/2023 11:00 AM EDT): - continue fluticasone propionate / salmeterol (Advair or Wixela) - continue albuterol HFA / neb prn - continue working on smoking cessation Assessment & Plan (05/26/2023 12:10 PM EDT): - continue fluticasone propionate / salmeterol (Advair or Wixela) - continue albuterol HFA / neb prn - continue working on smoking cessation Assessment & Plan (08/14/2022 12:56 PM EDT): - continue albuterol HFA / neb prn - continue working on smoking cessation - CT scan in Mar 2022 shows stable pulmonary nodules, follow-up in 6 mo Assessment & Plan (06/27/2022 5:40 AM EDT): - continue albuterol HFA / neb prn - continue working on smoking cessation - CT scan in Mar 2022 shows stable pulmonary nodules, follow-up in 6 mo Pulmonary nodules 05/20/2012 Assessment & Plan (11/12/2024 12:28 PM EDT): - CT scan on 03/28/22 showed stable nodules, and 8 mm nodule in RLL, which has changed its appearance; recommended follow-up in 6 mo - CT scan (LDCT) in Apr 2022 Lung RADS 2 - check the status of annual CT scan -Continue working on smoking cessation Assessment & Plan (10/25/2023 11:00 AM EDT): - CT scan on 03/28/22 showed stable nodules, and 8 mm nodule in RLL, which has changed its appearance; recommended follow-up in 6 mo - CT scan (LDCT) in Apr 2022 Lung RADS 2 - check the status of annual CT scan -Continue working on smoking cessation Assessment & Plan (05/26/2023 12:11 PM EDT): - CT scan on 03/28/22 showed stable nodules, and 8 mm nodule in RLL, which has changed its appearance; recommended follow-up in 6 mo - CT scan (LDCT) in Apr 2022 Lung RADS 2 - check the status of annual CT scan -Continue working on smoking cessation Assessment & Plan (08/14/2022 1:10 PM EDT): -Most recent CT scan on 03/28/22 showed stable nodules, and 8 mm nodule in RLL, which has changed its appearance; recommended follow-up in 6 mo -Continue working on smoking cessation Assessment & Plan (06/26/2022 3:18 PM EDT): -Most recent CT scan on 03/28/22 showed stable nodules, and 8 mm nodule in RLL, which has changed its appearance; recommended follow-up in 6 mo -Continue working on smoking cessation Assessment & Plan (05/08/2022 5:28 AM EST): -Most recent CT scan on 03/28/22 showed stable nodules, and 8 mm nodule in RLL, which has changed its appearance; recommended follow-up in 6 mo -Continue working on smoking cessation Assessment & Plan (03/04/2022 5:47 PM EST): Hx pulmonary nodules, last CT scan in [address] scan Diabetes mellitus, type 2 02/11/2012 Assessment & Plan (11/16/2024 4:35 PM EDT): -A1C 7.5% on 11/12/24 - Continue working on lifestyle modification and medication adherence. - Continue glipizide to 10 mg bid. Continue current dose for now, but will consider tapering down - Continue Farxiga 10 mg daily - Treatment Hx: metformin - discontinued due to CKD. - Last eye exam: [facility] eye care and [facility]. S/p cataract surgery in 2024. No diabetic retinopathy. Hx Honer's syndrome and left homonymous hemianopsia. - Last foot exam: 03/09/19 - decreased sensation. Pt declines - Last microalbumin test: Ordered - Last FLP: 10/22/23 - Last dental exam: ? Assessment & Plan (05/14/2024 10:44 AM EST): Diabetic diet advised Take medications as prescribed and f/u with PCP Assessment & Plan (10/22/2023 1:45 PM EDT): -A1C 7.5% on 10/22/23 - Continue working on lifestyle modification and medication adherence. - Continue glipizide to 10 mg bid. Continue current dose for now, but will consider tapering down - Continue Farxiga 5 mg daily - Treatment Hx: metformin - discontinued due to CKD. - Last eye exam: [facility] eye care. Recently evaluated by another triage technician on 05/08/23 due to ED visit for visual change in Mar 2023. Given reassurance. Hx Honer's syndrome and left homonymous hemianopsia. - Last foot exam: 03/09/19 - decreased sensation. Pt declines - Last microalbumin test: Ordered - Last FLP: July 2022 - Last dental exam: ? Assessment & Plan (08/15/2023 9:29 AM EDT): -A1C 8.0% on 08/15/23 - Continue working on lifestyle modification and medication adherence. - Continue glipizide to 10 mg bid. Continue current dose for now, but will consider tapering down - Continue Farxiga 5 mg daily - Treatment Hx: metformin - discontinued due to CKD. - Last eye exam: [facility] eye care. Recently evaluated by another triage technician on 05/08/23 due to ED visit for visual change in Mar 2023. Given reassurance. Hx Honer's syndrome and left homonymous hemianopsia. - Last foot exam: 03/09/19 - decreased sensation. Pt declines - Last microalbumin test: Ordered - Last FLP: July 2022 - Last dental exam: ? Assessment & Plan (05/26/2023 12:16 PM EDT): -A1C 6.7%, trending down, 7.0% on 06/26/22, and 7.3% on 02/28/22 - Continue working on lifestyle modification and medication adherence. - Continue glipizide to 10 mg bid. Continue current dose for now, but will consider tapering down - Continue Farxiga 5 mg daily - Treatment Hx: metformin - discontinued due to CKD. - Last eye exam: [facility] eye care. Recently evaluated by another triage technician on 05/08/23 due to ED visit for visual change in Mar 2023. Given reassurance. Hx Honer's syndrome and left homonymous hemianopsia. - Last foot exam: 03/09/19 - decreased sensation. Pt declines - Last microalbumin test: Ordered - Last FLP: July 2022 - Last dental exam: ? Assessment & Plan (08/14/2022 12:59 PM EDT): -A1C 7.0% on 06/26/22, stable from 7.3% on 02/28/22 - Continue working on lifestyle modification and medication adherence. - Continue glipizide to 10 mg bid. Continue current dose for now, but will consider tapering down - Continue Farxiga 5 mg daily - Treatment Hx: metformin - discontinued due to CKD. - Last eye exam: 01/27/21 No retinopathy, left homonymous hemianopsia. - Last foot exam: 03/09/19 - decreased sensation. Pt declines - Last microalbumin test: Ordered - Last FLP: 10/02/21 TC 218; TG 143; HDL 57; LDL 134. - Last dental exam: ? Assessment & Plan (06/27/2022 5:52 AM EDT): -A1C 7.0% on 06/26/22, stable from 7.3% on 02/28/22 - Continue working on lifestyle modification and medication adherence. - Continue glipizide to 10 mg bid. Continue current dose for now, but will consider tapering down - Continue Farxiga 5 mg daily - Treatment Hx: metformin - discontinued due to CKD. - Last eye exam: 01/27/21 No retinopathy, left homonymous hemianopsia. - Last foot exam: 03/09/19 - decreased sensation. Pt declines - Last microalbumin test: Ordered - Last FLP: 10/02/21 TC 218; TG 143; HDL 57; LDL 134. - Last dental exam: ? Assessment & Plan (05/01/2022 12:40 PM EST): -A1C 7.3% on 02/28/22, slight increase from 6.9% on 10/02/21 - Continue working on lifestyle modification and medication adherence. - Continue glipizide to 10 mg bid. Continue current dose for now - Continue Farxiga 5 mg daily - Treatment Hx: metformin - discontinued due to CKD. - Last eye exam: 01/27/21 No retinopathy, left homonymous hemianopsia. - Last foot exam: 03/09/19 - decreased sensation. Pt declines - Last microalbumin test: - Last FLP: 10/02/21 TC 218; TG 143; HDL 57; LDL 134. - Last dental exam: ? Assessment & Plan (03/04/2022 5:58 PM EST): -A1C 7.3% on 02/28/22, slight increase from 6.9% on 10/02/21 - Continue working on lifestyle modification and medication adherence. - Continue glipizide to 10 mg bid. Continue current dose for now - Continue Farxiga 5 mg daily - Treatment Hx: metformin - discontinued due to CKD. - Last eye exam: 01/27/21 No retinopathy, left homonymous hemianopsia. - Last foot exam: 03/09/19 - decreased sensation. Pt declines - Last microalbumin test: - Last FLP: 10/02/21 TC 218; TG 143; HDL 57; LDL 134. - Last dental exam: ? Hypertension 02/11/2012 Assessment & Plan (11/16/2024 4:28 PM EDT): - Goal BP <130/80 per ACC/AHA guideline (treatment threshold 130/80) - BP is not at goal today, patient states her blood pressures are normal at other providers clinics - Discussed about the importance of lifestyle modification and medication adherence - Check BP at home - Continue amlodipine to 10 mg daily. - Not on ACEI / ARB due to WILLY in the past - Previously on atenolol, which was discontinued in 2020 for ? Assessment & Plan (10/25/2023 11:28 AM EDT): -Goal BP < 140/90 per JNC-8, <130/80 per ACC/AHA guideline (treatment threshold 130/80) BP is not at goal -Discussed about the importance of lifestyle modification and medication adherence. - Check BP at home - Continue amlodipine to 10 mg daily. - Not on ACEI / ARB due to recent decline in renal function and elevated K. Previously on lisinopril - Previously on atenolol, which was discontinued in 2019 for ? -Follow up in 3 mo or sooner if any problem arises Assessment & Plan (08/15/2023 9:27 AM EDT): -Goal BP < 140/90 per JNC-8, <130/80 per ACC/AHA guideline (treatment threshold 130/80) BP is not at goal -Discussed about the importance of lifestyle modification and medication adherence. - Check BP at home - Continue atenolol 25 mg daily. - Continue amlodipine to 10 mg daily. - Not on ACEI / ARB due to recent decline in renal function and elevated K. -Referred to CDTM -Follow up in 3 mo or sooner if any problem arises Assessment & Plan (05/16/2023 9:36 AM EST): -Goal BP < 140/90 per JNC-8, <130/80 per ACC/AHA guideline (treatment threshold 130/80) BP is not at goal -Discussed about the importance of lifestyle modification and medication adherence. - Check BP at home - Continue atenolol 25 mg daily. - Continue amlodipine to 10 mg daily. - Not on ACEI / ARB due to recent decline in renal function and elevated K. -Referred to CDTM -Follow up in 3 mo or sooner if any problem arises Assessment & Plan (08/14/2022 12:57 PM EDT): -Goal BP < 140/90 per JNC-8, <130/80 per ACC/AHA guideline (treatment threshold 130/80) BP is not at goal -Discussed about the importance of lifestyle modification and medication adherence. - Check BP at home - Continue atenolol 25 mg daily. - Continue amlodipine to 10 mg daily. - Not on ACEI / ARB due to recent decline in renal function and elevated K. -Referred to CDTM -Follow up in 3 mo or sooner if any problem arises Assessment & Plan (06/26/2022 3:15 PM EDT): -Goal BP < 140/90 per JNC-8, <130/80 per ACC/AHA guideline (treatment threshold 130/80) BP is not at goal -Discussed about the importance of lifestyle modification and medication adherence. - Check BP at home - Continue atenolol 25 mg daily. - Continue amlodipine to 10 mg daily. - Not on ACEI / ARB due to recent decline in renal function and elevated K. -Referred to CDTM -Follow up in 3 mo or sooner if any problem arises Assessment & Plan (05/01/2022 12:39 PM EST): -Goal BP < 140/90 per JNC-8, <130/80 per ACC/AHA guideline (treatment threshold 130/80) -Discussed about the importance of lifestyle modification and medication adherence. - Check BP at home - Continue atenolol 25 mg daily. - Continue amlodipine to 10 mg daily. - Not on ACEI / ARB due to recent decline in renal function and elevated K. -Refer to CDTM -Follow up in 3 mo or sooner if any problem arises Assessment & Plan (03/04/2022 6:01 PM EST): -Goal BP < 140/90 per JNC-8, <130/80 per ACC/AHA guideline (treatment threshold 130/80) -Discussed about the importance of lifestyle modification and medication adherence. - Check BP at home - Continue atenolol 25 mg daily. - Continue amlodipine to 10 mg daily. - Not on ACEI / ARB due to recent decline in renal function and elevated K. -Refer to CDTM -Follow up in 3 mo or sooner if any problem arises Postoperative hypothyroidism 02/11/2012 Assessment & Plan (11/16/2024 4:30 PM EDT): -[place]ro[place] [address] Patel -Development Rep: [facility], seen on 06/11/2024 -Most recent lab: 10/22/2023TSH 4.09; free T4 =1.14 -Current thyroid replacement: Levothyroxine 212.5 mcg daily -Advised to check lab as instructed Assessment & Plan (10/22/2023 1:41 PM EDT): -Thyroidectomy [place] [address] Patel -Development Rep: [facility], seen on 02/21/23 -Most recent lab: 08/15/22 TSH 1.9, (10/02/21 TSH 0.04 ; Free T4 1.9 ) -Current thyroid replacement: Levothyroxine 212.5 mcg daily -Advised to check lab as instructed -Advised to reschedule appt with head piece assembler Assessment & Plan (05/26/2023 12:18 PM EDT): -Thyroidectomy [place] [address] Patel -Development Rep: [facility], seen on 02/21/23 -Most recent lab: 08/15/22 TSH 1.9, (10/02/21 TSH 0.04 ; Free T4 1.9 ) -Current thyroid replacement: Levothyroxine 212.5 mcg daily -Advised to check lab as instructed -Advised to reschedule appt with head piece assembler Assessment & Plan (08/14/2022 1:00 PM EDT): -Thyroidectomy [place] [address] Patel -Development Rep: [facility], seen on 03/31/[address] San -Most recent lab: 10/02/21 TSH 0.04 ; Free T4 1.9 -Current thyroid replacement: Levothyroxine 212.5 mcg daily -Advised to check lab as instructed -Advised to reschedule appt with head piece assembler Assessment & Plan (06/27/2022 5:48 AM EDT): -Thyroidectomy [place] [address] Patel -Development Rep: [facility], seen on 03/31/[address] San -Most recent lab: 12/12/21 TSH 1.26 (10/02/21 TSH 0.04 ; Free T4 1.9) -Current thyroid replacement: Levothyroxine 212.5 mcg daily -Advised to check lab as instructed -Advised to reschedule appt with head piece assembler Assessment & Plan (05/01/2022 12:39 PM EST): -Thyroidectomy [place] [address] Patel -Development Rep: [facility], seen on 03/31/[address] San -Most recent lab: 10/02/21 TSH 0.04 ; Free T4 1.9 -Current thyroid replacement: Levothyroxine 212.5 mcg daily -Advised to check lab as instructed -Advised to reschedule appt with head piece assembler Assessment & Plan (03/04/2022 5:54 PM EST): -Thyroidectomy [place] [address] Patel -Development Rep: [facility], seen on 03/31/[address] San -Most recent lab: 10/02/21 TSH 0.04 ; Free T4 1.9 -Current thyroid replacement: Levothyroxine 212.5 mcg daily -Advised to check lab as instructed -Advised to reschedule appt with head piece assembler Insomnia 02/11/2012 Migraine 02/11/2012 Mood disorder 02/11/2012 Assessment & Plan (11/16/2024 4:39 PM EDT): - Dx Bipolar - S provider: Dr. Vann in [facility] - Current medications: Depakote; clonazepam; citalopram; olanzapine; trazodone - Continue current [facility] Assessment & Plan (10/22/2023 1:42 PM EDT): - Dx Bipolar - BHS provider: Dr. Vann in [facility] - Current medications: Depakote; clonazepam; citalopram; olanzapine; trazodone - Continue current [facility] Assessment & Plan (05/16/2023 9:38 AM EST): - Dx Bipolar - [facility]HS provider: Dr. Vann in [facility] - Current medications: Depakote; clonazepam; citalopram; olanzapine; trazodone - Continue current [facility] Assessment & Plan (08/14/2022 1:01 PM EDT): - Dx Bipolar - [facility] provider: Dr. Vann in [facility] - Current medications: Depakote; clonazepam; citalopram; olanzapine; trazodone - Continue current [facility] Assessment & Plan (06/27/2022 5:55 AM EDT): - Dx Bipolar - [facility] provider: Dr. Vann in [facility] - Current medications: Depakote; clonazepam; citalopram; olanzapine; trazodone - Continue current [facility] Resolved Problems Problem Noted Date Diagnosed Date Resolved Date Posterior rhinorrhea 09/10/2017 022 Cannabis abuse 06/25/2016 03/04/2022 Encounters Date Type Department Care Team Description 03/10/2025 Refill [facility] [address] [place] [address] Nelda Knox MD 03/10/2025 Telephone [facility] [address] [facility] [place] [address] Nelda Knox MD Care Coordination 03/09/2025 Orders Only [facility] [address] [facility] [place] [address] Nelda Knox MD Seizure ([facility]) ([facility]) (Primary Dx); History of CVA (cerebrovascular accident) 03/09/2025 Telephone [facility] [address] [facility] [place] [address] Nelda Knox MD No Show 03/08/2025 Telephone [facility] [address] [facility] [place] [address] Nelda Knox MD chart prep 03/03/2025 Refill [facility] [address] [facility] [place] [address] Nelda Knox MD 02/14/2025 Refill [facility] [address] [place] [address] Nelda Knox MD 01/14/2025 Refill [facility] [address] [facility] [place] [address] Nelda Knox MD 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) 12/22/2024 Refill [facility] [address] [facility] [place] [address] Nelda Knox MD 12/16/2024 Refill [facility] [address] [place] [address] Nelda Knox MD from Last 3 Months Immunizations Immunization Administration Dates Next Due Moderna Covid-19 Vaccine 12+ 05/30/2021,06/17/19 21,05/19/2020 Tdap 10/25/2020 Zoster, Recombinant 10/25/2020,08/24/2020 Family History Medical History Relation Name Comments HIV Brother Coronary artery disease Maternal Grandfather Hypertension Maternal Grandfather Diabetes Maternal Grandmother Glaucoma Maternal Grandmother Hypertension Maternal Grandmother Diabetes Mother Hypertension Mother Mental illness Other Relation Name Status Comments Brother Maternal Grandfather Maternal Grandmother Mother Other Social History Tobacco Use Types Packs/Day Years Used Date Smoking Tobacco: Every Day Cigarettes Passive Smoke Exposure: Current Smokeless Tobacco: Never Tobacco Cessation:Ready to Q uit: Not Asked; Counseling Given: Not Answered Alcohol Use Standard Drinks/Week Comments Never 0 (1 standard drink = 0.6 oz pur e alcohol) Alcohol Answer Date Recorded Frequency of Alcohol Consumption Not on file 10/22/2023 Average Number of Drinks Not on file 024 Frequency of Binge Drinking Not on file 080 08/2023 Score 0 10/22/2023 Depression Answer Date [...] Orientation Straight 01/15/2022 10 :18 AM EDT Last Filed Vital Signs Vital Sign Reading Time Taken Comments Blood Pressure 140/90 11/12/2024 11:48 AM EDT Pulse 105 11/12/2024 11:48 AM EDT Temperature 36.2 C (97.1 F) 11/12/2024 11:48 AM EDT Respiratory Rate 14 11/12/2024 11:4 8 AM EDT Oxygen Saturation 99% 11/12/2024 11: 48 AM EDT Inhaled Oxygen Concentration - - Weight 58.9 kg (129 lb 12.8 oz) 025 11:48 AM EDT Height 163.2 cm (5' 4.25 ) 05/14/2024 1 0:14 AM EST Body Mass Index 22.11 05/14/2024 10:14 AM EST Plan of Treatment Upcoming Encounters Date Type Department Care Team (Late st Contact Info) Description 04/08/2025 9:00 AM EST Office Visit [facility] [address] [place] [address] Nelda Knox MD [address] [place], [place] [id number] Health Maintenance Due Date Last Done Comments CT Colonography 1960 Colonoscopy 1960 Colorectal Cancer Screening 1960 FIT DNA/Cologuard 1960 FIT 1960 FOBT 1960 Sigmoidoscopy 1960 Disability Screening 1960 Diabetes: Foot Exam 1970 Alcohol/Substance Use Screening 1972 Pneumococcal Vaccine: 50+ Years (1 of 2 - PCV) 1979 Pap Smear 1981 Cervical Cancer Screening 1990 HPV/Cotest 1990 RSV Patients and Patients Aged 60 years or older (1 - Risk 50-74 years 1-dose series) 2010 Depression Monitoring 11/17/2023 05/17/2023, 024 Eye Exam 08/01/2024 08/01/2022, 07/16, 08/01/2022, Additional history exists Diabetes: Hemoglobin A1C 08/11/2024 025, 01/30/2024, 10/22/2023, Additional history exists Lipid Panel 10/21/2024 10/22/2023, 07/18, 10/02/2021, Additional history exists SDOH Screening 10/21/2024 10/22/2023 COVID-19 Vaccine ( season) 2024 05/30/2021, 06/16/2020, 05/19/2020 Influenza Vaccine (#1) 2024 Tobacco Screening 11/12/2025 11/12/2024 Mammogram 10/09/2026 10/09/2024, 09/16, 06/08/2021, Additional history exists DTaP/Tdap/Td Vaccines (2 - Td or Tdap) 10/25/2030 10/25/2020 Zoster Vaccines Completed 10/25/2020, 08/24/2020 HIV Screening Completed 10/02/2021, 03/09/2019 Hepatitis C Screening Completed 10/12/2021 , 10/02/2021, 03/09/2019 HIB Vaccines Aged Out No longer eligi ble based on patient's age to complete this topic HPV Vaccines Aged Out No longer eligi ble based on patient's age to complete this topic Hepatitis A Vaccines Aged Out No long er eligible based on patient's age to complete this topic Hepatitis B Vaccines Aged Out No long er eligible based on patient's age to complete this topic IPV Vaccines Aged Out No longer eligi ble based on patient's age to complete this topic Meningococcal B Vaccine Aged Out No l onger eligible based on patient's age to complete this topic Meningococcal Vaccine Aged Out No sharron arya eligible based on patient's age to complete this topic RSV under 20 months Aged Out No longe r eligible based on patient's age to complete this topic Rotavirus Vaccines Aged Out No longer eligible based on patient's age to complete this topic Goals Goal Patient Goal Type Associated Problems [...] Weekly blood pressure task No Jessie Fisher [place] Weekly blood pressure task Care Plan Weekly blood pressure task No Jessie Fisher [place] Patient has chronic kidney disease Care Plan Patient has chronic kidney disease No PhillipJessie rodríguez [place] Patient has chronic kidney disease Care Plan Patient has chronic kidney disease No TivoliJessie fitzgerald [place] Weekly blood pressure task Care Plan Weekly blood pressure task No TivoliJessie rodríguez [place] Weekly blood pressure task Care Plan Weekly blood pressure task No TivoliJessie fitzgerald [place] Patient has chronic kidney disease Care Plan Patient has chronic kidney disease No TivoliJessie rodríguez [place] Patient has chronic kidney disease Care Plan [...] has chronic kidney disease No Itzel Deluca Weekly blood pressure task [...] Care Plan Weekly blood pressure task No Mickye Avendano PharmD Weekly blood pressure task Care Plan Weekly blood pressure task No Mickey Avendano PharmD Patient has chronic kidney disease Care Plan Patient has chronic kidney disease No Mickey Avendano PharmD Patient has chronic kidney disease Care Plan Patient has chronic kidney disease No Mickey Avendano PharmD Procedures Procedure Name Priority Date/Time Associated Diagnosis Comments BI MAMMOGRAM SCREENING TOMOSYNTHESIS BILATERAL Routine 10/09/2024 1:30 PM EDT Breast cancer screening by mammogram POCT GLYCATED HEMOGLOBIN, TOTAL Routine 05/14/2024 10:26 AM EST Type 2 diabetes mellitus with chronic kidney disease, without long-term current use of insulin, unspecified CKD stage (CMS/HCC) LIPID PANEL WITH REFLEX TO DIRECT LDL Routine 10/22/2023 2:10 PM EDT Type 2 diabetes mellitus with stage 3b chronic kidney disease, without long-term current use of insulin (CMS/HCC) HEPATITIS C ANTIBODY (EXTERNAL RESULTS ONLY) Routine 10/12/2021 9:56 AM EDT HIV 1/2 ANTIGEN/ANTIBODY, FOURTH GENERATION W/RFL Routine 10/02/2021 10:14 AM EDT from Last 3 Months or Most Recently Relevant to Health Maintenance Results * BI Mammogram Screening Tomosynthesis Bilateral (10/09/2024 1:30 PM EDT) Anatomical Region Laterality Modality Breast Bilateral Mammography 10/09/2024 1:30 PM EDT Narrative 10/20/2024 10:47 AM EDT [facility] [address] [place], [place] [address] Mammography Report Signed Patient: Sary Valdivia MR#: [id number] : 1960 Acct:[id number] Age/Sex: 64 / F ADM Date: 10/09/24 Loc: [facility] Attending Dr: Nelda Knox MD Ordering Physician: Nelda Knox MD Results: 1Negative Date of Service: 10/09/24 Follow Up: 1 Year From Orig inal Mammogram Procedure(s): MM tomosynthesis screening BI Accession Number(s): [id number] cc: Nelda Knox MD EXAMINATION: MM SCREENING DIGITAL BREAST TOMOSYNTHESIS, BILATERAL CLINICAL INFORMATION: Screening. Asymptomatic. COMPARISON: Mammography: Comparison is made with available priors TECHNIQUE: Digital breast mammography with tomosynthesis is performed in both the craniocaudal and mediolateral oblique views along with computer-aided detection (CAD). FINDINGS: The breasts are heterogeneously dense, which may obscure small masses (ACR BI-RADS breast composition Category c). There are no significant masses, abnormal calcifications, or other abnormalities. MM/MM tomosynthesis screening BI IMPRESSION: No mammographic evidence of malignancy. ASSESSMENT: BI-RADS BI-RADS 1 - Negative RECOMMENDATION: Routine annual mammography screening. 1 year F/U This examination should not preclude the clinical evaluation of a suspicious palpable abnormality. This patient's information was entered into a reminder system with a target due date for their next mammogram. Electronically signed by: Velma Cote DO 10/20/2024 10:44 AM EDT Dictated By: Velma Cote DO Signed By: <Electronically signed by Velma Cote DO in OV> 10/20/24 1044 DD/ 1330 TD/TT: 10/09/24 1345 [employer] Specialist: Procedure Note Donotuseinterpreter, Image - 10/20/2024 [facility] [address] [place] [address] Mammography Report Signed Patient: Violet ValdiviaOHNelli#: [id number] : [id number]:[id number] Age/Sex: 64 / FADM Date: 10/09/24 Loc: [facility] Attending Dr: Nelda Knox MD Ordering Physician: Nelda Knox MDResults: 1Negative Date of Service: 10/09/24Follow Up: 1 Year From Orig inal Mammogram Procedure(s): MM tomosynthesis screening BI Accession Number(s): [id number] cc: Nelda Knox MD EXAMINATION: MM SCREENING DIGITAL BREAST TOMOSYNTHESIS, BILATERAL CLINICAL INFORMATION: Screening. Asymptomatic. COMPARISON: Mammography: Comparison is made with available priors TECHNIQUE: Digital breast mammography with tomosynthesis is performed in both the craniocaudal and mediolateral oblique views along with computer-aided detection (CAD). FINDINGS: The breasts are heterogeneously dense, which may obscure small masses (ACR BI-RADS breast composition Category c). There are no significant masses, abnormal calcifications, or other abnormalities. MM/MM tomosynthesis screening BI IMPRESSION: No mammographic evidence of malignancy. ASSESSMENT: BI-RADS BI-RADS 1 - Negative RECOMMENDATION: Routine annual mammography screening. 1 year F/U This examination should not preclude the clinical evaluation of a suspicious palpable abnormality. This patient's information was entered into a reminder system with a target due date for their next mammogram. Electronically signed by: Velma Cote DO 10/20/2024 10:44 AM EDT RP Dictated By: Velma Cote DO Signed By: <Electronically signed by Velma Cote DO in OV> 10/20/24 1044 DD/ 1330 TD/TT: 10/09/24 1345 [employer] Specialist: Nelda Knox MD IMG BI PROCEDURES Edited Result - Final * (ABNORMAL) POCT HGB A1C (05/14/2024 10:26 AM EST) Hemoglobin A1C 8.1(A) 4.0 - 6.0 % QC Media Lot # [id number] Lot# Expiration Date Blood 05/14/2024 10:2 6 AM EST us Opal Timmons MD POINT OF CARE TEST EN TER/EDIT ORDERABLES Final Result * Lipid Panel with Reflex to Direct LDL (10/22/2023 2:10 PM EDT) Triglycerides 110 <150 mg/dL [facility] Comment:Desirable Triglyceri de: less than 150 mg/dLBorderline High Triglyceride 150-199 mg/dLHigh Triglyceride: 200-499 mg/dLVery High Triglyceride: greater than or equal to 5OO mg/dL Cholesterol 171 <200 mg/dL [facility] Comment:Desirable Cholestero l: less than 200 mg/dLBorderline High Cholesterol: 200-239 mg/dLHigh Cholesterol: greater than 239 mg/dL LDL Cholesterol Calculated 91 <100 mg/dL [facility] Comment:Desirable LDL: less than 100 mg/dLNear Optimal/Above Optimal LDL: 110- 129 mg/dLBorderline High LDL: 130-159 mg/dLHigh LDL: 160-189 mg/dLVery High LDL: greater than or equal to 190 mg/dL HDL Cholesterol 58 >40 mg/dL [facility] Comment:Desirable HDL: great er than 40 mg/dL Note: This HDL assay may give artificially low results in patients with liver disease. Blood 10/22/2023 2:10 PM EDT 10/22/2023 4:20 PM EDT Nelda Knox MD LAB BLOOD ORDERABLES Final Resul t [facility] [address] [place] [phone] * Hepatitis C Antibody (10/12/2021 9:56 AM EDT) Hepatitis C Antibody Nonreactive Blood 10/12/2021 9:56 AM EDT Historical Provider POINT OF CARE TEST ENTER/ EDIT ORDERABLES Final Result * HIV 1/2 ANTIGEN/ANTIBODY,FOURTH GENERATION W/RFL (10/02/2021 10:14 AM EDT) HIV-1/2 ANTIGEN AND ANTIBODIES, 4TH GENERATION W/ REFLEX NON-REACT REMY NON-REACT REMY [facility] Comment: HIV-1 antigen and HIV-1/HIV-2 antibodies were not detected. There is no laboratory evidence of HIV infection. PLEASE NOTE: This information has been disclosed to you from records whose confidentiality may be protected by state law. If your state requires such protection, then the state law prohibits you from making any further disclosure of the information without the specific written consent of the person to whom it pertains, or as otherwise permitted by law. A general authorization for the release of medical or other information is NOT sufficient for this purpose. For additional information please refer to http://education.[employer].Owned it/faq/DKC700 (This link is being provided for informational/ educational purposes only.) The performance of this assay has not been clinically validated in patients less than 2 years old. 10/02/2021 10:1 4 AM EDT us Nelda Knox MD LAB BLOOD ORDERABLES Final Resul t [facility] [address] from Last 3 Months or Most Recently Relevant to Health Maintenance Additional Health Concerns Active Problems Noted Date [...] 03/10/2025 Patient has chronic kidney disease 03/10/2025 Insurance [facility] < 65 Care Teams Furnace Combination Analyst Relationship Specialty Start Date End Date Nelda Knox MD [address] [place] [address] PCP - General Family Medicine 03/21/12
--- OUTSIDE RECORDS SUMMARY | 2025-03-15 17:55 | XMS_ITS | Encounter Summary ---
Author Organization [facility], Address [address] [place] [address] Phone Care Team Providers Care Sales Analytics Manager Name Role Phone Nelda Knox MD Primary Care Provider [phone] Encounter Details Date Type Department Care Team (Late Contact Info) Description 04/02/2024 Documentation Only [facility] [address] [place] [address] Juju Schmitt [address] [place] [address] Social History Tobacco Use Types [...] Visit [facility] [address] [place] [address] Marques Barreto MD [address] [place] [address] [place] [address] documented as of this encounter Visit Diagnoses Not on filedocumented in this encounter Care Teams Sales Analytics Manager Relationship Specialty Start Date End Date Nelda Knox MD [address] [place] [phone] PCP - General 01/20/19 documented as of this encounter
--- OUTSIDE RECORDS SUMMARY | 2025-03-15 17:55 | XMS_ITS | Encounter Summary ---
Author Organization [employer] Address [address] [facility] [address] [place] [address] Care Team Providers Care Yard Person Name Role Phone Nelda Knox MD Primary Care Provider [phone] Encounter Details Date Type Department Care Team ([facility] st Contact Info) Description 03/10/2025 Refill [facility] [address] [place], [place] [phone] Nelda Knox MD [address] [place], [place] [phone] Social History Tobacco Use Types Packs/Day Years [...] Description 04/08/2025 9:00 AM EST Office Visit [facility] [address] [place] [address] Nelda Knox MD [address] [place] [address] documented as of this encounter Goals Goal [...] Weekly blood pressure task No Mickey Avendano PharmPatricia Patient has chronic kidney disease Care Plan Patient has chronic kidney disease No Mickey Avendano PharmPatricia Patient has chronic kidney disease Care Plan [...] documented as of this encounter Care Teams Yard Person Relationship Specialty Start Date End Date Nelda Knox MD [address] [place] [phone] PCP - General Family Medicine 03/21/12 documented as of this encounter
--- OUTSIDE RECORDS SUMMARY | 2025-03-15 17:55 | XMS_ITS | Encounter Summary ---
Author Organization [facility], Address [address] [place] [address] Phone Care Team Providers Care Newspaper Manager Name Role Phone Nelda Knox MD Primary Care Provider [phone] Encounter Details Date Type Department Care Team (Late Contact Info) Description 05/29/2023 Documentation Only [facility] [address] [place] [address] Juju Schmitt [address] [place] [address] Social History Tobacco Use Types [...] Visit [facility] [address] [place] [address] Marques Barreto MD [address] [place] [address] [place] [address] documented as of this encounter Visit Diagnoses Not on filedocumented in this encounter Care Teams Newspaper Manager Relationship Specialty Start Date End Date Nelda Knox MD [address] [place] [phone] PCP - General 01/20/19 documented as of this encounter
[2025-03-15] MEDS: Valproic Acid (as Sodium Salt) 1,000 MG in Dextrose 5 % 50 ML 60 MG IV (18:16)
--- NOTE | 2025-03-15 20:38 | PC.NURSE ---
Pt reporting 9 headache, requesting tylenol Provider notified and aware New order rec'd Pt medicated per mar Pts daughter at bedside Plan of care ongoing.
[2025-03-15 21:31] VITALS: RESP 16
--- NOTE | 2025-03-15 21:37 | PC.NURSE ---
Pt reporting 9/10 headache w/ no relief from tylenol Pt medicated per may fam remains at bedside Plan of care ongoing.
[2025-03-16 00:04] VITALS: BP 126/80; PULSE 78; RESP 14; TEMP 37.6; O2SAT 95
[2025-03-16 00:14] VITALS: BP 126/80; PULSE 78; RESP 14; TEMP 37.6; O2SAT 95
== END 2025-03-16 00:25 | disposition home or self-care (01) ==
PROVIDERS: Physician Assistant Medical; Emergency Provider Emergency Medicine
DX: R56.9 Unspecified convulsions (principal); F17.210 Nicotine dependence, cigarettes, uncomplicated; F14.90 Cocaine use, unspecified, uncomplicated; R51.9 Headache, unspecified; R94.31 Abnormal electrocardiogram [ECG] [EKG]; R07.89 Other chest pain; M25.512 Pain in left shoulder; Z51.81 Encounter for therapeutic drug level monitoring; Z79.899 Other long term (current) drug therapy; Z03.818 Encounter for observation for suspected exposure to other biological agents ruled out
CPT/HCPCS: 36415; 70450; 71045; 80053; 80164; 80307; 81001; 83735; 84484; 85025; 87637; 93005; 96365; 96366; 96367; 96375; 96376; 99285; J0131; J1953; J2270; J2765; J3360

== ENCOUNTER → 2025-03-15 15:02 | Outpatient (BNV) | payer OTHER, SELFPAY | PROVIDERS: Emergency Provider Emergency Medicine; Visit Provider Internal Medicine | DX: R94.31 Abnormal electrocardiogram [ECG] [EKG] (principal); R56.9 Unspecified convulsions | CPT/HCPCS: 93010 ==

== ENCOUNTER → 2025-03-15 15:37 | Outpatient (BNV) | payer OTHER, SELFPAY | PROVIDERS: Emergency Provider Emergency Medicine; Visit Provider Radiology Diagnostic Radiology | DX: S09.90XA Unspecified injury of head, initial encounter (principal); J01.00 Acute maxillary sinusitis, unspecified; R51.9 Headache, unspecified; Z04.3 Encounter for examination and observation following other accident | CPT/HCPCS: 70450; 71045 ==